=== PATIENT | female | born 1945 | race Caucasian/White ===

== ENCOUNTER → 2017-10-27 09:08 | Outpatient (CLI) | payer MEDICARE, OTHER, SELFPAY ==
[2017-10-27 11:27] LABS: Hemoglobin A1C 6.2 % (4.5-6.2)
== END ==
PROVIDERS: PCP Emergency Medicine; Visit Provider Emergency Medicine
DX: E11.9 Type 2 diabetes mellitus without complications (principal)
CPT/HCPCS: 36415; 83036

== ENCOUNTER 2018-04-11 10:06 | Outpatient (CLI) | payer MEDICARE, OTHER, SELFPAY ==
[2018-04-11 11:45] LABS: Hemoglobin A1C 6.4 % (4.5-6.2)
[2018-04-11 11:50] LABS: BUN 18 mg/dL (7-18); CREATININE 1.02 mg/dL (0.55-1.02); Calcium 9.8 mg/dL (8.5-10.1); Chloride 100 mmol/L (98-107); Cholesterol 171 mg/dL (50-200); Estimated GFR 53.27 (mL/min/1.73m2); Glucose 124 mg/dL (70-100); HDL Cholesterol 59 mg/dL (40-60); LDL CHOLESTEROL 84 mg/dL (<100); Sodium 139 mmol/L (136-145); Triglyceride 136 mg/dL (30-150)
[2018-04-11 13:49] LABS: COMMENT (LAB VIEW ONLY) 90.29 mg/dL; Microalb ug/mg Crea 5.9 ug/mg Cr
== END 2018-04-11 10:26 ==
PROVIDERS: PCP Emergency Medicine; Visit Provider Emergency Medicine
DX: I10 Essential (primary) hypertension (principal); E11.9 Type 2 diabetes mellitus without complications
CPT/HCPCS: 36415; 80048; 80061; 83721; 82043; 82570; 83036

== ENCOUNTER 2018-04-24 00:03 | Outpatient (CLI) | payer MEDICARE, OTHER, SELFPAY ==
--- NOTE | 2018-04-24 11:40 | DI.MAMMO_ITS ---
SYMPTOM/DIAGNOSIS: SCREENING, Z12.31 MAMMOGRAMS: Mammograms were interpreted according to the usual protocol including computer analysis with CAD system, tomosynthesis and C view imaging. Comparison is made with prior examinations. Breast density, Category C. No suspicious masses or microcalcifications are seen. There are scattered calcifications in both breasts which appear stable. Skin and axilla are unremarkable,. IMPRESSION: No evidence for malignancy. Yearly mammography is recommended. Category 1. MQSA ASSESSMENT OF FINDINGS: Negative. Category 1. Patient will receive a letter notifying them of these results. Bi-RADS category C. The breasts are heterogeneously dense, which may obscure small masses.
== END 2018-04-24 00:23 ==
PROVIDERS: PCP Emergency Medicine; Visit Provider Emergency Medicine
DX: Z12.31 Encounter for screening mammogram for malignant neoplasm of breast (principal)
CPT/HCPCS: 77063; 77067

== ENCOUNTER 2018-12-12 01:32 | Outpatient (CLI) | payer MEDICARE, OTHER, SELFPAY ==
--- NOTE | 2018-12-12 07:54 | DI.RAD_ITS ---
EXAM: XR CHEST 2V PA LATERAL INDICATION: dyspnea on exertion, R06.09. COMPARISON: No exams were available for comparison TECHNIQUE: 2D digital imaging was performed. FINDINGS: The lungs are well expanded and free of infiltrate. There is no pleural effusion. The heart is not en larged. The hilar structures, mediastinum and tracheal air column are intact. IMPRESSION: No evidence of acute cardiopulmonary disease.
== END 2018-12-12 01:52 ==
PROVIDERS: PCP Emergency Medicine; Visit Provider Emergency Medicine
DX: R06.09 Other forms of dyspnea (principal)
CPT/HCPCS: 71046

== ENCOUNTER 2018-12-24 00:17 | Outpatient (CLI) | payer MEDICARE, OTHER, SELFPAY ==
--- NOTE | 2018-12-24 06:50 | DI.NM_ITS ---
APPROVED REPORT Exam: Exercise Treadmill Patient Location: Out-Patient Stress Nurse: Nuria Woods RN Baseline Rhythm: Sinus rhythm BMI: 36.75 Indications: Six months of without any other associated symptoms. Medical History Medical History: HTN, Obesity , Diabetes Cardiac Medications: Aspirin, Atenolol, Hydrochlorothiazide, Losartan, Amlodipine, Allergies: Lisinopril, codeine, metformin Cardiac Risk Factors: HTN, DM, FHX of CAD Pretest Chest Pain Characteristics: No chest pain Exercise History: Physically active Lung Sounds: Clear to auscultation Heart Sounds: Regular Stress Test Details Test: Exercise stress testing was performed using a Theo protocol. Nuclear Acquisition: Rest Tc-99m/Stress Tc-99m 1 day Rest Isotope: Tc-99m Sestamibi. Dose: 11 Date: 12/24/2018 Injection Time: 0825 Stress Isotope: Tc-99m Sestamibi. Dose: 33.3 Date: 12/24/2018 Injection Time: 0950 HR Max Heart Rate (APMHR): 148 bpm Target HR (85% APMHR): 125 bpm Max HR Achieved: 145 bpm % of APMHR: 97 HR response to stress: Normal HR response to stress BP BP response to stress: Normal blood pressure response to stress. ECG Resting ECG: Sinus Rhythm ST Change: Normal Ectopy: PVCs Stress ECG: Sinus Tachycardia ST Change: none Arrhythmia: VPC's Recovery ECG: Sinus Rhythm Clinical Reason for Termination: Fatigue Exercise duration: 5 min13 sec Highest Stage Achieved: Stage 2: 2.5 mph at 12% grade. Exercise capacity: 7.05 METs Functional Capacity: Above average capacity Stress ECG Conclusion 1. Patient demonstrated good exercise capacity. 2. This represents a maximal stress test. 3. There is no evidence of ischemia on EKG portion of exam. Test Summary Standing 0 0 93 150/80 97 1 03:00 10 1.7 122 4.64 168/82 2 02:12 12 2.5 143 7.05 180/94 Immediate Recovery 120 198/102 1 Minute Recovery 86 178/86 3 Minutes of Recovery 85 164/86 6 Minutes of Recovery 90 140/78 9 Minutes of Recovery MPI Conclusion There is no evidence of ischemia on myocardial perfusion. ???Ejection fraction 36% without 3 TID ???This represents a normal perfusion study ???The Pickard Score ( 5) estimates an annual cardiovascular mortality of 1% and a five year survival of 94% Using the Pickard Score there is a low probability of any angiographic coronary disease.
== END 2018-12-24 00:37 ==
PROVIDERS: PCP Emergency Medicine; Visit Provider Emergency Medicine
DX: R06.09 Other forms of dyspnea (principal); I10 Essential (primary) hypertension; E66.9 Obesity, unspecified; Z82.49 Family history of ischemic heart disease and other diseases of the circulatory system
CPT/HCPCS: 78452; 93016; 93018; 93017

== ENCOUNTER 2019-01-24 02:18 | Outpatient (CLI) | payer MEDICARE, OTHER, SELFPAY ==
--- NOTE | 2019-01-24 14:12 | DI.CT_ITS ---
EXAM: CT LUMBAR SPINE WO CLINICAL HISTORY: SPINAL STENOSIS M48.00 TECHNIQUE: WO CONTRAST COMPARISON: No exams were available for comparison FINDINGS: At L5-S1, there is a vacuum disc, degenerative change of the facet joints, and endplate osteophytes. The findings result in moderate bilateral neural foraminal stenosis. There is mild narrowing of the central spinal canal. At L4-L5, there is a vacuum disc, degenerative facet arthropathy and endplate osteophytes. There is moderately severe narrowing of the central spinal canal. There is moderately severe bilateral neural foraminal stenosis. At L3-L4, there is a vacuum disc, degenerative facet arthropathy, and endplate osteophytes. There is a diffuse disc bulge. These findings all contribute to cause severe central spinal canal stenosis. There is severe bilateral neural foraminal stenosis. At L2-L3, there is a vacuum disc, facet arthropathy and endplate osteophytes. There is a mild diffus e disc bulge. There is mild central spinal canal stenosis. There is mild bilateral neural foraminal stenosis. At L1-L2, there is a vacuum disc, endplate osteophytes and facet arthropathy. No significant central spinal canal stenosis or neural foraminal stenosis is present. Degenerative changes are seen at the sacroiliac joints bilaterally. No ankylosis or erosive changes are seen. There is no spondylolysis or spondylolisthesis. Note is made of colonic diverticulosis. There is atherosclerosis of the abdominal aorta. IMPRESSION: Multilevel degenerative changes in the lumbar spine. The findings result in multilevel central spina l canal and neural foraminal stenosis as described above.
== END 2019-01-24 02:38 ==
PROVIDERS: PCP Emergency Medicine; Visit Provider Emergency Medicine
DX: M48.061 Spinal stenosis, lumbar region without neurogenic claudication (principal); M51.36 Other intervertebral disc degeneration, lumbar region; M47.816 Spondylosis without myelopathy or radiculopathy, lumbar region
CPT/HCPCS: 72131

== ENCOUNTER 2019-02-15 00:40 | Outpatient (CLI) | payer MEDICARE, SELFPAY ==
--- NOTE | 2019-02-15 14:32 | DI.MRI_ITS ---
EXAM: MR LUMBAR SPINE WO CLINICAL HISTORY: bilateral leg weakness. Severe spinal stenosis, R29.898. TECHNIQUE: Multiplanar multisequence MRI was performed. COMPARISON: CT LUMBAR SPINE WO from 01/24/2019 FINDINGS: The conus medullaris has a normal appearance and location. At L5-S1 there are degenerative endplate signal changes. There is disc desiccation. There is a smal l diffuse disc bulge. Degenerative changes of the facet. There is mild narrowing of the central spi nal canal. Marked bilateral neural foraminal stenosis is present. At L4-L5 there is disc desiccation. There is diffuse disc bulge. There are hypertrophic changes of the facets and ligamentum flavum. There is moderate central spinal canal stenosis. There is moderat e bilateral neural foraminal stenosis. At L3-L4 there is disc desiccation. Endplate degenerative signal changes are present. There is a di ffuse disc bulge. There are hypertrophic changes of the facet and ligamentum flavum. These all cont ribute to cause marked central spinal canal stenosis. Moderately severe bilateral neural foraminal s tenosis is present. At L2-L3 there is degenerative disc disease. There are endplate degenerative signal changes present. There are degenerative changes of the facets and ligamentum flavum. There is moderately severe reba tral spinal canal stenosis. Moderate bilateral neural foraminal stenosis is present. At L1-L2 there is disc desiccation. There are degenerative endplate signal changes. There is a diff use disc bulge. There is mild narrowing of the central spinal canal. Degenerative changes of the fa cets are present. Mild narrowing of the left neural foramen is present. IMPRESSION: Multilevel severe degenerative changes in the lumbar spine resulting in central spinal canal and neur al foraminal stenosis as described above.
== END 2019-02-15 01:00 ==
PROVIDERS: PCP Emergency Medicine; Visit Provider Emergency Medicine
DX: R29.898 Other symptoms and signs involving the musculoskeletal system (principal); M48.07 Spinal stenosis, lumbosacral region; M51.37 Other intervertebral disc degeneration, lumbosacral region
CPT/HCPCS: 72148

== ENCOUNTER 2019-03-18 11:25 | Outpatient (CLI) | payer MEDICARE, SELFPAY ==
[2019-03-18 12:40] LABS: Abs Immature Grans 0.01 k/cumm (0.0-0.09); Absolute Basophil Count 0.06 k/cumm (0.0-0.2); Absolute Eosinophil Count 0.23 k/cumm (0.0-0.7); Absolute Lymphocyte Count 1.98 k/cumm (1.2-3.4); Absolute Monocyte Count 0.46 k/cumm (0.11-0.7); Absolute Neutrophil Count 4.99 k/cumm (1.2-6.7); Basophils % 0.8; HCT 41.9 % (36.0-46.0); HGB 14.4 g/dL (12.0-15.5); Immature Grans % 0.1 %; Lymphocytes % 25.6; Mean Corp. HGB Concentration 34.4 g/dL (32.0-36.0); Mean Corpuscular Hemoglobin 30.3 pg (27.0-33.0); Mean Platelet Volume 11.4 fL (8.0-11.0); Neutrophils % 64.5; Platelet Count 204 x1000/uL (130-400); RBC 4.76 m/cumm (4.00-5.20); RBC Distribution Width 13.8 % (11.7-14.6); White Blood Cell Count 7.73 k/cumm (4.4-10.8)
[2019-03-18 13:00] LABS: ALT 34 U/L (14-59); AST 15 U/L (15-37); Albumin 3.8 g/dL (3.4-5.0); Alkaline Phosphatase 64 U/L (46-116); Anion Gap 10.4 mmol/L (3-11); BUN 24 mg/dL (7-18); Bilirubin, Total 0.7 mg/dL (0.2-1.0); CO2 28.6 mmol/L (21.0-32.0); CREATININE 1.06 mg/dL (0.55-1.02); Calcium 9.8 mg/dL (8.5-10.1); Chloride 102 mmol/L (98-107); Estimated GFR 50.81 (mL/min/1.73m2); Glucose 123 mg/dL (74-106); Potassium 3.7 mmol/L (3.5-5.1); Sodium 141 mmol/L (136-145); Total Protein 7.3 g/dL (6.4-8.2)
[2019-03-18 13:03] LABS: Hemoglobin A1C 6.6 % (3.8-5.6)
== END 2019-03-18 11:45 ==
PROVIDERS: PCP Emergency Medicine; Visit Provider Internal Medicine
DX: I10 Essential (primary) hypertension (principal); E11.9 Type 2 diabetes mellitus without complications; R50.9 Fever, unspecified; Z01.818 Encounter for other preprocedural examination
CPT/HCPCS: 36415; 80053; 83036; 85025

== ENCOUNTER 2019-03-19 03:37 | Outpatient (CLI) | payer MEDICARE, SELFPAY | END 2019-03-19 03:57 | PROVIDERS: PCP Emergency Medicine; Visit Provider Internal Medicine | DX: I48.91 Unspecified atrial fibrillation (principal) | CPT/HCPCS: 93225 ==

== ENCOUNTER 2019-03-22 08:22 | Outpatient (CLI) | payer MEDICARE, SELFPAY ==
--- NOTE | 2019-03-22 10:46 | DI.US_ITS ---
APPROVED REPORT EXAM: Comprehensive 2D, Doppler, and color-flow Echocardiogram Patient Location: Out-Patient Property Worker: Dominique Rice RDCS (AE) Indications: Atrial Fibrillation, SOB Conclusion Left Ventricle : The left ventricle is normal size. The left ventricular systolic function is normal . The left ventricular ejection fraction is within the normal range. Left ventricular systolic functi on is mildly decreased. Borderline concentric left ventricular hypertrophy. There is normal LV segme ntal wall motion. Cannot fully quantify diastolic function given the atrial fibrillation. LVEF is 40- 44%. Right Ventricle : The right ventricle is normal size. The right ventricular systolic function is norm al. Atria : Left atrium is dilated. The right atrium size is normal. Aortic Valve : Aortic valve is trileaflet. Mild aortic regurgitation. There is no aortic valvular wisam nosis. Mitral Valve : The mitral valve is normal in structure. Moderate mitral regurgitation. No evidence of mitral valve stenosis. Tricuspid Valve : The tricuspid valve is normal in structure. Mild to moderate tricuspid regurgitatio n. There is no tricuspid valve stenosis. Great Vessels : The aortic root is mildly dilated (3.4cm) The ascending aorta size is dilated (3.4cm ). The IVC was not visualized. There is no prior echocardiogram available for comparison. Wall motion Left Ventricle The left ventricle is normal size. The left ventricular systolic function is normal. The left ventric ular ejection fraction is within the normal range. Left ventricular systolic function is mildly decre ased. Borderline concentric left ventricular hypertrophy. There is normal LV segmental wall motion. C annot fully quantify diastolic function given the atrial fibrillation. LVEF is 40-44%. Right Ventricle The right ventricle is normal size. The right ventricular systolic function is normal. Atria Left atrium is dilated. The right atrium size is normal. Aortic Valve Aortic valve is trileaflet. There is no aortic valvular stenosis. Mild aortic regurgitation. Mitral Valve The mitral valve is normal in structure. No evidence of mitral valve stenosis. Moderate mitral regurg itation. Tricuspid Valve The tricuspid valve is normal in structure. There is no tricuspid valve stenosis. Mild to moderate tr icuspid regurgitation. Pulmonic Valve Pulmonic valve is not well visualized. There is no pulmonic valvular stenosis. Trace pulmonic regurgi tation. Great Vessels The aortic root is mildly dilated (3.4cm) The ascending aorta size is dilated (3.4cm). The IVC was no t visualized. Pericardium There is no pericardial effusion. 2D Dimensions IVSd 1.05 cm F: 0.6-1.0 LV EDV A2C 88.5 mL PWd 1.05 cm F: 0.6 - 1.0 LV EDV A4C 93.2 mL LVDd 4.85 cm F: 3.8 - 5.2 LA Volume Index Biplane 45.0 mL/m2 LVDs 3.40 cm F: 2.2 - 3.5 LA Area A4C 25.51 cm2 Aortic Root 3.40 cm F: 2.7 - 3.3 LA Area A2C 25.32 cm2 Left Atrium 4.87 cm F: 2.7 - 3.8 EF AP4 45.9 % RA Area A4C 19.52 cm2 EF AP2 44.4 % LVOT 2.00 cm (M/F) 1.5-2.5 EF BP 44.8 % Ascending Aorta 3.38 cm F: 2.3 - 3.1 LVEF (Teich) 56.3 % LVEF (Cordova's) 44.77 % F: 54 - 74 LV Volume 69.15 mL F: 46 - 106 LV Volume Index 36.20 mL/m2 F: 29 - 61 FS 29.50 % LV Diastology MV E' medial 0.049 (>0.07 m/s) LV E/e MED 16.60 (<14) Aortic Valve LVOT Area 3.25 cm2 LVOT Vmax 0.87 m/s LVOT Mean Ronak. 0.49 m/s LVOT Peak Gr. 3.0 mmHg AoV Area Vmax 2.18 cm2 LVOT Mean Gr. 1.2 mmHg AoV Area/ BSA (Vmax) 1.14 cm2/m2 LVOT VTI 0.124 m MIRANDA Mean Ronak. 0.00 m/s AoV Vmax 1.29 (0.5-1.3 m/s) MIRANDA Mean Ronak. Index 0.90 cm2/m2 AoV Mean Ronak. 0.93 m/s AoV Peak Grad 6.7 mmHg LVOT SV 40.34 mL AoV Mean Grad 3.8 (<5 mmHg) AoV VTI 0.208 (0.18-0.25 m) AV Regurg Decel. 2968 msec AoV Area VTI 1.93 (2.5-4.5 cm2) AoV Area/ BSA (VTI) 1.01 cm/m2 Mitral Valve MV E Max Ronak. 0.81 (0.4-1.3 m/s) MV Decel. Time 165 (160-240 msec) MV PHT 48 msec MVA PHT 4.55 cm2 Tricuspid Valve TV Regurg Vmax 2.07 m/s RAP Estimate 3.00 mmHg TR P. Gradient 17.1 mmHg RVSP 20.2 mmHg
== END 2019-03-22 08:42 ==
PROVIDERS: PCP Emergency Medicine; Visit Provider Internal Medicine
DX: I48.91 Unspecified atrial fibrillation (principal); R06.02 Shortness of breath; R06.09 Other forms of dyspnea; I10 Essential (primary) hypertension
CPT/HCPCS: 93306

== ENCOUNTER 2019-03-22 09:29 | Outpatient (CLI) | payer MEDICARE, SELFPAY ==
--- NOTE | 2019-03-22 11:32 | W.HOLTRPT ---
Date of service: 03/22/19 Time of Service: 11:32 Holter Monitor Report Holter Monitor Note: There is a 48-hour Holter monitor ordered for the indication of atrial fibrillation. ?Patient was in atrial fibrillation for the entirety of the recording. ?Her maximal heart rate was 205bpm and mean heart rate was 95. ?There were no episodes of ventricular tachycardia. ?There were occasional (3.4%) single ventricular ectopic beats. ?There is no evidence of high degree heart block or pauses greater than 3 seconds. ?There were no patient triggered events.
== END 2019-03-22 09:49 ==
PROVIDERS: PCP Emergency Medicine; Visit Provider Internal Medicine
DX: I48.91 Unspecified atrial fibrillation (principal); R06.02 Shortness of breath; R06.09 Other forms of dyspnea; I10 Essential (primary) hypertension
CPT/HCPCS: 93227; 93306; 93226

== ENCOUNTER → 2019-04-01 08:29 | Outpatient (BNVA) | payer MEDICARE, SELFPAY | PROVIDERS: PCP Emergency Medicine; Referring Provider Emergency Medicine; Visit Provider Internal Medicine Cardiovascular Disease | DX: R69 Illness, unspecified (principal) ==

== ENCOUNTER 2019-04-01 08:34 | Outpatient (CLI) | payer MEDICARE, SELFPAY | END 2019-04-01 08:54 | PROVIDERS: PCP Emergency Medicine; Visit Provider Internal Medicine Cardiovascular Disease | DX: I48.91 Unspecified atrial fibrillation (principal); I42.9 Cardiomyopathy, unspecified; E11.9 Type 2 diabetes mellitus without complications; Z79.84 Long term (current) use of oral hypoglycemic drugs; I10 Essential (primary) hypertension; Z01.810 Encounter for preprocedural cardiovascular examination | CPT/HCPCS: 99204; 99215; 93005; 93010 ==

== ENCOUNTER 2019-08-19 15:16 | Inpatient (IN) | payer MEDICARE, SELFPAY ==
[2019-08-19] VITALS (74 sets, daily range): BP systolic 139–159; BP diastolic 80–110; PULSE 68–119; RESP 16–37; TEMP 37–37.4; O2SAT 92–97
--- NOTE | 2019-08-19 15:45 | DI.RAD_ITS ---
EXAM: XR CHEST 2V PA LATERAL CLINICAL HISTORY: SOB TECHNIQUE: 2D digital imaging was performed. COMPARISON: CR XR CHEST 2V PA LATERAL from 12/12/2018 FINDINGS: The heart is enlarged, unchanged. The aorta is mildly ectatic. The lungs appear clear. No infiltra te, effusion or pulmonary edema is seen. Degenerative changes are noted in the spine. IMPRESSION: Cardiomegaly. No acute pulmonary findings. DATA REPOSITORY: RADIATION DOSE DELIVERED:
--- NOTE | 2019-08-19 15:56 | ED.GENADUL_ITS ---
Discharge Plan Disposition Condition: Good Discharge Details Chief Complaint: SOB Admit Date/Time: 08/20/19 22:26 Admit Provider: Tyrone Aquino Attending Provider: Tyrone Aquino Primary Care Provider: Sukhdeep Fisher ED Provider: Jodie Long Discharge Instructions Activity:: Activity as Tolerated Equipment/Supplies:: No Equipment Needed Diet:: Low Sodium Discharge Orders Discharge Orders: Discharge Order (Routine); Ordered 08/22/19 Ordered By: Kostas Mtz Discharge Data Discharge Date/Time-TO BE ENTERED AT DEPARTURE: 08/19/19 18:40 Medical Decision Making Kaleigh Fox is a 74 y/o woman who presented to the emergency department with SOB worsening in the past few days. On exam Pt with mild tachycardia 90-110, clear lungs, trace b/l CHASE. Concern for ACS, CHF, PNA, other. Doubt PE. Exam/hx not /c/w acute aortic process, sepsis. Plan for EKG, CXR, screening labs, telemetry. Labs reviewed, BNP elevated, trop neg. CXR neg. Suspect CHF at this time. Plan for admission for improved rate control of afib, CHF management. Clinical Impression: CHF, afib with RVR Disposition: [facility] inpt Medical Records Medical records reviewed: Yes I reviewed the patient's medical records. Imaging Data Radiologic Study: Attestation: I personally reviewed and interpreted this imaging study as follows: Radiologist's impression: EXAM: XR CHEST 2V PA LATERAL CLINICAL HISTORY: SOB TECHNIQUE: 2D digital imaging was performed. COMPARISON: CR XR CHEST 2V PA LATERAL from 12/12/2018 FINDINGS: The heart is enlarged, unchanged. The aorta is mildly ectatic. The lungs appear clear. No infiltrate, effusion or pulmonary edema is seen. Degenerative changes are noted in the spine. IMPRESSION: Cardiomegaly. No acute pulmonary findings. Lab Data Lab results reviewed: Yes I reviewed the patient's lab results. ECG Data Attestation: I personally reviewed and interpreted this ECG (s) as follows: Interpretation: EKG shows atrial fibrillation at 118 with frequent PVCs, normal axis, no STEMI, nondiagnostic EKG HPI General Mode of arrival: ambulatory . Date/Time Provider Initiated Documentation: 08/19/19 15:33 . Limitations to Documentation: no limitations . Information obtained by: patient, RN notes reviewed and old records reviewed . HPI Narrative: Kaleigh lagunas a is a 74-year-old woman with a history of A. fib, cardiomyopathy, hypertension on Eliquis presenting to the emergency department shortness of breath. Patient reports that she has been short of breath for the past few months, but this seems worse in the past few days. Patient reports that her metoprolol dose was increased approximately 1 week ago. She was diagnosed with atrial fibrillation within the last few months. Patient relates that the last few nights sleeping in her bed is been difficult due to shortness of breath, and last night she got up and walked around her house for few hours before being able to go to sleep. She also reports some shortness of breath with exertion. She reports mild intermittent cough over the past few months unchanged, and mild swelling of her legs that seems new in the past week or 2. Patient denies any new pain, fever, vomiting, diarrhea, numbness, weakness. Patient reports that she feels otherwise well in her usual state of health. Eating and drinking as usual. Related Data Home Medications Medication Instructions Recorded Confirmed Calcium 600 + D(3) 1 tab PO DAILY 02/18/14 08/19/19 Ocuvite with Lutein 1 tab PO DAILY 02/18/14 08/19/19 blood-glucose meter #100 each 06/12/18 08/07/19 lancets 28 gauge #100 ea 06/12/18 08/07/19 blood sugar diagnostic #100 each 03/18/19 08/07/19 magnesium oxide 400 mg PO DAILY 03/18/19 08/19/19 apixaban 5 mg tablet 5 mg PO BID #180 tab 03/20/19 08/19/19 glipizide 5 mg tablet, extended 5 mg PO DAILY #90 tab-cap 03/20/19 08/19/19 release 24 hr diltiazem HCl 120 mg PO HS #30 cap 08/22/19 furosemide 40 mg PO QAM #30 tab 08/22/19 losartan 100 mg PO DAILY #30 tab 08/22/19 metoprolol succinate [Toprol XL] 200 mg PO DAILY #30 tab 08/22/19 potassium chloride [Klor-Con M20] 20 meq PO BID #60 tab 08/22/19 Previous Rx's Medication Instructions Recorded blood-glucose meter #100 each 06/12/18 lancets 28 gauge #100 ea 06/12/18 blood sugar diagnostic #100 each 03/18/19 apixaban 5 mg tablet 5 mg PO BID #180 tab 03/20/19 glipizide 5 mg tablet, extended 5 mg PO DAILY #90 tab-cap 03/20/19 release 24 hr diltiazem HCl 120 mg PO HS #30 cap 08/22/19 furosemide 40 mg PO QAM #30 tab 08/22/19 losartan 100 mg PO DAILY #30 tab 08/22/19 metoprolol succinate [Toprol XL] 200 mg PO DAILY #30 tab 08/22/19 potassium chloride [Klor-Con M20] 20 meq PO BID #60 tab 08/22/19 Allergies Allergy/AdvReac Type Severity Reaction Status Date / Time lisinopril AdvReac Severe COUGH Verified 08/19/19 15:27 codeine AdvReac Intermediate Nausea Verified 08/19/19 15:27 metformin AdvReac Intermediate diarrhea Verified 08/19/19 15:27 General Stated Complaint: SOB KAILYN: 2 Review of Systems Narrative: Constitutional: denies fevers Eyes: denies eye pain ENT: denies ear pain, dental pain, sore throat Cardiovascular: denies chest pain, reports lower leg edema Respiratory: reports SOB, cough GI: denies abdominal pain, vomiting, diarrhea : denies flank pain MSK: denies back pain, neck pain, arthralgias, myalgias Skin: denies rash Neuro: denies headaches, numbness, weakness PFSH Medical History Cystocele (Acute 06/24/14) Diabetes mellitus (Acute) Hypertension (Chronic) Infection resistant to penicillin (Acute) MRSA abscess x 2 Kidney stone (Acute) Obesity (Chronic) Paroxysmal SVT (supraventricular tachycardia) (Acute 02/15/17) zio patch Polyp of colon (Acute 02/03/04) Spinal stenosis (Acute) 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 Surgery 02/16. Vaginal Hyst. Surgical History H/O surgical procedure (Acute) a. MINDA/BSO with colporrhaphy and cystocele repair 02/20/2014 b. colonoscopy Oophrectomy, Both (02/20/14) TVH, BSO with R sided uterosacral ligament suspension with Anterior Coloporrhapy. EP/aoc Vaginal hysterectomy Family History Mother Diabetes Father Heart disease Diabetes Sister , AGE 85 Cancer Diabetes Heart disease Sister , AGE 51 Heart disease Sister , AGE 84 Diabetes Heart disease Brother , AGE 34 No problems noted. Brother , AGE 82 Diabetes Heart disease Social History Smoking/Tobacco Use Status: Former Tobacco Use Quit Date: 03/06/81 Alcohol Intake: never Drug use: Never Substance use type: does not use Household members: spouse Housing: house Pets and animals: Yes Pets and animals: dog(s) Sexually active: No Do you think of yourself as: straight/heterosexual Current gender identity: female What type of physical activity do you participate in: none Frequency: does not exercise Radha/Mosque: Alevism Special radha needs: No Do you feel safe at home: Yes Do you feel safe in your relationship?: Yes Exam Narrative Exam Narrative: Constitutional: well and [id number], pleasant, conversing normally HENT: head atraumatic/normocephalic/normal inspection, mucous membranes moist Eyes: conjunctiva normal, sclera normal, pupils 3mm b/l Neck: no stridor, normal ROM, trachea midline Chest: normal inspection Resp: normal work of breathing, LCTAB Cardio: rate 90-110, irregularly irregular rhythm, no murmur appreciated GI: abdomen soft, non-tender, non-distended Back: normal inspection, no rash Skin: warm, dry, normal color, no rash Neuro: alert, not altered, grossly non-focal, normal tone Ext: trace LE edema b/l, no calf TTP b/l Psych: normal mood, normal affect, normal behavior Course Vital Signs Vital signs: Vital Signs Temperature 37.0 C 08/19/19 15:22 Pulse 119 H 08/19/19 15:22 Respiratory Rate 20 08/19/19 15:22 Pulse Oximetry 97 08/19/19 15:22 Temperature 37.0 C 08/19/19 15:22 Temperature Source Temporal Artery Scan 08/19/19 15:22 Pulse 119 H 08/19/19 15:22 Respiratory Rate 20 08/19/19 15:29 Respiratory Effort 08/19/19 15:29 Blood Pressure Position Supine 08/19/19 15:22 Pulse Oximetry 97 08/19/19 15:22 Oxygen Delivery Method Room Air 08/19/19 15:22 Oxygen Flow Rate 0 08/19/19 15:22 Pain Level 0 08/19/19 15:22
[2019-08-19 16:13] LABS: Abs Immature Grans 0.01 k/cumm (0.0-0.09); Absolute Basophil Count 0.03 k/cumm (0.0-0.2); Absolute Eosinophil Count 0.15 k/cumm (0.0-0.7); Absolute Lymphocyte Count 1.57 k/cumm (1.2-3.4); Absolute Neutrophil Count 5.05 k/cumm (1.2-6.7); Basophils % 0.4; Eosinophils % 2.1; HCT 38.9 % (36.0-46.0); HGB 13.2 g/dL (12.0-15.5); Immature Grans % 0.1 %; Lymphocytes % 21.5; Mean Corp. HGB Concentration 33.9 g/dL (32.0-36.0); Mean Corpuscular Hemoglobin 30.2 pg (27.0-33.0); Mean Platelet Volume 11.8 fL (8.0-11.0); Monocytes % 6.8; Neutrophils % 69.1; Platelet Count 159 x1000/uL (130-400); RBC 4.37 m/cumm (4.00-5.20); RBC Distribution Width 13.6 % (11.7-14.6); White Blood Cell Count 7.31 k/cumm (4.4-10.8)
[2019-08-19 16:32] LABS: ALT 115 U/L (14-59); AST 42 U/L (15-37); Albumin 3.8 g/dL (3.4-5.0); Alkaline Phosphatase 62 U/L (46-116); Anion Gap 7.9 mmol/L (3-11); BUN 13 mg/dL (7-18); Bilirubin, Total 0.7 mg/dL (0.2-1.0); CO2 28.1 mmol/L (21.0-32.0); CREATININE 0.83 mg/dL (0.55-1.02); Calcium 9.4 mg/dL (8.5-10.1); Chloride 103 mmol/L (98-107); Glucose 112 mg/dL (74-106); NT-proBNP 2464 pg/mL (<300); Potassium 3.7 mmol/L (3.5-5.1); Sodium 139 mmol/L (136-145); Total Protein 7.3 g/dL (6.4-8.2)
--- NOTE | 2019-08-19 16:33 | DI.VRAD_ITS ---
PROCEDURE INFORMATION: Exam: XR Chest, 2 Views Exam date and time: 08/19/2019 4:13 PM Age: 74 years old Clinical indication: Shortness of breath; Patient HX: SOB TECHNIQUE: Imaging protocol: XR of the chest Views: 2 views. COMPARISON: CR XR CHEST 2V PA LATERAL 12/12/2018 8:01 AM FINDINGS: Lungs: Unremarkable. No consolidation. Pleural space: Unremarkable. No pleural effusion. No pneumothorax. Heart/Mediastinum: Unremarkable. No cardiomegaly. Bones/joints: Degenerative changes in the spine. IMPRESSION: No acute finding. Dictated and Authenticated by: Celestina Macedo MD. Ordering:GURVINDER Feliciano MD
[2019-08-19 16:38] LABS: Troponin I < 0.05 ng/mL (<0.06)
[2019-08-19 16:45] LABS: D-Dimer 887 ng/mlFEU (<500)
[2019-08-19] MEDS: Furosemide 40 MG/4 ML VIAL IVP (17:16)
[2019-08-19 17:28] LABS: Bilirubin Negative (Negative); Blood Negative (Negative); Clarity Clear (Clear); Glucose Negative (Negative); Ketones Negative (Negative); Leukocyte Esterase Negative (Negative); Nitrite Negative (Negative); Urobilinogen 0.2 EU/dL (Up TO 0.2); pH 6.5 (5-8)
--- NOTE | 2019-08-19 18:15 | HPE_ITS ---
Date of service: 08/19/19 Time of Service: 18:15 Assessment and Plan Assessment and plan (1) SOB (shortness of breath): Status: Acute Assessment and plan: SOB. Not entirely clear, but I think the most c oherent diagnosis is exacerbation of CHF, unclear precipitant, but possibly relating to RVR (I definitely do not think recent increase Lopressor responsible as patient has certainly not had florid pulmonary edema, but will keep this consideration in mind as we titrate for better rate control). The minimal d- Dimer, corrected for age, is of doubtful significance and at this point I do not see clinical need to pursue dx of PE. CHF: trial Lasix, trend troponins, repeat ECHO, titrate Lopressor for target HR approximately 80 ADs: Reviewed, requests DNR. History of Present Illness History of Present Illness Chief Complaint: SOB Narrative: 74 female with h/o AF, dx'ed 04/25, and CHF (EF 40-44%, and unquantifiable diastolic dysfunction). Since has had a degree of baseline SOB. One week [employer] Lopressor increased due to RVR. Comes in now with 1-2 days increasing SOB, along with one day orthopnea. No CP, denies ankle swelling. In ER findings of note for neg troponin, no acute change EKG, CXR read as normal (to my read perhaps slight cephalization), and BNP >2400. d-Dimer 887. Patient given 40 Lasix IV. Review of Systems All systems reviewed & are unremarkable except as noted in HPI and below PFSH Medical History Cystocele (Acute 06/24/14) Diabetes mellitus (Acute) Hypertension (Chronic) Infection resistant to penicillin (Acute) MRSA abscess x 2 Kidney stone (Acute) Obesity (Chronic) Paroxysmal SVT (supraventricular tachycardia) (Acute 02/15/17) zio patch Polyp of colon (Acute 02/03/04) Spinal stenosis (Acute) 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 Surgery 02/16. Vaginal Hyst. Surgical History H/O surgical procedure (Acute) a. MINDA/BSO with colporrhaphy and cystocele repair 02/20/2014 b. colonoscopy Oophrectomy, Both (02/20/14) TVH, BSO with R sided uterosacral ligament suspension with Anterior Coloporrhapy. EP/aoc Vaginal hysterectomy Family History Mother Diabetes Father Heart disease Diabetes Sister , AGE 85 Cancer Diabetes Heart disease Sister , AGE 51 Heart disease Sister , AGE 84 Diabetes Heart disease Brother , AGE 34 No problems noted. Brother , AGE 82 Diabetes Heart disease Social History Smoking/Tobacco Use Status: Former Tobacco Use Quit Date: 03/06/81 Alcohol Intake: never Drug use: Never Substance use type: does not use Household members: spouse Housing: house Pets and animals: Yes Pets and animals: dog(s) Sexually active: No Do you think of yourself as: straight/heterosexual Current gender identity: female What type of physical activity do you participate in: none Frequency: does not exercise Radha/Latter-Day: Cheondoism Special radha needs: No Do you feel safe at home: Yes Do you feel safe in your relationship?: Yes Meds Home Medications and Allergies Home Medications Medication Instructions Recorded Confirmed Type calcium carbonate-vitamin D3 1 tab PO DAILY 02/18/14 08/19/19 History [Calcium 600 + Vit D Tablet] vit A,C and X-pbsbqs-bqvmhiyx 1 tab PO DAILY 02/18/14 08/19/19 History [Ocuvite Tablet] blood-glucose meter #100 each 06/12/18 08/07/19 Rx lancets 28 gauge #100 ea 06/12/18 08/07/19 Rx blood sugar diagnostic #100 each 03/18/19 08/07/19 Rx magnesium oxide 400 mg PO DAILY 03/18/19 08/19/19 History amlodipine 5 mg tablet 5 mg PO HS #90 tab 03/20/19 08/19/19 Rx apixaban 5 mg tablet 5 mg PO BID #180 tab 03/20/19 08/19/19 Rx glipizide 5 mg tablet, extended 5 mg PO DAILY #90 tab-cap 03/20/19 08/19/19 Rx release 24 hr losartan 50 mg tablet 50 mg PO DAILY #90 tab-cap 03/20/19 08/19/19 Rx metoprolol succinate 50 mg 50 mg PO DAILY #90 tab 03/22/19 08/19/19 Rx tablet,extended release 24 hr hydrochlorothiazide 25 mg tablet 25 mg PO DAILY #90 tab 05/20/19 08/19/19 Rx Allergies Allergy/AdvReac Type Severity Reaction Status Date / Time lisinopril AdvReac Severe COUGH Verified 08/19/19 15:27 codeine AdvReac Intermediate Nausea Verified 08/19/19 15:27 metformin AdvReac Intermediate diarrhea Verified 08/19/19 15:27 Exam Narrative Exam Narrative: 159/99, 100-118 during my visit, 37.0, 23, 93% RA. HEENT unremarkable; neck supple, unable to read JVP; lungs clear; heart irr/irr w/o MRG; abdomen soft and NT; extremities trace pedal edema, calves NT, pulse 2+/=; neuro Ox3, non-focal Results Labs Result diagrams: 08/19/19 15:45 08/19/19 15:45 Labs: Laboratory Results - last 24 hr 08/19/19 08/19/19 08/19/19 15:45 15:45 15:45 WBC 7.31 RBC 4.37 Hgb 13.2 Hct 38.9 MCV 89.0 MCH 30.2 MCHC 33.9 RDW 13.6 Plt Count 159 MPV 11.8 H Immature Gran % 0.1 Neutrophils % 69.1 Lymphocytes % 21.5 Monocytes % 6.8 Eosinophils % 2.1 Basophils % 0.4 Absolute Neutrophils 5.05 Absolute Lymphocytes 1.57 Absolute Monocytes 0.50 Absolute Eosinophils 0.15 Absolute Basophils 0.03 D-Dimer 887 H Sodium 139 Potassium 3.7 Chloride 103 Carbon Dioxide 28.1 Anion Gap 7.9 BUN 13 Creatinine 0.83 Estimated GFR/1.73 m2 >= 60.00 Glucose 112 H Calcium 9.4 Total Bilirubin 0.7 AST 42 H ALT 115 H Alkaline Phosphatase 62 Troponin I < 0.05 NT-Pro-B Natriuret Pep 2464 H Total Protein 7.3 Albumin 3.8 Urine Color Urine Clarity Urine pH Ur Specific [place] Urine Protein Urine Ketones Urine Blood Urine Nitrite Urine Bilirubin Urine Urobilinogen Ur Leukocyte Esterase Urine Glucose 08/19/19 17:15 WBC RBC Hgb Hct MCV MCH MCHC RDW Plt Count MPV Immature Gran % Neutrophils % Lymphocytes % Monocytes % Eosinophils % Basophils % Absolute Neutrophils Absolute Lymphocytes Absolute Monocytes Absolute Eosinophils Absolute Basophils D-Dimer Sodium Potassium Chloride Carbon Dioxide Anion Gap BUN Creatinine Estimated GFR/1.73 m2 Glucose Calcium Total Bilirubin AST ALT Alkaline Phosphatase Troponin I NT-Pro-B Natriuret Pep Total Protein Albumin Urine Color Yellow Urine Clarity Clear Urine pH 6.5 Ur Specific [place] 1.020 Urine Protein Negative Urine Ketones Negative Urine Blood Negative Urine Nitrite Negative Urine Bilirubin Negative Urine Urobilinogen 0.2 Ur Leukocyte Esterase Negative Urine Glucose Negative Last Vital Signs Temp 37.0 C 08/19/19 15:22 Pulse 93 H 08/19/19 16:21 Resp 23 08/19/19 16:30 BP 159/99 H 08/19/19 16:21 Pulse Ox 93 L 08/19/19 16:30 COVID-19 Screening In the past 14 days, have you traveled outside of [place] or [place]?: NO Had IN PERSON contact w/suspected or confirmed C-19 person: No
[2019-08-19 20:12] LABS: Troponin I < 0.05 ng/mL (<0.06)
[2019-08-19] MEDS: Metoprolol 12.5 MG TAB PO ×2 (20:24→22:27)
[2019-08-19] MEDS: amLODIPine 5 MG TAB PO (21:45)
[2019-08-20] VITALS (9 sets, daily range): BP systolic 112–156; BP diastolic 65–92; PULSE 62–99; RESP 17–20; TEMP 35.2–37.6; O2SAT 93–97
[2019-08-20 07:52] LABS: Troponin I < 0.05 ng/mL (<0.06)
--- NOTE | 2019-08-20 07:53 | PDOC.CMIN ---
- If Service Date Differs Date of service: 08/20/19 Time of Service: 07:54 Care Management Initial Assess REASON FOR HOSPITALIZATION:: CHF PAST MEDICAL HISTORY/PAST SURGICAL HISTORY:: DM, HTN, MRSA, obestiy, SVT, polyp of colon, spinal stenosis, uterine procidentia. Surgical hx: MINDA, oophrectomy bilat PREVIOUS FUNCTIONAL STATUS/SOCIAL/FAMILY SUPPORTS:: Kaleigh lives with her spouse Cam in [place], [place]. She is indepedent with all ADL's, transportation and care. She has two children that live local and has a good support system. 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 CURRENT FUNCTIONAL STATUS:: Kaleigh is alert and engaged she ask questions about CHF and what that means. CM provided education related to disease process and offered teaching guide CHF book to reinforce teaching. CM reviewed importance of daily weights, signs and symptoms of CHF and when to contact her provider. She states that she has a good relationship with primary care provider. Kaleigh is hopeful to be discharged tommorow. She will receive additional diuretic today, and then anticipate a daily dose. She does obtain her medications through a mail order pharmacy however reports she also uses [facility] in [place] in addition. ADVANCE DIRECTIVES:: Kaleigh has an advance directive Zulay Tracy is her agent and daughter Has patient been provided with info about the portal/API?: Yes Did the patient sign up for the portal?: No (refused ) CODE STATUS:: DNR/DNI INSURANCE COVERAGE / FINANCIAL ISSUES:: [employer], Medicare, [employer] CURRENT HOME/COMMUNITY SERVICES/EQUIPMENT:: No current services PRIMARY CARE PHYSICIAN:: POTENTIAL DISCHARGE NEEDS:: Follow up with primary care provider and cardiology which she has scheduled. PATIENT/FAMILY EDUCATION NEEDS:: Discharge education, limitations and follow up plan of care including ask me three and self management. CHF education including teaching tool. Patient states she has a scale at home. ANTICIPATED BARRIERS TO DISCHARGE:: No anticipated barriers TRANSPORTATION:: Via private car with family at time of discharge. PLAN:: Kaleigh is receiving IV diuretics, and medication adjustment. She will be discharged home with no additional services at time of discharge. CM provided educational resources and will continue to assess for ongoing discharge needs.
[2019-08-20] MEDS: glipiZIDE C.R. 5 MG TABCR PO (08:17)
[2019-08-20] MEDS: Normal Saline Flush 10 ML SYR IVP ×2 (08:17→14:54)
[2019-08-20] MEDS: Losartan 50 MG TAB PO (08:18)
[2019-08-20] MEDS: Metoprolol CR 50 MG TABCR PO (08:18)
[2019-08-20] MEDS: Calcium 600mg/Vit D 200U TAB 1 TAB PO (08:18)
[2019-08-20] MEDS: Beta-Carotene(A) w/C,E, & Minerals TAB 1 TAB PO (08:18)
[2019-08-20 08:32] LABS: COVID-19 RT-PCR UVMMC Result Negative (Negative)
--- NOTE | 2019-08-20 08:40 | DI.US_ITS ---
APPROVED REPORT EXAM: Comprehensive 2D, Doppler, and color-flow Echocardiogram Patient Location: In-Patient Room/Bed: 212 Program Evaluation Consultant: Dominique Rice RDCS (AE) Indications: CHF Other Information Study Quality: Good Conclusion Left Ventricle : The left ventricle is normal size. The left ventricular systolic function is normal. The left ventricular ejection fraction is within the normal range. There is normal left ventricular wall thickness. There is normal LV segmental wall motion. Transmitral Doppler flow pattern suggests i mpaired LV relaxation. LVEF is 42%. Right Ventricle : The right ventricle is normal size. The right ventricular systolic function is norm al. The RVSP is 22.8 mmHg. Atria : Left atrium is moderately dilated. Right atrium is moderately dilated. Aortic Valve : The Aortic valve is sclerotic. Aortic valve is trileaflet. There is no aortic valvular stenosis. Mild aortic regurgitation. Mitral Valve : There is mitral annular calcification. No evidence of mitral valve stenosis. Moderate mitral regurgitation. Tricuspid Valve : The tricuspid valve is normal in structure. There is no tricuspid valve stenosis. M ild to moderate tricuspid regurgitation. Great Vessels : IVC is normal in size and collapses >50% with inspiration. The ascending aorta is mil dly dilated. Compared to echocardiogram dated 03/22/2019: There is no significant change. Wall motion Left Ventricle The left ventricle is normal size. The left ventricular systolic function is normal. The left ventric ular ejection fraction is within the normal range. There is normal left ventricular wall thickness. T here is normal LV segmental wall motion. Transmitral Doppler flow pattern suggests impaired LV relaxa tion. There is no ventricular septal defect visualized. LVEF is 42%. Right Ventricle The right ventricle is normal size. The right ventricular systolic function is normal. The RVSP is 22 .8 mmHg. Atria Left atrium is moderately dilated. Right atrium is moderately dilated. The interatrial septum is inta ct with no evidence for an atrial septal defect. Aortic Valve The Aortic valve is sclerotic. Aortic valve is trileaflet. There is no aortic valvular stenosis. Mild aortic regurgitation. Mitral Valve There is mitral annular calcification. No evidence of mitral valve stenosis. Moderate mitral regurgit ation. Tricuspid Valve The tricuspid valve is normal in structure. There is no tricuspid valve stenosis. Mild to moderate tr icuspid regurgitation. Pulmonic Valve The pulmonary valve is normal in structure. There is no pulmonic valvular stenosis. Trace pulmonic re gurgitation. Great Vessels The aortic root is normal in size. The ascending aorta is mildly dilated. IVC is normal in size and c ollapses >50% with inspiration. Pericardium There is no pericardial effusion. 2D Dimensions IVSD d PLAX 1.01 cm F: 0.6-1.0 LV Vol A2C d MOD 79.6 mL LVPW d PLAX 1.03 cm F: 0.6 - 1.0 LV Vol A4C d MOD 98.2 mL LVID d PLAX 4.86 cm F: 3.8 - 5.2 LA vol/ BSA A2C s A-L 47.0 mL/m2 LVDs 3.70 cm F: 2.2 - 3.5 LA vol/ BSA A4C s A-L 48.6 mL/m2 Ao Root d 3.15 cm F: 2.7 - 3.3 LA Vol/ BSA Biplane s A-L 47.9 mL/m2 RA Area A4C 21.28 cm2 LA Area A4C s MOD 26.55 cm2 RA Vol/ BSA A4C s A-L 34.2 mL/m2 LA Area A2C s MOD 26.09 cm2 Ao Asc Diam d 3.43 cm F: 2.3 - 3.1 LV EF A4C MOD 41.0 % LV EF Teichholz 47.4 % LV EF A2C MOD 42.0 % LVEF ([place]'s) 40.99 % F: 54 - 74 LV EF Biplane MOD 41.0 % LV Volume 69.23 mL F: 46 - 106 SV 37.31 mL LV Volume Index 36.24 mL/m2 F: 29 - 61 SV Index 19.46 mL/m2 LV Vol Biplane MOD 91.0 mL FS 23.80 % M-Mode TAPSE 2.46 cm (M/F) >1.7 LV Diastology MV E' medial 0.060 (>0.07 m/s) MV E Vmax 1.05 (0.4-1.3 m/s) LV E/e MED 17.60 (<14) MV E' lateral 0.056 (>0.1 m/s) LV E/e LAT 18.75 (<14) MV E/E' medial 17.61 MV E/E' lateral 18.76 Aortic Valve LVOT Area 3.25 cm2 AoV Area Vmax 2.47 cm2 LVOT Vmax 0.90 m/s AoV Area/ BSA (Vmax) 1.29 cm2/m2 LVOT Mean Ronak. 0.56 m/s MIRANDA Mean Ronak. 2.03 cm2 LVOT Peak Grad 3.3 mmHg MIRANDA Mean Ronak. Index 1.06 cm2/m2 LVOT Mean Grad 1.5 mmHg AR DT 1384 msec LVOT VTI 0.160 m AR PHT 401 msec LVOT Diam s 2.00 cm AoV Vmax 1.19 m/s Velocity Ratio 0.75 AoV Mean Ronak. 0.89 m/s AoV Peak Grad 5.7 mmHg LVOT SV 51.94 mL AoV Mean Grad 3.4 mmHg AoV VTI 0.221 m AoV Area VTI 2.35 cm2 AoV Area/ BSA (VTI) 1.22 cm/m2 Mitral Valve MV DT 170 (160-240 msec) MR Vmax 5.31 m/s MV PHT 49 msec MR VTI 1.692 m MV Area PHT 4.45 cm2 MR Peak Grad 112.9 mmHg MR Mean Grad 84.0 mmHg MR PISA Radius 0.59 cm MR EROA 0.15 cm2 MR Aliasing Velocity 0.35 m/s MR PISA 2.22 cm2 Pulmonary Valve PV Vmax 0.89 (0.5-1.5 m/s) RVOT Peak Gr. 2.03 mmHg PV Peak Grad 3.2 mmHg RVOT Mean Gr. 1.05 mmHg PV Mean Grad 1.8 mmHg RVOT VTI 0.109 m PV VTI 0.135 m RVOT Vmax 0.71 m/s Tricuspid Valve TR Peak Grad 19.7 mmHg TR Vmax 2.22 m/s RA Pressure 3.00 mmHg RVSP (TR) 22.8 mmHg
--- NOTE | 2019-08-20 11:35 | CHAPLAIN ---
Kaleigh was sitting up in her chair when I visited this morning. She had an echo is waiting to hear the results of that, which is makes her a little anxious, she said. 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 She loves where she lives, she said. Kaleigh's been in touch with family and friends by phone calls and texts.
--- NOTE | 2019-08-20 13:25 | W.NUTRFU ---
Date of service: 08/20/19 Time of Service: 13:25 Nutritional Follow up NOTE: 74 year old female admitted with SOB, CHF with BMI of 41 indicating morbid obesity. Following Low Sodium diet with adequate intake. Not at risk for nutritional decline at this time. will follow prn. Time Spent in Nutritional Counseling and Treatment: 0
--- NOTE | 2019-08-20 14:21 | W.PM.PROGNOT ---
Date of Service Date of service: 08/20/19 Time of Service: 14:22 Assessment and Plan Assessment and plan (1) Acute on chronic heart failure with reduced ejection fraction and diastolic dysfunction: Status: Acute Assessment and plan: Continue IV diuretics this afternoon along with adjustment of her losartan and her metoprolol. Continue Eliquis which she has been on chronically. We will repeat her labs in the morning and switch over to oral Lasix tomorrow. will change to inpatient status as the patient will need another ovenright stay and possibly two in order to titrate up her CHF and AF medications (2) Cardiomyopathy: Status: Acute Assessment and plan: As above Qualifiers: Cardiomyopathy type: other Qualified Code(s): I42.8 - Other cardiomyopathies (3) Atrial fibrillation: Status: Chronic Assessment and plan: Control atrial fibrillation rate with adjustment of her Toprol-XL. Will use PRN IV Lopressor as needed.Continue home dose of Eliquis Qualifiers: Atrial fibrillation type: longstanding persistent Qualified Code(s): I48.11 - Longstanding persistent atrial fibrillation (4) Hypertension: Status: Chronic Assessment and plan: Adjust metoprolol and losartan along with addition of diuretics as listed above. Qualifiers: Hypertension type: essential hypertension Qualified Code(s): I10 - Essential (primary) hypertension (5) Mitral regurgitation: Status: Chronic Qualifiers: Cardiac valve disease etiology: nonrheumatic Qualified Code(s): I34.0 - Nonrheumatic mitral (valve) insufficiency Subjective Subjective Interval history since last seen: 74-year-old female with a history of essential hypertension, chronic atrial fibrillation, diastolic heart failure who recently had an adjustment of her Toprol-XL due to poorly controlled atrial fibrillation rate. She now presented to the emergency department last night with increasing dyspnea and orthopnea of a few days duration not associated with any chest pain or pressure. She was noted to be in acute congestive heart failure as noted by an elevated proBNP of 2400 with normal troponin levels and no acute ischemic ST or T wave changes. She was treated last night with 40 [address] of Lasix and Dr. Aquino gave her an additional Lopressor 25 mg last night to help with her atrial fibrillation rate. Patient states she is feeling better today but still gets dyspneic with any kind of effort. Patient's echocardiogram from this morning demonstrates normal left ventricular wall thickness and no wall motion abnormalities although there is some mild systolic impairment with a left ventricular ejection fraction 42% as well as transmitral Doppler flow pattern suggestive of impaired LV relaxation. RV size and function was normal and RVSP was normal at 22.8. Patient has moderate biatrial enlargement as well as mild MAC and moderate MR as well as mild to moderate TR. Her atrial fibrillation rate is less than optimally controlled with heart rates running in the 110s. We will give the patient more IV Lasix this afternoon and put her on scheduled doses of Lasix as well as increase of her losartan and her metoprolol. Exam Narrative Exam Narrative: Morbidly obese female in no acute distress but with some audible wheezing. She is alert and oriented person place time circumstance. Lungs reveal bibasilar rales no rhonchi there is some end expiratory wheezes. Heart is irregularly irregular and slightly tachycardic with a loud grade 4/6 systolic murmur over the apex. Abdomen is obese soft nontender no bruits. Lower extremities are without peripheral cyanosis or edema. Objective Objective Clinical Data: Abnormal lab results 08/19/19 08/19/19 08/19/19 Range/Units 15:45 15:45 15:45 MPV 11.8 H (8.0-11.0) fL D-Dimer 887 H (<500) ng/mlFEU Glucose 112 H (74-106) mg/dL AST 42 H (15-37) U/L ALT 115 H (14-59) U/L NT-Pro-B Natriuret Pep 2464 H (<300) pg/mL Vital Signs Temperature 36.2 C L 08/20/19 12:55 Temperature Source Tympanic 08/20/19 12:55 Pulse 62 08/20/19 12:55 Pulse Rhythm Regular 08/20/19 07:59 Pulse 103 H 08/19/19 19:01 Respiratory Rate 18 08/20/19 12:55 Respiratory Effort 08/20/19 07:59 Respiratory Depth Normal 08/20/19 07:59 Respiratory Pattern Normal 08/20/19 07:59 Blood Pressure 128/85 08/20/19 12:55 Blood Pressure Mean 109 08/19/19 19:01 Blood Pressure Position Supine 08/19/19 15:22 Pulse Oximetry 97 08/20/19 12:55 Oxygen Delivery Method Room Air 08/20/19 12:55 Oxygen Flow Rate 0 08/20/19 12:55 Pain Level 0 08/20/19 12:55 Intake & Output 08/19/19 08/20/19 08/20/19 23:59 11:59 23:59 Intake Total 460 / 460 450 / 1040 590 / 1040 Output Total 2500 / 2500 1700 / 2200 500 / 2200 Balance -2040 / -2040 -1250 / -1160 90 / -1160 Weight 96.7 kg Intake: IV Oral 450 / 450 440 / 1030 590 / 1030 Output: Urine 2500 / 2500 1700 / 2200 500 / 2200 Other: Urine Color Pale Yellow Straw Yellow Urine Appearance Clear Clear Clear Urine Odor Normal None None Voiding Methods Toilet Toilet Toilet Laboratory Results WBC 7.31 k/cumm (4.4-10.8) 08/19/19 15:45 RBC 4.37 m/cumm (4.00-5.20) 08/19/19 15:45 Hgb 13.2 g/dL (12.0-15.5) 08/19/19 15:45 Hct 38.9 % (36.0-46.0) 08/19/19 15:45 MCV 89.0 fL (80-95) 08/19/19 15:45 MCH 30.2 pg (27.0-33.0) 08/19/19 15:45 MCHC 33.9 g/dL (32.0-36.0) 08/19/19 15:45 RDW 13.6 % (11.7-14.6) 08/19/19 15:45 Plt Count 159 x1000/uL (130-400) 08/19/19 15:45 MPV 11.8 fL (8.0-11.0) H 08/19/19 15:45 Immature Gran % 0.1 % 08/19/19 15:45 Neutrophils % 69.1 08/19/19 15:45 Lymphocytes % 21.5 08/19/19 15:45 Monocytes % 6.8 08/19/19 15:45 Eosinophils % 2.1 08/19/19 15:45 Basophils % 0.4 08/19/19 15:45 Absolute Neutrophils 5.05 k/cumm (1.2-6.7) 08/19/19 15:45 Absolute Lymphocytes 1.57 k/cumm (1.2-3.4) 08/19/19 15:45 Absolute Monocytes 0.50 k/cumm (0.11-0.7) 08/19/19 15:45 Absolute Eosinophils 0.15 k/cumm (0.0-0.7) 08/19/19 15:45 Absolute Basophils 0.03 k/cumm (0.0-0.2) 08/19/19 15:45 D-Dimer 887 ng/mlFEU (<500) H 08/19/19 15:45 Sodium 139 mmol/L (136-145) 08/19/19 15:45 Potassium 3.7 mmol/L (3.5-5.1) 08/19/19 15:45 Chloride 103 mmol/L (98-107) 08/19/19 15:45 Carbon Dioxide 28.1 mmol/L (21.0-32.0) 08/19/19 15:45 Anion Gap 7.9 mmol/L (3-11) 08/19/19 15:45 BUN 13 mg/dL (7-18) 08/19/19 15:45 Creatinine 0.83 mg/dL (0.55-1.02) 08/19/19 15:45 Estimated GFR/1.73 m2 >= 60.00 (mL/min/1.73m2) 08/19/19 15:45 Glucose 112 mg/dL (74-106) H 08/19/19 15:45 Calcium 9.4 mg/dL (8.5-10.1) 08/19/19 15:45 Total Bilirubin 0.7 mg/dL (0.2-1.0) 08/19/19 15:45 AST 42 U/L (15-37) H 08/19/19 15:45 ALT 115 U/L (14-59) H 08/19/19 15:45 Alkaline Phosphatase 62 U/L (46-116) 08/19/19 15:45 Troponin I < 0.05 ng/mL (<0.06) 08/20/19 06:45 NT-Pro-B Natriuret Pep 2464 pg/mL (<300) H 08/19/19 15:45 Total Protein 7.3 g/dL (6.4-8.2) 08/19/19 15:45 Albumin 3.8 g/dL (3.4-5.0) 08/19/19 15:45 Urine Color Yellow (Yellow) 08/19/19 17:15 Urine Clarity Clear (Clear) 08/19/19 17:15 Urine pH 6.5 (5-8) 08/19/19 17:15 Ur Specific [place] 1.020 (1.005-1.025) 08/19/19 17:15 Urine Protein Negative mg/dL (Negative) 08/19/19 17:15 Urine Ketones Negative mg/dL (Negative) 08/19/19 17:15 Urine Blood Negative (Negative) 08/19/19 17:15 Urine Nitrite Negative (Negative) 08/19/19 17:15 Urine Bilirubin Negative (Negative) 08/19/19 17:15 Urine Urobilinogen 0.2 EU/dL (Up TO 0.2) 08/19/19 17:15 Ur Leukocyte Esterase Negative (Negative) 08/19/19 17:15 Urine Glucose Negative mg/dL (Negative) 08/19/19 17:15 COVID-19 PCR Negative (Negative) 08/19/19 18:24 Nasopharyn COVID-19 PCR Not Applicable 08/19/19 18:24 Ref Test Perform Site [facility] 08/19/19 18:24
[2019-08-20] MEDS: Potassium Chloride 20 MEQ TABCR PO ×2 (14:53→20:59)
[2019-08-20] MEDS: Metoprolol 50 MG TAB PO (14:53)
[2019-08-20] MEDS: Furosemide 40 MG/4 ML VIAL IVP (14:54)
[2019-08-20] MEDS: amLODIPine 5 MG TAB PO (20:59)
[2019-08-21] VITALS (7 sets, daily range): BP systolic 104–141; BP diastolic 70–89; PULSE 75–112; RESP 18–20; TEMP 35.4–36.8; O2SAT 91–96
[2019-08-21 07:56] LABS: Anion Gap 7.7 mmol/L (3-11); BUN 23 mg/dL (7-18); CO2 30.3 mmol/L (21.0-32.0); CREATININE 1.04 mg/dL (0.55-1.02); Calcium 9.6 mg/dL (8.5-10.1); Chloride 101 mmol/L (98-107); Estimated GFR 51.94 (mL/min/1.73m2); Glucose 144 mg/dL (74-106); NT-proBNP 1231 pg/mL (<300); Potassium 3.9 mmol/L (3.5-5.1); Sodium 139 mmol/L (136-145)
[2019-08-21] MEDS: glipiZIDE C.R. 5 MG TABCR PO (08:33)
[2019-08-21] MEDS: Calcium 600mg/Vit D 200U TAB 1 TAB PO (08:33)
[2019-08-21] MEDS: Beta-Carotene(A) w/C,E, & Minerals TAB 1 TAB PO (08:33)
[2019-08-21] MEDS: Potassium Chloride 20 MEQ TABCR PO ×2 (08:34→19:32)
[2019-08-21] MEDS: Losartan 50 MG TAB 100 MG PO (08:34)
[2019-08-21] MEDS: Metoprolol CR 100 MG TABCR PO ×2 (08:34→12:30)
[2019-08-21] MEDS: Furosemide 40 MG TAB PO (08:34)
[2019-08-21] MEDS: Normal Saline Flush 10 ML SYR IVP (08:35)
[2019-08-21] MEDS: Apixaban 5 MG TAB PO ×2 (11:33→19:32)
[2019-08-21] MEDS: Magnesium Oxide 400 MG TAB PO (11:33)
--- NOTE | 2019-08-21 13:45 | W.NUTCONSULT ---
Date of service: 08/21/19 Time of Service: 13:00 Nutritional Consult ASSESSMENT: 74 y/o female w CHF, DM, and obesity. Currently 89.1 kg, 196% IBW w/ BMI 38.4 indicating obesity. Intake is 100% at meals. Labs on 08/20 reveal BG 144 and Na WNL. At risk for fluid imbalance . On Diuretic. She would benefit from ~ 2000k/jane, 107g pro, 4419-0041 ml fluid /day. She stated that she just eats regular foods to manage her DM and has a glucometer and takes her Blood sugar regularly. Reports BG levels of 140 are normal for her. NUTRITIONAL DIAGNOSIS: Obesity AEB: BMI 38.4 INTERVENTION: Recommend CHO controlled diet, CHO counting, apppropriate portion control to help with DM and elevated BMI. Reviewed CHO counting with patient and CDM for supper order and calculated g/CHO per meal with review of desired goals for BG control. Provided literature on s/s hypo and hyper glycemia with action steps for self management. Enc adequate fluids r/t lasix use and CHF. Reviewed menu choices for CHO control. Suggested small portion of healthy snack before bed at night to mitigate elevated FBG upon awakening. MONITORING AND EVALUATION: Monitor weight, labs and PO intake. Check BG levels regularly. Time Spent in Nutritional Counseling and Treatment: 20
--- NOTE | 2019-08-21 16:20 | W.PM.PROGNOT ---
Date of Service Date of service: 08/21/19 Time of Service: 16:20 Assessment and Plan Assessment and plan (1) Acute on chronic heart failure with reduced ejection fraction and diastolic dysfunction: Status: Acute Assessment and plan: Acute on chronic heart failure she has both mild reduced ejection fraction 42% on her echocardiogram but also has evidence of impaired left ventricular relaxation as demonstrated by transmitral Doppler flow pattern. RV size and function is normal and her RVSP is normal. At this point I think the primary issue is controlling her atrial fibrillation rate to prevent her from going into congestive heart failure. We will keep her on a daily dose of furosemide and the increased dose of losartan but uptitrate her Toprol-XL and add a small dose of diltiazem CD at bedtime. We will continue to monitor her rate and rhythm. I am to put on a pulse oximetry overnight to monitor for nocturnal desaturation which might be suggestive of sleep apnea. I have ordered thyroid function test along with follow-up BMP and proBNP in the morning. In the morning we will get an ambulatory pulse oximetry to see if she desaturates. If subjectively she feels dyspneic with ambulation but her heart rate is controlled and her O2 saturation is okay then I think she should be safe to be discharged and considered for an outpatient PSG. (2) Atrial fibrillation: Status: Chronic Assessment and plan: Continue home dose of Eliquis. Continue titration of rate controlling medications. Will get outpatient Holter monitor to assess stability of her rate control once she is discharged Qualifiers: Atrial fibrillation type: longstanding persistent Qualified Code(s): I48.11 - Longstanding persistent atrial fibrillation (3) Cardiomyopathy: Status: Acute Assessment and plan: As above Qualifiers: Cardiomyopathy type: other Qualified Code(s): I42.8 - Other cardiomyopathies (4) Hypertension: Status: Chronic Assessment and plan: Adjust metoprolol and losartan along with addition of diuretics as listed above. Qualifiers: Hypertension type: essential hypertension Qualified Code(s): I10 - Essential (primary) hypertension (5) Mitral regurgitation: Status: Chronic Qualifiers: Cardiac valve disease etiology: nonrheumatic Qualified Code(s): I34.0 - Nonrheumatic mitral (valve) insufficiency Subjective Subjective Interval history since last seen: Patient denies any chest pain or pressure or palpitations although with activity her heart rate will go up as high as 146 atrial fibrillation. At resting her heart rates in the low 100s. She does get dyspneic with activity. I increased her Toprol-XL to 200 mg today and will add diltiazem CD 120 mg tonight. We will continue to treat her with diuretics at 40 mg daily. Yesterday with IV Lasix she diuresed 4800 mL with a net negative intake output of -3500. Today she has had a net -1100 mL. This morning her blood pressure was a little on the low side but in spite of that I had them go ahead and give her her Toprol XL dose. Exam Narrative Exam Narrative: Elderly female sitting up in her chair. She is now wearing street clothes. Her weight is now down to 89.1 kg from her admission weight of 96.7 kg. Lungs are clear to auscultation anteriorly but she has some posterior bibasilar rales. Heart is irregularly irregular but the rate is slightly fast. Abdomen is obese soft and nontender. Feet and ankles are without edema. Objective Objective Clinical Data: Abnormal lab results 08/21/19 Range/Units 06:12 BUN 23 H D (7-18) mg/dL Creatinine 1.04 H (0.55-1.02) mg/dL Glucose 144 H (74-106) mg/dL NT-Pro-B Natriuret Pep 1231 H (<300) pg/mL Vital Signs Temperature 36.1 C L 08/21/19 15:30 Temperature Source Tympanic 08/21/19 15:30 Pulse 88 08/21/19 15:30 Pulse Rhythm Irregular 08/21/19 15:41 Pulse 103 H 08/19/19 19:01 Respiratory Rate 19 08/21/19 15:30 Respiratory Effort Non-Labored 08/21/19 15:41 Respiratory Depth Normal 08/21/19 15:41 Respiratory Pattern Normal 08/21/19 15:41 Blood Pressure 122/74 08/21/19 15:30 Blood Pressure Mean 109 08/19/19 19:01 Blood Pressure Position Supine 08/19/19 15:22 Pulse Oximetry 91 L 08/21/19 15:30 Oxygen Delivery Method Room Air 08/21/19 15:30 Oxygen Flow Rate 0 08/21/19 15:30 Pain Level 0 08/21/19 15:30 Comment 08/21/19 11:45 Intake & Output 08/20/19 08/21/19 08/21/19 23:59 11:59 23:59 Intake Total 830 / 1280 210 / 690 480 / 690 Output Total 3150 / 4850 550 / 1800 1250 / 1800 Balance -2320 / -3570 -340 / -1110 -770 / -1110 Weight 89.1 kg Intake: IV Oral 830 / 1270 200 / 680 480 / 680 Output: Urine 3150 / 4850 550 / 1800 1250 / 1800 Other: Urine Color Yellow Yellow Pale Yellow Urine Appearance Clear Clear Clear Urine Odor Normal Normal None Stool Size Moderate Stool Characteristics Soft Formed Voiding Methods Toilet Toilet Toilet Laboratory Results WBC 7.31 k/cumm (4.4-10.8) 08/19/19 15:45 RBC 4.37 m/cumm (4.00-5.20) 08/19/19 15:45 Hgb 13.2 g/dL (12.0-15.5) 08/19/19 15:45 Hct 38.9 % (36.0-46.0) 08/19/19 15:45 MCV 89.0 fL (80-95) 08/19/19 15:45 MCH 30.2 pg (27.0-33.0) 08/19/19 15:45 MCHC 33.9 g/dL (32.0-36.0) 08/19/19 15:45 RDW 13.6 % (11.7-14.6) 08/19/19 15:45 Plt Count 159 x1000/uL (130-400) 08/19/19 15:45 MPV 11.8 fL (8.0-11.0) H 08/19/19 15:45 Immature Gran % 0.1 % 08/19/19 15:45 Neutrophils % 69.1 08/19/19 15:45 Lymphocytes % 21.5 08/19/19 15:45 Monocytes % 6.8 08/19/19 15:45 Eosinophils % 2.1 08/19/19 15:45 Basophils % 0.4 08/19/19 15:45 Absolute Neutrophils 5.05 k/cumm (1.2-6.7) 08/19/19 15:45 Absolute Lymphocytes 1.57 k/cumm (1.2-3.4) 08/19/19 15:45 Absolute Monocytes 0.50 k/cumm (0.11-0.7) 08/19/19 15:45 Absolute Eosinophils 0.15 k/cumm (0.0-0.7) 08/19/19 15:45 Absolute Basophils 0.03 k/cumm (0.0-0.2) 08/19/19 15:45 D-Dimer 887 ng/mlFEU (<500) H 08/19/19 15:45 Sodium 139 mmol/L (136-145) 08/21/19 06:12 Potassium 3.9 mmol/L (3.5-5.1) 08/21/19 06:12 Chloride 101 mmol/L (98-107) 08/21/19 06:12 Carbon Dioxide 30.3 mmol/L (21.0-32.0) 08/21/19 06:12 Anion Gap 7.7 mmol/L (3-11) 08/21/19 06:12 BUN 23 mg/dL (7-18) H D 08/21/19 06:12 Creatinine 1.04 mg/dL (0.55-1.02) H 08/21/19 06:12 Estimated GFR/1.73 m2 51.94 (mL/min/1.73m2) 08/21/19 06:12 Glucose 144 mg/dL (74-106) H 08/21/19 06:12 Calcium 9.6 mg/dL (8.5-10.1) 08/21/19 06:12 Total Bilirubin 0.7 mg/dL (0.2-1.0) 08/19/19 15:45 AST 42 U/L (15-37) H 08/19/19 15:45 ALT 115 U/L (14-59) H 08/19/19 15:45 Alkaline Phosphatase 62 U/L (46-116) 08/19/19 15:45 Troponin I < 0.05 ng/mL (<0.06) 08/20/19 06:45 NT-Pro-B Natriuret Pep 1231 pg/mL (<300) H 08/21/19 06:12 Total Protein 7.3 g/dL (6.4-8.2) 08/19/19 15:45 Albumin 3.8 g/dL (3.4-5.0) 08/19/19 15:45 Urine Color Yellow (Yellow) 08/19/19 17:15 Urine Clarity Clear (Clear) 08/19/19 17:15 Urine pH 6.5 (5-8) 08/19/19 17:15 Ur Specific [place] 1.020 (1.005-1.025) 08/19/19 17:15 Urine Protein Negative mg/dL (Negative) 08/19/19 17:15 Urine Ketones Negative mg/dL (Negative) 08/19/19 17:15 Urine Blood Negative (Negative) 08/19/19 17:15 Urine Nitrite Negative (Negative) 08/19/19 17:15 Urine Bilirubin Negative (Negative) 08/19/19 17:15 Urine Urobilinogen 0.2 EU/dL (Up TO 0.2) 08/19/19 17:15 Ur Leukocyte Esterase Negative (Negative) 08/19/19 17:15 Urine Glucose Negative mg/dL (Negative) 08/19/19 17:15 COVID-19 PCR Negative (Negative) 08/19/19 18:24 Nasopharyn COVID-19 PCR Not Applicable 08/19/19 18:24 Ref Test Perform Site [place] [facility] 08/19/19 18:24
[2019-08-21] MEDS: dilTIAZem CD 120 MG CAPCR PO (21:32)
[2019-08-21] MEDS: amLODIPine 5 MG TAB PO (21:32)
[2019-08-22 03:23] VITALS: BP 122/77; PULSE 82; RESP 19; TEMP 36.6; O2SAT 95
[2019-08-22 07:12] LABS: Hemoglobin A1C 6.8 % (3.8-5.6)
[2019-08-22 07:23] VITALS: BP 119/79; PULSE 95; RESP 18; TEMP 35.8; O2SAT 93
[2019-08-22 07:29] LABS: Anion Gap 7.3 mmol/L (3-11); BUN 26 mg/dL (7-18); CO2 28.7 mmol/L (21.0-32.0); CREATININE 1.15 mg/dL (0.55-1.02); Calcium 9.4 mg/dL (8.5-10.1); Chloride 99 mmol/L (98-107); Estimated GFR 46.25 (mL/min/1.73m2); Glucose 154 mg/dL (74-106); NT-proBNP 706 pg/mL (<300); Sodium 135 mmol/L (136-145); TSH (W/Ref FT4) 2.04 uIU/mL (0.36-3.74)
[2019-08-22 07:41] LABS: Calculated LDL 81 mg/dL (<100); Cholesterol 156 mg/dL (<200); HDL Cholesterol 48 mg/dL (40-60); Triglyceride 136 mg/dL (<150)
[2019-08-22] MEDS: glipiZIDE C.R. 5 MG TABCR PO (07:53)
[2019-08-22] MEDS: Beta-Carotene(A) w/C,E, & Minerals TAB 1 TAB PO (07:54)
[2019-08-22] MEDS: Calcium 600mg/Vit D 200U TAB 1 TAB PO (07:54)
[2019-08-22] MEDS: Losartan 50 MG TAB 100 MG PO (07:54)
[2019-08-22] MEDS: Magnesium Oxide 400 MG TAB PO (07:54)
[2019-08-22] MEDS: Metoprolol CR 100 MG TABCR 200 MG PO (07:55)
[2019-08-22] MEDS: Furosemide 40 MG TAB PO (07:56)
[2019-08-22] MEDS: Potassium Chloride 20 MEQ TABCR PO (07:58)
[2019-08-22] MEDS: Apixaban 5 MG TAB PO (07:58)
[2019-08-22] MEDS: Normal Saline Flush 10 ML SYR IVP (07:59)
[2019-08-22 09:24] VITALS: PULSE 63; PULSE 72; PULSE 88; RESP 20; RESP 24; O2SAT 92; O2SAT 96; O2SAT 98
[2019-08-22 10:55] VITALS: BP 98/68; PULSE 92; RESP 18; TEMP 36.4; O2SAT 95
[2019-08-22 11:15] VITALS: BP 98/70
--- NOTE | 2019-08-22 12:54 | PDOC.CMPRO ---
- If Service Date Differs Date of service: 08/21/19 Time of Service: 13:00 Care Management Progress Note S/O: CM met with Kaleigh at length we reviewed CHF, DM supports and any concerns related to returning home. She was able to meet with DM educator and would benefit from ongoing consult with DM educator. Kaleigh states she feels better today she has been able to ambulate she is dressed in her own clothing. She remains on telemetry and her beta hetal is being adjusted. She will be discharged home when medically ready. Kaleigh feels confident in her primary care relationship. She feels confident in her follow up with PCP and understands that she will need a discharge follow up with provider. A: Kaleigh is a 74 year old female admitted with CHF, and history of afib. P: Kaleigh will be discharged home, close follow up with primary care. She will have new medications, CM provided CHF teaching tool and she will benefit from ongoing supports for DM and CHF. Patient will transport home via private car with family.
--- NOTE | 2019-08-22 15:11 | PDOC.CMDIS ---
- If Service Date Differs Date of service: 08/22/19 Time of Service: 15:11 LACE Index Scoring Tool - Questions: Length of Stay (in days): 3 Acuity (Admit via E.D.?): Yes Comorbidities: Diabetes w/o Complication, Congestive Heart Failure Care Management Discharge Reason for Hospitalization: CHF Discharge Plan: Kaleigh is being discharged home today, she will have new oxygen at home for night. CM has reviewed education with Kaleigh including daily weights, when to take her medications and signs and symptoms to watch for in r/t fluid overload, and hypotensition. Kaleigh understands that she will have medication adjustments and need to fill new prescriptions at a local pharmacy. Kaleigh will need a follow up sleep study. Patient/Family Education Needs: Discharge education, limitations and follow up plan of care including ask me three and self management. Reviewed CHF education and how to manage signs and symptoms, including diet, daily weights and patient is willing to attend to cardiac Rehab. CM will contact [facility] and request she follow up with patient. Services Needed at Discharge: Oxygen Therapy
--- NOTE | 2019-08-22 15:37 | DSE_ITS ---
Date of service: 08/22/19 Time of Service: 15:37 DS: Diagnosis Discharge Diagnosis (1) Acute on chronic heart failure with reduced ejection fraction and diastolic dysfunction: Status: Acute (2) Atrial fibrillation: Status: Chronic (3) Cardiomyopathy: Status: Acute (4) Hypertension: Status: Chronic (5) Mitral regurgitation: Status: Chronic Discharge Plan Disposition Patient Disposition: HOME Condition: Good Discharge Details Chief Complaint: SOB Reason For Visit: CHF Admit Date/Time: 08/20/19 22:26 Admit Provider: Tyrone Aquino Attending Provider: Tyrone Aquino Primary Care Provider: Sukhdeep Fisher [facility] Hospital Course: 74-year-old female with a history of atrial fibrillation, cardiomyopathy, central hypertension who presented emergency department with shortness of breath. Patient states his been getting short of breath for few months now but it seems of gotten worse over the last several days. She had seen her PCP recently and had her metoprolol dose increased about a week ago. Symptoms of included exertional dyspnea as well as orthopnea but no chest pain. Comorbidities include diabetes mellitus spinal stenosis and polyposis coli. She is chronically anticoagulated with apixaban. She was found on admission to beat not only in rapid atrial fibrillation but also to have acute congestive heart failure. Chest x-ray demonstrated cardiomegaly but reportedly the lungs were clear with no infiltrate or effusion or pulmonary edema nevertheless her proBNP was elevated at 2464 and her EKG demonstrated atrial fibrillation at a rate of 118 bpm with PVCs but no acute ischemic changes. She was admitted to the medical/surgical floor on telemetry where she received IV Lasix and her metoprolol dose was adjusted up to a dose of Toprol-XL 200 mg daily. Diltiazem CD was added at 120 mg nightly. Her hydrochlorothiazide was discontinued in the IV Lasix was switched to p.o. Lasix 40 mg daily. She was placed on potassium supplementation and once her heart rate was well controlled it was felt that she was diuresed adequately she was deemed ready for discharge. During hospitalization was noted that she was having nocturnal hypoxemia and therefore the night prior to discharge she had an overnight pulse oximetry checked which demonstrated significant desaturation at night. On the day of her discharge from the hospital she underwent an ambulatory pulse oximetry study and she maintained her oxygen saturation at 92% or higher. She was set up with home oxygen at 2 L/min per nasal cannula to be worn at night. It is recommended to the patient that she have an polysomnogram to evaluate for obstructive sleep apnea. It is recommended that she have an outpatient 48-hour Holter monitor to assess stability of her atrial fibrillation rate and to get follow-up labs in 1 week to monitor her electrolytes and renal function. Home Meds and New Rx's Prescriptions: New potassium chloride [Klor-Con M20] 20 mEq Tablet,Er Particles/Crystals 20 meq PO BID Qty: 60 RF: 1 metoprolol succinate [Toprol XL] 200 mg tablet extended release 24 hr 200 mg PO DAILY Qty: 30 RF: 1 diltiazem HCl 120 mg capsule,extended release 24hr 120 mg PO HS Qty: 30 RF: 1 losartan 100 mg tablet 100 mg PO DAILY Qty: 30 RF: 1 furosemide 40 mg tablet 40 mg PO QAM Qty: 30 RF: 1 Continued magnesium oxide 400 mg magnesium tablet 400 mg PO DAILY RF: 0 Eliquis 5 mg tablet 5 mg PO BID Qty: 180 RF: 6 glipizide [Glucotrol XL] 5 mg tablet extended release 24hr 5 mg PO DAILY Qty: 90 RF: 3 Calcium 600 + D(3) 1 EACH tablet 1 tab PO DAILY RF: 0 Ocuvite with Lutein 1 TAB tablet 1 tab PO DAILY RF: 0 Discontinued amlodipine 5 mg tablet 5 mg PO HS Qty: 90 RF: 4 losartan 50 mg tablet 50 mg PO DAILY Qty: 90 RF: 4 hydrochlorothiazide 25 mg tablet 25 mg PO DAILY Qty: 90 RF: 4 metoprolol succinate [Toprol XL] 50 mg tablet extended release 24 hr 50 mg PO DAILY Qty: 90 RF: 3 No Action (DME) blood sugar diagnostic [Blood Glucose Test] Strip See Dose Instructions .ROUTE .MEDSUPPLY Qty: 100 RF: 5 (DME) lancets 28 gauge misc 1 ea Miscellaneous DAILY Qty: 100 RF: 4 (DME) blood-glucose meter misc 1 ea Miscellaneous twice weekly Qty: 100 RF: 4 Discharge Instructions Instructions: Heart Failure (DC), A-fib (Atrial Fibrillation) (DC), Sleep Apnea (DC) Additional Instructions: Get follow-up lab work including BMP in 1 week. Call respiratory therapy to set up obtaining a cardiac Holter monitor in 1 week. Your primary care provider should set you up with a consultation with a sleep medicine specialist to evalu ate you for obstructive sleep apnea. Weight yourself daily and report any weight gain more than 2 pounds. Reduce the salt in your diet and be sure to get adequate sleep. Wear oxygen at night or whenever you are napping. Monitor your blood pressure and pulse daily. Stand Alone Forms: Nursing Discharge Form Referrals: Sukhdeep Fisher DO [Primary Care Provider] - 08/30/19 9:00 am Activity:: Activity as Tolerated Equipment/Supplies:: No Equipment Needed Diet:: Low Sodium Discharge Orders Discharge Orders: Discharge Order (Routine); Ordered 08/22/19 Ordered By: Kostas Mtz Other Ambulatory Orders: Basic Metabolic Panel (Routine) Timeframe: 1 Week Facility: [facility] - Location: Laboratory Outpatient Ordered By: Kostas Mtz Holter Monitor (Outpt) (ONCE) Timeframe: [id number] Facility: [facility] - Location: Respiratory Therapy Ordered By: Kostas Mtz Discharge Data Discharge Date/Time-TO BE ENTERED AT DEPARTURE: 08/22/19 17:01 DS: Summary Status at Discharge Functional status at discharge: independent ambulation Overall status at discharge: patient is back to baseline Mental Status: mental status grossly normal Speech and Movement: speech and movement normal Mood: congruent mood Affect: normal affect Time Spent with Patient providing and/or coordinating discharge services: Greater than 30 minutes Exam Narrative Exam Narrative: Elderly female sitting up in her chair. She is now wearing street clothes. Her weight is now down to 89.9 kg from her admission weight of 96.7 kg. Lungs are clear to auscultation anteriorly but she has some posterior bibasilar rales. Heart is irregularly irregular but the rate is well controlled. Abdomen is obese soft and nontender. Feet and ankles are without edema. Psych Mental Status: mental status grossly normal Speech and Movement: speech and movement normal Mood: congruent mood Affect: normal affect DS: Data Vitals/I&O Vitals and I&O: Vital Signs Temperature 36.4 C L 08/22/19 10:55 Temperature Source Tympanic 08/22/19 10:55 Pulse 92 H 08/22/19 10:55 Pulse Rhythm Irregular 08/22/19 08:16 Pulse 103 H 08/19/19 19:01 Respiratory Rate 18 08/22/19 10:55 Respiratory Effort Short of Breath 08/22/19 08:16 Respiratory Depth Normal 08/22/19 08:16 Respiratory Pattern Normal 08/22/19 08:16 Blood Pressure 98/70 L 08/22/19 11:15 Blood Pressure Mean 109 08/19/19 19:01 Blood Pressure Position Supine 08/19/19 15:22 Pulse Oximetry 95 08/22/19 10:55 Oxygen Delivery Method Room Air 08/22/19 10:55 Oxygen Flow Rate 0 08/22/19 10:55 Pain Level 0 08/22/19 03:23 Comment 08/22/19 10:55 Intake & Output 08/21/19 08/22/19 08/22/19 23:59 11:59 23:59 Intake Total 730 / 940 1020 / 1260 240 / 1260 Output Total 1600 / 2150 1550 / 2450 900 / 2450 Balance -870 / -1210 -530 / -1190 -660 / -1190 Weight 89.9 kg Intake: IV Oral 720 / 920 1020 / 1260 240 / 1260 Output: Urine 1600 / 2150 1550 / 2450 900 / 2450 Other: Urine Color Yellow Yellow Yellow Urine Appearance Clear Clear Clear Urine Odor None None Voiding Methods Toilet Toilet Data Completed and Pending Labs on day of discharge: Labs from last 24 hours 08/22/19 08/22/19 06:45 06:45 Sodium 135 L Potassium 4.0 Chloride 99 Carbon Dioxide 28.7 Anion Gap 7.3 BUN 26 H Creatinine 1.15 H Estimated GFR/1.73 m2 46.25 Glucose 154 H Hemoglobin A1c 6.8 H Calcium 9.4 NT-Pro-B Natriuret Pep 706 H Triglycerides 136 Total Cholesterol 156 LDL Cholesterol, Calc 81 HDL Cholesterol 48 TSH 2.04 PFSH Medical History Cystocele (Acute 06/24/14) Diabetes mellitus (Acute) Hypertension (Chronic) Infection resistant to penicillin (Acute) MRSA abscess x 2 Kidney stone (Acute) Obesity (Chronic) Paroxysmal SVT (supraventricular tachycardia) (Acute 02/15/17) zio patch Polyp of colon (Acute 02/03/04) Spinal stenosis (Acute) 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 Surgery 02/16. Vaginal Hyst. Surgical History H/O surgical procedure (Acute) a. MINDA/BSO with colporrhaphy and cystocele repair 02/20/2014 b. colonoscopy Oophrectomy, Both (02/20/14) TVH, BSO with R sided uterosacral ligament suspension with Anterior Coloporrhapy. EP/aoc Vaginal hysterectomy Family History Mother Diabetes Father Heart disease Diabetes Sister , AGE 85 Cancer Diabetes Heart disease Sister , AGE 51 Heart disease Sister , AGE 84 Diabetes Heart disease Brother , AGE 34 No problems noted. Brother , AGE 82 Diabetes Heart disease Social History Smoking/Tobacco Use Status: Former Tobacco Use Quit Date: 03/06/81 Alcohol Intake: never Drug use: Never Substance use type: does not use Household members: spouse Housing: house Pets and animals: Yes Pets and animals: dog(s) Sexually active: No Do you think of yourself as: straight/heterosexual Current gender identity: female What type of physical activity do you participate in: none Frequency: does not exercise Radha/Protestant: Catholic Special radha needs: No Do you feel safe at home: Yes Do you feel safe in your relationship?: Yes
== END 2019-08-22 17:01 | disposition home or self-care (01) | DRG 292 ==
LOC: ER 18:27 → MS 19:23
PROVIDERS: Internal Medicine; Admitting Provider General Practice; Emergency Provider Student in an Organized Health Care Education/Training Program; PCP Emergency Medicine; Visit Provider General Practice
DX: I11.0 Hypertensive heart disease with heart failure (principal); Z68.41 Body mass index [BMI] 40.0-44.9, adult; I48.20 Chronic atrial fibrillation, unspecified; I50.43 Acute on chronic combined systolic (congestive) and diastolic (congestive) heart failure; I42.9 Cardiomyopathy, unspecified; Z79.84 Long term (current) use of oral hypoglycemic drugs; Z79.01 Long term (current) use of anticoagulants; R05 Cough; E11.9 Type 2 diabetes mellitus without complications; E66.9 Obesity, unspecified; Z87.891 Personal history of nicotine dependence; Z66 Do not resuscitate; I34.0 Nonrheumatic mitral (valve) insufficiency
CPT/HCPCS: 36415; 36416; 80048; 80053; 80061; 82962; 93005; 93306; 94618; 96374; 99222; 99226; 99233; 99239; 99285; U0003; 71046; 81003; 83036; 83880; 84443; 84484; 85025; 85379; 93010; 93225; 94762; 99218; 99284; G0378; J1940; J3490

== ENCOUNTER 2019-08-27 15:23 | Outpatient (CLI) | payer MEDICARE, SELFPAY ==
--- NOTE | 2019-08-29 08:34 | W.HOLTRPT ---
Date of service: 08/29/19 Time of Service: 08:34 Holter Monitor Report Holter Monitor Note: This is a 48-hour Holter monitor ordered for the indication of atrial fibrillation. ?This patient was in atrial fibrillation for the entirety of the recording. Maximal heart rate was 83 bpm. ?There were no episodes of ventricular tachycardia. ?There were frequent (9.8%) premature ventricular contractions. ?There were no episodes of high degree heart block and no pauses greater than 3 seconds.
== END 2019-08-27 15:43 ==
PROVIDERS: PCP Emergency Medicine; Visit Provider General Practice
DX: I48.91 Unspecified atrial fibrillation (principal); I49.3 Ventricular premature depolarization
CPT/HCPCS: 93226

== ENCOUNTER 2019-09-02 07:10 | Outpatient (CLI) | payer MEDICARE, SELFPAY ==
[2019-09-02 13:42] LABS: Anion Gap 9.4 mmol/L (3-11); BUN 39 mg/dL (7-18); CO2 25.6 mmol/L (21.0-32.0); CREATININE 1.21 mg/dL (0.55-1.02); Calcium 9.7 mg/dL (8.5-10.1); Chloride 101 mmol/L (98-107); Estimated GFR 43.62 (mL/min/1.73m2); Glucose 130 mg/dL (74-106); NT-proBNP 1466 pg/mL (<300); Potassium 4.4 mmol/L (3.5-5.1); Sodium 136 mmol/L (136-145); TSH 2.04 uIU/mL (0.36-3.74)
== END 2019-09-02 07:30 ==
PROVIDERS: PCP Emergency Medicine; Visit Provider Emergency Medicine
DX: E03.9 Hypothyroidism, unspecified (principal); I10 Essential (primary) hypertension; I50.9 Heart failure, unspecified
CPT/HCPCS: 36415; 80048; 83880; 84443

== ENCOUNTER → 2019-09-03 13:33 | Outpatient (BNVA) | payer MEDICARE, SELFPAY | PROVIDERS: PCP Emergency Medicine; Referring Provider Emergency Medicine; Visit Provider Internal Medicine Cardiovascular Disease | DX: I34.0 Nonrheumatic mitral (valve) insufficiency (principal); I50.43 Acute on chronic combined systolic (congestive) and diastolic (congestive) heart failure; R06.02 Shortness of breath; I48.19 Other persistent atrial fibrillation; I11.0 Hypertensive heart disease with heart failure; E11.9 Type 2 diabetes mellitus without complications | CPT/HCPCS: 99214 ==

== ENCOUNTER → 2019-10-31 09:22 | Outpatient (BNVA) | payer MEDICARE, SELFPAY | PROVIDERS: PCP Emergency Medicine; Referring Provider Emergency Medicine; Visit Provider Internal Medicine Cardiovascular Disease | DX: I48.11 Longstanding persistent atrial fibrillation (principal); I34.0 Nonrheumatic mitral (valve) insufficiency; I50.43 Acute on chronic combined systolic (congestive) and diastolic (congestive) heart failure; I42.8 Other cardiomyopathies; I11.0 Hypertensive heart disease with heart failure; E11.9 Type 2 diabetes mellitus without complications | CPT/HCPCS: 99214 ==

== ENCOUNTER 2020-02-11 11:27 | Outpatient (REF) | payer MEDICARE, SELFPAY ==
[2020-02-11 13:14] LABS: Anion Gap 8.1 mmol/L (3-11); BUN 22 mg/dL (7-18); CO2 27.9 mmol/L (21.0-32.0); CREATININE 1.15 mg/dL (0.55-1.02); Calcium 9.8 mg/dL (8.5-10.1); Chloride 104 mmol/L (98-107); Estimated GFR 46.13 (mL/min/1.73m2); Glucose 133 mg/dL (74-106); Potassium 4.3 mmol/L (3.5-5.1); Sodium 140 mmol/L (136-145)
[2020-02-11 13:23] LABS: Hemoglobin A1C 6.5 % (<5.7)
== END 2020-02-11 11:47 ==
LOC: LBN 11:27
PROVIDERS: PCP Emergency Medicine; Visit Provider Emergency Medicine
DX: E11.9 Type 2 diabetes mellitus without complications (principal); I10 Essential (primary) hypertension
CPT/HCPCS: 80048; 83036

== ENCOUNTER 2020-02-18 01:41 | Outpatient (CLI) | payer MEDICARE, SELFPAY ==
[2020-02-20 21:29] LABS: COVID-19 RT-PCR Result NEGATIVE (Negative)
== END 2020-02-18 02:01 ==
PROVIDERS: PCP Emergency Medicine; Visit Provider Nurse Practitioner
DX: Z11.59 Encounter for screening for other viral diseases (principal); Z01.818 Encounter for other preprocedural examination
CPT/HCPCS: U0003

== ENCOUNTER 2020-05-12 01:37 | Outpatient (CLI) | payer MEDICARE, SELFPAY ==
--- NOTE | 2020-05-12 07:00 | DI.US_ITS ---
APPROVED REPORT EXAM: Comprehensive 2D, Doppler, and color-flow Echocardiogram Patient Location: Out-Patient Nurse Practitioner Physician Assistant: Dominique Rice RDCS (AE) Other Information Study Quality: Good Conclusion Left Ventricle : The left ventricle is normal size. Left ventricular systolic function is borderline. There is normal left ventricular wall thickness. There is global mild hypokinesis of the left ventri gita. The diastolic function is abnormal. LVEF is 50%. Right Ventricle : The right ventricle is normal size. The right ventricular systolic function is norm al. The RVSP is 27.6mmHg. Atria : Left atrium is moderately dilated. Right atrium is moderately dilated. Aortic Valve : The Aortic valve is sclerotic. Aortic valve is trileaflet. Mild aortic regurgitation. There is no aortic valvular stenosis. Mitral Valve : Mild mitral annular calcification. Moderate mitral regurgitation. No evidence of ji l valve stenosis. Great Vessels : The aortic root is normal in size. The ascending aorta is mildly dilated. Aortic arch is normal in caliber. IVC is normal in size and collapses >50% with inspiration. See remainder of study for further details. Wall motion Left Ventricle The left ventricle is normal size. Left ventricular systolic function is borderline. There is normal left ventricular wall thickness. There is global mild hypokinesis of the left ventricle. The diastoli c function is abnormal. There is no ventricular septal defect visualized. LVEF is 50%. Right Ventricle The right ventricle is normal size. The right ventricular systolic function is normal. The RVSP is 27 .6mmHg. Atria Left atrium is moderately dilated. Right atrium is moderately dilated. The interatrial septum is inta ct with no evidence for an atrial septal defect. Aortic Valve The Aortic valve is sclerotic. Aortic valve is trileaflet. There is no aortic valvular stenosis. Mild aortic regurgitation. Mitral Valve Mild mitral annular calcification. No evidence of mitral valve stenosis. Moderate mitral regurgitatio n. Tricuspid Valve The tricuspid valve is normal in structure. There is no tricuspid valve stenosis. Mild to moderate tr icuspid regurgitation. Pulmonic Valve The pulmonary valve is normal in structure. There is no pulmonic valvular stenosis. Trace to mild pul mariangel regurgitation. Great Vessels The aortic root is normal in size. The ascending aorta is mildly dilated. Aortic arch is normal in ca liber. IVC is normal in size and collapses >50% with inspiration. Pericardium There is no pericardial effusion. 2D Dimensions IVSD d PLAX 1.00 cm F: 0.6-1.0 LV Vol A2C d MOD 92.1 mL LVPW d PLAX 1.01 cm F: 0.6 - 1.0 LV Vol A4C d MOD 106.0 mL LVID d PLAX 4.92 cm F: 3.8 - 5.2 LA vol/ BSA A2C s A-L 41.1 mL/m2 LVDs 3.60 cm F: 2.2 - 3.5 LA vol/ BSA A4C s A-L 53.0 mL/m2 Ao Root d 3.17 cm F: 2.7 - 3.3 LA Vol/ BSA Biplane s A-L 50.0 mL/m2 RA Area A4C 20.96 cm2 LA Area A4C s MOD 28.84 cm2 RA Vol/ BSA A4C s A-L 35.9 mL/m2 LA Area A2C s MOD 23.72 cm2 Ao Asc Diam d 3.40 cm F: 2.3 - 3.1 LV EF A4C MOD 50.8 % LV EF Teichholz 51.2 % LV EF A2C MOD 50.1 % LVEF ([place]'s) 50.77 % F: 54 - 74 LV EF Biplane MOD 50.8 % LV Volume 76.84 mL F: 46 - 106 SV 50.62 mL LV Volume Index 41.76 mL/m2 F: 29 - 61 SV Index 27.41 mL/m2 LV Vol Biplane MOD 99.7 mL FS 26.15 % M-Mode TAPSE 2.14 cm (M/F) >1.7 LV Diastology MV E' medial 0.046 (>0.07 m/s) MV E Vmax 1.09 (0.4-1.3 m/s) LV E/e MED 23.45 (<14) MV E' lateral 0.158 (>0.1 m/s) LV E/e LAT 6.90 (<14) MV E/E' medial 23.46 MV E/E' lateral 6.91 Aortic Valve LVOT Area 3.83 cm2 AoV Area Vmax 2.37 cm2 LVOT Vmax 0.94 m/s AoV Area/ BSA (Vmax) 1.28 cm2/m2 LVOT Mean Ronak. 0.60 m/s MIRANDA Mean Ronak. 2.35 cm2 LVOT Peak Grad 3.5 mmHg MIRANDA Mean Ronak. Index 1.27 cm2/m2 LVOT Mean Grad 1.7 mmHg AR DT 2697 msec LVOT VTI 0.174 m AR PHT 782 msec LVOT Diam s 2.20 cm AoV Vmax 1.52 m/s Velocity Ratio 0.61 AoV Mean Ronak. 0.97 m/s AoV Peak Grad 9.2 mmHg LVOT SV 66.52 mL AoV Mean Grad 4.3 mmHg AoV VTI 0.250 m AoV Area VTI 2.66 cm2 AoV Area/ BSA (VTI) 1.44 cm/m2 Mitral Valve MV DT 202 (160-240 msec) MR Vmax 4.77 m/s MV PHT 59 msec MR VTI 1.365 m MV Area PHT 3.75 cm2 MR Peak Grad 90.9 mmHg MV VTI 0.207 m MR Mean Grad 62.9 mmHg MV Area VTI 3.22 (4.0-6.0 cm2) MR PISA Radius 0.47 cm MR EROA 0.10 cm2 MR Aliasing Velocity 0.35 m/s MR PISA 1.41 cm2 Pulmonary Valve PV Vmax 0.91 (0.5-1.5 m/s) RVOT Peak Gr. 2.51 mmHg PV Peak Grad 3.3 mmHg RVOT Mean Gr. 1.20 mmHg PV Mean Grad 1.7 mmHg RVOT VTI 0.148 m PV VTI 0.171 m RVOT Vmax 0.79 m/s Tricuspid Valve TR Peak Grad 24.6 mmHg TR Vmax 2.48 m/s RA Pressure 3.00 mmHg RVSP (TR) 27.6 mmHg
== END 2020-05-12 01:57 ==
PROVIDERS: PCP Emergency Medicine; Visit Provider Internal Medicine Cardiovascular Disease
DX: I48.11 Longstanding persistent atrial fibrillation (principal); I08.0 Rheumatic disorders of both mitral and aortic valves
CPT/HCPCS: 93306

== ENCOUNTER → 2020-05-28 11:13 | Outpatient (BNVA) | payer MEDICARE, SELFPAY | PROVIDERS: PCP Emergency Medicine; Referring Provider Emergency Medicine; Visit Provider Internal Medicine Cardiovascular Disease | DX: I34.0 Nonrheumatic mitral (valve) insufficiency (principal); I42.8 Other cardiomyopathies; I48.11 Longstanding persistent atrial fibrillation; Z79.01 Long term (current) use of anticoagulants | CPT/HCPCS: 99214 ==

== ENCOUNTER 2020-08-11 14:39 | Outpatient (REF) | payer MEDICARE, SELFPAY ==
[2020-08-11 14:57] LABS: Hemoglobin A1C 6.7 % (<5.7)
[2020-08-11 15:22] LABS: Anion Gap 11.2 mmol/L (3-11); BUN 29 mg/dL (7-18); CO2 26.8 mmol/L (21.0-32.0); CREATININE 1.2 mg/dL (0.55-1.02); Calcium 9.4 mg/dL (8.5-10.1); Chloride 104 mmol/L (98-107); Estimated GFR 43.91 (mL/min/1.73m2); Glucose 152 mg/dL (74-106); Potassium 4.2 mmol/L (3.5-5.1); Sodium 142 mmol/L (136-145)
== END 2020-08-11 14:40 | disposition home or self-care (01) ==
LOC: LBN 14:39
PROVIDERS: PCP Emergency Medicine; Visit Provider Emergency Medicine
DX: E11.9 Type 2 diabetes mellitus without complications (principal); I10 Essential (primary) hypertension
CPT/HCPCS: 80048; 83036

== ENCOUNTER 2020-08-12 01:18 | Outpatient (CLI) | payer MEDICARE, SELFPAY ==
--- NOTE | 2020-08-12 07:51 | DI.RAD_ITS ---
Exam(s) XR HIP PELVIS ADULT BL EXAM: XR HIP PELVIS ADULT BL CLINICAL HISTORY: michelle hip pain, M25.552, M25.551, arthralgia of hip. TECHNIQUE: 2D digital imaging was performed. COMPARISON: No exams were available for comparison FINDINGS: There is mild narrowing of the hip joints bilaterally. The joints are otherwise well maintained. Th e bones are intact and normally mineralized. There are mild degenerative changes seen in the visuali zed lumbosacral spine. No suspicious lytic or sclerotic lesions are seen. The sacroiliac joints and symphysis pubis are intact. The soft tissues are unremarkable. IMPRESSION: Mild narrowing of the hips bilaterally. DATA REPOSITORY: RADIATION DOSE DELIVERED:
== END 2020-08-12 01:38 ==
PROVIDERS: PCP Emergency Medicine; Visit Provider Emergency Medicine
DX: M25.551 Pain in right hip (principal); M25.552 Pain in left hip; M25.852 Other specified joint disorders, left hip; M25.851 Other specified joint disorders, right hip
CPT/HCPCS: 73521

== ENCOUNTER 2020-10-01 11:22 | Outpatient (CLI) | payer MEDICARE, SELFPAY ==
--- NOTE | 2020-10-01 11:00 | DI.RAD_ITS ---
Exam(s) XR KNEE RT 4V AP,LAT,TOYA,PAT EXAM: XR KNEE RT 4V AP,LAT,TOYA,PAT CLINICAL HISTORY: pain. TECHNIQUE: 2D digital imaging was performed. COMPARISON: No exams were available for comparison FINDINGS: There is no evidence of acute fracture although there is a joint effusion noted. There are advanced degenerative changes with multilevel osteophytes in all 3 compartments. Also moderate narrowing of t he medial compartment. No osseous lesions. Bone density is normal. IMPRESSION: Tricompartmental osteoarthritic degenerative changes. Joint effusion. DATA REPOSITORY: RADIATION DOSE DELIVERED:
== END 2020-10-01 11:23 | disposition home or self-care (01) ==
LOC: DIORS 11:22
PROVIDERS: PCP Emergency Medicine; Referring Provider Emergency Medicine; Visit Provider Student in an Organized Health Care Education/Training Program
DX: R25.2 Cramp and spasm; M25.561 Pain in right knee; M70.61 Trochanteric bursitis, right hip; M70.62 Trochanteric bursitis, left hip; M17.11 Unilateral primary osteoarthritis, right knee
CPT/HCPCS: 20610; 99215; 73564; J1040

== ENCOUNTER 2020-10-08 03:35 | Outpatient (CLI) | payer MEDICARE, SELFPAY ==
[2020-10-08 11:57] LABS: Anion Gap 9.1 mmol/L (3-11); BUN 33 mg/dL (7-18); CO2 25.9 mmol/L (21.0-32.0); CREATININE 1.1 mg/dL (0.55-1.02); Calcium 9.3 mg/dL (8.5-10.1); Chloride 104 mmol/L (98-107); Estimated GFR 48.55 (mL/min/1.73m2); Glucose 159 mg/dL (74-106); Magnesium 2.2 mg/dL (1.8-2.4); Potassium 4.4 mmol/L (3.5-5.1); Sodium 139 mmol/L (136-145)
== END 2020-10-08 03:36 | disposition home or self-care (01) ==
LOC: LOS 03:36
PROVIDERS: PCP Emergency Medicine; Visit Provider Physician Assistant Surgical
DX: R25.2 Cramp and spasm (principal)
CPT/HCPCS: 36415; 80048; 83735; 84100

== ENCOUNTER 2020-10-23 12:59 | Outpatient (CLI) | payer MEDICARE, SELFPAY ==
--- OUTSIDE RECORDS SUMMARY | 2020-10-23 13:02 | XMS_ITS ---
:1945 Author Care Team Providers Name Role Phone NOLAN GRANGERDERICK Primary Care Provider [phone] [facility] MEDICAL RECORDS Primary Care Provider [phone] Allergies Code Code System Name Reaction Severity Status Onset 2670 RxNorm Codeine ? ? Active ? 14502 RxNorm Lisinopril ? ? Active ? 0664 RxNorm Metformin ? ? Active ? Medications Name Status Start Date Stop Date ? ? amlodipine 5 mg tablet Completed ? 0 atenolol 25 mg tablet Completed ? 11/19/2019 Cartia XT 120 mg capsule,extended Active ? Not available release diazepam 5 mg tablet Completed ? 11/19/2019 Eliquis 5 mg tablet Active ? Not availabl e furosemide 40 mg tablet Active ? Not avai lable glipizide ER 5 mg tablet, extended Active ? Not available release 24 hr hydrochlorothiazide 25 mg tablet Completed ? 11/19/2019 losartan 100 mg tablet Active ? Not avail able losartan 50 mg tablet Completed ? 11/19/2019 metoprolol succinate ER 200 mg Active ? N ot available tablet,extended release 24 hr metoprolol succinate ER 50 mg Completed ? tablet,extended release 24 hr potassium chloride ER 20 mEq Active ? Not available tablet,extended release potassium chloride ER 20 mEq Completed ? tablet,extended release(part/cryst) prednisone 20 mg tablet Completed ? 11/19/19 20 tramadol 50 mg tablet Completed ? 11/19/2019 Problems Name Status Onset Date Source ? Cardiomyopathy Active 11/15/2019 ? Atrial Fibrillation Active 11/15/2019 ? Congestive Heart Failure Active 11/15/2019 ? Sleep Disorder Active 11/15/2019 ? Polyp of Colon Active 11/19/2019 ? Diabetes Mellitus Active 11/19/2019 ? Obesity Active 11/19/2019 ? Mitral Valve Regurgitation Active 11/19/2019 ? Supraventricular Tachycardia Active 11/19/2019 ? Acute Diastolic Heart Failure Active 11/19/2019 ? Kidney Stone Active 11/19/2019 ? Cystocele Active 11/19/2019 ? Dyspnea Active 11/19/2019 ? Snoring Active 11/19/2019 ? Obstructive Sleep Apnea Syndrome Active ? ? Hypertensive Disorder Active ? ? Spinal Stenosis Active ? ? Procedures None recorded. Results Lab Results None recorded. Past Encounters 09/01/2020 Obstructive Sleep Apnea Syndrome Sunitha Moss, CUSTOMER SUPPORT REPRESENTATIVE: [address] [phone], Ph. 03/04/2020 Obstructive Sleep Apnea Syndrome Sunitha Moss CUSTOMER SUPPORT REPRESENTATIVE: [address] [place] [phone], Ph. 01/02/2020 Obstructive Sleep Apnea Syndrome Sunitha Moss CUSTOMER SUPPORT REPRESENTATIVE: [address] [place] [phone], Ph. 11/19/2019 Snoring Sunitha Moss CUSTOMER SUPPORT REPRESENTATIVE: [address] [place] [phone], Ph. Social History Tobacco Smoking Status Former Smoker (1/2 pack per a Notes : quite in 82 day) Vaccine List None recorded. Plan of Care Reminders Provider Appointments None ? ? recorded. Lab None ? ? recorded. Referral None ? ? recorded. Procedures None ? ? recorded. Surgeries None ? ? recorded. Imaging None ? ? recorded. Vitals 09/01/2020 12:00PM Office 30 Height Weight BMI Blood Pressure 152.4 cm 89.36 kg 38.5 kg/m2 137/86 mm[Hg] 03/04/2020 01:00PM Office 30 Height Weight BMI Blood Pressure 152.4 cm 88.45 kg 38.1 kg/m2 120/80 mm[Hg] 01/02/2020 04:00PM Office 30 Height Weight BMI Blood Pressure 152.4 cm 88.59 kg 38.1 kg/m2 128/81 mm[Hg] 11/19/2019 09:30AM New Patient 45 Height Weight BMI Blood Pressure 152.4 cm 86.91 kg 37.4 kg/m2 118/68 mm[Hg]
--- OUTSIDE RECORDS SUMMARY | 2020-10-23 13:03 | XMS_ITS | Encounter Summary ---
:1945 Author Care Team Providers Name Role Phone Sukhdeep Paredesick Primary Care Provider [phone] [facility] Medical Records Primary Care Provider [phone] Reason for Visit None recorded. Assessment and Plan 1. Obstructive sleep apnea syndr ome Severe MICHELLE with an AHI of 45.3 /hr and sp02 lana of 69%. She is using CPAP 8-16 cm, she has excellent compliance and reduction in AHI. She continues to sleep much better and feel better rested and continued use of CPAP is recommende d. She wants to try nasal pillows because she gets an itchy nose that wakes her up at night. I put in an order for this. She is encouraged to keep up with the rou damian maintenance of the machine and to c lean and replace parts as indicated. I will see hr back in one year. She is asked to call the clinic for any sleep related questions or concerns. She was made aaron re of the recall and advised to register her CPAP with [employer] I provided greater than 30 minutes in e care of this patient, more than half the time was spent in [id number] counseling. ? CPAP supplies Discussion Note: None recorded.Patient educational handouts: No information available. Plan of Care Reminders Provider Appointments Return to on or around Woodrow Moss, Office 09/01/2021 RN PSYCHIATRIC Lab None ? ? recorded. Referral None ? ? recorded. Procedures None ? ? recorded. Surgeries None ? ? recorded. Imaging None ? ? recorded. Medications Name Start Date ? ? Cartia XT 120 mg capsule,extended release ? Eliquis 5 mg tablet ? furosemide 40 mg tablet ? glipizide ER 5 mg tablet, extended release 24 hr ? losartan 100 mg tablet ? metoprolol succinate ER 200 mg tablet,extended release 24 hr ? potassium chloride ER 20 mEq tablet,extended release ? Medications Administered None recorded. Vitals Height Weight BMI Blood Pressure 5 ft 197 lbs 38.5 kg/m2 137/86 mm[Hg] Results Lab Results None recorded. Allergies Code Code System Name Reaction Severity Onset 2670 RxNorm Codeine ? ? ? 08241 RxNorm Lisinopril ? ? ? 6809 RxNorm Metformin ? ? ? Problems Name Status Onset Date Source ? [...] Stenosis Active ? ? Procedures None recorded. Vaccine List None recorded. Social History Tobacco Smoking Status Former Smoker (1/2 pack per a Notes : quite in day) Are you currently employed? Y Are you blind or do you have Y Notes: g sangeetas difficulty seeing? What is your code status? 0 Animal exposure? Y Notes: 1 dog What is your level of alcohol None consumption? Live alone or with others? with others Hard of hearing or deaf in one N or both ears? What is your level of caffeine Occasional Notes: a cup in the consumption? morning 2 is the mos t all day fizz from arbo nne Functional Status Are you blind or do you Yes have difficulty seeing?? Past Encounters 09/01/2020 Obstructive Sleep Apnea Syndrome Sunitha Moss RN PSYCHIATRIC: [address] [place] [phone], Ph. History of Present Illness Note: <p>Kaleigh Fox has a visit for MICHELLE follow-up.</p><p>
</p><p>Kaleigh was seen by me on 02/23/20. She has a medical history to include CHF, chronic a-fib, and card iomyopathy. Chronic a-fib managed with Eliquis and metoprolol. ECHO 08/19/19 LV nml size, EF 42%, RV nml size and function, LA is moderately dilated, aortic valve is sclerotic, mild AR, moderate MR. Shefelt she slept fine but had symptoms of loud snoring, fatigue, and nocturia 1/night.</p><p&g t;Polysomnogram was completed on {{DATE 11/23/2019}} (BMI 37.42) . Sleep efficiency was {{84# 80}}%,AHI {{45.3# NUMBER}}/hr, RDI {{60.2# NUMBER}}/hr, REM AHI {{52.5# NUMBER}}/hr, REM RDI {{54.1# NUMBER}}/hr, supine AHI {{46# NUMBER}}/hr, right lateral AHI {{0# NUMBER}}/hr, left lateral AHI N/A, sp02 lana {{69# NUMBER}}%, {{34# NUMBER}} minutes were spent at a saturation <88%, arousal index {{40# NUMBER}}/hr, PLMi {{10.3# NUMBER}}/hr, PLM arousal index {{1.2# NUMBER}}/hr. EKG showed {{a-fib# NSR}}. Intermittent snoring.</p><p>Titration 02/12/20 (BMI 38.08) sleep efficiency 73%, CPAP titrated to 12 cm. No optimal setting found as she continued to have hypopneas and hypoxemia. This was felt to be due to her using nasal pillows and having mouth wide open. She refused to try any other mask or chin strap. Arousal index 34/hr, PLMi 2.6/hr, PLMai 0.2/hr, EKG a-fib. Supplemental 02 was not used, CPAP 10-16 cm recommended.</p><p>Last she was using CPAP 8-16 cm and feeling much better. AHI was at goal.</p><p>
</p><p>Kaleigh says things are going well except she uses a nasal mask and she wakes every night with her nose itching so she really wants to try nasal pillows. She has called [facility] and requested this but has not yet received a new maskyet. She is sleeping from about 10 pm until 6 am but with baseball on she has been stying up a little later. She wears CPAP for her total sleep time. Overall she feels she continues to sleep much more soundly with CPAP. </p><p>
</p><p>
</p><p>ESS today 05/27</p><p>
</p><p>COMPLIANCE DATA REVIEWED WITH PATIENT: {{08/02/20-08/31/20# DATES}}, Used {{30# 25 30}}/30 days, average use {{6# 5 6}} hours {{38# number}} minutes a night, mean pressure {{8.5# 8 9}}cm, 90 th percentile pressure {{9.4# 9 10}}cm, time in large air leak {{0# 5 10}} minutes, AHI {{3.9# 1 2}}/hour.</p>Review of Systems: ROS as noted in the HPI Review of Systems None recorded. Physical Exam ? Notes: <p>General: A&O, well groome d {{over weight obese * morbidly obese normal weight thin}}.
HEAD: no rmocephalic & atraumatic.
EYES: non icteric.
LUNGS: CTA all f ields. Good air movement.
CARDIO: irregular without murmur, gallop or th rill.
NEURO: A&O. Normal gait.
PSYCH: Normal mood and affect.
C UTANEOUS: no overt lesions or rashes</p>
[2020-10-23 13:34] VITALS: BP 111/68; PULSE 89; RESP 20; TEMP 36.3; O2SAT 93
[2020-10-23] MEDS: Normal Saline 500 ML 30 ML IV (14:18)
[2020-10-23 14:22] VITALS: BP 111/70; PULSE 55; RESP 20; TEMP 36.1; O2SAT 94
[2020-10-23 14:44] VITALS: BP 111/68; PULSE 89; RESP 20; TEMP 36.1; O2SAT 95
[2020-10-23 15:16] VITALS: BP 117/76; PULSE 90; RESP 20; TEMP 36.2; O2SAT 96
[2020-10-23 15:43] VITALS: BP 115/75; PULSE 93; RESP 20; TEMP 36.2; O2SAT 95
== END 2020-10-23 13:00 | disposition home or self-care (01) ==
LOC: INF 13:01
PROVIDERS: PCP Emergency Medicine; Visit Provider Family Medicine
DX: R06.09 Other forms of dyspnea (principal); U07.1 COVID-19
CPT/HCPCS: 96365

== ENCOUNTER → 2020-11-19 10:16 | Outpatient (BNVA) | payer MEDICARE, SELFPAY | PROVIDERS: PCP Emergency Medicine; Referring Provider Emergency Medicine; Visit Provider Student in an Organized Health Care Education/Training Program | DX: M17.11 Unilateral primary osteoarthritis, right knee (principal); E11.9 Type 2 diabetes mellitus without complications | CPT/HCPCS: 99214 ==

== ENCOUNTER 2020-12-01 14:12 | Outpatient (CLI) | payer MEDICARE, SELFPAY ==
--- NOTE | 2020-12-01 14:15 | RT.EKG_ITS ---
APPROVED REPORT Exam: Resting ECG Reason for Exam: afib Patient Location: O HR:84 bpm ECG Measurements Heart Rate 84 AXIS NV [id number] P [id number] QRSd 98 QRS -11 QT 352 T 55 QTc 417 Conclusion Atrial fibrillation...V-rate 78- 97, irreg A-activity Multiple ventricular premature complexes...V complexes w/ short R-R intervls
== END 2020-12-01 14:13 | disposition home or self-care (01) ==
LOC: DI.CARD 14:25
PROVIDERS: PCP Emergency Medicine; Referring Provider Emergency Medicine; Visit Provider Internal Medicine Cardiovascular Disease
DX: I42.8 Other cardiomyopathies (principal); I48.11 Longstanding persistent atrial fibrillation
CPT/HCPCS: 93010

== ENCOUNTER → 2020-12-01 14:12 | Outpatient (BNVA) | payer MEDICARE, SELFPAY | PROVIDERS: PCP Emergency Medicine; Referring Provider Emergency Medicine; Visit Provider Internal Medicine Cardiovascular Disease | DX: I48.11 Longstanding persistent atrial fibrillation (principal); I42.8 Other cardiomyopathies; Z01.810 Encounter for preprocedural cardiovascular examination | CPT/HCPCS: 93005; 99214; 99213 ==

== ENCOUNTER 2020-12-29 09:11 | Outpatient (CLI) | payer MEDICARE, SELFPAY ==
--- NOTE | 2020-12-29 08:45 | DI.RAD_ITS ---
Exam(s) XR STANDING ALIGNMENT XR KNEE RT 1V EXAM: XR STANDING ALIGNMENT CLINICAL HISTORY: OA RIGHT KNEE. TECHNIQUE: 2D digital imaging was performed. Standing AP views were performed from the pelvis throu gh the ankles. COMPARISON: CR XR KNEE RT 4V AP,LAT,TOYA,PAT from 10/01/2020 CR XR KNEE RT 4V AP,LAT,TOYA,PAT from 10/01/2020 FINDINGS: BONES: No acute fracture is present. No bony destructive lesion is seen. The left femoral head projec ts superior to the right by 13 millimeters. JOINTS: Knees: Moderate to severe joint space narrowing and periarticular spurring of the medial femo ral tibial joint spaces of both knees. The ankle and hip joints are unremarkable. SOFT TISSUE: Normal. IMPRESSION: Advanced degenerative changes of the medial femoral tibial joint spaces of both knees. 13 millimeter leg length discrepancy. DATA REPOSITORY: RADIATION DOSE DELIVERED:
== END 2020-12-29 09:12 | disposition home or self-care (01) ==
LOC: DIORS 09:11
PROVIDERS: PCP Emergency Medicine; Referring Provider Emergency Medicine; Visit Provider Physician Assistant
DX: M17.11 Unilateral primary osteoarthritis, right knee (principal); Z01.818 Encounter for other preprocedural examination
CPT/HCPCS: 73560; 77073

== ENCOUNTER 2021-01-04 02:27 | Outpatient (CLI) | payer MEDICARE, SELFPAY ==
[2021-01-04 11:23] LABS: Source Nasal/Nares
[2021-01-04 14:12] LABS: COVID-19 PCR Negative (Negative)
== END 2021-01-04 02:28 | disposition home or self-care (01) ==
LOC: LBO 02:27
PROVIDERS: PCP Emergency Medicine; Visit Provider Student in an Organized Health Care Education/Training Program
DX: Z20.822 Contact with and (suspected) exposure to COVID-19 (principal)
CPT/HCPCS: 36415; 80048; 85027; 87635

== ENCOUNTER 2021-01-04 02:50 | Outpatient (CLI) | payer MEDICARE, SELFPAY ==
[2021-01-04 08:49] LABS: HCT 40.6 % (36.0-46.0); HGB 13.5 g/dL (11.2-15.7); MCH 30.6 pg (27.0-33.0); MCHC 33.3 % (32.0-36.0); MCV 92.1 fL (80-95); Platelet Count 162 10^3/uL (130-400); RBC 4.41 10^6/uL (3.93-5.22); RDW-SD 44.2 fL; WBC 7.29 10^3/uL (4.4-10.8)
[2021-01-04 09:55] LABS: BUN 25 mg/dL (7-18); CREATININE 1.1 mg/dL (0.55-1.02); Calcium 9.6 mg/dL (8.5-10.1); Chloride 105 mmol/L (98-107); Estimated GFR 48.55 (mL/min/1.73m2); Glucose 171 mg/dL (74-106); Potassium 4.2 mmol/L (3.5-5.1); Sodium 143 mmol/L (136-145)
== END 2021-01-04 02:51 | disposition home or self-care (01) ==
LOC: LBO 02:50
PROVIDERS: PCP Emergency Medicine; Visit Provider Student in an Organized Health Care Education/Training Program
DX: Z01.818 Encounter for other preprocedural examination (principal); M17.11 Unilateral primary osteoarthritis, right knee
CPT/HCPCS: 36415; 80048; 85027

== ENCOUNTER 2021-01-06 06:03 | Day surgery (SDC) | payer MEDICARE, SELFPAY ==
[2021-01-06] VITALS (7 sets, daily range): BP systolic 104–132; BP diastolic 54–103; PULSE 68–78; RESP 16–20; TEMP 36.3–36.6; O2SAT 95–98; BMI 37.9
[2021-01-06] MEDS: Acetaminophen 500 MG TAB 1000 MG PO ×2 (06:50→14:22)
[2021-01-06] MEDS: Lactated Ringers 1,000 ML 80 ML IV (06:50)
[2021-01-06] MEDS: Celecoxib 200 MG CAP 400 MG PO (06:51)
[2021-01-06] MEDS: Gabapentin 300 MG CAP PO (06:51)
--- NOTE | 2021-01-06 07:29 | W.PM.DS.N ---
Documented by User: Shereen Quarles 01/06/21 14:36 DS: Diagnosis Discharge Diagnosis (1) Osteoarthritis of right knee: Status: Chronic Discharge Plan Disposition Patient Disposition: HOME Condition: Good Discharge Details Reason For Visit: Right knee DJD Attending Provider: Margarito Melgoza Primary Care Provider: Sukhdeep Fisher Home Meds and New Rx's Prescriptions: New acetaminophen 500 mg tablet 500 mg PO Q6H PRN (Reason: pain) Qty: 60 RF: 2 celecoxib [Celebrex] 200 mg capsule 200 mg PO BID Qty: 30 RF: 0 docusate sodium [Colace] 100 mg capsule 100 mg PO BID Qty: 30 RF: 0 pantoprazole 40 mg tablet,delayed release (DR/EC) 40 mg PO DAILY 30 Days Qty: 30 RF: 0 gabapentin 300 mg capsule 300 mg PO QHS Qty: 14 RF: 0 oxycodone 5 mg tablet 5 mg PO Q4H PRN (Reason: severe post-operative pain) Qty: 12 RF: 0 Continued omega-3 fatty acids [Fish Oil Concentrate] 1,000 mg capsule 1,000 mg PO DAILY RF: 0 magnesium oxide 400 mg magnesium tablet 400 mg PO DAILY RF: 0 (DME) blood-glucose meter misc 1 ea Miscellaneous twice weekly Qty: 100 RF: 4 diltiazem HCl 120 mg capsule,extended release 24hr 120 mg PO HS Qty: 90 RF: 3 furosemide 40 mg tablet 40 mg PO QAM Qty: 90 RF: 3 glipizide [Glucotrol XL] 5 mg tablet extended release 24hr 5 mg PO DAILY Qty: 90 RF: 3 (DME) lancets 28 gauge misc 1 ea Miscellaneous DAILY Qty: 100 RF: 4 losartan 100 mg tablet 100 mg PO DAILY Qty: 90 RF: 3 metoprolol succinate [Toprol XL] 200 mg tablet extended release 24 hr 200 mg PO DAILY Qty: 90 RF: 3 Eliquis 5 mg tablet 5 mg PO BID Qty: 180 RF: 6 (DME) Blood Glucose Test Strip See Dose Instructions .ROUTE .MEDSUPPLY Qty: 100 RF: 5 potassium chloride [Klor-Con M20] 20 mEq tablet,ER particles/crystals 20 meq PO DAILY Qty: 90 RF: 1 Calcium 600 + D(3) 1 EACH tablet 1 tab PO DAILY RF: 0 Ocuvite with Lutein 1 TAB tablet 1 tab PO DAILY RF: 0 Discharge Instructions Additional Instructions: Total Knee Discharge Instructions Activity: The most important activity is to walk. You should try to take short walks a few times a day. It is important that when resting you work on keeping the knee straight. Avoid putting a pillow behind the knee as this will encourage flexion. Work on range of motion exercises as provided by Physical Therapy. If you have the [employer] bike coming, this will be your primary tool for exercise after the knee replacement. You should use it and follow the directions for the knee. Utilize the other exercises sparingly based on your symptoms. - Start outpatient physical therapy within 2 weeks. - You should wear the CONSTANTIN hose on both legs for 2 weeks. You may remove these at night. You may also use any compression sock in place of the CONSTANTIN hose. - Utilize [employer] to review exercises, see videos on exercises and obtain basic information pertaining to your surgery and your recovery. Dressing: Remove the Roman wrap by 2 days after your surgery and put on the CONSTANTIN stocking given to you from the hospital. Keep the surgical dressing (underneath the ROMAN wrap) in place for at least one week. After the first week it may be removed and replaced with light gauze and tape or nothing. The wound and dressing may get wet after 3 days but avoid soaking the dressing or otherwise it will need to be changed. Many people prefer covering the dressing with cling wrap (saran wrap) to minimize it from getting soaked. If it gets wet, just pat dry. If it starts to peel off then it will need to be changed. Medications: - You should take Tylenol and anti-inflammatory Celebrex as your primary pain control medications. If the Celebrex is too expensive or not covered, please call the office for another alternative (Advil/Ibuprofen or Naproxen/Aleve) - You have been prescribed a stronger pain medication Oxycodone for breakthrough pain, take as needed as prescribed. - If this starts to cause nausea or vomiting please contact office. - You have also been prescribed a stomach acid reduction agent Pantoprozole to help reduce stomach acid and reflux. - You have been prescribed Gabapentin to take at night for restlessness and nerve pain. - You take apixaban for anticoagulation - will resume this tomorrow. - If you have constipation you should take Colace (which has been prescribed) or Miralax (which you may purchase [id number]). It takes most people 3-4 days to have a bowel movement. Follow-up: 2 weeks If you have any acute concerns or questions, please do not hesitate to contact the office at [phone]. You may contact Dr. Melgoza with any questions after hours through the hospital at [phone] or on his cell phone at [phone]. Referrals: Margarito Melgoza MD [ [facility] STAFF PHYSICIAN] - Equipment/Supplies: Walker Activity:: Elevate Remove Dressings/Wound Care:: Do Not Remove Shower/Bathe:: Cover Diet:: As Tolerated Discharge Orders Discharge Orders: Discharge Order (Routine); Ordered 01/06/21 Ordered By: Margarito Melgoza DS: Data Vitals/I&O Vitals and I&O: Vital Signs Temperature 36.6 C 01/06/21 06:32 Pulse 72 01/06/21 06:32 Pulse Rhythm Irregular 01/06/21 06:32 Respiratory Rate 20 01/06/21 06:32 Respiratory Depth Normal 01/06/21 06:32 Blood Pressure 132/86 01/06/21 06:32 Pulse Oximetry 98 01/06/21 06:32 Oxygen Delivery Method Room Air 01/06/21 06:32 Oxygen Flow Rate 0 01/06/21 06:32 Pain Level 0 01/06/21 06:32 Comment 01/06/21 06:32 Intake & Output 01/05/21 01/05/21 01/06/21 11:59 23:59 11:59 Weight 91 kg [facility] Medical History Bilateral hip pain Cystocele (06/24/14) Diabetes mellitus Hypertension 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 Surgery 02/16. Vaginal Hyst. Surgical History (Updated 01/06/21 @ 06:23 by Irlanda Olguin) H/O surgical procedure a. MINDA/BSO with colporrhaphy and cystocele repair 02/20/2014 b. colonoscopy Hx of colonoscopy Oophrectomy, Both (02/20/14) TVH, BSO with R sided uterosacral ligament suspension with Anterior Coloporrhapy. EP/aoc Status post arthroscopy of left knee Status post lumbar surgery L3-L5 Vaginal hysterectomy Family History Mother Diabetes Father Heart disease Diabetes Sister , AGE 85 Cancer Diabetes Heart disease Sister , AGE 51 Heart disease Sister , AGE 84 Diabetes Heart disease Brother , AGE 34 No problems noted. Brother , AGE 82 Diabetes Heart disease Social History (Updated 08/12/20 @ 14:56 by Jewell Baxter) Smoking/Tobacco Use Status: Former Tobacco Use Quit Date: 03/06/81 Second Hand Exposure: Yes Smoking risk assessment performed?: Yes Alcohol Intake: never Drug use: Never Substance use type: does not use Household members: spouse Housing: house Communication Needs: None Do you need help understanding health information?: Often Pets and animals: Yes Pets and animals: dog(s) Sexually active: No Do you think of yourself as: straight/heterosexual Current gender identity: female How often do you talk on the phone with friends or family?: three or more times per week How often do you get together with friends or relatives?: decline to answer How often do you attend evangelical or restoration services?: decline to answer Do you belong to any clubs or organized social groups?: decline to answer Panel score (0-1 are the most socially isolated patients): 1 Radha/Mosque: [employer] Special radha needs: No Seatbelt use: always Drive intox or ride w/intox uke driver: No Do you feel safe at home: Yes Do you feel safe in your relationship?: Yes Documented by User: Margarito Melgoza MD 01/06/21 14:47 Date of service: 01/06/21 Time of Service: 14:46 Discharge Plan Disposition Patient Disposition: HOME Condition: Good Discharge Details Reason For Visit: Right knee DJD Attending Provider: Margarito Melgoza Primary Care Provider: Sukhdeep Fisher Home Meds and New Rx's Prescriptions: New acetaminophen 500 mg tablet 500 mg PO Q6H PRN (Reason: pain) Qty: 60 RF: 2 celecoxib [Celebrex] 200 mg capsule 200 mg PO BID Qty: 30 RF: 0 docusate sodium [Colace] 100 mg capsule 100 mg PO BID Qty: 30 RF: 0 pantoprazole 40 mg tablet,delayed release (DR/EC) 40 mg PO DAILY 30 Days Qty: 30 RF: 0 gabapentin 300 mg capsule 300 mg PO QHS Qty: 14 RF: 0 oxycodone 5 mg tablet 5 mg PO Q4H PRN (Reason: severe post-operative pain) Qty: 12 RF: 0 Continued omega-3 fatty acids [Fish Oil Concentrate] 1,000 mg capsule 1,000 mg PO DAILY RF: 0 magnesium oxide 400 mg magnesium tablet 400 mg PO DAILY RF: 0 (DME) blood-glucose meter misc 1 ea Miscellaneous twice weekly Qty: 100 RF: 4 diltiazem HCl 120 mg capsule,extended release 24hr 120 mg PO HS Qty: 90 RF: 3 furosemide 40 mg tablet 40 mg PO QAM Qty: 90 RF: 3 glipizide [Glucotrol XL] 5 mg tablet extended release 24hr 5 mg PO DAILY Qty: 90 RF: 3 (DME) lancets 28 gauge misc 1 ea Miscellaneous DAILY Qty: 100 RF: 4 losartan 100 mg tablet 100 mg PO DAILY Qty: 90 RF: 3 metoprolol succinate [Toprol XL] 200 mg tablet extended release 24 hr 200 mg PO DAILY Qty: 90 RF: 3 Eliquis 5 mg tablet 5 mg PO BID Qty: 180 RF: 6 (DME) Blood Glucose Test Strip See Dose Instructions .ROUTE .MEDSUPPLY Qty: 100 RF: 5 potassium chloride [Klor-Con M20] 20 mEq tablet,ER particles/crystals 20 meq PO DAILY Qty: 90 RF: 1 Calcium 600 + D(3) 1 EACH tablet 1 tab PO DAILY RF: 0 Ocuvite with Lutein 1 TAB tablet 1 tab PO DAILY RF: 0 Discharge Instructions Additional Instructions: Total Knee Discharge Instructions Activity: The most important activity is to walk. You should try to take short walks a few times a day. It is important that when resting you work on keeping the knee straight. Avoid putting a pillow behind the knee as this will encourage flexion. Work on range of motion exercises as provided by Physical Therapy. If you have the [employer] bike coming, this will be your primary tool for exercise after the knee replacement. You should use it and follow the directions for the knee. Utilize the other exercises sparingly based on your symptoms. - Start outpatient physical therapy within 2 weeks. - You should wear the CONSTANTIN hose on both legs for 2 weeks. You may remove these at night. You may also use any compression sock in place of the CONSTANTIN hose. - Utilize [employer] to review exercises, see videos on exercises and obtain basic information pertaining to your surgery and your recovery. Dressing: Remove the Roman wrap by 2 days after your surgery and put on the CONSTANTIN stocking given to you from the hospital. Keep the surgical dressing (underneath the ROMAN wrap) in place for at least one week. After the first week it may be removed and replaced with light gauze and tape or nothing. The wound and dressing may get wet after 3 days but avoid soaking the dressing or otherwise it will need to be changed. Many people prefer covering the dressing with cling wrap (saran wrap) to minimize it from getting soaked. If it gets wet, just pat dry. If it starts to peel off then it will need to be changed. Medications: - You should take Tylenol and anti-inflammatory Celebrex as your primary pain control medications. If the Celebrex is too expensive or not covered, please call the office for another alternative (Advil/Ibuprofen or Naproxen/Aleve) - You have been prescribed a stronger pain medication Oxycodone for breakthrough pain, take as needed as prescribed. - If this starts to cause nausea or vomiting please contact office. - You have also been prescribed a stomach acid reduction agent Pantoprozole to help reduce stomach acid and reflux. - You have been prescribed Gabapentin to take at night for restlessness and nerve pain. - You take apixaban for anticoagulation - will resume this tomorrow. - If you have constipation you should take Colace (which has been prescribed) or Miralax (which you may purchase [id number]). It takes most people 3-4 days to have a bowel movement. Follow-up: 2 weeks If you have any acute concerns or questions, please do not hesitate to contact the office at [phone]. You may contact Dr. Melgoza with any questions after hours through the hospital at [phone] or on his cell phone at [phone]. Referrals: Margarito Melgoza MD [ [facility] STAFF PHYSICIAN] - Equipment/Supplies: Walker Activity:: Elevate Remove Dressings/Wound Care:: Do Not Remove Shower/Bathe:: Cover Diet:: As Tolerated Discharge Orders Discharge Orders: Discharge Order (Routine); Ordered 01/06/21 Ordered By: Margarito Melgoza DS: Summary Time Spent with Patient providing and/or coordinating discharge services: Less than 30 minutes Status at Discharge Functional status at discharge: uses cane/walker Overall status at discharge: patient is progressing back to baseline Mental Status: mental status grossly normal Speech and Movement: speech and movement normal Mood: congruent mood Affect: normal affect Exam Psych Mental Status: mental status grossly normal Speech and Movement: speech and movement normal Mood: congruent mood Affect: normal affect [facility] Medical History Bilateral hip pain Cystocele (06/24/14) Diabetes mellitus Hypertension 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 Surgery 02/16. Vaginal Hyst. Surgical History (Updated 01/06/21 @ 06:23 by Irlanda Olguin) H/O surgical procedure a. MINDA/BSO with colporrhaphy and cystocele repair 02/20/2014 b. colonoscopy Hx of colonoscopy Oophrectomy, Both (02/20/14) TVH, BSO with R sided uterosacral ligament suspension with Anterior Coloporrhapy. EP/aoc Status post arthroscopy of left knee Status post lumbar surgery L3-L5 Vaginal hysterectomy Family History Mother Diabetes Father Heart disease Diabetes Sister , AGE 85 Cancer Diabetes Heart disease Sister , AGE 51 Heart disease Sister , AGE 84 Diabetes Heart disease Brother , AGE 34 No problems noted. Brother , AGE 82 Diabetes Heart disease Social History (Updated 08/12/20 @ 14:56 by Jewell Baxter) Smoking/Tobacco Use Status: Former Tobacco Use Quit Date: 03/06/81 Second Hand Exposure: Yes Smoking risk assessment performed?: Yes Alcohol Intake: never Drug use: Never Substance use type: does not use Household members: spouse Housing: house Communication Needs: None Do you need help understanding health information?: Often Pets and animals: Yes Pets and animals: dog(s) Sexually active: No Do you think of yourself as: straight/heterosexual Current gender identity: female How often do you talk on the phone with friends or family?: three or more times per week How often do you get together with friends or relatives?: decline to answer How often do you attend evangelical or restoration services?: decline to answer Do you belong to any clubs or organized social groups?: decline to answer Panel score (0-1 are the most socially isolated patients): 1 Radha/Mosque: [employer] Special radha needs: No Seatbelt use: always Drive intox or ride w/intox uke driver: No Do you feel safe at home: Yes Do you feel safe in your relationship?: Yes
--- NOTE | 2021-01-06 07:55 | ANES.PREOP_ITS ---
General Info Date of Service Date Performed: 01/06/21 Height: 5 ft 1 in Weight: 91 kg Body Mass Index (BMI): 37.9 Surgical Procedure: Operation Date: 01/06/21 08:25 Proposed Procedures Side Surgeon p Knee Total Arthroplasty Right Margarito Melgoza MD Meds Allergies and Home Medications Allergies Allergy/AdvReac Type Severity Reaction Status Date / Time lisinopril AdvReac Severe COUGH Verified 01/06/21 06:17 codeine AdvReac Intermediate Nausea Verified 01/06/21 06:17 metformin AdvReac Intermediate diarrhea Verified 01/06/21 06:17 Home Medication Medication Instructions Recorded Calcium 600 + D(3) 1 tab PO DAILY 02/18/14 Ocuvite with Lutein 1 tab PO DAILY 02/18/14 blood-glucose meter #100 each 06/12/18 magnesium oxide 400 mg PO DAILY 03/18/19 diltiazem HCl 120 mg 120 mg PO HS #90 cap 03/31/20 capsule,extended release 24 hr furosemide 40 mg tablet 40 mg PO QAM #90 tab 03/31/20 glipizide 5 mg tablet, extended 5 mg PO DAILY #90 tab-cap 03/31/20 release 24 hr lancets 28 gauge #100 ea 03/31/20 losartan 100 mg tablet 100 mg PO DAILY #90 tab 03/31/20 metoprolol succinate 200 mg 200 mg PO DAILY #90 tab 03/31/20 tablet,extended release 24 hr apixaban 5 mg tablet 5 mg PO BID #180 tab 04/15/20 omega-3 fatty acids 1,000 mg 1,000 mg PO DAILY 08/11/20 capsule blood sugar diagnostic #100 each 09/16/20 potassium chloride 20 mEq 20 meq PO DAILY #90 tab 09/24/20 tablet,extended release(part/cryst) acetaminophen 500 mg PO Q6H PRN #60 tab 01/06/21 celecoxib [Celebrex] 200 mg PO BID #30 cap 01/06/21 docusate sodium [Colace] 100 mg PO BID #30 cap 01/06/21 gabapentin 300 mg PO QHS #14 cap 01/06/21 oxycodone 5 mg PO Q4H PRN #12 tab 01/06/21 pantoprazole 40 mg PO DAILY 30 Days #30 tab 01/06/21 Current Visit Medications: Current Medications Generic Name Dose Route Start Last Admin Trade Name Freq PRN Reason Stop Dose Admin Acetaminophen 1,000 mg 01/06/21 06:00 01/06/21 06:50 Acetaminophen 500 Mg Tab PO 01/06/21 16:00 1,000 mg PREOP PENNY Administration Acetaminophen 1,000 mg 01/06/21 09:00 Acetaminophen 500 Mg Tab PO TID PENNY Celecoxib 400 mg 01/06/21 06:00 01/06/21 06:51 Celecoxib 200 Mg Cap PO 01/06/21 16:00 400 mg PREOP PENNY Administration Celecoxib 200 mg 01/06/21 09:00 Celecoxib 200 Mg Cap PO BID PENNY Docusate Sodium 100 mg 01/06/21 07:26 Docusate Sodium 100 Mg Cap PO BID PRN PRN Constipation Gabapentin 300 mg 01/06/21 06:00 01/06/21 06:51 Gabapentin 300 Mg Cap PO 01/06/21 16:00 300 mg PREOP PENNY Administration Gabapentin 300 mg 01/06/21 22:00 Gabapentin 300 Mg Cap PO HS PENNY Hydromorphone HCl 0.5 mg 01/06/21 07:26 Hydromorphone 2 Mg/Ml Vial IVP Q2H PRN PRN Tranexamic Acid 1,000 mg/ 60 mls @ 360 mls/hr 01/06/21 06:00 Sodium Chloride IVPB 01/06/21 16:00 PREOP PENNY Tranexamic Acid 1,000 mg/ 60 mls @ 360 mls/hr 01/06/21 06:00 Sodium Chloride IVPB 01/06/21 16:00 DIRECTED PENNY Ringer's Solution 1,000 mls @ 80 mls/hr 01/06/21 06:00 01/06/21 06:50 IV 02/04/21 23:59 80 mls/hr INFUSION PENNY Administration Cefazolin Sodium/Dextrose 2 gm in 50 mls @ 100 mls/hr 01/06/21 06:00 Ancef Duplex IVPB 01/06/21 16:00 PREOP PENNY Cefazolin Sodium/Dextrose 1 gm in 50 mls @ 100 mls/hr 01/06/21 10:00 Ancef Duplex IVPB 01/07/21 02:29 Q8H PENNY IV Miscellaneous Supplies 1 each 01/06/21 06:00 Iv Access IV 02/04/21 23:59 DIRECTED PENNY Oxycodone HCl 0 mg 01/06/21 07:26 Oxycodone 5 Mg Tab PO Q3H PRN PRN Pain Pantoprazole Sodium 40 mg 01/06/21 08:00 Pantoprazole 40 Mg Tabcr PO DAILY@0730 [facility] Polyethylene Glycol 17 gm 01/06/21 07:26 Polyethylene Glycol 3350 17 Gm Packet PO BID PRN PRN Constipation Sodium Chloride 0 ml 01/06/21 06:00 Normal Saline Flush 10 Ml Syr IV 02/04/21 23:59 PRN PRN Sodium Chloride 0 ml 01/06/21 06:00 Normal Saline 10 Ml Vial IJ 02/04/21 23:59 DIRECTED PRN Sterile Water 0 ml 01/06/21 06:00 Water,Injection,Sterile 10 Ml Vial IJ 02/04/21 23:59 DIRECTED PRN PFSH Active Problems Active Problems: Problem Status Onset Code Mucous polyp of cervix N84.1 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 Atrial fibrillation I48.91 Cardiomyopathy I42.9 SOB (shortness of breath) R06.02 Mitral regurgitation I34.0 Acute on chronic heart failure with reduced ejection fraction and diastolic dysfunction I50.43 Greater trochanteric bursitis of both hips M70.61, M70.62 Osteoarthritis of right knee M17.11 Status post arthroscopy of left knee Z98.890 Status post lumbar surgery Z98.890 Preoperative cardiovascular examination Z01.810 Bilateral hip pain M25.551, M25.552 Spinal stenosis M48.00 Cystocele 06/24/14 Diabetes mellitus E11.9 Infection resistant to penicillin Z16.11 Kidney stone N20.0 Paroxysmal SVT (supraventricular tachycardia) 02/15/17 I47.1 Polyp of colon 02/03/04 K63.5 Uterine procidentia 01/20/14 N81.3 Hypertension I10 Obesity E66.9 H/O surgical procedure Z98.89 Medical History Medical History Bilateral hip pain Cystocele (06/24/14) Diabetes mellitus Hypertension Infection resistant to penicillin MRSA abscess x 2 Kidney stone Obesity Paroxysmal SVT (supraventricular tachycardia) (02/15/17) zio patch Polyp of colon (02/03/04) Preoperative cardiovascular examination Spinal stenosis Uterine procidentia (11/17/14) with rectocoele. Surgery 02/16. Vaginal Hyst. Surgical History Surgical History (Updated 01/06/21 @ 06:23 by Irlanda Olguin) H/O surgical procedure a. MINDA/BSO with colporrhaphy and cystocele repair 02/20/2014 b. colonoscopy Hx of colonoscopy Oophrectomy, Both (02/20/14) TVH, BSO with R sided uterosacral ligament suspension with Anterior Coloporrhapy. EP/aoc Status post arthroscopy of left knee Status post lumbar surgery L3-L5 Vaginal hysterectomy Tobacco Smoking/Tobacco Use Status: Former Tobacco Use Passive smoking exposure: Yes Second hand exposure: Yes Alcohol Alcohol Intake: never Substance Use Substance use: Never Substance use type: does not use Vital Signs and Lab Results Vital Signs Most Recent Vital Signs in EMR: Most Recent Vital Signs Temp Pulse Resp BP Pulse Ox 36.6 C 72 20 132/86 98 01/06/21 06:32 01/06/21 06:32 01/06/21 06:32 01/06/21 06:32 01/06/21 06:32 Point of Care Results Point of Care Results: Finger Stick Blood Glucose 153 01/06/21 07:10 Lab Results Blood Type / Crossmatch: No Data to Display Complete Blood Count: White Blood Count 7.29 10^3/uL (4.4-10.8) 01/04/21 08:20 01/04/21 Red Blood Count 4.41 10^6/uL (3.93-5.22) 01/04/21 08:20 01/04/21 Hemoglobin 13.5 g/dL (11.2-15.7) 01/04/21 08:20 01/04/21 Hematocrit 40.6 % (36.0-46.0) 01/04/21 08:20 01/04/21 Platelet Count 162 10^3/uL (130-400) 01/04/21 08:20 01/04/21 Complete Metabolic Panel: Sodium Level 143 mmol/L (136-145) 01/04/21 08:20 01/04/21 Potassium Level 4.2 mmol/L (3.5-5.1) 01/04/21 08:20 01/04/21 Chloride Level 105 mmol/L (98-107) 01/04/21 08:20 01/04/21 Carbon Dioxide Level 27.0 mmol/L (21.0-32.0) 01/04/21 08:20 01/04/21 Blood Urea Nitrogen 25 mg/dL (7-18) H 01/04/21 08:20 01/04/21 Creatinine 1.1 mg/dL (0.55-1.02) H 01/04/21 08:20 01/04/21 Estimated GFR/1.73 m2 48.55 (mL/min/1.73m2) 01/04/21 08:20 01/04/21 Calcium Level 9.6 mg/dL (8.5-10.1) 01/04/21 08:20 01/04/21 Glucose Level 171 mg/dL (74-106) H 01/04/21 08:20 01/04/21 Liver Function Panel: 2 No Data to Display Coagulation Panel: No Data to Display Cardiac Panel: No Data to Display Arterial Blood Gas: No Data to Display Venous Blood Gas: No Data to Display Pancreas Panel: No Data to Display Thyroid Panel: No Data to Display Infectious Disease: Coronavirus (COVID-19)(PCR) Negative (Negative) 01/04/21 09:05 01/04/21 Coronavirus 2019 Source Nasal/Nares 01/04/21 09:05 01/04/21 Blood Cultures: No Data to Display Toxicology Panel: No Data to Display Imaging and Studies Imaging and Studies EKG Summary: 12/01/2020: Exam: Resting ECG Reason for Exam: afib Patient Location: O HR:84 bpm ECG Measurements Heart Rate 84 AXIS OK [id number] P [id number] QRSd 98 QRS -11 QT 352 T55 QTc 417 Conclusion Atrial fibrillation...V-rate 78- 97, irreg A-activity Multiple ventricular premature complexes...V complexes w/ short R-R intervls Stress Test Summary: 06/2015: (Stress Echocardiogram) *STUDY CONCLUSIONS* Summary: 1. Procedure narrative: Treadmill exercise testing was performed using the Theo protocol. The patient exercised for 6 min 53 sec. 2. Staged echo: Normal echo stress 3. Stress ECG conclusions: TEST ENDED AT 6 MINUTES, 53 SECONDS DUE TO PT REQUEST BECAUSE FATIGUE. ABOVE AVERAGE EXERCISE CAPACITY, APPROXIMATELY 10.2 METS. APROPRIATE BP RESPOSE. SINGLE PVC'S, OCCASIONAL COUPLETS. NO ANGINA. [employer] SIGNIFICANT ST CHANGES. 12/2018: (Stress MPI): Stress ECG Conclusion 1. Patient demonstrated good exercise capacity. 2. This represents a maximal stress test. 3. There is no evidence of ischemia on EKG portion of exam. Echocardiogram Summary: 05/2020: Conclusion Left Ventricle : The left ventricle is normal size. Left ventricular systolic function is borderline. There is normal left ventricular wall thickness. There is global mild hypokinesis of the left ventricle. The diastolic function is abnormal. LVEF is 50%. Right Ventricle : The right ventricle is normal size. The right ventricular systolic function is normal. The RVSP is 27.6mmHg. Atria : Left atrium is moderately dilated. Right atrium is moderately dilated. Aortic Valve : The Aortic valve is sclerotic. Aortic valve is trileaflet. Mild aortic regurgitation. There is no aortic valvular stenosis. Mitral Valve : Mild mitral annular calcification. Moderate mitral regurgitation. No evidence of mitral valve stenosis. Great Vessels : The aortic root is normal in size. The ascending aorta is mildly dilated. Aortic arch is normal in caliber. IVC is normal in size and collapses >50% with inspiration. See remainder of study for further details. Anesthesia Assessment and Plan Anesthesia History Personal History: No History of Anesthesia Complications Family History: No Family History of Anesthesia Complications Exercise Tolerance Exercise Tolerance: Metabolic Equivalents>4 Pertinent Negatives Pertinent Negatives: No Symptoms of GERD and No Major Pulmonary Symptoms or Complaints Cardiac & Pulmonary Exam Cardiac Exam: Normal S1/S2 Heart Sounds (Irregular) Pulmonary Exam: Clear Bilateral Breath Sounds Airway Exam Known Difficult Airway: No Mallampati Class: 2 Mouth Opening: Normal (> 3cm) Thyromental Distance: Greater than 3 cm Neck Range of Motion: Full ROM Neck Circumference: Normal Teeth Condition: Normal Dentition ASA Classification ASA Score: ASA 3 Emergency Case?: No NPO Status NPO Status: NPO Clears >2 hours, Solids >8 hours Anesthesia Plan Resuscitation Status: Full Code Anesthesia Technique: Spinal Anesthesia Airway Planned: Natural Airway Pain Management: Surgeon and patient request nerve block Monitors Used: Standard Monitors
[2021-01-06] MEDS: ceFAZolin 2 GM/50 ML BAG IVPB (10:16)
--- NOTE | 2021-01-06 11:05 | W.ANESNERVE ---
Nerve Block Single Injection Procedure Date and Time Date Performed: 01/06/21 Procedure Start: 08:33 Location Where Procedure Performed Procedure Location: Day Surgery Unit Reason Performed: Postoperative Analgesia Requesting Provider: Margarito Melgoza Timeout Performed Timeout Performed: Yes Monitoring Used ECG, Blood Pressure and SpO2 Sterility Sterility: Hand Hygiene, Surgical Cap, Surgical Mask, Sterile Gloves, Eye Protection and Chlorhexidine Sedation Given During Procedure Sedation Given (Indicate Dose Given): No Sedation given Patient Mental Status Patient Mental Status: Awake Nerve Block 1st Nerve Block: Laterality: Right Block Type: Adductor Canal Needle / Catheter Used: 120mm SonoPlex II Local Anesthetic Bolus (Indicate Dose Given): Lidocaine used for local infiltration of skin, Injected in 3-5ml increments after negative blood aspiration and Bupivacaine 0.25% Dose:: 15 mL Additives (Indicate Dose Given): None Ultrasound: Sterile probe cover and gel used Ultrasound Image Saved?: Yes Nerve Stimulator: Not Used Paresthesia: None Procedure Tolerated: No Complications and Patient tolerated well Procedure Outcome: Successful Performed By: Enriqueta Fontana
[2021-01-06] MEDS: Bupivacaine 0.25% Pres-Free 30 ML VIAL (11:47)
[2021-01-06] MEDS: Normal Saline 20 ML VIAL (11:47)
[2021-01-06] MEDS: Ketorolac 30 MG/ML VIAL (11:47)
--- NOTE | 2021-01-06 14:34 | W.ANESPOSTOP ---
Postoperative Evaluation Date, Time and Location Date Performed: 01/06/21 Time Performed: 14:35 Patient Location: Day Surgery Unit Vital Signs Most Recent Imported Vital Signs: Most Recent Vital Signs Temp Pulse Resp BP Pulse Ox 36.4 C L 68 17 130/103 H 98 01/06/21 14:02 01/06/21 14:02 01/06/21 14:02 01/06/21 14:02 01/06/21 14:02 Pain Score Most Recent Pain Score: Most Recent Pain Score Pain Level [Right Knee] 0 01/06/21 06:25 Pain Level 4 01/06/21 14:02 Assessment Mental Status: Awake (Alert & Oriented to Patient Baseline) Airway and Respiratory Function: Patent airway with normal (patient baseline) respiratory exam Cardiovascular Function: Hemodynamically Stable Hydration Status: Adequately Hydrated Nausea & Vomiting: No Nausea or Vomiting Pain: Pain is tolerable per patient Peripheral Nerve Block: Patient did not receive a nerve block
--- NOTE | 2021-01-06 15:39 | IN_ITS ---
PT Notes Visit Reasons: Right knee DJD Physical Therapy Inpatient Initial Evaluation Date: 01/06/21 Referring Doctor: Margarito Mlegoza MD PT Orders: PT CONSULT Precautions: Fall. Standard. Patient Profile/Admitting Diagnosis: R TKA PMHX: PFSH Medical History Bilateral hip pain Cystocele (06/24/14) Diabetes mellitus Hypertension 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 Surgery 02/16. Vaginal Hyst. Surgical History (Updated 01/06/21 @ 06:23 by Irlanda Olguin) H/O surgical procedure a. MINDA/BSO with colporrhaphy and cystocele repair 02/20/2014 b. colonoscopy Hx of colonoscopy Oophrectomy, Both (02/20/14) TVH, BSO with R sided uterosacral ligament suspension with Anterior Coloporrhapy. EP/aoc Status post arthroscopy of left knee Status post lumbar surgery L3-L5 Vaginal hysterectomy Social History/Home Situation: Pt lives in a single story home with her spouse, 1 step entry without rail Equipment Owned/DME: [employer] Subjective: Cleared by nursing to see patient and patient is agreeable to PT. Patient received semi-fowlers at time of consult. Objective: General Observation: Pt appears in no acute distress. Mental Status: A&O x3 Pain: 2-3/10 with ambulation. Pt reports it feels good to move. Vitals: BP: 137/84 at rest semi-fowlers BP standing 1min: 116/76 - pt asymptomatic throughout today's session HR: 56 at rest SpO2: 95% on RA at rest ROM: Right Upper Extremity: Shoulder Flexion WFL. Shoulder abduction WFL. Elbow flexion WFL. Wrist flexion WFL. Opening and closing of hand WFL. Left Upper Extremity: Shoulder Flexion WFL. Shoulder abduction WFL. Elbow flexion WFL. Wrist flexion WFL. Opening and closing of hand WFL. Right Lower Extremity: Hip flexion WFL. Hip abduction WFL. Knee flexion WFL. Ankle dorsiflexion WFL. Ankle plantarflexion WFL. Left Lower Extremity: Hip flexion WFL. Hip abduction WFL. Knee flexion WFL. Ankle dorsiflexion WFL. Ankle plantarflexion WFL. Strength: Right Upper Extremity: Shoulder flexors WFL. Shoulder abductors WFL. Elbow flexors WFL. Elbow extensors WFL. Hand Button Splitter strong. Left Upper Extremity: Shoulder flexors WFL. Shoulder abductors WFL. Elbow flexors WFL. Elbow extensors WFL. Hand Button Splitter strong. Right Lower Extremity: Hip flexors 5/5. Hip abductors WFL. Knee flexors 5/5. Knee extensors 5/5. Ankle dorsiflexors 5/5. Ankle plantarflexors 5/5. Left Lower Extremity: Hip flexors 5/5. Hip abductors WFL. Knee flexors 5/5. Knee extensors 5/5. Ankle dorsiflexors 5/5. Ankle plantarflexors 5/5. Sensation: Intact as to pain and pressure on bilateral lower extremities. Bed Mobility/Transfers: Rolling: I Supine to sit: I Sit to supine: I Sit to stand: ID with use of UE support Stand to sit: ID with use of UE support Bed to chair: Supervision utilizing [employer] Chair to bed: Supervision utilizing [employer] Gait: Ambulated 50ft with FWW and min contact assist x1 throughout. Pt demonstrates step-to gait pattern with reduced stance time on RLE. Balance: Static Sitting: WNL Dynamic Sitting: WNL Static Standing: WFL utilizing [employer] Dynamic Standing: WFL - pt demonstrated hand washing at sink standing without error, min contact assist x1 throughout Special Tests: Mobility Limitations Standardized Measure [facility] AM-PAC 6 clicks Basic Mobility Inpatient Short Form: Raw Score: 22 CMS Score: 21% Informed Consent/Education: Patient instructed in purpose of PT consult and plan of care. Assessment: Patient presents with clinical signs and symptoms consistent with current/admitting diagnoses that have resulted to mobility limitations, gait instability, generalized weakness, and impairment of motor control as demonstrated by the following impairment level findings: 1. Decreased strength to RLE major muscle groups 2. Impaired activity tolerance 3. Limitation of joint range of motion in RLE Impairments are contributing to the following functional limitations: 1. Inability to safely ambulate without assistive device and physical assistance 2. Increase completion time for mobility ADL performance 3. Increased fall risk 4. Inability to negotiate steps alone safely Patient is assessed as a moderate complexity based on the following: History: 75 year old female identifying person with impairment level findings, functional limitations, and past medical history as indicated above Examination: Demonstrable impairment in strength and mobility level with underlying impairments and functional limitations as documented above Presentation: Pt presents with functional mobility deficits consistent with post surgical status following L TKA. Decision Making: low complexity DISCHARGE RECOMMENDATIONS: Based on pt's completion of functional mobility consistent with her home environment and available support, pt is appropriate for DC to home with OP PT follow-up. TREATMENT CODE/TIME: (30 minutes), [id number] Thank you for the opportunity to participate in the care of this patient.
--- NOTE | 2021-01-06 21:18 | ROE_ITS ---
Date of service: 01/06/21 Time of Service: 11:45 Operative Note Operative Note DATE OF PROCEDURE: 01/06/21 PRE-OP DIAGNOSIS: Right Knee Osteoarthritis POST-OP DIAGNOSIS: same PROCEDURE: Right Total Knee Replacement SURGEON: Margarito Melgoza CUTTING MACHINE TENDER: Shereen Quarles ANESTHESIA TYPE: Spinal Refer to Anesthesia Record ESTIMATED BLOOD LOSS: 150 PATHOLOGY: none sent TOURNIQUET TIME: 32 COMPLICATIONS: None Patient was transported to: PACU Patient's condition: stable Implants: 1. Depuy Attune Cruciate Retaining Femoral Component, Size 5 2. Depuy Attune Rotating Platform Tibial Component, Size 5 3. Depuy Attune 5x6mm CR,RP Poly 4. Depuy Attune Patellar Component, Size 38 Indications: I have seen Kaleigh in clinic for symptoms of knee arthritis, confirmed with radiographic findings. She has exhausted nonoperative methods and was having significant limitations in daily function and desired better function and less pain. I discussed the technical details of a knee replacement. I explained the risks of the procedure to include, but not limited to, bleeding, infection, pain, stiffness, fracture, damage to nerves and vessels, damage to muscles and tendons, loosening, need for repeat procedure, blood clot and cardiopulmonary demise. Despite these risks, Kaleigh elected to proceed. Findings: There was significant signs of arthritis throughout the knee. Procedure Description: Kaleigh was greeted in the preoperative holding area where the correct side was identified and marked. The consent was reviewed with the patient and signed. The history and physical was updated. All questions were answered. Preoperative mediacations were administered: Acetaminophen 1000mg, Celebrex 400mg, and Gabapentin 300mg. An adductor canal block was then administered by the anesthesia team in the PACU. Kaleigh was taken back to the operating room. A spinal anesthestic was then administered. The patient was placed into the supine position on the operating room table. A nonsterile tourniquet was placed high onto the leg but only used for cementing. Posts were placed for positioning during the procedure. All bony prominences were well padded. Prophylactic antibiotics in the form of Cefazolin were administered. 1g of Tranxemic Acid was given intravenously within 30 minutes of incision. The right leg was then prepped with Chloraprep and draped in a standard fashion with impervious stockinette and extremity drape. A second prep with Chloraprep was performed prior to placing Ioband. A timeout to confirm correct identity, side and site, procedure, allergies, anesthesia, and medical concerns was performed. With the knee in some flexion, a midline incision was made overlying the knee. Full thickness skin flaps were raised once the extensor mechanism was encountered. These were raised medially and laterally. Any bleeding was controlled with electrocautery. Once the extensor mechanism was fully exposed, a medial parapatellar arthrotomy was performed in a flexed position. All bleeding from the arthrotomy and the geniculate arteries was coagulated. A medial subperiosteal peel was performed with electrocautery to the midcoronal plane. The fat pad was removed while keeping the patellar tendon protected. The anterior distal femur synovium was removed for later visualization. The ACL and PCL were resected and the anterior horn of the lateral meniscus was transected. The knee was then flexed with the patella everted. Large osteophytes from the tibia were removed. Large osteophytes from the femur were removed. Using a step drill, and based on preoperative templating, the femoral canal was entered. This was done with a step drill without any difficulty. The intramedullary distal femoral cut guide was inserted, set to a 6 degree valgus cut and 9mm cut thickness. The distal femoral cut guide was then held in position and pinned. With the soft tissues protected, the distal cut was performed. This was passed over a few times to ensure a planar cut. I then turned attention to the tibia. The extramedullary guide was placed onto the leg. The distal aspect was slid medial to adjust for position of center of ankle and stay in line with shaft of the tibia. Approximately 3-5 degrees of posterior slope was kept in the proximal cutting guide. The center of the guide was aligned with the PCL. The stylus was used to assess cut thickness. The medial side, most involved side, was set for a 4mm cut. This was then held in position and pinned into place with 2 additional pins and a cross pin for stability. The medial and lateral collateral ligaments were protected and the cut was performed. With this completed, it was assessed and noted to be of appropriate dimensions. The guide was removed. A spacer block was inserted and the knee was brought into extension. The 6mm spacer block provided full extension, without hyperextension and with stability of both the medial and lateral collateral ligaments was assessed. The pins from the femur and the tibia were then removed. The distal femur was then sized. The anterior stylus was placed onto the lateral ridge of the anterior femur. This indicated a size 5 femur. The external rotation of the guide was adjusted to 3 degrees to match the epicondylar axis, perpendicular to [place]?s line. The 4-in-1 cutting guide was the placed. The posterior medial femur cut was evaluated and appeared of good thickness. The spacer block was inserted underneath the cutting guide and stability was confirmed in 90 degrees of flexion. An eber wing was used to confirm appropriate position of the anterior cut to avoid notching. This cutting guide was ensured to be flush on the cut surface and then pinned into place with headed pins. While protecting the soft tissues, quad tendon, and collateral ligaments, the anterior and posterior cuts were performed with a saw. The central two pins were removed and the posterior and anterior chamfers were cut next. The notch-cutting guide was placed. This was pinned to lateralize the femoral component as much as possible while keeping it flush on the cut surface. This was then pinned into position. A reciprocating saw was used to make the small notch cut. A trial CR femoral component was then inserted, impacted down to the cut surfaces, and the lug holes were drilled. A provisional trial tibial co mponent was placed and the knee was brought through range of motion. There was noted to be excellent extension and flexion. There was no significant instability. The patella was tracking without thumbs. The tibial cut surface was fully exposed. The medial and lateral menisci were removed. The tibia was then sized as a 5. The tibia had been previously marked during trialing to correspond to the center of the tibial component to help with rotation. The trial was aligned to this yoselin, approximately rotated to the medial 1/3rd of the tibial tubercle. The trial was pinned into place. The tibia was prepared with a reamer and a keel punch. The knee was then brought into extension and the patella was measured as 24mm. Using the patellar clamp and cut guide, this was resected to a flat surface with at least 13mm of thickness remaining. The size 38 patella fit the best. This was oriented and then clamped into position. The lugs were drilled. The trial components were removed. The final components, except for the polyethylene were opened on the back table. The periosteal and capsular tissues, especially posteriorly, around the knee were then systematically injected with a periarticular cocktail consisting of 50cc 0.25% Marcaine, 30mg Ketorolac, 20cc of Exparal and 50cc of injectable saline. The tourniquet was then inflated to 275mmHg. The knee was thoroughly irrigated with a pulse lavage and dried. On the back table, with the implants opened, the cement was mixed. 2 batches of medium viscosity cement were prepared with vacuum assistance. After the cement was ready it was placed on to the back side of the tibial component. A small amount was placed onto the posterior flange of the femur. Cement was manual pressurized and impregnated into the cut surface of the tibia. The tibial component was then inserted into the cut surface and impacted into position. Excess cement was removed and the component was reimpacted. Again, excess cement was removed and our attention was then turned to the femur. The femoral cut surface was once again dried and cement was manually impacted into the cut surface. The femoral component was lined with the lug holes and impacted. Excess cement was removed. It was ensured to be down against the cut surface. The trial polyethylene was then inserted and the leg was brought out into full extension for the duration of the cement curing process, approximately 18min. Cement was lastly manually impacted into the cut surface of the patella and the patellar button was clamped into position and held. During this process attention was turned to the gutters of the knee and for all interfaces for any excess cement. While the cement was hardening, the knee was irrigated with Irrisept chlorhexadine solution. It was allowed to sit in the knee for 3 minutes. After the cement had finally cured, approximately 18min, the clamp was removed from the patella and the knee was taken through range of motion. A size 6mm polyethylene component provided the best range of motion and stability with less than 2mm gapping with medial and lateral stress and full extension without significant hyperextension. The patella was tracking with a no-thumbs technique. The trial poly was removed and once again the knee was checked for any loose, excess, or errant cement. The poly component was then inserted into position after cleaning and drying the tibial tray. The capsule was then reapproximated with a No. 1 Vicryl at multiple locations. The capsule was finally closed with a No. 2 Stratafix, barbed suture. The t ourniquet was then released and the arthrotomy appeared watertight without significant bleeding. The second dosing of 1g TXA was started. Deep tissues were then reapproximated with 0 Vicryl and 2-0 Monocryl. The skin was closed with a running 3-0 Monocryl in a subcuticular fashion. This was reinforced with skin glue. A Mepilex silver dressing was applied along with a [id number]-[id number] LISA wrap. A CryoCuff was applied. Kaleigh was transferred to the hospital bed without difficulty an suffering no apparent complication. Kaleigh has a good prognosis. Physical therapy will start today and without r estrictions, weight-bearing as tolerated. She will [facility] for DVT prophylaxis.
== END 2021-01-06 16:08 | disposition home or self-care (01) ==
PROVIDERS: PCP Emergency Medicine; Visit Provider Student in an Organized Health Care Education/Training Program
PROC: (CPT 27447; principal; 2021-01-06 08:15)
DX: M17.11 Unilateral primary osteoarthritis, right knee (principal); I48.21 Permanent atrial fibrillation; I42.8 Other cardiomyopathies; Z79.01 Long term (current) use of anticoagulants
CPT/HCPCS: 27447; C1776; 76942; 97162; J0690; J1885; J2001; J2370; J2405

== ENCOUNTER 2021-01-18 10:39 | Outpatient (CLI) | payer MEDICARE, SELFPAY ==
--- NOTE | 2021-01-18 07:45 | DI.RAD_ITS ---
Exam(s) XR KNEE RT 1V EXAM: XR KNEE RT 1V CLINICAL HISTORY: 1ST POST OP R TKA. TECHNIQUE: 2D digital imaging was performed. COMPARISON: CR XR KNEE RT 1V from 12/29/2020 FINDINGS: There has been interval placement of a prosthesis. Components appear to be in satisfactory position. There has been patellar resurfacing IMPRESSION: DATA REPOSITORY: RADIATION DOSE DELIVERED:
--- NOTE | 2021-01-18 08:05 | DI.RAD_ITS ---
Exam(s) XR STANDING ALIGNMENT EXAM: XR STANDING ALIGNMENT CLINICAL HISTORY: 1ST POST OP R TKA. TECHNIQUE: 2D digital imaging was performed. COMPARISON: CR XR STANDING ALIGNMENT from 12/29/2020 FINDINGS: Been interval placement of a right knee prosthesis which appears to be in satisfactory position. The re is advanced narrowing of the medial compartment of the opposite-left knee. Hips appear unremarkab le. Ankles unremarkable. No osseous lesions. IMPRESSION: DATA REPOSITORY: RADIATION DOSE DELIVERED:
== END 2021-01-18 10:40 | disposition home or self-care (01) ==
LOC: DIORS 10:40
PROVIDERS: PCP Emergency Medicine; Referring Provider Emergency Medicine; Visit Provider Physician Assistant
DX: Z96.651 Presence of right artificial knee joint (principal); Z47.1 Aftercare following joint replacement surgery
CPT/HCPCS: 73560; 77073

== ENCOUNTER 2021-02-11 02:36 | Outpatient (CLI) | payer MEDICARE, SELFPAY ==
[2021-02-11 11:53] LABS: Hemoglobin A1C 6.3 % (<5.7)
[2021-02-11 12:10] LABS: ALT 16 U/L (14-59); AST 12 U/L (15-37); Alkaline Phosphatase 81 U/L (46-116); Anion Gap 10.2 mmol/L (3-11); BUN 29 mg/dL (7-18); Bilirubin, Direct 0.2 mg/dL (0.0-0.2); Bilirubin, Total 0.6 mg/dL (0.2-1.0); CO2 26.8 mmol/L (21.0-32.0); CREATININE 1.1 mg/dL (0.55-1.02); Calcium 9.8 mg/dL (8.5-10.1); Chloride 104 mmol/L (98-107); Estimated GFR 48.42 (mL/min/1.73m2); Glucose 138 mg/dL (74-106); Potassium 4.1 mmol/L (3.5-5.1); Sodium 141 mmol/L (136-145); Total Protein 7.3 g/dL (6.4-8.2)
[2021-02-12 09:48] LABS: Hepatitis C Ab w Rflx HCV PCR Negative (Negative)
== END 2021-02-11 02:37 | disposition home or self-care (01) ==
LOC: LBO 02:36
PROVIDERS: PCP Emergency Medicine; Visit Provider Emergency Medicine
DX: E11.9 Type 2 diabetes mellitus without complications (principal); R79.89 Other specified abnormal findings of blood chemistry; I10 Essential (primary) hypertension
CPT/HCPCS: 36415; 80048; 80076; 86803; 83036

== ENCOUNTER → 2021-02-15 08:08 | Outpatient (BNVA) | payer MEDICARE, SELFPAY | PROVIDERS: PCP Emergency Medicine; Referring Provider Emergency Medicine; Visit Provider Student in an Organized Health Care Education/Training Program | DX: Z47.1 Aftercare following joint replacement surgery (principal); Z96.651 Presence of right artificial knee joint ==

== ENCOUNTER → 2021-03-29 09:03 | Outpatient (BNVA) | payer MEDICARE, SELFPAY | PROVIDERS: PCP Family Medicine; Visit Provider Student in an Organized Health Care Education/Training Program | DX: Z47.1 Aftercare following joint replacement surgery (principal); Z96.651 Presence of right artificial knee joint ==

== ENCOUNTER → 2021-04-15 09:54 | Outpatient (BNVA) | payer MEDICARE, SELFPAY | PROVIDERS: PCP Family Medicine; Referring Provider Family Medicine | DX: Z47.89 Encounter for other orthopedic aftercare (principal); M70.61 Trochanteric bursitis, right hip | CPT/HCPCS: 20610; J1040 ==

== ENCOUNTER 2021-04-26 15:25 | Outpatient (CLI) | payer MEDICARE, SELFPAY ==
--- NOTE | 2021-04-26 14:30 | DI.RAD_ITS ---
Exam(s) XR HIP LT AP LAT ONLY EXAM: XR HIP LT AP LAT ONLY CLINICAL HISTORY: eval progressive left hip pain. TECHNIQUE: 2D digital imaging was performed. COMPARISON: CR XR HIP PELVIS ADULT BL from 08/12/2020 FINDINGS: No evidence of pelvic nor hip fracture. Mild degenerative changes. No osseous lesions. No significant radiographic change compared to 08/12/2020 IMPRESSION: DATA REPOSITORY: RADIATION DOSE DELIVERED:
== END 2021-04-26 15:26 | disposition home or self-care (01) ==
LOC: DIORS 15:25
PROVIDERS: PCP Family Medicine; Referring Provider Family Medicine; Visit Provider Student in an Organized Health Care Education/Training Program
DX: M25.552 Pain in left hip (principal); M70.62 Trochanteric bursitis, left hip; M76.892 Other specified enthesopathies of left lower limb, excluding foot
CPT/HCPCS: 99213; 73502

== ENCOUNTER 2021-04-27 07:59 | Outpatient (CLI) | payer MEDICARE, SELFPAY ==
--- NOTE | 2021-04-27 07:00 | DI.MRI_ITS ---
Exam(s) MR LOWER JOINT LT WO EXAM: MR LOWER JOINT LT WO CLINICAL HISTORY: progressive left hip pain,rupture of tendon lt hip,m25.552,s76.012a. TECHNIQUE: Multiplanar multisequence MRI was performed. COMPARISON: No exams were available for comparison FINDINGS: MR examination of the hip was performed according to the usual protocol. No bony signal abnormality identified on scanning of the hips and pelvis. The right and left hip lab rums appear unremarkable as visualized. Urinary bladder is unremarkable. No pelvic mass or adenopathy seen. There is small quantity of fluid signal associated with the trochanteric bursa on the left consistent with a trochanteric bursitis. No tendon tear identified. The gluteus minimus and gluteus medius bu rsae are unremarkable. No additional muscular or tendinous signal abnormality seen. IMPRESSION: The findings as described are consistent with a left trochanteric bursitis, mild. No tendon tear or significant muscular tear identified. DATA REPOSITORY:
== END 2021-04-27 08:19 ==
PROVIDERS: PCP Family Medicine; Visit Provider Student in an Organized Health Care Education/Training Program
DX: M25.552 Pain in left hip (principal); S76.012A Strain of muscle, fascia and tendon of left hip, initial encounter; M70.62 Trochanteric bursitis, left hip; X58.XXXA Exposure to other specified factors, initial encounter
CPT/HCPCS: 73721

== ENCOUNTER → 2021-05-12 07:49 | Outpatient (BNVA) | payer MEDICARE, SELFPAY | PROVIDERS: PCP Family Medicine; Referring Provider Family Medicine; Visit Provider Student in an Organized Health Care Education/Training Program | DX: M70.62 Trochanteric bursitis, left hip (principal); M76.892 Other specified enthesopathies of left lower limb, excluding foot; W00.9XXA Unspecified fall due to ice and snow, initial encounter; Z20.822 Contact with and (suspected) exposure to COVID-19 | CPT/HCPCS: 99214 ==

== ENCOUNTER 2021-05-26 01:37 | Outpatient (CLI) | payer MEDICARE, SELFPAY ==
[2021-05-26 11:44] LABS: Source Nasal/Nares
[2021-05-26 14:23] LABS: COVID-19 PCR Negative (Negative)
== END 2021-05-26 01:38 | disposition home or self-care (01) ==
LOC: LBO 01:37
PROVIDERS: Student in an Organized Health Care Education/Training Program; PCP Family Medicine; Visit Provider Student in an Organized Health Care Education/Training Program
DX: Z20.822 Contact with and (suspected) exposure to COVID-19 (principal)
CPT/HCPCS: 87635; U0005

== ENCOUNTER 2021-05-28 08:48 | Day surgery (SDC) | payer MEDICARE, SELFPAY ==
[2021-05-28] VITALS (9 sets, daily range): BP systolic 132–171; BP diastolic 77–114; PULSE 61–82; RESP 12–22; TEMP 36.3–37.1; O2SAT 97–100; BMI 36.6
[2021-05-28] MEDS: Lactated Ringers 1,000 ML 100 ML IV (09:40)
[2021-05-28] MEDS: VANCOMYCIN/WATER (PEG) 1 GM/200 ML BAG IVPB (09:41)
--- NOTE | 2021-05-28 10:12 | ANES.PREOP_ITS ---
General Info Date of Service Date Performed: 05/28/21 Height: 5 ft 2 in Weight: 91 kg Body Mass Index (BMI): 36.6 Surgical Procedure: Operation Date: 05/28/21 11:35 Proposed Procedure Side Surgeon p Hip Endoscopy Iliotibial Band Release w/ Trochanteric Buresectomy and Gluteal Tendon Repair Left Adrian De La Fuente MD Meds Allergies and Home Medications Allergies Allergy/AdvReac Type Severity Reaction Status Date / Time lisinopril AdvReac Severe COUGH Verified 05/28/21 09:11 codeine AdvReac Intermediate Nausea Verified 05/28/21 09:11 metformin AdvReac Intermediate diarrhea Verified 05/28/21 09:11 Home Medication Medication Instructions Recorded calcium carbonate-vitamin D3 600 1 tab PO DAILY 02/18/14 mg-125 unit tablet (Calcium) blood-glucose meter #100 each 06/12/18 magnesium oxide 400 mg PO DAILY 03/18/19 lancets 28 gauge #100 ea 03/31/20 omega-3 fatty acids 1,000 mg 1,000 mg PO DAILY 08/11/20 capsule (Fish Oil Concentrate) blood sugar diagnostic (Blood #100 each 09/16/20 Glucose Test) acetaminophen 500 mg tablet 1,000 mg PO Q8H PRN #90 tab 01/06/21 diltiazem HCl 120 mg 120 mg PO HS #90 cap 02/09/21 capsule,extended release 24 hr furosemide 40 mg tablet 40 mg PO QAM #90 tab 02/09/21 glipizide 5 mg tablet, extended 5 mg PO DAILY #90 tab-cap 02/09/21 release 24 hr (Glucotrol XL) losartan 100 mg tablet 100 mg PO DAILY #90 tab 02/09/21 metoprolol succinate 200 mg 200 mg PO DAILY #90 tab 02/09/21 tablet,extended release 24 hr (Toprol XL) potassium chloride 20 mEq 20 meq PO DAILY #90 tab 02/09/21 tablet,extended release(part/cryst) (Klor-Con M) apixaban 5 mg tablet (Eliquis) 5 mg PO BID #180 tab 05/07/21 naproxen 250 mg tablet 250 mg PO BID PRN #40 tab 05/28/21 oxycodone 5 mg tablet 5 mg PO Q4H PRN #18 tab MDD 30 mg 05/28/21 Current Visit Medications: Current Medications Generic Name Dose Route Start Last Admin Trade Name Freq PRN Reason Stop Dose Admin Ringer's Solution 1,000 mls @ 100 mls/hr 05/28/21 06:00 05/28/21 09:40 IV 06/26/21 23:59 100 mls/hr INFUSION PENNY Administration Cefazolin Sodium/Dextrose 2 gm in 50 mls @ 100 mls/hr 05/28/21 06:00 Ancef Duplex IVPB 05/28/21 16:00 PREOP PENNY Vancomycin/PEG/NADA/Lysine/Water 1 gm in 200 mls @ 133.333 mls/hr 05/28/21 06:00 05/28/21 09:41 Vancocin Injection IVPB 05/28/21 16:00 133.333 mls/hr PREOP PENNY Administration IV Miscellaneous Supplies 1 each 05/28/21 06:00 Iv Access IV 06/26/21 23:59 DIRECTED PENNY Naproxen 250 - 500 mg 05/28/21 07:12 Naproxen 500 Mg Tab PO BID PRN PRN Oxycodone HCl 5 - 10 mg 05/28/21 07:12 Oxycodone 5 Mg Tab PO Q4H PRN PRN Sodium Chloride 0 ml 05/28/21 06:00 Normal Saline Flush 10 Ml Syr IV 06/26/21 23:59 PRN PRN Sodium Chloride 0 ml 05/28/21 06:00 Normal Saline 10 Ml Vial IJ 06/26/21 23:59 DIRECTED PRN Sterile Water 0 ml 05/28/21 06:00 Water,Injection,Sterile 10 Ml Vial IJ 06/26/21 23:59 DIRECTED PRN PFSH Active Problems Active Problems: Problem Status Onset Code Hypertension I10 Obesity E66.9 H/O surgical procedure Z98.89 Uterine procidentia 01/20/14 N81.3 Polyp of colon 02/03/04 K63.5 Paroxysmal SVT (supraventricular tachycardia) 02/15/17 I47.1 Kidney stone N20.0 Infection resistant to penicillin Z16.11 Diabetes mellitus E11.9 Cystocele 06/24/14 Mucous polyp of cervix N84.1 Spinal stenosis M48.00 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 Atrial fibrillation I48.91 Cardiomyopathy I42.9 SOB (shortness of breath) R06.02 Mitral regurgitation I34.0 Acute on chronic heart failure with reduced ejection fraction and diastolic dysfunction I50.43 Bilateral hip pain M25.551, M25.552 Greater trochanteric bursitis of both hips M70.61, M70.62 Osteoarthritis of right knee M17.11 Preoperative cardiovascular examination Z01.810 Status post lumbar surgery Z98.890 Status post arthroscopy of left knee Z98.890 History of total right knee replacement 01/06/21 Z96.651 Elevated LFTs R79.89 COVID-19 U07.1 Trochanteric bursitis, right hip M70.61 Tendinitis involving left hip abductors M76.892 Trochanteric bursitis of left hip M70.62 Surgical History Surgical History (Updated 05/28/21 @ 09:11 by Danna Petersen RN) Hx of colonoscopy Oophrectomy, Both (02/20/14) TVH, BSO with R sided uterosacral ligament suspension with Anterior Coloporrhapy. EP/aoc S/P total knee arthroplasty Right Vaginal hysterectomy Tobacco Smoking/Tobacco Use Status: Former Tobacco Use Passive smoking exposure: Yes Second hand exposure: Yes Alcohol Alcohol Intake: never Substance Use Substance use: Never Substance use type: does not use Details: alcohol: t-1, couple drinks Vital Signs and Lab Results Vital Signs Most Recent Vital Signs in EMR: Most Recent Vital Signs Temp Pulse Resp BP Pulse Ox 36.6 C 82 22 148/83 H 97 05/28/21 09:00 05/28/21 09:00 05/28/21 09:00 05/28/21 09:00 05/28/21 09:00 Point of Care Results Point of Care Results: Finger Stick Blood Glucose 136 05/28/21 09:46 Lab Results Blood Type / Crossmatch: No Data to Display Complete Blood Count: No Data to Display Complete Metabolic Panel: No Data to Display Liver Function Panel: No Data to Display Coagulation Panel: No Data to Display Cardiac Panel: No Data to Display Arterial Blood Gas: No Data to Display Venous Blood Gas: No Data to Display Pancreas Panel: No Data to Display Thyroid Panel: No Data to Display Infectious Disease: Coronavirus (COVID-19)(PCR) Negative (Negative) 05/26/21 08:39 05/26/21 Coronavirus 2019 Source Nasal/Nares 05/26/21 08:39 05/26/21 Blood Cultures: No Data to Display Toxicology Panel: No Data to Display Imaging and Studies Imaging and Studies Study information below may be from another EMR and interpreted by another provider. Please see original notes in EMR for more complete details. EKG Summary: 12/01/2020: Exam: Resting ECG Reason for Exam: afib Patient Location: O HR:84 bpm ECG Measurements Heart Rate 84 AXIS VT [id number] P [id number] QRSd 98 QRS -11 QT 352 T55 QTc 417 Conclusion Atrial fibrillation...V-rate 78- 97, irreg A-activity Multiple ventricular premature complexes...V complexes w/ short R-R intervls Stress Test Summary: 06/2015: (Stress Echocardiogram) *STUDY CONCLUSIONS* Summary: 1. Procedure narrative: Treadmill exercise testing was performed using the Theo protocol. The patient exercised for 6 min 53 sec. 2. Staged echo: Normal echo stress 3. Stress ECG conclusions: TEST ENDED AT 6 MINUTES, 53 SECONDS DUE TO PT REQUEST BECAUSE FATIGUE. ABOVE AVERAGE EXERCISE CAPACITY, APPROXIMATELY 10.2 METS. APROPRIATE BP RESPOSE. SINGLE PVC'S, OCCASIONAL COUPLETS. NO ANGINA. SECTION LEADER SCREEN PRINTING SIGNIFICANT ST CHANGES. 12/2018: (Stress MPI): Stress ECG Conclusion 1. Patient demonstrated good exercise capacity. 2. This represents a maximal stress test. 3. There is no evidence of ischemia on EKG portion of exam. Echocardiogram Summary: 05/2020: Conclusion Left Ventricle : The left ventricle is normal size. Left ventricular systolic function is borderline. There is normal left ventricular wall thickness. There is global mild hypokinesis of the left ventricle. The diastolic function is abnormal. LVEF is 50%. Right Ventricle : The right ventricle is normal size. The right ventricular systolic function is normal. The RVSP is 27.6mmHg. Atria : Left atrium is moderately dilated. Right atrium is moderately dilated. Aortic Valve : The Aortic valve is sclerotic. Aortic valve is trileaflet. Mild aortic regurgitation. There is no aortic valvular stenosis. Mitral Valve : Mild mitral annular calcification. Moderate mitral regurgitation. No evidence of mitral valve stenosis. Great Vessels : The aortic root is normal in size. The ascending aorta is mildly dilated. Aortic arch is normal in caliber. IVC is normal in size and collapses >50% with inspiration. See remainder of study for further details. Anesthesia Assessment and Plan Anesthesia History Personal History: PONV Family History: No Family History of Anesthesia Complications Exercise Tolerance Exercise Tolerance: Metabolic Equivalents>4 Pertinent Negatives Pertinent Negatives: No Symptoms of GERD, No Major Cardiovascular Symptoms or Complaints, No Major Pulmonary Symptoms or Complaints and No History of CVA/TIA Cardiac & Pulmonary Exam Cardiac Exam: Normal S1/S2 Heart Sounds Pulmonary Exam: Clear Bilateral Breath Sounds Implantable Cardiac Device Does patient have a Pacemaker or an ICD?: No Airway Exam Known Difficult Airway: No Mallampati Class: 2 Mouth Opening: Normal (> 3cm) Thyromental Distance: Greater than 3 cm Neck Range of Motion: Full ROM Neck Circumference: Normal Teeth Condition: Normal Dentition ASA Classification ASA Score: ASA 2 Emergency Case?: No NPO Status NPO Status: NPO Clears >2 hours, Solids >8 hours Anesthesia Plan Resuscitation Status: Full Code Anesthesia Technique: Spinal Anesthesia Airway Planned: Natural Airway Monitors Used: Standard Monitors
[2021-05-28] MEDS: ceFAZolin 2 GM/50 ML BAG IVPB (11:01)
[2021-05-28] MEDS: Bupivacaine 0.25% Pres-Free 30 ML VIAL (11:45)
--- NOTE | 2021-05-28 12:00 | W.PM.OP ---
Date of service: 05/28/21 Time of Service: 11:30 Operative Note Operative Note DATE OF PROCEDURE: 05/28/21 PRE-OP DIAGNOSIS: Left 1. Iliotibial band syndrome 2. Trochanteric bursitis 3. Gluteal tendon rupture POST-OP DIAGNOSIS: same PROCEDURE: Left hip endoscopic iliotibial band release (CPT# 62672), trochanteric bursectomy (CPT# 40352), and gluteal tendon repair (CPT# 08735) SURGEON: Adrian De La Fuente ASSET PROTECTION DETECTIVE: Enriqueta Degroot ANESTHESIA TYPE: Local By Surgeon and Spinal Refer to Anesthesia Record ESTIMATED BLOOD LOSS: 10 COMPLICATIONS: None Patient was transported to: PACU Patient's condition: stable Implants: Arthrex 5.5mm SwiveLock and 4.75mm SwiveLock Indications: Please see complete medical record for details. Findings: Thickened iliotibial band. Inflamed trochanteric bursitis. 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 Procedure Description: In the operating room, general anesthesia was induced. The patient was positioned supine on the [place] operating room table. All bony prominences were well-padded. Preoperative antibiotics were administered. The hip was prepped and draped in the usual sterile fashion. The correct patient, procedure, and side of the procedure were all verified prior to incision. 30 cc of 50: 50 mixture bupivacaine and lidocaine containing epinephrine was infiltrated about the subcutaneous tissues for the planned anterior lateral and distal anterolateral portals as well as deeply over the greater trochanter. Fluoroscopy was used to ensure the portals would be appropriate for working along the greater trochanter as well as suture anchor placement centrally. A knife was used to incise the skin for the anterior lateral and distal anterolateral portals followed by blunt dissection subcutaneously. Under fluoroscopic guidance, a switching stick and arthroscope were inserted localizing the iliotibial band over the greater trochanter. Blunt dissection and the mechanical shaver were used to resect fat and overlying tissue about the center of the iliotibial band and carefully expose the anterior and posterior margins. Once there was adequate exposure of the IT band, the greater trochanter was again localized under fluoroscopic guidance with a spinal needle inserted through the skin down to bone. This central area was marked. A [place] blade was brought in and used to create a 2 cm longitudinal incision in line with the IT band fibers as well as extending it in a cruciate fashion with 2 cm incisions anteriorly and posteriorly. The radiofrequency ablator was used to achieve hemostasis. The mechanical shaver was then used to debride the IT band released edges exposing the trochanteric bursa. The mechanical shaver was then used to excise the trochanteric bursa taking care to protect musculature about the margins of the greater trochanter as well as neurovascular structures especially posteriorly. There was excellent visualization of the vastus lateralis as well as gluteus medius and minimus confirming appropriate bursa excision. The hip was brought through range of motion including internal and external rotation and there was no impinging iliotibial band tissue or remaining pathologic bursa. The viewing and working portals were switched and appropriate IT band release, trochanteric bursa excision, and hemostasis confirmed. There was a somewhat chronic appearing gluteal tendon rupture involving the medius centrally and posteriorly with some intact deep fibers and disrupted more superficial fibers somewhat delaminated and retracted in a large U pattern involving the minimus from anteriorly. The greater trochanter bone had obvious chronic bony changes about the gluteal tendon footprint with fibrous material and osteophyte-like formations. The mechanical shaver and hand rasp instruments were used to debride the bone to healthy margin and optimize the footprint for bone tendon healing. A passport cannula was inserted in each portal. The cuff grasper was used as well as slight internal rotation of the extremity was used to best align tissue for repair. The self retrieving suture passer was then used to pass a FiberTape in an inverted horizontal mattress fashion centrally and anteriorly and the gluteus medius. Retraction on this tissue allowed for placement of a suture tape FiberLink in cinch mode more distally along minimus and more centrally and posteriorly in the medius. The punch was then used and appropriate placement confirmed with fluoroscopy. These repair sutures were individually tensioned and 5.5 mm SwiveLock anchor deployed with excellent fixation strength. There is now good reduction of tendon anteriorly. The central and posterior tissue was now mobilized more easily over the central and posterior greater trochanter prepared bony footprint. Self-improvement suture passer was used to pass a FiberTape inverted horizontal mattress centrally in this medius tissue with an additional suture tape FiberLink cinched at the posterior margin. The punch was used for a second suture anchor more proximally and posteriorly. These repair sutures were individually tightened and securely fixated with a 4.75 mm SwiveLock anchor that also demonstrated excellent fixation strength. The repair was inspected and probed through range of motion with excellent tissue reduction, coverage of the greater trochanter, and stability. Suction was used to remove fluid from the endoscopic space. The portals were closed using 3-0 Monocryl in a buried fashion. Steri-Strips were applied over the incisions followed by Xeroform, 4 x 4 gauze, an ABD pad, and secured with tape. The patient awoke from anesthesia without complication and was transferred to the recovery room in a stable condition.
[2021-05-28] MEDS: EPINEPHrine 30 MG/30 ML VIAL (12:29)
--- NOTE | 2021-05-28 12:54 | DI.RAD_ITS ---
Exam(s) XR HIP LT IN OR EXAM: XR HIP LT IN OR CLINICAL HISTORY: 1. Iliotibial band syndrome TECHNIQUE: 2D and realtime digital imaging was performed. CONTRAST MATERIAL: Refer to procedure report. COMPARISON: No exams were available for comparison FINDINGS: Fluoroscopy was provided for Dr. Sanchez in the OR. Please refer to the procedure report for complet e details. Stefanir=4.76 mGy IMPRESSION: RADIATION DOSE DELIVERED:
--- NOTE | 2021-05-28 13:40 | W.ANESPOSTOP ---
Postoperative Evaluation Date, Time and Location Date Performed: 05/28/21 Time Performed: 13:41 Patient Location: PACU Vital Signs Most Recent Imported Vital Signs: Most Recent Vital Signs Temp Pulse Resp BP Pulse Ox 36.3 C L 67 15 133/81 100 05/28/21 13:29 05/28/21 13:29 05/28/21 13:29 05/28/21 13:29 05/28/21 13:29 Pain Score Most Recent Pain Score: Most Recent Pain Score Pain Level 4 05/28/21 09:00 Assessment Mental Status: Awake (Alert & Oriented to Patient Baseline) Airway and Respiratory Function: Patent airway with normal (patient baseline) respiratory exam Cardiovascular Function: Hemodynamically Stable Hydration Status: Adequately Hydrated Nausea & Vomiting: No Nausea or Vomiting Pain: Pain is tolerable per patient (Low back pain) Peripheral Nerve Block: Patient did not receive a nerve block
[2021-05-28] MEDS: fentaNYL 100 MCG/2 ML VIAL IVP ×2 (13:45→13:53)
--- NOTE | 2021-05-28 14:06 | PDOC.DSDIS_ITS ---
Discharge Plan Disposition Patient Disposition: HOME Condition: Stable Discharge Details Reason For Visit: Left hip surgery Attending Provider: Adrian De La Fuente Primary Care Provider: Audrey Arora Home Meds and New Rx's Prescriptions: New naproxen 250 mg tablet 250 mg PO BID PRNQty: 40 0RF Rx Instructions: take with a meal oxycodone 5 mg tablet 5 mg PO Q4H MDD 30 mg PRN (Reason: moderate to severe pain) Qty: 18 0RF Continued omega-3 fatty acids [Fish Oil Concentrate] 1,000 mg capsule 1,000 mg PO DAILY 0RF magnesium oxide 400 mg magnesium tablet 400 mg PO DAILY 0RF diltiazem HCl 120 mg capsule,extended release 24hr 120 mg PO HS Qty: 90 3RF furosemide 40 mg tablet 40 mg PO QAM Qty: 90 3RF glipizide [Glucotrol XL] 5 mg tablet extended release 24hr 5 mg PO DAILY Qty: 90 3RF losartan 100 mg tablet 100 mg PO DAILY Qty: 90 3RF metoprolol succinate [Toprol XL] 200 mg tablet extended release 24 hr 200 mg PO DAILY Qty: 90 3RF potassium chloride [Klor-Con M20] 20 mEq tablet,ER particles/crystals 20 meq PO DAILY Qty: 90 1RF (DME) blood-glucose meter misc 1 ea Miscellaneous twice weekly Qty: 100 4RF Rx Instructions: METER TYPE ONE TOUCH ULTRA MINI E11.9 daily testing (DME) lancets 28 gauge misc 1 ea Miscellaneous DAILY Qty: 100 4RF Label Comments: pt. reports taking BS two days, 137 Rx Instructions: ONE TOUCH ULTRA MINI METER. NO INSULIN. DIAGNOSIS CODE E11.9 (DME) Blood Glucose Test Strip See Dose Instructions .ROUTE .MEDSUPPLY Qty: 100 5RF Dose Instruction: As directed Rx Instructions: daily E11.9 One touch Eliquis 5 mg tablet 5 mg PO BID Qty: 180 6RF Label Comments: pt took AM dose Calcium 600 + D(3) 1 EACH tablet 1 tab PO DAILY 0RF acetaminophen 500 mg tablet 1,000 mg PO Q8H PRN (Reason: pain) Qty: 90 3RF Discharge Instructions Additional Instructions: Surgery: Left hip endoscopy with gluteal tendon repair, iliotibial band release, and trochanteric bursectomy Activity: Gentle weightbearing with a walker at all times for 8 weeks. Gentle hip range of motion. No strengthening for 3 months. A physical therapy prescription will be provided separately in the office at follow up when needed. Prescriptions: Resume Eliquis tomorrow morning Naproxen 250 mg take 1 every 12 hours with a meal as needed for moderate pain Oxycodone 5 mg take 1 every 4-6 hours as needed for severe pain You may use [id number] Tylenol (acetaminophen) as needed for mild pain. These pain medications may be taken all at once or in different combinations as needed. Also, recommend Colace (docusate) as a stool softener as surgery and pain medicine cause constipation. Dressings: Leave dressing in place for 3 days. May then remove and leave open to air or cover incisions with Band-Aids. May shower after 5 days. Follow-up: 10-[address] De La Fuente Let us know right away if you develop any redness, drainage, fevers, chest pain, or trouble breathing. Do not drink alcohol or drive for at least 24 hours after anesthesia. Please call the office during business hours with any questions or concerns. Referrals: Adrian De La Fuente MD [ [facility] STAFF PHYSICIAN] - Discharge Orders Discharge Orders: Discharge Order (Routine); Ordered 05/28/21 Ordered By: Adrian De La Fuente DS: Diagnosis Discharge Diagnosis (1) Tendinitis involving left hip abductors: Status: Acute (2) Trochanteric bursitis of left hip: Status: Acute
[2021-05-28] MEDS: oxyCODONE 5 MG TAB PO (14:26)
== END 2021-05-28 16:20 | disposition home or self-care (01) ==
LOC: SUR 08:48
PROVIDERS: PCP Family Medicine; Visit Provider Student in an Organized Health Care Education/Training Program
PROC: (CPT 29863; principal; 2021-05-28 11:15)
DX: M76.32 Iliotibial band syndrome, left leg (principal); M70.62 Trochanteric bursitis, left hip; S76.312A Strain of muscle, fascia and tendon of the posterior muscle group at thigh level, left thigh, initial encounter; E11.49 Type 2 diabetes mellitus with other diabetic neurological complication; I47.1 Supraventricular tachycardia; Z79.84 Long term (current) use of oral hypoglycemic drugs; Z79.01 Long term (current) use of anticoagulants; X58.XXXA Exposure to other specified factors, initial encounter
CPT/HCPCS: 27006; 27062; 27305; 73501; J0690; J1885; J2001; J2405; J3010

== ENCOUNTER 2021-06-04 21:47 | Emergency (ER) | payer MEDICARE, SELFPAY ==
[2021-06-04] VITALS (14 sets, daily range): BP systolic 137–160; BP diastolic 75–97; PULSE 67–97; RESP 14–23; TEMP 36.4–36.7; O2SAT 93–97
--- NOTE | 2021-06-04 22:16 | W.ED.GENAD ---
Discharge Plan Disposition Patient Disposition: HOME Condition: Improving Discharge Details Clinical Impression: Hip pain Primary Care Provider: Audrey Arora ED Provider: Kostas Garnica Home Meds and New Rx's Prescriptions: Continued omega-3 fatty acids [Fish Oil Concentrate] 1,000 mg capsule 1,000 mg PO DAILY 0RF magnesium oxide 400 mg magnesium tablet 400 mg PO DAILY 0RF diltiazem HCl 120 mg capsule,extended release 24hr 120 mg PO HS Qty: 90 3RF furosemide 40 mg tablet 40 mg PO QAM Qty: 90 3RF glipizide [Glucotrol XL] 5 mg tablet extended release 24hr 5 mg PO DAILY Qty: 90 3RF losartan 100 mg tablet 100 mg PO DAILY Qty: 90 3RF metoprolol succinate [Toprol XL] 200 mg tablet extended release 24 hr 200 mg PO DAILY Qty: 90 3RF potassium chloride [Klor-Con M20] 20 mEq tablet,ER particles/crystals 20 meq PO DAILY Qty: 90 1RF (DME) blood-glucose meter misc 1 ea Miscellaneous twice weekly Qty: 100 4RF Rx Instructions: METER TYPE ONE TOUCH ULTRA MINI E11.9 daily testing (DME) lancets 28 gauge misc 1 ea Miscellaneous DAILY Qty: 100 4RF Label Comments: pt. reports taking BS two days, 137 Rx Instructions: ONE TOUCH ULTRA MINI METER. NO INSULIN. DIAGNOSIS CODE E11.9 (DME) Blood Glucose Test Strip See Dose Instructions .ROUTE .MEDSUPPLY Qty: 100 5RF Dose Instruction: As directed Rx Instructions: daily E11.9 One touch Eliquis 5 mg tablet 5 mg PO BID Qty: 180 6RF Label Comments: pt took AM dose Calcium 600 + D(3) 1 EACH tablet 1 tab PO DAILY 0RF acetaminophen 650 mg Tablet Extended Release 1,300 mg PO TID 0RF acetaminophen 500 mg tablet 1,000 mg PO Q8H PRN (Reason: pain) Qty: 90 3RF naproxen 250 mg tablet 250 mg PO BID PRNQty: 40 0RF Rx Instructions: take with a meal oxycodone 5 mg tablet 5 mg PO Q4H MDD 30 mg PRN (Reason: moderate to severe pain) Qty: 18 0RF Discharge Instructions Instructions: Hip Pain (ED) Additional Instructions: You responded very well to the IV morphine. Gentle stretching as tolerated. Cool and/or warm compresses every 2 hours for 20 minutes. I am giving you a take-home pack of hydrocodone and Zofran. Please take these medications as directed. Remember that the hydrocodone may cause drowsiness and/or constipation, you may want to take an [id number] stool softener while taking this medication. Please watch for new or worsening symptoms and return to the ER for any concerns. Lastly, please contact your orthopedic team on Monday to discuss your ER visit, ongoing symptoms, need for outpatient reevaluation Discharge Data Discharge Date/Time-TO BE ENTERED AT DEPARTURE: 06/04/21 23:58 Medical Decision Making 76-year-old female presents for right hip pain that began earlier today, tried taking her oxycodone but it caused nausea and vomiting so her pain is uncontrolled. She had a left hip surgery 1 week ago which went well. A family member mentioned a potential blood clot so she came to the ER for concern of this as well. She tells me her primary concern is that of pain control. She reports that she takes Eliquis and she only stopped 2 doses because of the surgery. She denies history of DVT, PE, chest pain or shortness of breath. She denies recent trauma. Clinically I have extremely low suspicion for DVT. This appears musculoskeletal in nature. Patient has been using a walker secondary to her recent surgery and she is likely overcompensating with her right hip. Given there has been no recent trauma, I do not believe that any emergent x-rays indicated. Patient is primarily concerned of pain. Will provide 4 mg IV morphine and Zofran as she does have nausea related to narcotic use. Upon reevaluation patient reports that she is now pain-free and requesting discharge. I will provide her with a take-home pack of Zofran and hydrocodone. Strict discharge and return precautions were provided. Lastly we discussed contacting her orthopedic team on Monday to discuss her ongoing symptoms and need for outpatient reevaluation. This documentation was generated using [employer] ([employer])ation system, please disregard any oddities of phrase or misspellings. Medical Records Medical records reviewed: Yes I reviewed the patient's medical records. HPI General Mode of arrival: ambulatory. Date/Time Provider Initiated Documentation: 06/04/21 22:00. Limitations to Documentation: no limitations. Information obtained by: patient. HPI Narrative: This is a 76-year-old female, past medical history that includes A. fib, chronic anticoagulation, cardiomyopathy, spinal stenosis, diabetes, hypertension, left hip surgery 1 week ago, presenting today for right hip pain that she developed today. Patient denies recent illness or trauma, fever, chest pain, short of breath, abdominal pain, dysuria, hematuria, numbness, tingling, weakness, pain or swelling in her calf. She has no complaints of her left hip whatsoever. She has been ambulating minimally using a walker but is concerned to overuse her leg as she does not want to injure the recent surgery. A family member did mention they were concerned about blood clots in her right leg. Patient has been taking her Eliquis as directed and again denies any chest pain or shortness of breath. Denies history of DVT or PE. She attempted to take a oxycodone that she is prescribed but this caused her to have nausea and vomit x1. She has had similar reactions to codeine. Patient states the pain is moderate at rest but worse with any movement or bearing of weight. She is able to bear weight. Related Data Home Medications Medication Instructions Recorded Confirmed calcium carbonate-vitamin D3 600 1 tab PO DAILY 02/18/14 06/04/21 mg-125 unit tablet (Calcium) blood-glucose meter #100 each 06/12/18 05/12/21 magnesium oxide 400 mg PO DAILY 03/18/19 06/04/21 lancets 28 gauge #100 ea 03/31/20 05/12/21 omega-3 fatty acids 1,000 mg 1,000 mg PO DAILY 08/11/20 06/04/21 capsule (Fish Oil Concentrate) blood sugar diagnostic (Blood #100 each 09/16/20 05/27/21 Glucose Test) acetaminophen 500 mg tablet 1,000 mg PO Q8H PRN #90 tab 01/06/21 05/28/21 diltiazem HCl 120 mg 120 mg PO HS #90 cap 02/09/21 06/04/21 capsule,extended release 24 hr furosemide 40 mg tablet 40 mg PO QAM #90 tab 02/09/21 06/04/21 glipizide 5 mg tablet, extended 5 mg PO DAILY #90 tab-cap 02/09/21 06/04/21 release 24 hr (Glucotrol XL) losartan 100 mg tablet 100 mg PO DAILY #90 tab 02/09/21 06/04/21 metoprolol succinate 200 mg 200 mg PO DAILY #90 tab 02/09/21 06/04/21 tablet,extended release 24 hr (Toprol XL) potassium chloride 20 mEq 20 meq PO DAILY #90 tab 02/09/21 06/04/21 tablet,extended release(part/cryst) (Klor-Con M) apixaban 5 mg tablet (Eliquis) 5 mg PO BID #180 tab 05/07/21 06/04/21 naproxen 250 mg tablet 250 mg PO BID PRN #40 tab 05/28/21 oxycodone 5 mg tablet 5 mg PO Q4H PRN #18 tab MDD 30 mg 05/28/21 06/04/21 acetaminophen 650 mg 1,300 mg PO TID 06/04/21 06/04/21 tablet,extended release Previous Rx's Medication Instructions Recorded blood-glucose meter #100 each 06/12/18 lancets 28 gauge #100 ea 03/31/20 blood sugar diagnostic (Blood #100 each 09/16/20 Glucose Test) acetaminophen 500 mg tablet 1,000 mg PO Q8H PRN #90 tab 01/06/21 diltiazem HCl 120 mg 120 mg PO HS #90 cap 02/09/21 capsule,extended release 24 hr furosemide 40 mg tablet 40 mg PO QAM #90 tab 02/09/21 glipizide 5 mg tablet, extended 5 mg PO DAILY #90 tab-cap 02/09/21 release 24 hr (Glucotrol XL) losartan 100 mg tablet 100 mg PO DAILY #90 tab 02/09/21 metoprolol succinate 200 mg 200 mg PO DAILY #90 tab 02/09/21 tablet,extended release 24 hr (Toprol XL) potassium chloride 20 mEq 20 meq PO DAILY #90 tab 02/09/21 tablet,extended release(part/cryst) (Klor-Con M) apixaban 5 mg tablet (Eliquis) 5 mg PO BID #180 tab 05/07/21 naproxen 250 mg tablet 250 mg PO BID PRN #40 tab 05/28/21 oxycodone 5 mg tablet 5 mg PO Q4H PRN #18 tab MDD 30 mg 05/28/21 Allergies Allergy/AdvReac Type Severity Reaction Status Date / Time lisinopril AdvReac Severe COUGH Verified 06/04/21 22:06 codeine AdvReac Intermediate Nausea Verified 06/04/21 22:06 metformin AdvReac Intermediate diarrhea Verified 06/04/21 22:06 General Stated Complaint: Orthopedic KAILYN: 3 Review of Systems Constitutional Constitutional: Denies fever(s) and Denies weakness Cardiovascular Cardiovascular: Denies chest pain and Denies dyspnea Respiratory Respiratory: Denies dyspnea Gastrointestinal Gastrointestinal: Denies abdominal pain, Reports nausea and Reports vomiting Genitourinary Genitourinary: Denies hematuria and Denies dysuria Musculoskeletal Musculoskeletal: Denies back pain, Denies numbness and Denies tingling Integumentary/Breasts Skin/Breast: Denies rash Neurologic Neurologic: Denies numbness, Denies tingling and Denies weakness Hematologic/Lymphatic Hematologic/Lymphatic: Reports easy bleeding and Reports easy bruising PFSH All Active Problems Hypertension (Chronic) Obesity (Chronic) H/O surgical procedure (Acute) a. MINDA/BSO with colporrhaphy and cystocele repair 02/20/2014 b. colonoscopy 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 Surgery 02/16. Vaginal Hyst. Polyp of colon (Acute 02/03/04) Paroxysmal SVT (supraventricular tachycardia) (Acute 02/15/17) zio patch Kidney stone (Acute) Infection resistant to penicillin (Acute) MRSA abscess x 2 Diabetes mellitus (Acute) Cystocele (Acute 06/24/14) Mucous polyp of cervix (Acute) Spinal stenosis (Acute) Neural foraminal stenosis of lumbar spine (Acute) Atrial fibrillation (Chronic) Cardiomyopathy (Acute) SOB (shortness of breath) (Acute) Mitral regurgitation (Chronic) Acute on chronic heart failure with reduced ejection fraction and diastolic dysfunction (Acute) Bilateral hip pain (Acute) Greater trochanteric bursitis of both hips (Acute) Osteoarthritis of right knee (Chronic) Preoperative cardiovascular examination (Acute) Status post lumbar surgery (Acute) L3-L5 Status post arthroscopy of left knee (Acute) History of total right knee replacement (Acute 01/06/21) Elevated LFTs (Acute) COVID-19 (Acute) Tendinitis involving left hip abductors (Acute) Trochanteric bursitis of left hip (Acute) Hip pain (Acute) Surgical History Hx of colonoscopy Oophrectomy, Both (02/20/14) TVH, BSO with R sided uterosacral ligament suspension with Anterior Coloporrhapy. EP/aoc S/P total knee arthroplasty Right Vaginal hysterectomy Family History Mother Diabetes Father Heart disease Diabetes Sister , AGE 85 Cancer Diabetes Heart disease Sister , AGE 51 Heart disease Sister , AGE 84 Diabetes Heart disease Brother , AGE 34 No problems noted. Brother , AGE 82 Diabetes Heart disease Social History Smoking/Tobacco Use Status: Former Tobacco Use Quit Date: 03/06/81 Second Hand Exposure: Yes Smoking risk assessment performed?: Yes Alcohol Intake: never Drug use: Never Substance use type: does not use Household members: spouse Housing: house Communication Needs: None Do you need help understanding health information?: Often Pets and animals: Yes Pets and animals: dog(s) Sexually active: No Do you think of yourself as: straight/heterosexual Current gender identity: female How often do you talk on the phone with friends or family?: three or more times per week How often do you get together with friends or relatives?: decline to answer How often do you attend confucianism or sabianist services?: decline to answer Do you belong to any clubs or organized social groups?: decline to answer Panel score (0-1 are the most socially isolated patients): 1 Radha/Yazidism: Gnosticism Special radha needs: No Seatbelt use: always Drive intox or ride w/intox fuel truck driver: No Do you feel safe at home: Yes Do you feel safe in your relationship?: Yes Exam Const General: cooperative, healthy appearing, comfortable and no acute distress Orientation: alert and awake HENMT Head: normal to inspection, normocephalic and atraumatic Eyes Conjunctivae: conjunctivae normal Neck Neck: normal visual inspection, trachea midline and supple Resp Effort & Inspection: normal respiratory effort and able to speak in complete sentences Auscultation: clear to auscultation bilaterally Cardio Rate: regular rate Rhythm: abnormal rhythm irregularly irregular GI Inspection: normal to inspection Palpation: soft, not firm, no guarding, no pulsatile masses and nontender Back/Spine/Pelvis Back: No back tenderness Skin General skin exam: no rashes or lesions noted Neuro General: patient alert, patient awake, patient oriented x3, moves all extremities and no focal motor deficits Cognition: normal cognition Speech: speech normal Gait: antalgic Sensory Exam: no sensory deficits noted Extrem General: capillary refill normal, no pedal edema and no calf tenderness Other: Limited range of motion of both hips, left hip limited secondary to concern for reinjury status post surgery. Right hip limited secondary to discomfort. The left hip surgical incisions appear well, noninfected. Right hip has diffuse mild lateral and anterior discomfort but no bony point tenderness or deformity. There is no shortening or rotation of the leg. Patient has increased discomfort with both palpation, internal and/or external rotation. Normal pedal pulses. No palpable cord. Negative Homans' sign. Psych Appearance: grossly normal Mental Status: mental status grossly normal Course Vital Signs Vital signs: Vital Signs Temperature 36.4 C L 06/04/21 21:59 Pulse 96 H 06/04/21 21:59 Respiratory Rate 18 06/04/21 21:59 Blood Pressure 154/75 H 06/04/21 21:59 Pulse Oximetry 96 06/04/21 21:59 Temperature 36.4 C L 06/04/21 21:59 Temperature Source Skin 06/04/21 21:59 Pulse 96 H 06/04/21 21:59 Respiratory Rate 18 06/04/21 21:59 Respiratory Effort 06/04/21 22:12 Blood Pressure 154/75 H 06/04/21 21:59 Pulse Oximetry 96 06/04/21 21:59 Oxygen Delivery Method Room Air 06/04/21 21:59 Oxygen Flow Rate 0 06/04/21 21:59 Pain Level 10 06/04/21 21:59 Comment hx chronic a-fib 06/04/21 21:59
[2021-06-04] MEDS: Ondansetron 4 MG/2 ML VIAL IVP (22:48)
[2021-06-04] MEDS: MORPHine 4 MG/ML SYR IVP (22:49)
[2021-06-04] MEDS: Ondansetron O.D.T. 4 MG TABEF, 3 TABS/BTL PO (23:46)
== END 2021-06-04 23:58 | disposition home or self-care (01) ==
PROVIDERS: Emergency Provider Physician Assistant; PCP Family Medicine
DX: M25.551 Pain in right hip (principal); Z98.890 Other specified postprocedural states; Z79.01 Long term (current) use of anticoagulants
CPT/HCPCS: 96374; 96375; 99284; 99283; J2270; J2405

== ENCOUNTER → 2021-06-09 09:07 | Outpatient (BNVA) | payer MEDICARE, SELFPAY | PROVIDERS: PCP Family Medicine; Referring Provider Family Medicine; Visit Provider Student in an Organized Health Care Education/Training Program | DX: S76.012D Strain of muscle, fascia and tendon of left hip, subsequent encounter (principal); X58.XXXD Exposure to other specified factors, subsequent encounter; M79.651 Pain in right thigh ==

== ENCOUNTER 2021-06-15 19:04 | Outpatient (REF) | payer MEDICARE, SELFPAY ==
[2021-06-15 20:29] LABS: Abs Immature Grans 0.04 10^3/uL (0.0-0.06); Absolute Basophil Count 0.05 10^3/uL (0.0-0.2); Absolute Monocyte Count 0.78 10^3/uL (0.1-0.8); Absolute Neutrophil Count 10.09 10^3/uL (1.2-6.7); Basophils % 0.4; Eosinophils % 1.4; HCT 39.2 % (36.0-46.0); Immature Grans % 0.3; MCH 31.4 pg (27.0-33.0); MCHC 33.2 % (32.0-36.0); MCV 94.7 fL (80-95); MPV 11.2 fL (8.0-11.0); Monocytes % 6.2; Neutrophils % 80.7; Nucleated RBC 0 %; Platelet Count 179 10^3/uL (130-400); RBC 4.14 10^6/uL (3.93-5.22); RDW-SD 45.4 fL
[2021-06-15 20:30] LABS: Absolute Eosinophil Count 0.18 10^3/uL (0.0-0.7); Absolute Lymphocyte Count 1.38 10^3/uL (1.2-3.4)
[2021-06-15 20:37] LABS: Bilirubin Negative (Negative); Blood Trace-intact (Negative); Clarity Clear (Clear); Glucose Negative (Negative); Ketones Negative (Negative); Leukocyte Esterase Small (Negative); Nitrite Positive (Negative); Urobilinogen 0.2 EU/dL (Up TO 0.2); pH 6.5 (5-8)
[2021-06-15 20:43] LABS: Bacteria Many HPF (Negative); C & S Indicated? Yes; Casts Negative LPF (Negative); Crystals Negative HPF (Negative); Epithelial Cells Few HPF (Negative); Mucus Trace (Negative); RBC 0-2 HPF (0-2)
[2021-06-15 20:49] LABS: ALT 25 U/L (14-59); AST 16 U/L (15-37); Albumin 3.9 g/dL (3.4-5.0); Alkaline Phosphatase 77 U/L (46-116); Anion Gap 10.2 mmol/L (3-11); BUN 23 mg/dL (7-18); Bilirubin, Total 0.7 mg/dL (0.2-1.0); CO2 29.8 mmol/L (21.0-32.0); CREATININE 0.9 mg/dL (0.55-1.02); Calcium 9.7 mg/dL (8.5-10.1); Chloride 102 mmol/L (98-107); Glucose 116 mg/dL (74-106); Potassium 4.2 mmol/L (3.5-5.1); Sodium 142 mmol/L (136-145); Total Protein 7.2 g/dL (6.4-8.2)
== END 2021-06-15 19:05 | disposition home or self-care (01) ==
LOC: LBN 19:04
PROVIDERS: PCP Family Medicine; Visit Provider Nurse Practitioner Family
DX: R10.9 Unspecified abdominal pain (principal); N39.0 Urinary tract infection, site not specified; R39.89 Other symptoms and signs involving the genitourinary system
CPT/HCPCS: 80053; 87077; 81003; 81015; 85025; 87086; 87186

== ENCOUNTER 2021-06-17 08:36 | Inpatient (IN) | payer MEDICARE, SELFPAY ==
[2021-06-17] VITALS (132 sets, daily range): BP systolic 55–142; BP diastolic 29–109; PULSE 75–132; RESP 14–30; TEMP 36.3–37.8; O2SAT 72–99
--- NOTE | 2021-06-17 08:46 | RT.EKG_ITS ---
APPROVED REPORT Exam: Resting ECG Reason for Exam: abdominal pain Patient Location: E HR:122 bpm ECG Measurements Heart Rate 122 AXIS VT [id number] P [id number] QRSd 93 QRS -10 QT 309 T 77 QTc 441 Conclusion Atrial fibrillation...V-rate 93-161, irreg A-activity Inferior infarct, old...Q >35mS, II III aVF Nonspecific T abnormalities, lateral leads...T <-0.10mV, I aVL V5 V6. Afib. No STEMI. No significant change from previous.
--- NOTE | 2021-06-17 08:47 | W.ED.GENAD ---
Discharge Plan Disposition Patient Disposition: [facility] INPATIENT Condition: Stable Discharge Details Clinical Impression: Acute diverticulitis, Bowel perforation, UTI (urinary tract infection), Atrial fibrillation with rapid ventricular response Admit Date/Time: 06/17/21 12:04 Admit Provider: David العراقي Attending Provider: David العراقي Primary Care Provider: Audrey Arora ED Provider: Ramona Acevedo Medical Decision Making 76-year-old female who is almost 3 weeks status post Left hip endoscopy with gluteal tendon repair, iliotibial band release, and trochanteric bursectomy presents with lower abdominal pain and nausea for the past 3 days. She was seen in [facility] and had lab work done 2 days ago which noted a white blood cell count of 12.5 with a left shift of 10, normal CMP with a UA that was positive for nitrites, 10-20 WBCs and a urine culture which noted greater than 100,000 colonies of E. coli and pansensitive. She was seen at the PCP office yesterday and presumed to have UTI prior to the urine culture results and started on Cipro of which she has taken 3 doses. Patient appears uncomfortable but nontoxic. She has diffuse abdominal tenderness but worse in the pubic region. Her heart rate is 130s in A. fib. She states she did take 200 mg of her metoprolol this morning. She is afebrile. Will obtain an oral temp and give a dose of pain medication as her tachycardia may be exacerbated by pain or fever. Would suspect her location of pain and lab results be indicative of a UTI, but considering her nausea, consider pyelonephritis, kidney stone or another abdominal cause such as diverticulitis, etc. We will place an IV, bolus IV fluids, screening labs, repeat urinalysis and obtain CT abdomen and pelvis. We will give a dose of morphine, Zofran and reassess. Labs and imaging reviewed. White blood cell count 11.66. Normal electrolytes. Normal lipase. Urinalysis notes positive nitrites, small leukocyte esterase and greater than 50 WBCs but does appear contaminated. CT notes acute sigmoid diverticulitis with small foci of gas and mesenteric fat and peritoneal cavity indicating perforation. No obvious abscess noted. Case discussed with Dr. Mercer and she agrees with plan for admission. As she is A. fib with RVR, would recommend admission to medicine. As patient took her Cipro this morning, only recommend Flagyl IV at this time. Case discussed with hospitalist who accepts patient for admission. We will plan for admission to the ICU as she may need diltiazem infusion for her rapid Afib. Heart rate remains 110s to 120s. We will give a dose of 5 mg Lopressor IV. Medical Records Medical records reviewed: Yes I reviewed the patient's medical records. Imaging Data Radiologic Study: Radiologist's impression: CT ABDOMEN ? PELVIS W INDICATION:? has uti/diffuse abd pain, worse suprapubic. COMPARISON:? No exams were available for comparison TECHNIQUE:? FINDINGS: CT examination of the abdomen and pelvis was performed with a bolus infusion of 100 cc of Omnipaque 350.? Images obtained through the lung bases are unremarkable. Coronary artery calcification noted. There is hepatic steatosis with no focal hepatic lesion identified.. Gallbladder and bile ducts are CT normal. Pancreas appears normal. Spleen is unremarkable in appearance. Adrenals appear normal.? The kidneys are unremarkable except for an apparent left lower pole renal cyst which measures about 4 cm in greatest diameter. ? no evidence of hydronephrosis, nephrolithiasis, or solid renal mass..? Urinary bladder unremarkable. Abdominal aorta is of normal diameter and no major vascular abnormality is seen. No abdominal wall hernia. No abdominal or pelvic adenopathy. [employer] structures appear intact. Appendix is normal. There is wall thickening and marked pericolonic fat edema of the proximal sigmoid colon highly suggestive of acute diverticulitis. Surrounding structures including small bowel and urinary bladder show thickened wall is consistent with adjacent inflammation. No abscess formation at this time. However there are multiple small foci of gas in mesenteric fat and peritoneal cavity indicating perforation. IMPRESSION: The appearance is consistent with perforated sigmoid diverticulitis as described above. No abscess identified at this time. No evidence of bowel obstruction. Lab Data Lab results reviewed: Yes I reviewed the patient's lab results. Labs: Laboratory Tests Range/Units 06/17/21 06/17/21 06/17/21 10:06 10:06 10:19 WBC (4.4-10.8) 10^3/uL 11.66 H RBC (3.93-5.22) 10^6/uL 3.70 L Hgb (11.2-15.7) g/dL 11.7 Hct (36.0-46.0) % 35.2 L MCV (80-95) fL 95.1 H MCH (27.0-33.0) pg 31.6 MCHC (32.0-36.0) % 33.2 RDW (11.7-14.6) % 13.0 Plt Count (130-400) 10^3/uL 141 MPV (8.0-11.0) fL 11.0 Immature Gran % 0.4 Neutrophils % 90.6 Lymphocytes % 5.8 Monocytes % 2.8 Eosinophils % 0.1 Basophils % 0.3 Nucleated RBC % % 0 Absolute Neutrophils (1.2-6.7) 10^3/uL 10.56 H Absolute Lymphocytes (1.2-3.4) 10^3/uL 0.68 L Absolute Monocytes (0.1-0.8) 10^3/uL 0.33 Absolute Eosinophils (0.0-0.7) 10^3/uL 0.01 Absolute Basophils (0.0-0.2) 10^3/uL 0.03 Sodium (136-145) mmol/L 137 Potassium (3.5-5.1) mmol/L 3.6 Chloride (98-107) mmol/L 99 Carbon Dioxide (21.0-32.0) mmol/L 27.6 Anion Gap (3-11) mmol/L 10.4 BUN (7-18) mg/dL 20 H Creatinine (0.55-1.02) mg/dL 1.1 H Estimated GFR/1.73 m2 (mL/min/1.73m2) 48.42 Glucose (74-106) mg/dL 204 H D Calcium (8.5-10.1) mg/dL 9.3 Total Bilirubin (0.2-1.0) mg/dL 1.6 H AST (15-37) U/L 16 ALT (14-59) U/L 17 Alkaline Phosphatase (46-116) U/L 53 Total Protein (6.4-8.2) g/dL 7.0 Albumin (3.4-5.0) g/dL 3.0 L Lipase (73-393) U/L 50 Urine Color (Yellow) Yellow Urine Clarity (Clear) Sl Cloudy Urine pH (5-8) 6.0 Ur Specific [place] (1.005-1.025) >= 1.030 H Urine Protein (Negative) mg/dL Negative Urine Ketones (Negative) mg/dL Negative Urine Blood (Negative) Trace-intact H Urine Nitrite (Negative) Positive H Urine Bilirubin (Negative) Negative Urine Urobilinogen (Up TO 0.2) EU/dL 0.2 Ur Leukocyte Esterase (Negative) Small H Urine RBC (0-2) HPF 0-2 Urine WBC (0-5) HPF >50 H Ur Epithelial Cells (Negative) HPF Moderate Urine Crystals (Negative) HPF Negative Urine Bacteria (Negative) HPF Moderate Urine Casts (Negative) LPF Negative Urine Mucus (Negative) Negative Ur Culture Indicated? No/Sq. Contamination Urine Glucose (Negative) mg/dL Negative COVID-19 Source Range/Units 06/17/21 12:08 WBC (4.4-10.8) 10^3/uL RBC (3.93-5.22) 10^6/uL Hgb (11.2-15.7) g/dL Hct (36.0-46.0) % MCV (80-95) fL MCH (27.0-33.0) pg MCHC (32.0-36.0) % RDW (11.7-14.6) % Plt Count (130-400) 10^3/uL MPV (8.0-11.0) fL Immature Gran % Neutrophils % Lymphocytes % Monocytes % Eosinophils % Basophils % Nucleated RBC % % Absolute Neutrophils (1.2-6.7) 10^3/uL Absolute Lymphocytes (1.2-3.4) 10^3/uL Absolute Monocytes (0.1-0.8) 10^3/uL Absolute Eosinophils (0.0-0.7) 10^3/uL Absolute Basophils (0.0-0.2) 10^3/uL Sodium (136-145) mmol/L Potassium (3.5-5.1) mmol/L Chloride (98-107) mmol/L Carbon Dioxide (21.0-32.0) mmol/L Anion Gap (3-11) mmol/L BUN (7-18) mg/dL Creatinine (0.55-1.02) mg/dL Estimated GFR/1.73 m2 (mL/min/1.73m2) Glucose (74-106) mg/dL Calcium (8.5-10.1) mg/dL Total Bilirubin (0.2-1.0) mg/dL AST (15-37) U/L ALT (14-59) U/L Alkaline Phosphatase (46-116) U/L Total Protein (6.4-8.2) g/dL Albumin (3.4-5.0) g/dL Lipase (73-393) U/L Urine Color (Yellow) Urine Clarity (Clear) Urine pH (5-8) Ur Specific [place] (1.005-1.025) Urine Protein (Negative) mg/dL Urine Ketones (Negative) mg/dL Urine Blood (Negative) Urine Nitrite (Negative) Urine Bilirubin (Negative) Urine Urobilinogen (Up TO 0.2) EU/dL Ur Leukocyte Esterase (Negative) Urine RBC (0-2) HPF Urine WBC (0-5) HPF Ur Epithelial Cells (Negative) HPF Urine Crystals (Negative) HPF Urine Bacteria (Negative) HPF Urine Casts (Negative) LPF Urine Mucus (Negative) Ur Culture Indicated? Urine Glucose (Negative) mg/dL COVID-19 Source Nasal/Nares ECG Data Attestation: I personally reviewed and interpreted this ECG (s) as follows: Interpretation: rate of 122, afib, no stemi. HPI General Mode of arrival: ambulatory. Date/Time Provider Initiated Documentation: 06/17/21 08:41. Limitations to Documentation: no limitations. Information obtained by: patient. HPI Narrative: Patient is a 76-year-old female who is almost 3 weeks status post Left hip endoscopy with gluteal tendon repair, iliotibial band release, and trochanteric bursectomy who presents with lower abdominal pain and nausea for the past few days. Records note that she was seen in [facility] 2 days ago for the same complaint and had CBC, CMP and urinalysis was advised to go to the emergency department or obtain a CT abdomen and pelvis but she declined. She was seen at the PCP office yesterday for her complaint and started on Cipro. Patient describes the pain as constant crampy and occasionally sharp. She states the pain is worse with movement. She states the pain is currently 10/10. She states today the pain is now within her entire abdomen. She has taken a total of 3 doses of Cipro. She has been taking 1300 mg of Tylenol twice daily status post her hip surgery. She last took 1300 mg of Tylenol at 645 this morning. She states she had a temp of 101 seen at [facility] 2 days ago but had a normal temperature yesterday. She denies any vomiting, diarrhea, urinary symptoms or back pain. Related Data Home Medications Medication Instructions Recorded Confirmed calcium carbonate-vitamin D3 600 1 tab PO DAILY 02/18/14 06/17/21 mg-125 unit tablet (Calcium) blood-glucose meter #100 each 06/12/18 06/17/21 magnesium oxide 400 mg PO DAILY 03/18/19 06/17/21 lancets 28 gauge #100 ea 03/31/20 06/17/21 omega-3 fatty acids 1,000 mg 1,000 mg PO DAILY 08/11/20 06/17/21 capsule (Fish Oil Concentrate) blood sugar diagnostic (Blood #100 each 09/16/20 06/17/21 Glucose Test) acetaminophen 500 mg tablet 1,000 mg PO Q8H PRN #90 tab 01/06/21 06/17/21 diltiazem HCl 120 mg 120 mg PO HS #90 cap 02/09/21 06/17/21 capsule,extended release 24 hr furosemide 40 mg tablet 40 mg PO QAM #90 tab 02/09/21 06/17/21 glipizide 5 mg tablet, extended 5 mg PO DAILY #90 tab-cap 02/09/21 06/17/21 release 24 hr (Glucotrol XL) losartan 100 mg tablet 100 mg PO DAILY #90 tab 02/09/21 06/17/21 metoprolol succinate 200 mg 200 mg PO DAILY #90 tab 02/09/21 06/17/21 tablet,extended release 24 hr (Toprol XL) potassium chloride 20 mEq 20 meq PO DAILY #90 tab 02/09/21 06/17/21 tablet,extended release(part/cryst) (Klor-Con M) apixaban 5 mg tablet (Eliquis) 5 mg PO BID #180 tab 05/07/21 06/17/21 acetaminophen 650 mg 1,300 mg PO TID 06/04/21 06/17/21 tablet,extended release ciprofloxacin HCl 500 mg tablet 500 mg PO BID #14 tab 06/16/21 06/17/21 (Cipro) Previous Rx's Medication Instructions Recorded blood-glucose meter #100 each 06/12/18 lancets 28 gauge #100 ea 03/31/20 blood sugar diagnostic (Blood #100 each 09/16/20 Glucose Test) acetaminophen 500 mg tablet 1,000 mg PO Q8H PRN #90 tab 01/06/21 diltiazem HCl 120 mg 120 mg PO HS #90 cap 02/09/21 capsule,extended release 24 hr furosemide 40 mg tablet 40 mg PO QAM #90 tab 02/09/21 glipizide 5 mg tablet, extended 5 mg PO DAILY #90 tab-cap 02/09/21 release 24 hr (Glucotrol XL) losartan 100 mg tablet 100 mg PO DAILY #90 tab 02/09/21 metoprolol succinate 200 mg 200 mg PO DAILY #90 tab 02/09/21 tablet,extended release 24 hr (Toprol XL) potassium chloride 20 mEq 20 meq PO DAILY #90 tab 02/09/21 tablet,extended release(part/cryst) (Klor-Con M) apixaban 5 mg tablet (Eliquis) 5 mg PO BID #180 tab 05/07/21 ciprofloxacin HCl 500 mg tablet 500 mg PO BID #14 tab 06/16/21 (Cipro) Allergies Allergy/AdvReac Type Severity Reaction Status Date / Time lisinopril AdvReac Severe COUGH Verified 06/17/21 08:52 codeine AdvReac Intermediate Nausea Verified 06/17/21 08:52 metformin AdvReac Intermediate diarrhea Verified 06/17/21 08:52 oxycodone AdvReac Intermediate Nausea Verified 06/17/21 08:52 General KAILYN: 3 Review of Systems All systems reviewed & are unremarkable except as noted in HPI and below Constitutional Constitutional: Denies chills, Denies excessive sweating, Denies fatigue, Denies fever(s), Denies weakness and Denies weight loss Eyes Eyes: Reports system reviewed and no additional complaints, except as documented and Denies blurry vision ENT Ears, Nose, Mouth, and Throat: Denies vertigo, Denies dizziness, Denies otalgia, Denies nasal congestion, Denies sore throat and Denies throat swelling Cardiovascular Cardiovascular: Denies chest pain, Denies syncope, Denies rapid heart rate and Denies dyspnea Respiratory Respiratory: Denies chest congestion, Denies cough, Denies pain on inspiration and Denies dyspnea Gastrointestinal Gastrointestinal: Reports abdominal pain, Denies diarrhea, Reports nausea and Denies vomiting Genitourinary Genitourinary: Denies hematuria, Denies dysuria and Denies flank pain Musculoskeletal Musculoskeletal: Denies back pain and Denies joint swelling Integumentary/Breasts Skin/Breast: Denies lesions and Denies rash Neurologic Neurologic: Denies behavioral changes, Denies confusion, Denies vertigo, Denies dizziness, Denies syncope, Denies localized weakness and Denies weakness Psychiatric Psychiatric: Denies behavioral changes, Denies confusion and Denies depression Endocrine Endocrine: Denies excessive sweating and Denies fatigue Hematologic/Lymphatic Hematologic/Lymphatic: Denies easy bruising and Denies lymphadenopathy Allergic/Immunologic Allergic/Immunologic: Denies throat swelling PFSH All Active Problems (Updated 06/17/21 @ 12:27 by Ramona Acevedo DO) Acute diverticulitis (Acute) Bowel perforation (Acute) UTI (urinary tract infection) (Acute) Atrial fibrillation with rapid ventricular response (Acute) Right thigh pain (Acute) Tear of left gluteus medius tendon (Acute) Hypertension (Chronic) Obesity (Chronic) H/O surgical procedure (Acute) a. MINDA/BSO with colporrhaphy and cystocele repair 02/20/2014 b. colonoscopy 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 Surgery 02/16. Vaginal Hyst. Polyp of colon (Acute 02/03/04) Paroxysmal SVT (supraventricular tachycardia) (Acute 02/15/17) zio patch Kidney stone (Acute) Infection resistant to penicillin (Acute) MRSA abscess x 2 Diabetes mellitus (Acute) Cystocele (Acute 06/24/14) Mucous polyp of cervix (Acute) Spinal stenosis (Acute) Neural foraminal stenosis of lumbar spine (Acute) Atrial fibrillation (Chronic) Cardiomyopathy (Acute) SOB (shortness of breath) (Acute) Mitral regurgitation (Chronic) Acute on chronic heart failure with reduced ejection fraction and diastolic dysfunction (Acute) Bilateral hip pain (Acute) Osteoarthritis of right knee (Chronic) Preoperative cardiovascular examination (Acute) Status post lumbar surgery (Acute) L3-L5 Status post arthroscopy of left knee (Acute) History of total right knee replacement (Acute 01/06/21) Elevated LFTs (Acute) COVID-19 (Acute) Trochanteric bursitis of left hip (Acute) Surgical History Hx of colonoscopy Oophrectomy, Both (02/20/14) TVH, BSO with R sided uterosacral ligament suspension with Anterior Coloporrhapy. EP/aoc S/P total knee arthroplasty Right Vaginal hysterectomy Family History Mother Diabetes Father Heart disease Diabetes Sister , AGE 85 Cancer Diabetes Heart disease Sister , AGE 51 Heart disease Sister , AGE 84 Diabetes Heart disease Brother , AGE 34 No problems noted. Brother , AGE 82 Diabetes Heart disease Social History Smoking/Tobacco Use Status: Former Tobacco Use Quit Date: 03/06/81 Second Hand Exposure: Yes Smoking risk assessment performed?: Yes Alcohol Intake: never Drug use: Never Substance use type: does not use Household members: spouse Housing: house Communication Needs: None Do you need help understanding health information?: Often Pets and animals: Yes Pets and animals: dog(s) Sexually active: No Do you think of yourself as: straight/heterosexual Current gender identity: female How often do you talk on the phone with friends or family?: three or more times per week How often do you get together with friends or relatives?: decline to answer How often do you attend tenriism or mosque services?: decline to answer Do you belong to any clubs or organized social groups?: decline to answer Panel score (0-1 are the most socially isolated patients): 1 Radha/Spiritism: Evangelical Special radha needs: No Seatbelt use: always Drive intox or ride w/intox driver examiner: No Do you feel safe at home: Yes Do you feel safe in your relationship?: Yes Exam Const General: cooperative and uncomfortable Orientation: alert, awake and oriented x3 HENMT Head: normal to inspection Ears: hearing grossly normal bilaterally, external ears normal and TM's normal bilaterally General nose exam: external nose normal Face and sinus: normal facial exam Mouth: oral mucosae normal Teeth and gingiva: dentition normal Throat: posterior oropharynx normal Eyes General: appearance normal, both eyes and all related structures Eyelids: eyelids normal Pupils: PERRL EOM: EOM intact bilaterally Neck Neck: normal visual inspection Lymphatic: no lymphadenopathy noted Chest Chest: normal inspection of the chest Resp Effort & Inspection: normal respiratory effort and able to speak in complete sentences Auscultation: clear to auscultation bilaterally Cardio Rate: regular rate Rhythm: regular rhythm GI Inspection: normal to inspection Palpation: soft, not firm, no guarding, no hepatosplenomegaly, no masses and tender (diffuse, worse in suprapubic region) Auscultation: hypoactive bowel sounds Back/Spine/Pelvis Back: no CVA tenderness Skin General skin exam: no rashes or lesions noted Neuro General: patient alert and patient awake Cognition: normal cognition Speech: speech normal Gait: normal gait Motor: muscle tone normal throughout Sensory Exam: no sensory deficits noted Extrem General: normal to inspection, full ROM and capillary refill normal Psych Appearance: grossly normal Mental Status: mental status grossly normal Speech and Movement: speech and movement normal Affect: normal affect Thought Process: normal
--- NOTE | 2021-06-17 09:22 | DI.CT_ITS ---
Exam(s) CT ABDOMEN PELVIS W EXAM: CT ABDOMEN PELVIS W INDICATION: has uti/diffuse abd pain, worse suprapubic. COMPARISON: No exams were available for comparison TECHNIQUE: FINDINGS: CT examination of the abdomen and pelvis was performed with a bolus infusion of 100 cc of Omnipaque 3 50. Images obtained through the lung bases are unremarkable. Coronary artery calcification noted. There is hepatic steatosis with no focal hepatic lesion identified.. Gallbladder and bile ducts are CT normal. Pancreas appears normal. Spleen is unremarkable in appearance. Adrenals appear normal. The kidneys are unremarkable except for an apparent left lower pole renal cyst which measures about 4 cm in greatest diameter. no evidence of hydronephrosis, nephrolithiasis, or solid renal mass.. Ur inary bladder unremarkable. Abdominal aorta is of normal diameter and no major vascular abnormality is seen. No abdominal wall hernia. No abdominal or pelvic adenopathy. [employer] structures appear intact. Appendix is normal. There is wall thickening and marked pericolonic fat edema of the proximal sigmoid colon highly sugges tive of acute diverticulitis. Surrounding structures including small bowel and urinary bladder show t hickened wall is consistent with adjacent inflammation. No abscess formation at this time. However th ere are multiple small foci of gas in mesenteric fat and peritoneal cavity indicating perforation. IMPRESSION: The appearance is consistent with perforated sigmoid diverticulitis as described above. No abscess id entified at this time. No evidence of bowel obstruction. RADIATION DOSE DELIVERED: 1,102.27mGy.cm Total DLP 1,102.27mGy.cm Total DLP !Error CTDIvol RADIATION OPTIMIZATION: All CT scans at this facility use at least one of these dose optimization te chniques: automated exposure control; mA and/or kV adjustment per patient size (includes targeted exa ms where dose is matched to clinical indication); or iterative reconstruction.
--- NOTE | 2021-06-17 10:08 | W.ED.PROC ---
Date of service: 06/17/21 Time of Service: 10:08 Procedures EJ/Peripheral Line Arm R: Time Out Performed: No Skin Cleansed in Sterile Fashion: Yes Size (gauge): 20 (Diffusix) IV Secured and Dressing Applied: Yes Patient Tolerated Procedure: well and no complications Additional Comments: Blood Drawn and sent to lab
[2021-06-17 10:12] LABS: Abs Immature Grans 0.05 10^3/uL (0.0-0.06); Absolute Eosinophil Count 0.01 10^3/uL (0.0-0.7); Absolute Lymphocyte Count 0.68 10^3/uL (1.2-3.4); Absolute Monocyte Count 0.33 10^3/uL (0.1-0.8); Basophils % 0.3; Eosinophils % 0.1; HCT 35.2 % (36.0-46.0); HGB 11.7 g/dL (11.2-15.7); Immature Grans % 0.4; Lymphocytes % 5.8; MCH 31.6 pg (27.0-33.0); MCHC 33.2 % (32.0-36.0); MCV 95.1 fL (80-95); Monocytes % 2.8; Neutrophils % 90.6; Nucleated RBC 0 %; Platelet Count 141 10^3/uL (130-400); RDW-SD 45.4 fL; WBC 11.66 10^3/uL (4.4-10.8)
[2021-06-17 10:26] LABS: Absolute Basophil Count 0.03 10^3/uL (0.0-0.2); Absolute Neutrophil Count 10.56 10^3/uL (1.2-6.7)
[2021-06-17 10:26] LABS: Bilirubin Negative (Negative); Blood Trace-intact (Negative); Clarity Sl Cloudy (Clear); Glucose Negative (Negative); Ketones Negative (Negative); Leukocyte Esterase Small (Negative); Nitrite Positive (Negative); Specific Gravity >= 1.030 (1.005-1.025); Urobilinogen 0.2 EU/dL (Up TO 0.2)
[2021-06-17] MEDS: Normal Saline Flush 10 ML SYR IVP ×4 (10:33→22:06)
[2021-06-17] MEDS: Normal Saline 500 ML IV (10:33)
[2021-06-17] MEDS: MORPHine 10 MG/ML VIAL 2 MG IVP (10:33)
[2021-06-17] MEDS: Ondansetron 4 MG/2 ML VIAL IVP (10:34)
[2021-06-17 10:35] LABS: Bacteria Moderate HPF (Negative); C & S Indicated? No/Sq. Contamination; Casts Negative LPF (Negative); Crystals Negative HPF (Negative); Epithelial Cells Moderate HPF (Negative); Mucus Negative (Negative); RBC 0-2 HPF (0-2); WBC >50 HPF (0-5)
[2021-06-17 10:38] LABS: ALT 17 U/L (14-59); AST 16 U/L (15-37); Alkaline Phosphatase 53 U/L (46-116); Anion Gap 10.4 mmol/L (3-11); BUN 20 mg/dL (7-18); Bilirubin, Total 1.6 mg/dL (0.2-1.0); CO2 27.6 mmol/L (21.0-32.0); CREATININE 1.1 mg/dL (0.55-1.02); Calcium 9.3 mg/dL (8.5-10.1); Chloride 99 mmol/L (98-107); Estimated GFR 48.42 (mL/min/1.73m2); Glucose 204 mg/dL (74-106); Lipase 50 U/L (73-393); Potassium 3.6 mmol/L (3.5-5.1); Sodium 137 mmol/L (136-145)
[2021-06-17] MEDS: Omnipaque 350 MG/ML 100 ML BTL IJ (10:51)
--- NOTE | 2021-06-17 11:40 | W.SURGCON ---
Date of service: 06/17/21 Time of Service: 11:40 Assessment and Plan Assessment and plan (1) Acute diverticulitis: Status: Acute Assessment and plan: - Continue with conservative medical management at this time. Antibiotics were using her Cipro and Flagyl. -Probiotic -Bowel rest. Water and ice chips are okay at this time DVT and GI prophylaxis and encourage pulmonary toilet and Walking I am attempting to find her old colonoscopy report. The last one I see was from 2005 although she just had to orthopedic surgery that had hardware placed within the last 6 months. No indication that patient needs emergent hospitalization and will continue with medical manage. Will follow. Possible colonoscopy in a few weeks if she has not had one recently 1 hour was spent in consultation with this patient today (2) Bowel perforation: Status: Acute (3) UTI (urinary tract infection): Status: Acute (4) Atrial fibrillation with rapid ventricular response: Status: Acute (5) Tear of left gluteus medius tendon: Status: Acute (6) Hypertension: Status: Chronic Qualifiers: Hypertension type: essential hypertension Qualified Code(s): I10 - Essential (primary) hypertension (7) Obesity: Status: Chronic (8) Paroxysmal SVT (supraventricular tachycardia): Status: Acute (9) Infection resistant to penicillin: Status: Acute (10) Diabetes mellitus: Status: Acute (11) Atrial fibrillation: Status: Chronic Qualifiers: Atrial fibrillation type: longstanding persistent Qualified Code(s): I48.11 - Longstanding persistent atrial fibrillation (12) Cardiomyopathy: Status: Acute Qualifiers: Cardiomyopathy type: other Qualified Code(s): I42.8 - Other cardiomyopathies (13) Status post arthroscopy of left knee: Status: Acute (14) History of total right knee replacement: Status: Acute (15) COVID-19: Status: Acute History of Present Illness Narrative: Pt started abdominal pain since Monday. She denies trauma. She denies travel or unusal foods. She denies constipation or straining. She dud have constiation after her left hip surgery. But not as a general rule. At this point, her pain is better as long as she doesn't move. She had n[place] and pain in the lower portion of abdomen. She has been tolerating water. She has no appetite no fever/chills. She has a hx of e fib- when she came into the hospital her rate wasin the 130's. rate now is in 110's. Probably a combo of factors including dehydration/pain/infection. It appears o tbe better this evening. But she is admitted to hospitalists and ICU to monitor her heart. She say her PCP for this pain and started her on cipro/flagyl. she was not feeling better today and came to the ER. Took am dose of Cipro this am She had a hip procedure done with Dr. De La Fuente in May 2021 and has fresh screws and anchors in her hip. She had her right knee replaced in February 23. We will check blood cultures. CT: There is wall thickening and marked pericolonic fat edema of the proximal sigmoid colon highly suggestive of acute diverticulitis. Surrounding structures including small bowel and urinary bladder show thickened wall is consistent with adjacent inflammation. No abscess formation at this time. However there are multiple small foci of gas in mesenteric fat and peritoneal cavity indicating perforation. see labs. no peritonitis. hx of A fib- HR is 130's currently Review of Systems Narrative: She does not currently have any chest pain or shortness of breath. She does not have a productive cough. She has no pain or swelling in her legs. Her incisions are clean dry and intact. She has been doing physical therapy and tolerating it well she does not have much of an appetite she is been moving her bowels with and with no blood she has a lower abdominal pain in both quadrants All systems reviewed & are unremarkable except as noted in HPI and below PFSH All Active Problems (Updated 06/17/21 @ 22:19 by Shereen Mercer DO) DVT prophylaxis (Acute) Acute diverticulitis (Acute ~03/2021) Bowel perforation (Acute) UTI (urinary tract infection) (Acute) Atrial fibrillation with rapid ventricular response (Acute) Right thigh pain (Acute) Tear of left gluteus medius tendon (Acute) Hypertension (Chronic) Obesity (Chronic) H/O surgical procedure (Acute) a. MINDA/BSO with colporrhaphy and cystocele repair 02/20/2014 b. colonoscopy 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 Surgery 02/16. Vaginal Hyst. Polyp of colon (Acute 02/03/04) Paroxysmal SVT (supraventricular tachycardia) (Acute 02/15/17) zio patch Kidney stone (Acute) Infection resistant to penicillin (Acute) MRSA abscess x 2 Diabetes mellitus (Acute) Cystocele (Acute 06/24/14) Mucous polyp of cervix (Acute) Spinal stenosis (Acute) Neural foraminal stenosis of lumbar spine (Acute) Atrial fibrillation (Chronic) Cardiomyopathy (Acute) SOB (shortness of breath) (Acute) Mitral regurgitation (Chronic) Acute on chronic heart failure with reduced ejection fraction and diastolic dysfunction (Acute) Bilateral hip pain (Acute) Osteoarthritis of right knee (Chronic) Preoperative cardiovascular examination (Acute) Status post lumbar surgery (Acute) L3-L5 Status post arthroscopy of left knee (Acute) History of total right knee replacement (Acute 01/06/21) Elevated LFTs (Acute) COVID-19 (Acute) Trochanteric bursitis of left hip (Acute) Surgical History Hx of colonoscopy Oophrectomy, Both (02/20/14) TVH, BSO with R sided uterosacral ligament suspension with Anterior Coloporrhapy. EP/aoc S/P total knee arthroplasty Right Vaginal hysterectomy Family History Mother Diabetes Father Heart disease Diabetes Sister , AGE 85 Cancer Diabetes Heart disease Sister , AGE 51 Heart disease Sister , AGE 84 Diabetes Heart disease Brother , AGE 34 No problems noted. Brother , AGE 82 Diabetes Heart disease Social History Smoking/Tobacco Use Status: Former Tobacco Use Quit Date: 03/06/81 Second Hand Exposure: Yes Smoking risk assessment performed?: Yes Alcohol Intake: never Drug use: Never Substance use type: does not use Household members: spouse Housing: house Communication Needs: None Do you need help understanding health information?: Often Pets and animals: Yes Pets and animals: dog(s) Sexually active: No Do you think of yourself as: straight/heterosexual Current gender identity: female How often do you talk on the phone with friends or family?: three or more times per week How often do you get together with friends or relatives?: decline to answer How often do you attend zoroastrian or yarsanism services?: decline to answer Do you belong to any clubs or organized social groups?: decline to answer Panel score (0-1 are the most socially isolated patients): 1 Radha/Zoroastrianism: Hindu Special radha needs: No Seatbelt use: always Drive intox or ride w/intox route cdl driver: No Do you feel safe at home: Yes Do you feel safe in your relationship?: Yes Exam Narrative Exam Narrative: 2 4 Surgical Consult Preview Review?and?Refine ? ? Recall ? Save Sign Author: Shereen Mercer, DO Last Saved at 06/17/21 22:13 Date of Service HPI ROS PFSH Exam Results Proc A/P Coding PFSH ? Date of Service ? History of Present Illness ? Review of Systems ? Exam Add?Content ? View?Previous ? Narrative ? Const ? HENMT ? Eyes ? Neck ? Chest ? Resp ? Cardio ? GI ? ? Back/Spine/Pelvis ? Skin ? Neuro ? Extrem ? Psych ? Results ? Procedures ? Assessment and Plan ? Coding ? ? Kaleigh Fox Acute 76, F?1945 MRN#? [id number] ADM [place],?[facility]??? 1.57m 93.1kg BSA: 1.93m? BMI: 37.5kg/m? Acc#? [id number] Full Code Allergies lisinopril COUGH codeine Nausea metformin diarrhea oxycodone Nausea Problems ? ONSET DVT prophylaxis Acute diverticulitis Bowel perforation UTI (urinary tract infection) Atrial fibrillation with rapid ventricular response Right thigh pain Tear of left gluteus medius tendon Hypertension Obesity H/O surgical procedure Uterine procidentia 01/20/14 Polyp of colon 02/03/04 Paroxysmal SVT (supraventricular tachycardia) 02/15/17 Kidney stone Infection resistant to penicillin Diabetes mellitus Cystocele 06/24/14 Mucous polyp of cervix Spinal stenosis Neural foraminal stenosis of lumbar spine Atrial fibrillation Cardiomyopathy SOB (shortness of breath) Mitral regurgitation Acute on chronic heart failure with reduced ejection fraction and diastolic dysfunction Bilateral hip pain Osteoarthritis of right knee Preoperative cardiovascular examination Status post lumbar surgery Status post arthroscopy of left knee History of total right knee replacement 01/06/21 Elevated LFTs COVID-19 Trochanteric bursitis, right hip Trochanteric bursitis of left hip Vital Signs Today 21:20 Resp 18? O2 Sat 95? Home Meds Confirmed MEDICATIONS (INSTRUCTIONS) LAST TAKEN Active acetaminophen 1,300 mgPOTID acetaminophen 1,000 [id number] tab apixaban 5 mg tablet 5 mgPOBID#180 tab Calcium 600 + D(3) 1 tabPODAILY *Product no longer available ciprofloxacin HCl 500 mg tablet 500 mgPOBID#14 tab diltiazem HCl 120 mg capsule,extended release 24 hr 120 mgPOHS#90 cap furosemide 40 mg tablet 40 mgPOQAM#90 tab glipizide 5 mg tablet, extended release 24 hr 5 mgPODAILY#90 tab-cap losartan 100 mg tablet 100 mgPODAILY#90 tab magnesium oxide 400 mgPODAILY metoprolol succinate 200 mg tablet,extended release 24 hr 200 mgPODAILY#90 tab omega-3 fatty acids 1,000 mg capsule 1,000 mgPODAILY *Product no longer available potassium chloride 20 mEq tablet,extended release(part/cryst) 20 meqPODAILY#90 tab DME/Medical Supplies blood sugar diagnostic blood-glucose meter lancets 28 gauge Lab Results Last Value Most Recent Hematology WBC (4.4-10.8) 11.66 10^3/uL H Today RBC (3.93-5.22) 3.70 10^6/uL L Today Hgb (11.2-15.7) 11.7 g/dL Today Hct (36.0-46.0) 35.2 % L Today MCV (80-95) 95.1 fL H Today MCH (27.0-33.0) 31.6 pg Today MCHC (32.0-36.0) 33.2 % Today RDW (11.7-14.6) 13.0 % Today Plt Count (130-400) 141 10^3/uL Today MPV (8.0-11.0) 11.0 fL Today Immature Gran % 0.4 Today Neutrophils % 90.6 Today Lymphocytes % 5.8 Today Monocytes % 2.8 Today Eosinophils % 0.1 Today Basophils % 0.3 Today Nucleated RBC % 0 % Today Absolute Neutrophils (1.2-6.7) 10.56 10^3/uL H Today Absolute Lymphocytes (1.2-3.4) 0.68 10^3/uL L Today Absolute Monocytes (0.1-0.8) 0.33 10^3/uL Today Absolute Eosinophils (0.0-0.7) 0.01 10^3/uL Today Absolute Basophils (0.0-0.2) 0.03 10^3/uL Today Coagulation D-Dimer (<500) 887 ng/mlFEU H 08/19/19 Blood Gas VBG Lactate (0.6-1.4) 1.6 mmol/L H Today Chemistry Sodium (136-145) 137 mmol/L Today Potassium (3.5-5.1) 3.6 mmol/L Today Chloride (98-107) 99 mmol/L Today Carbon Dioxide (21.0-32.0) 27.6 mmol/L Today Anion Gap (3-11) 10.4 mmol/L Today BUN (7-18) 20 mg/dL H Today Estimated GFR (mL/min/1.73m2) >= 60.00? 10/01/12 Creatinine (0.55-1.02) 1.1 mg/dL H Today Estimated GFR/1.73 m2 (mL/min/1.73m2) 48.42? Today Glucose (74-106) 204 mg/dL H??? Today Hemoglobin A1c (<5.7) 6.3 % H 02/11/21 Calcium (8.5-10.1) 9.3 mg/dL Today Phosphorus (2.6-4.7) 4.0 mg/dL 10/08/20 Magnesium (1.8-2.4) 1.8 mg/dL Today Total Bilirubin (0.2-1.0) 1.6 mg/dL H Today Conjugated Bilirubin (0.0-0.2) 0.2 mg/dL 02/11/21 AST (15-37) 16 U/L Today ALT (14-59) 17 U/L Today Alkaline Phosphatase (46-116) 53 U/L Today Troponin I (<0.06) < 0.05 ng/mL 08/20/19 Cholesterol (50-200) 164 mg/dL 10/31/14 NT-Pro-B Natriuret Pep (<300) 3493 pg/mL H Today Total Protein (6.4-8.2) 7.0 g/dL Today Albumin (3.4-5.0) 3.0 g/dL L Today LDL Cholesterol Direct (<100) 84 mg/dL 04/11/18 Triglycerides (<150) 136 mg/dL 08/22/19 Total Cholesterol (<200) 156 mg/dL 08/22/19 LDL Cholesterol, Calc (<100) 81 mg/dL 08/22/19 HDL Cholesterol (40-60) 48 mg/dL 08/22/19 Lipase (73-393) 50 U/L Today TSH (0.36-3.74) 2.04 uIU/mL 09/02/19 Urines POC Urine Clarity Clear 09/28/12 POC Urine pH 5.5 09/28/12 POC Urine Protein Negative 09/28/12 Urine Color (Yellow) Yellow Today POC Ur Glucose (UA) Negative 09/28/12 POC Urine Ketones Negative 09/28/12 Urine Clarity (Clear) Sl Cloudy Today Urine pH (5-8) 6.0 Today Ur Hemolyzed Blood Negative 09/28/12 Ur Non-Hemolyzed Blood 09/28/12 Urine Nitrate Negative 09/28/12 Ur Specific [place] (1.005-1.025) >= 1.030 H Today POC Urine Bilirubin 09/28/12 Urine Protein (Negative) Negative mg/dL Today POC Urine Urobilinogen 09/28/12 POC U Leukocyte Esteras Negative 09/28/12 Urine Ketones (Negative) Negative mg/dL Today Urine Blood (Negative) Trace-intact H Today Urine Nitrite (Negative) Positive H Today Urine Bilirubin (Negative) Negative Today Urine Urobilinogen (Up TO 0.2) 0.2 EU/dL Today Ur Leukocyte Esterase (Negative) Small H Today Urine RBC (0-2) 0-2 HPF Today Urine WBC (0-5) >50 HPF H Today Ur Epithelial Cells (Negative) Moderate HPF Today Urine Crystals (Negative) Negative HPF Today Urine Bacteria (Negative) Moderate HPF Today Urine Casts (Negative) Negative LPF Today Ur Microalbumin mg/dl (1.30-20.0) 4.4 mg/L 04/20/11 Urine Mucus (Negative) Negative Today Ur Culture Indicated? No/Sq. Contamination Today Ur Creatinine mg/dL 90.29 mg/dL 04/11/18 Ur Microalbumin mg/L (1.30-20.0) 5.3 mg/L 04/11/18 Microalb/Creat Ratio 5.9 ug/mg Cr 04/11/18 Urine Glucose (Negative) Negative mg/dL Today Serology Nasopharyn COVID-19 PCR (Negative) Negative? 02/18/20 COVID-19 Source Nasal/Nares Today SARS-CoV-2 (PCR) (Negative) Negative? Today Hepatitis C Antibody (Negative) Negative? 02/11/21 Miscellaneous Ref Test Perform Site [facility]? 02/18/20 Add-On Test Request DONE Today Laboratory Reports Laboratory Spec Inquiry Report 10/01/12 Laboratory Summaries 04/20/11 Microbiology Reports Micro Blood Specimen Today Micro Urine Specimen 06/15/21 Pathology Reports PTH Surgical Specimen 02/20/14 Pathology Report 02/20/14 Blood Bank Tests Patient ABO/Rh O Positive 02/18/14 Antibody Screen Negative 02/18/14 [facility] Radiology Report 08/19/19 Hgb (11.2-15.7) 11.7 g/dL Today Pathology Report 02/20/14 06/17/2021 ELDER ALVARADO,KARON Recall Document: History & Physical Exam Const General:?cooperative and uncomfortable Orientation:?alert, awake and oriented x3 HENMT Head:?normal to inspection Ears:?hearing grossly normal bilaterally, external ears normal General nose exam:?external nose normal Face and sinus:?normal facipearance normal, both eyes and all related structures Eyelids:?eyelids normal Pupils:?PERRL EOM:?EOM intact bilaterally Neck Neck:?normal visual inspection Chest Chest:?normal inspection of the chest Resp Effort & Inspection:?normal respiratory effort and able to speak in complete sentences Auscultation:?clear to auscultation bilaterally Cardio Rate:?regular rate A fib rate currently 110's. GI Inspection:?normal to inspection Palpation:?soft, not firm, guarding and tenderness in the left lower quadrant that does continue all the way over to the bladder area. No hepatosplenomegaly, no masses and tender (diffuse, worse in suprapubic region) Auscultation:?hyperactive bowel sounds Back/Spine/Pelvis Back:?no CVA tenderness Skin General skin exam:?no rashes or lesions noted Neuro General:?patient alert and patient awake Cognition:?normal cognition Speech:?speech normal Gait:?normal gait Motor:?muscle tone normal throughout Sensory Exam:?no sensory deficits noted Extrem General:?normal to inspection, full ROM and capillary refill normal Psych Appearance:?grossly normal Mental Status:?mental status grossly normal Speech and Movement:?speech and movement normal Affect:?normal affect Thought Process:?normal -Her incision sites from her knee and her hip are clean dry and intact and well-healed Const General: cooperative and uncomfortable Orientation: alert, awake and oriented x3 HENMT Head: normal to inspection Ears: hearing grossly normal bilaterally, external ears normal and TM's normal bilaterally General nose exam: external nose normal Face and sinus: normal facial exam Mouth: oral mucosae normal Teeth and gingiva: dentition normal Throat: posterior oropharynx normal Eyes General: appearance normal, both eyes and all related structures Eyelids: eyelids normal Pupils: PERRL EOM: EOM intact bilaterally Neck Neck: normal visual inspection Lymphatic: no lymphadenopathy noted Chest Chest: normal inspection of the chest Resp Effort & Inspection: normal respiratory effort and able to speak in complete sentences Auscultation: clear to auscultation bilaterally Cardio Rate: regular rate Rhythm: regular rhythm GI Inspection: normal to inspection Palpation: soft, not firm, no guarding, no hepatosplenomegaly, no masses and tender (diffuse, worse in suprapubic region) Auscultation: hypoactive bowel sounds Back/Spine/Pelvis Back: no CVA tenderness Skin General skin exam: no rashes or lesions noted Neuro General: patient alert and patient awake Cognition: normal cognition Speech: speech normal Gait: normal gait Motor: muscle tone normal throughout Sensory Exam: no sensory deficits noted Extrem General: normal to inspection, full ROM and capillary refill normal Psych Appearance: grossly normal Mental Status: mental status grossly normal Speech and Movement: speech and movement normal Affect: normal affect Thought Process: normal Results Last Vital Signs Temp 37.0 C 06/17/21 08:43 Pulse 132 H 06/17/21 08:43 Resp 29 H 06/17/21 08:43 BP 123/93 H 06/17/21 08:43 Pulse Ox 99 06/17/21 08:43 Labs Result diagrams: 06/17/21 10:06 06/17/21 10:06 Labs: Laboratory Results - last 24 hr 06/17/21 06/17/21 06/17/21 10:06 10:06 10:19 WBC 11.66 H RBC 3.70 L Hgb 11.7 Hct 35.2 L MCV 95.1 H MCH 31.6 MCHC 33.2 RDW 13.0 Plt Count 141 MPV 11.0 Immature Gran % 0.4 Neutrophils % 90.6 Lymphocytes % 5.8 Monocytes % 2.8 Eosinophils % 0.1 Basophils % 0.3 Nucleated RBC % 0 Absolute Neutrophils 10.56 H Absolute Lymphocytes 0.68 L Absolute Monocytes 0.33 Absolute Eosinophils 0.01 Absolute Basophils 0.03 Sodium 137 Potassium 3.6 Chloride 99 Carbon Dioxide 27.6 Anion Gap 10.4 BUN 20 H Creatinine 1.1 H Estimated GFR/1.73 m2 48.42 Glucose 204 H D Calcium 9.3 Total Bilirubin 1.6 H AST 16 ALT 17 Alkaline Phosphatase 53 Total Protein 7.0 Albumin 3.0 L Lipase 50 Urine Color Yellow Urine Clarity Sl Cloudy Urine pH 6.0 Ur Specific [place] >= 1.030 H Urine Protein Negative Urine Ketones Negative Urine Blood Trace-intact H Urine Nitrite Positive H Urine Bilirubin Negative Urine Urobilinogen 0.2 Ur Leukocyte Esterase Small H Urine RBC 0-2 Urine WBC >50 H Ur Epithelial Cells Moderate Urine Crystals Negative Urine Bacteria Moderate Urine Casts Negative Urine Mucus Negative Ur Culture Indicated? No/Sq. Contamination Urine Glucose Negative
[2021-06-17] MEDS: HYDROmorphone 2 MG/ML VIAL 0.5 MG IVP (11:57)
[2021-06-17 12:11] LABS: Source Nasal/Nares
[2021-06-17] MEDS: metroNIDAZOLE 500 MG/100 ML BAG 100 MG IVPB (12:16)
[2021-06-17] MEDS: Metoprolol 5 MG/5 ML VIAL IVP (12:31)
[2021-06-17 12:35] LABS: Lab Add On Test DONE
[2021-06-17 12:52] LABS: COVID-19 PCR Negative (Negative)
[2021-06-17 12:55] LABS: NT-proBNP 3493 pg/mL (<300)
[2021-06-17 13:24] LABS: Lactate 1.6 mmol/L (0.6-1.4)
--- NOTE | 2021-06-17 16:49 | W.PM.HP.N ---
Date of service: 06/17/21 Time of Service: 16:51 Assessment and Plan Assessment and plan (1) Acute diverticulitis: Status: Acute Assessment and plan: First episode of diverticulitis. + microperforations. Zosyn with plan to change to Augmentin when improved. IV dilaudid prn for pain. PO dilaudid prn for pain. (2) Bowel perforation: Status: Acute Assessment and plan: See above. (3) UTI (urinary tract infection): Status: Acute Assessment and plan: Dx on 06/15/21 and has taken 3 doses of cipro as outpt. Cx positive for E.Coli. Sensitive to amp/sulb. (4) Diabetes mellitus: Status: Acute Assessment and plan: Cont glipizide. Monitor fingerstick with SS insulin correction dose. (5) Acute on chronic heart failure with reduced ejection fraction and diastolic dysfunction: Status: Acute Assessment and plan: Cont lasix 40mg po QD. (6) Atrial fibrillation with rapid ventricular response: Status: Acute Assessment and plan: Rapid vent rate. Cont Apixaban. Cont scheduled oral metoprolol Cr 200mg daily and Diltiazem CD 120mg po QHS PRN IV metoprolol for ventricular rate > 120. Supplement K to keep above 4.0. (7) Hypertension: Status: Chronic Assessment and plan: On metoprolol and diltiazem. Monitor. Qualifiers: Hypertension type: essential hypertension Qualified Code(s): I10 - Essential (primary) hypertension (8) DVT prophylaxis: Status: Acute Assessment and plan: On Apixaban History of Present Illness History of Present Illness Chief Complaint: Lower abdominal pain Narrative: This is a 76 yo female with a PMH of afib, cardiomyopathy, HFrEF, DM, spinal stenosis, COVID-19, s/p gluteal tendon repair and trochanteric bursectomy appx 3 weeks ago. She presented with lower abd pain and nausea for several days. She was seen at [facility] 2 days prior to to presentation; lab and UA obtained. + UA and 3 day course of Cipro prescribed. Pain is crampy, constant with a sharp component. Pain worse with movement. She has been using 1300mg acetaminophen BID since her recent surgery. + loose stool the night before presentation. She took immodium and today had a BM that was semi-formed. No emesis. Temp of 101 and [facility], none noted since. In the ED her HR was in the 110's to 130. BP 108/28, RA sat of 93%. Lab: WBC count 11.66. Hgb 11.7. Na 137. K 3.6. BUN 20. Cr 1.1. Glucose 204. TBili 1.6. LFT's normal. NTProBNP 3493. CT abd/pelvis: The appearance is consistent with perforated sigmoid diverticulitis as described above. No abscess identified at this time. No evidence of bowel obstruction. Initially metronidazole initiated with plan to add Cipro. However, given recent tendon rupture / repair, antibiotic coverage changed to Zosyn. EKG showed Afib with ventricular rate of 93-161. Old inferior infarct II, III, aVF. She was given her usual dose of metoprolol Cr 200mg, then a dose of IV metoprolol 5mg. Her HR improved into the 110's, but with movement, it increases. No CP. Review of Systems All systems reviewed & are unremarkable except as noted in HPI and below PFSH All Active Problems (Updated 06/17/21 @ 17:19 by David العراقي MD) DVT prophylaxis (Acute) Acute diverticulitis (Acute) Bowel perforation (Acute) UTI (urinary tract infection) (Acute) Atrial fibrillation with rapid ventricular response (Acute) Right thigh pain (Acute) Tear of left gluteus medius tendon (Acute) Hypertension (Chronic) Obesity (Chronic) H/O surgical procedure (Acute) a. MINDA/BSO with colporrhaphy and cystocele repair 02/20/2014 b. colonoscopy 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 Surgery 02/16. Vaginal Hyst. Polyp of colon (Acute 02/03/04) Paroxysmal SVT (supraventricular tachycardia) (Acute 02/15/17) zio patch Kidney stone (Acute) Infection resistant to penicillin (Acute) MRSA abscess x 2 Diabetes mellitus (Acute) Cystocele (Acute 06/24/14) Mucous polyp of cervix (Acute) Spinal stenosis (Acute) Neural foraminal stenosis of lumbar spine (Acute) Atrial fibrillation (Chronic) Cardiomyopathy (Acute) SOB (shortness of breath) (Acute) Mitral regurgitation (Chronic) Acute on chronic heart failure with reduced ejection fraction and diastolic dysfunction (Acute) Bilateral hip pain (Acute) Osteoarthritis of right knee (Chronic) Preoperative cardiovascular examination (Acute) Status post lumbar surgery (Acute) L3-L5 Status post arthroscopy of left knee (Acute) History of total right knee replacement (Acute 01/06/21) Elevated LFTs (Acute) COVID-19 (Acute) Trochanteric bursitis of left hip (Acute) Surgical History Hx of colonoscopy Oophrectomy, Both (02/20/14) TVH, BSO with R sided uterosacral ligament suspension with Anterior Coloporrhapy. EP/aoc S/P total knee arthroplasty Right Vaginal hysterectomy Family History Mother Diabetes Father Heart disease Diabetes Sister , AGE 85 Cancer Diabetes Heart disease Sister , AGE 51 Heart disease Sister , AGE 84 Diabetes Heart disease Brother , AGE 34 No problems noted. Brother , AGE 82 Diabetes Heart disease Social History Smoking/Tobacco Use Status: Former Tobacco Use Quit Date: 03/06/81 Second Hand Exposure: Yes Smoking risk assessment performed?: Yes Alcohol Intake: never Drug use: Never Substance use type: does not use Household members: spouse Housing: house Communication Needs: None Do you need help understanding health information?: Often Pets and animals: Yes Pets and animals: dog(s) Sexually active: No Do you think of yourself as: straight/heterosexual Current gender identity: female How often do you talk on the phone with friends or family?: three or more times per week How often do you get together with friends or relatives?: decline to answer How often do you attend sikhism or faith services?: decline to answer Do you belong to any clubs or organized social groups?: decline to answer Panel score (0-1 are the most socially isolated patients): 1 Radha/Latter-Day: Quaker Special radha needs: No Seatbelt use: always 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 Do you feel safe at home: Yes Do you feel safe in your relationship?: Yes Meds Allergies and Home Medications Allergies Allergy/AdvReac Type Severity Reaction Status Date / Time lisinopril AdvReac Severe COUGH Verified 06/17/21 08:52 codeine AdvReac Intermediate Nausea Verified 06/17/21 08:52 metformin AdvReac Intermediate diarrhea Verified 06/17/21 08:52 oxycodone AdvReac Intermediate Nausea Verified 06/17/21 08:52 Home Medications Medication Instructions Recorded Confirmed Type calcium carbonate-vitamin D3 600 1 tab PO DAILY 02/18/14 06/17/21 History mg-125 unit tablet (Calcium) blood-glucose meter #100 each 06/12/18 06/17/21 Rx magnesium oxide 400 mg PO DAILY 03/18/19 06/17/21 History lancets 28 gauge #100 ea 03/31/20 06/17/21 Rx omega-3 fatty acids 1,000 mg 1,000 mg PO DAILY 08/11/20 06/17/21 History capsule (Fish Oil Concentrate) blood sugar diagnostic (Blood #100 each 09/16/20 06/17/21 Rx Glucose Test) acetaminophen 500 mg tablet 1,000 mg PO Q8H PRN #90 tab 01/06/21 06/17/21 Rx diltiazem HCl 120 mg 120 mg PO HS #90 cap 02/09/21 06/17/21 Rx capsule,extended release 24 hr furosemide 40 mg tablet 40 mg PO QAM #90 tab 02/09/21 06/17/21 Rx glipizide 5 mg tablet, extended 5 mg PO DAILY #90 tab-cap 02/09/21 06/17/21 Rx release 24 hr (Glucotrol XL) losartan 100 mg tablet 100 mg PO DAILY #90 tab 02/09/21 06/17/21 Rx metoprolol succinate 200 mg 200 mg PO DAILY #90 tab 02/09/21 06/17/21 Rx tablet,extended release 24 hr (Toprol XL) potassium chloride 20 mEq 20 meq PO DAILY #90 tab 02/09/21 06/17/21 Rx tablet,extended release(part/cryst) (Klor-Con M) apixaban 5 mg tablet (Eliquis) 5 mg PO BID #180 tab 05/07/21 06/17/21 Rx acetaminophen 650 mg 1,300 mg PO TID 06/04/21 06/17/21 History tablet,extended release ciprofloxacin HCl 500 mg tablet 500 mg PO BID #14 tab 06/16/21 06/17/21 Rx (Cipro) Exam Const General: cooperative and uncomfortable Orientation: alert, awake and oriented x3 [facility] Head: normal to inspection Ears: hearing grossly normal bilaterally, external ears normal and TM's normal bilaterally General nose exam: external nose normal Face and sinus: normal facial exam Mouth: oral mucosae normal Teeth and gingiva: dentition normal Throat: posterior oropharynx normal Eyes General: appearance normal, both eyes and all related structures Eyelids: eyelids normal Pupils: PERRL EOM: EOM intact bilaterally Neck Neck: normal visual inspection Lymphatic: no lymphadenopathy noted Chest Chest: normal inspection of the chest Resp Effort & Inspection: normal respiratory effort and able to speak in complete sentences Auscultation: clear to auscultation bilaterally Cardio Rate: regular rate Rhythm: regular rhythm GI Inspection: normal to inspection Palpation: soft, not firm, no guarding, no hepatosplenomegaly, no masses and tender (diffuse, worse in suprapubic region) Auscultation: hypoactive bowel sounds Back/Spine/Pelvis Back: no CVA tenderness Skin General skin exam: no rashes or lesions noted Neuro General: patient alert and patient awake Cognition: normal cognition Speech: speech normal Gait: normal gait Motor: muscle tone normal throughout Sensory Exam: no sensory deficits noted Extrem General: normal to inspection, full ROM and capillary refill normal Psych Appearance: grossly normal Mental Status: mental status grossly normal Speech and Movement: speech and movement normal Affect: normal affect Thought Process: normal Results Labs Result diagrams: 06/17/21 10:06 06/17/21 10:06 Labs: Laboratory Results - last 24 hr 06/17/21 06/17/21 06/17/21 10:06 10:06 10:06 WBC 11.66 H RBC 3.70 L Hgb 11.7 Hct 35.2 L MCV 95.1 H MCH 31.6 MCHC 33.2 RDW 13.0 Plt Count 141 MPV 11.0 Immature Gran % 0.4 Neutrophils % 90.6 Lymphocytes % 5.8 Monocytes % 2.8 Eosinophils % 0.1 Basophils % 0.3 Nucleated RBC % 0 Absolute Neutrophils 10.56 H Absolute Lymphocytes 0.68 L Absolute Monocytes 0.33 Absolute Eosinophils 0.01 Absolute Basophils 0.03 VBG Lactate Sodium 137 Potassium 3.6 Chloride 99 Carbon Dioxide 27.6 Anion Gap 10.4 BUN 20 H Creatinine 1.1 H Estimated GFR/1.73 m2 48.42 Glucose 204 H D Calcium 9.3 Total Bilirubin 1.6 H AST 16 ALT 17 Alkaline Phosphatase 53 NT-Pro-B Natriuret Pep Total Protein 7.0 Albumin 3.0 L Lipase 50 Urine Color Urine Clarity Urine pH Ur Specific [place] Urine Protein Urine Ketones Urine Blood Urine Nitrite Urine Bilirubin Urine Urobilinogen Ur Leukocyte Esterase Urine RBC Urine WBC Ur Epithelial Cells Urine Crystals Urine Bacteria Urine Casts Urine Mucus Ur Culture Indicated? Urine Glucose COVID-19 Source SARS-CoV-2 (PCR) Add-On Test Request DONE 06/17/21 06/17/21 06/17/21 10:06 10:19 12:08 WBC RBC Hgb Hct MCV MCH MCHC RDW Plt Count MPV Immature Gran % Neutrophils % Lymphocytes % Monocytes % Eosinophils % Basophils % Nucleated RBC % Absolute Neutrophils Absolute Lymphocytes Absolute Monocytes Absolute Eosinophils Absolute Basophils VBG Lactate Sodium Potassium Chloride Carbon Dioxide Anion Gap BUN Creatinine Estimated GFR/1.73 m2 Glucose Calcium Total Bilirubin AST ALT Alkaline Phosphatase NT-Pro-B Natriuret Pep 3493 H Total Protein Albumin Lipase Urine Color Yellow Urine Clarity Sl Cloudy Urine pH 6.0 Ur Specific [place] >= 1.030 H Urine Protein Negative Urine Ketones Negative Urine Blood Trace-intact H Urine Nitrite Positive H Urine Bilirubin Negative Urine Urobilinogen 0.2 Ur Leukocyte Esterase Small H Urine RBC 0-2 Urine WBC >50 H Ur Epithelial Cells Moderate Urine Crystals Negative Urine Bacteria Moderate Urine Casts Negative Urine Mucus Negative Ur Culture Indicated? No/Sq. Contamination Urine Glucose Negative COVID-19 Source Nasal/Nares SARS-CoV-2 (PCR) Negative Add-On Test Request 06/17/21 13:18 WBC RBC Hgb Hct MCV MCH MCHC RDW Plt Count MPV Immature Gran % Neutrophils % Lymphocytes % Monocytes % Eosinophils % Basophils % Nucleated RBC % Absolute Neutrophils Absolute Lymphocytes Absolute Monocytes Absolute Eosinophils Absolute Basophils VBG Lactate 1.6 H Sodium Potassium Chloride Carbon Dioxide Anion Gap BUN Creatinine Estimated GFR/1.73 m2 Glucose Calcium Total Bilirubin AST ALT Alkaline Phosphatase NT-Pro-B Natriuret Pep Total Protein Albumin Lipase Urine Color Urine Clarity Urine pH Ur Specific [place] Urine Protein Urine Ketones Urine Blood Urine Nitrite Urine Bilirubin Urine Urobilinogen Ur Leukocyte Esterase Urine RBC Urine WBC Ur Epithelial Cells Urine Crystals Urine Bacteria Urine Casts Urine Mucus Ur Culture Indicated? Urine Glucose COVID-19 Source SARS-CoV-2 (PCR) Add-On Test Request Last Vital Signs Temp 37.7 C H 06/17/21 12:11 Pulse 99 H 06/17/21 14:21 Resp 19 06/17/21 14:21 BP 107/59 L 06/17/21 14:21 Pulse Ox 91 L 06/17/21 14:21
[2021-06-17] MEDS: Ketorolac 15 MG/ML VIAL IVP (17:39)
[2021-06-17] MEDS: Potassium Chloride 20 MEQ TABCR 40 MEQ PO (17:40)
[2021-06-17] MEDS: Normal Saline 500 ML 30 ML IV (17:57)
[2021-06-17] MEDS: PIPERACILLIN/TAZO 3.375 GM in Normal Saline 50 ML IVPB (17:57)
[2021-06-17] MEDS: Apixaban 5 MG TAB PO (19:49)
[2021-06-17] MEDS: Acetaminophen 325 MG TAB PO (19:49)
[2021-06-17 20:16] LABS: Lab Add On Test DONE
[2021-06-17 20:17] LABS: Magnesium 1.8 mg/dL (1.8-2.4)
[2021-06-17] MEDS: dilTIAZem CD 120 MG CAPCR PO (20:47)
[2021-06-17] MEDS: HYDROmorphone 2 MG TAB PO (20:57)
[2021-06-17] MEDS: HYDROmorphone 2 MG/ML SYR 0.5 MG IVP (22:06)
[2021-06-18] VITALS (88 sets, daily range): BP systolic 78–129; BP diastolic 30–100; PULSE 75–125; RESP 16–26; TEMP 36.7–37.3; O2SAT 87–100
--- NOTE | 2021-06-18 | DI.RAD_ITS ---
Exam(s) XR PORTABLE CHEST AP EXAM: XR PORTABLE CHEST AP CLINICAL HISTORY: adventitious breath sounds, CHF. TECHNIQUE: 2D digital imaging was performed. COMPARISON: CR,XR XR CHEST 2V PA LATERAL from 08/19/2019 FINDINGS: Single AP portable view. Heart size is upper normal. The mediastinum is not widened. Right lung is clear. Subtle infiltrate seen behind the medial left side of the heart. No obvious pleural effusions. IMPRESSION: As above. Recommend nonportable PA and lateral views when clinically possible. DATA REPOSITORY: RADIATION DOSE DELIVERED: All CT scans at this facility use at least one of these dose optimization techniques: automated exposure control; mA and/or kV adjustment per patient size (includes targeted e xams where dose is matched to clinical indication); or iterative reconstruction.
[2021-06-18] MEDS: PIPERACILLIN/TAZO 3.375 GM in Normal Saline 50 ML IVPB ×4 (01:10→18:16)
[2021-06-18] MEDS: Famotidine 20 MG/2 ML VIAL IVP ×2 (01:12→21:02)
[2021-06-18] MEDS: HYDROmorphone 2 MG TAB PO ×2 (06:16→20:57)
[2021-06-18 06:45] LABS: Abs Immature Grans 0.04 10^3/uL (0.0-0.06); Absolute Basophil Count 0.03 10^3/uL (0.0-0.2); Absolute Eosinophil Count 0.06 10^3/uL (0.0-0.7); Absolute Lymphocyte Count 1.08 10^3/uL (1.2-3.4); Absolute Monocyte Count 0.57 10^3/uL (0.1-0.8); Basophils % 0.3; Eosinophils % 0.6; HCT 35.1 % (36.0-46.0); HGB 11.2 g/dL (11.2-15.7); Immature Grans % 0.4; Lymphocytes % 10.6; MCHC 31.9 % (32.0-36.0); MCV 97.2 fL (80-95); MPV 11.4 fL (8.0-11.0); Monocytes % 5.6; Neutrophils % 82.5; Platelet Count 138 10^3/uL (130-400); RBC 3.61 10^6/uL (3.93-5.22); RDW 12.8 % (11.7-14.6); RDW-SD 45.9 fL; WBC 10.18 10^3/uL (4.4-10.8)
[2021-06-18 06:49] LABS: BUN 25 mg/dL (7-18); CREATININE 1.5 mg/dL (0.55-1.02); Calcium 9.2 mg/dL (8.5-10.1); Chloride 101 mmol/L (98-107); Estimated GFR 33.85 (mL/min/1.73m2); Glucose 140 mg/dL (74-106); Magnesium 2.1 mg/dL (1.8-2.4); Potassium 4.4 mmol/L (3.5-5.1); Sodium 137 mmol/L (136-145)
[2021-06-18 07:18] LABS: C-Reactive Protein > 25.00 mg/dL (0.0-0.3)
[2021-06-18] MEDS: Magnesium Oxide 400 MG TAB PO (08:29)
[2021-06-18] MEDS: Metoprolol CR 100 MG TABCR 200 MG PO (08:29)
[2021-06-18] MEDS: Potassium Chloride 20 MEQ TABCR PO (08:30)
[2021-06-18] MEDS: Apixaban 5 MG TAB PO ×2 (08:30→20:58)
[2021-06-18] MEDS: Insulin Aspart 300 UNITS/3 ML PEN SC ×3 (08:43→18:15)
--- NOTE | 2021-06-18 08:55 | PDOC.CMIN ---
- If Service Date Differs Date of service: 06/18/21 Time of Service: 08:55 Care Management Initial Assess REASON FOR HOSPITALIZATION:: Diverticulitis, A-Fib with Rapid Ventricular PAST MEDICAL HISTORY/PAST SURGICAL HISTORY:: DVT prophylaxis (Acute). Acute diverticulitis (Acute). Bowel perforation (Acute). UTI (urinary tract infection) (Acute). Atrial fibrillation with rapid ventricular response (Acute). Right thigh pain (Acute). Tear of left gluteus medius tendon (Acute). Hypertension (Chronic). Obesity (Chronic). H/O surgical procedure (Acute). a. MINDA/BSO with colporrhaphy and cystocele repair 02/20/2014. b. colonoscopy. Uterine procidentia (Acute 01/20/14). with rectocoele. Surgery 02/16. Vaginal Hyst. Polyp of colon (Acute 02/03/04). Paroxysmal SVT (supraventricular tachycardia) (Acute 02/15/17). zio patch. Kidney stone (Acute). Infection resistant to penicillin (Acute). MRSA abscess x 2. Diabetes mellitus (Acute). Cystocele (Acute 06/24/14). Mucous polyp of cervix (Acute). Spinal stenosis (Acute). Neural foraminal stenosis of lumbar spine (Acute). Atrial fibrillation (Chronic). Cardiomyopathy (Acute). SOB (shortness of breath) (Acute). Mitral regurgitation (Chronic). Acute on chronic heart failure with reduced ejection fraction and diastolic dysfunction (Acute). Bilateral hip pain (Acute). Osteoarthritis of right knee (Chronic). Preoperative cardiovascular examination (Acute). Status post lumbar surgery (Acute). L3-L5. Status post arthroscopy of left knee (Acute). History of total right knee replacement (Acute 01/06/21). Elevated LFTs (Acute). COVID-19 (Acute). Trochanteric bursitis of left hip (Acute). Surgical History . Hx of colonoscopy. Oophrectomy, Both (02/20/14). TVH, BSO with R sided uterosacral ligament suspension with Anterior Coloporrhapy. EP/aoc. S/P total knee arthroplasty. Right. Vaginal hysterectomy PREVIOUS FUNCTIONAL STATUS/SOCIAL/FAMILY SUPPORTS:: Kaleigh resides with her spouse Cam in [place], [place]. She is indepedent with all ADL's, transportation and care. She has two children that live local and has a good support system. 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 CURRENT FUNCTIONAL STATUS:: Kaleigh is being closely monitored and treated in the ICU-she is requiring pain management. ADVANCE DIRECTIVES:: Kaleigh has an advance directive Zulay Tracy is her agent and daughter Has patient been provided with info about the portal/API?: Yes Did the patient sign up for the portal?: No CODE STATUS:: Full Code INSURANCE COVERAGE / FINANCIAL ISSUES:: [employer], Medicare, [employer] CURRENT HOME/COMMUNITY SERVICES/EQUIPMENT:: No current services PRIMARY CARE PHYSICIAN:: Audrey Arora POTENTIAL DISCHARGE NEEDS:: Follow up with primary care provider. PATIENT/FAMILY EDUCATION NEEDS:: Discharge education, limitations and follow up plan of care including ask me three and self management. ANTICIPATED BARRIERS TO DISCHARGE:: No anticipated barriers. TRANSPORTATION:: Via private car with family at time of discharge. PLAN:: Kaleigh is being closely monitored and treated in the ICU for acute diverticulitis with bowel perforation. CM continues to follow.
--- NOTE | 2021-06-18 09:15 | W.INDIABCONS ---
Date of service: 06/18/21 Time of Service: 09:16 Diabetes Inpatient Consult Reason for Visit: dm DESCRIPTION/ASSESSMENT: 76 year old female admitted with perforation wtih acute diveritculum. Currently on bowel rest. PMH: DM2, HTN, Obesity, HTN. Home DM meds: 5 mcg glipizide qd. Most recent A1C: (02/11/21) 6.3% indicates excellent glycemic control. Recommend TPN if unable to advance diet in 5 days. Continue with IVF and insulin as ordered. INTERVENTION: none at this time PLAN: will follow and support. Time Spent in Nutritional Counseling and Treatment: 0
[2021-06-18] MEDS: Lactated Ringers 500 ML 80 ML IV (09:49)
[2021-06-18] MEDS: HYDROmorphone 2 MG/ML SYR 1 MG IVP ×2 (09:57→14:19)
--- NOTE | 2021-06-18 13:19 | W.PM.PROGNOT ---
Date of Service Date of service: 06/18/21 Time of Service: 13:20 Assessment and Plan Assessment and plan (1) Acute diverticulitis: Status: Acute Assessment and plan: First episode of diverticulitis. + microperforations. Zosyn with plan to change to Augmentin when improved. Flagyl and cipro originally planned but d/t recent gluteal tendon rupture will avoid quinolones. IV dilaudid prn for pain. PO dilaudid prn for pain. (2) Bowel perforation: Status: Acute Assessment and plan: See above. General surgery following. (3) UTI (urinary tract infection): Status: Acute Assessment and plan: Dx on 06/15/21 and has taken 3 doses of cipro as outpt. Cx positive for E.Coli. Sensitive to amp/sulb. (4) Diabetes mellitus: Status: Acute Assessment and plan: Hold glipizide. Monitor fingerstick with SS insulin correction dose. (5) Acute on chronic heart failure with reduced ejection fraction and diastolic dysfunction: Status: Acute Assessment and plan: Cont lasix 40mg po QD. (6) Atrial fibrillation with rapid ventricular response: Status: Acute Assessment and plan: Rapid vent rate. Cont Apixaban. Cont scheduled oral metoprolol Cr 200mg daily and Diltiazem CD 120mg po QHS PRN IV metoprolol for ventricular rate > 120. Supplement K to keep above 4.0. (7) Hypertension: Status: Chronic Assessment and plan: On metoprolol and diltiazem. Monitor. Qualifiers: Hypertension type: essential hypertension Qualified Code(s): I10 - Essential (primary) hypertension (8) DVT prophylaxis: Status: Acute Assessment and plan: On Apixaban Subjective Subjective Patient reports: no new complaints, still having pain and afebrile; denies diarrhea, nausea, vomiting or shortness of breath Exam Const General: cooperative and uncomfortable Orientation: alert, awake and oriented x3 [facility] Head: normal to inspection Ears: hearing grossly normal bilaterally, external ears normal and TM's normal bilaterally General nose exam: external nose normal Face and sinus: normal facial exam Mouth: oral mucosae normal Teeth and gingiva: dentition normal Throat: posterior oropharynx normal Eyes General: appearance normal, both eyes and all related structures Eyelids: eyelids normal Pupils: PERRL EOM: EOM intact bilaterally Neck Neck: normal visual inspection Lymphatic: no lymphadenopathy noted Chest Chest: normal inspection of the chest Resp Effort & Inspection: normal respiratory effort and able to speak in complete sentences Auscultation: clear to auscultation bilaterally Cardio Rate: regular rate Rhythm: regular rhythm GI Inspection: normal to inspection Palpation: soft, not firm, no guarding, no hepatosplenomegaly, no masses and tender (mild) Auscultation: hypoactive bowel sounds Back/Spine/Pelvis Back: no CVA tenderness Skin General skin exam: no rashes or lesions noted Neuro General: patient alert and patient awake Cognition: normal cognition Speech: speech normal Gait: normal gait Motor: muscle tone normal throughout Sensory Exam: no sensory deficits noted Extrem General: normal to inspection, full ROM and capillary refill normal Psych Appearance: grossly normal Mental Status: mental status grossly normal Speech and Movement: speech and movement normal Affect: normal affect Thought Process: normal Objective Last Vital Signs Temp 37.1 C 06/18/21 08:00 Pulse 93 H 06/18/21 10:00 Resp 21 06/18/21 11:00 BP 107/49 L 06/18/21 10:00 Pulse Ox 97 06/18/21 11:00 Laboratory Results - last 24 hr 06/17/21 06/17/21 06/17/21 10:06 13:18 16:24 WBC RBC Hgb Hct MCV MCH MCHC RDW Plt Count MPV Immature Gran % Neutrophils % Lymphocytes % Monocytes % Eosinophils % Basophils % Nucleated RBC % Absolute Neutrophils Absolute Lymphocytes Absolute Monocytes Absolute Eosinophils Absolute Basophils VBG Lactate 1.6 H Sodium Potassium Chloride Carbon Dioxide Anion Gap BUN Creatinine Estimated GFR/1.73 m2 Glucose Calcium Magnesium 1.8 C-Reactive Protein Add-On Test Request DONE 06/18/21 06/18/21 06:29 06:29 WBC 10.18 RBC 3.61 L Hgb 11.2 Hct 35.1 L MCV 97.2 H MCH 31.0 MCHC 31.9 L RDW 12.8 Plt Count 138 MPV 11.4 H Immature Gran % 0.4 Neutrophils % 82.5 Lymphocytes % 10.6 Monocytes % 5.6 Eosinophils % 0.6 Basophils % 0.3 Nucleated RBC % 0.0 Absolute Neutrophils 8.40 H Absolute Lymphocytes 1.08 L Absolute Monocytes 0.57 Absolute Eosinophils 0.06 Absolute Basophils 0.03 VBG Lactate Sodium 137 Potassium 4.4 D Chloride 101 Carbon Dioxide 27.0 Anion Gap 9.0 BUN 25 H Creatinine 1.5 H Estimated GFR/1.73 m2 33.85 Glucose 140 H Calcium 9.2 Magnesium 2.1 C-Reactive Protein > 25.00 H Add-On Test Request
[2021-06-18] MEDS: ACETAMINOPHEN 1,000 MG/100 ML BTL 400 MG IVPB ×2 (15:01→21:05)
--- NOTE | 2021-06-18 15:09 | W.PM.PROGNOT ---
Date of Service Date of service: 06/18/21 Time of Service: 15:00 Assessment and Plan Assessment and plan (1) Acute diverticulitis: Status: Acute Assessment and plan: -Continue IV antibiotics, IVF and bowel rest, clinically improving -No current plans for surgical intervention -If WBC normal tomorrow and pain improved OK to start clear liquid diet with ensure clear in AM -Recommend high protein supplements to encourage healing -Low fiber diet counseling -Colonoscopy in 6-8 weeks (2) UTI (urinary tract infection): Status: Acute Assessment and plan: -At risk for colovesical fistula, continue to treat/monitor, cultures pending (3) Atrial fibrillation with rapid ventricular response: Status: Acute Subjective Subjective Patient reports: no new complaints, feels better, still having pain and diarrhea; denies nausea or vomiting Exam Const General: cooperative, comfortable and no acute distress Nutritional Appearance: average body habitus HENMT Head: normal to inspection, normocephalic and atraumatic Resp Effort & Inspection: normal respiratory effort, able to speak in complete sentences, no audible wheezes and no respiratory distress Cardio Rate: tachycardic Rhythm: abnormal rhythm GI Inspection: normal to inspection and non-distended Palpation: soft, no guarding, not rigid and tender in the LLQ Percussion: normal to percussion General: other (nevarez catheter placed) Skin General skin exam: no rashes or lesions noted Objective Last Vital Signs Temp 98.8 F 06/18/21 08:00 Pulse 93 H 06/18/21 10:00 Resp 21 06/18/21 11:00 BP 107/49 L 06/18/21 10:00 Pulse Ox 97 06/18/21 11:00 Laboratory Results - last 24 hr 06/17/21 06/17/21 06/18/21 10:06 16:24 06:29 WBC RBC Hgb Hct MCV MCH MCHC RDW Plt Count MPV Immature Gran % Neutrophils % Lymphocytes % Monocytes % Eosinophils % Basophils % Nucleated RBC % Absolute Neutrophils Absolute Lymphocytes Absolute Monocytes Absolute Eosinophils Absolute Basophils Sodium 137 Potassium 4.4 D Chloride 101 Carbon Dioxide 27.0 Anion Gap 9.0 BUN 25 H Creatinine 1.5 H Estimated GFR/1.73 m2 33.85 Glucose 140 H Calcium 9.2 Magnesium 1.8 2.1 C-Reactive Protein > 25.00 H Add-On Test Request DONE 06/18/21 06:29 WBC 10.18 RBC 3.61 L Hgb 11.2 Hct 35.1 L MCV 97.2 H MCH 31.0 MCHC 31.9 L RDW 12.8 Plt Count 138 MPV 11.4 H Immature Gran % 0.4 Neutrophils % 82.5 Lymphocytes % 10.6 Monocytes % 5.6 Eosinophils % 0.6 Basophils % 0.3 Nucleated RBC % 0.0 Absolute Neutrophils 8.40 H Absolute Lymphocytes 1.08 L Absolute Monocytes 0.57 Absolute Eosinophils 0.06 Absolute Basophils 0.03 Sodium Potassium Chloride Carbon Dioxide Anion Gap BUN Creatinine Estimated GFR/1.73 m2 Glucose Calcium Magnesium C-Reactive Protein Add-On Test Request
--- NOTE | 2021-06-18 15:44 | W.PM.PROGNOT ---
Date of Service Date of service: 06/18/21 Time of Service: 15:45 Assessment and Plan Assessment and plan (1) Osteoarthritis of right knee: Status: Chronic (2) Tear of left gluteus medius tendon: Status: Acute Assessment and plan: 76 year old female 3 weeks status post Left hip endoscopy with gluteal tendon repair, iliotibial band release, and trochanteric bursectomy; 5 months s/p Right knee replacement Patient feeling well with regards to left hip and right knee. Incisions intact. Neither demonstrate any edema, erythema, or tenderness. Passive range of motion does not elicit any discomfort. Right hip and left knee appear benign. No signs or symptoms of orthopedic infection. Continue to monitor for any changes. May resume physical therapy when medically appropriate. Discussed with patient's daughter, surgical, and medical teams (3) Trochanteric bursitis, right hip: Status: Resolved (4) Trochanteric bursitis of left hip: Status: Acute Objective Last Vital Signs Temp 98.8 F 06/18/21 08:00 Pulse 93 H 06/18/21 10:00 Resp 21 06/18/21 11:00 BP 107/49 L 06/18/21 10:00 Pulse Ox 97 06/18/21 11:00 Laboratory Results - last 24 hr 06/17/21 06/17/21 06/18/21 10:06 16:24 06:29 WBC RBC Hgb Hct MCV MCH MCHC RDW Plt Count MPV Immature Gran % Neutrophils % Lymphocytes % Monocytes % Eosinophils % Basophils % Nucleated RBC % Absolute Neutrophils Absolute Lymphocytes Absolute Monocytes Absolute Eosinophils Absolute Basophils Sodium 137 Potassium 4.4 D Chloride 101 Carbon Dioxide 27.0 Anion Gap 9.0 BUN 25 H Creatinine 1.5 H Estimated GFR/1.73 m2 33.85 Glucose 140 H Calcium 9.2 Magnesium 1.8 2.1 C-Reactive Protein > 25.00 H Add-On Test Request DONE 06/18/21 06:29 WBC 10.18 RBC 3.61 L Hgb 11.2 Hct 35.1 L MCV 97.2 H MCH 31.0 MCHC 31.9 L RDW 12.8 Plt Count 138 MPV 11.4 H Immature Gran % 0.4 Neutrophils % 82.5 Lymphocytes % 10.6 Monocytes % 5.6 Eosinophils % 0.6 Basophils % 0.3 Nucleated RBC % 0.0 Absolute Neutrophils 8.40 H Absolute Lymphocytes 1.08 L Absolute Monocytes 0.57 Absolute Eosinophils 0.06 Absolute Basophils 0.03 Sodium Potassium Chloride Carbon Dioxide Anion Gap BUN Creatinine Estimated GFR/1.73 m2 Glucose Calcium Magnesium C-Reactive Protein Add-On Test Request
[2021-06-18] MEDS: Normal Saline 1,000 ML 80 ML IV (16:58)
--- NOTE | 2021-06-18 17:47 | DI.VRAD_ITS ---
PROCEDURE INFORMATION: Exam: XR Chest Exam date and time: 06/18/2021 5:14 PM Age: 76 years old Clinical indication: Other: Breath sounds TECHNIQUE: Imaging protocol: XR of the chest. Views: 1 view. COMPARISON: CR XR CHEST 2V PA LATERAL 08/19/2019 4:13 PM FINDINGS: Lungs: No acute lung infiltrates or consolidation. No edema. Pleural spaces: No pleural effusion. Heart/Mediastinum: Mild cardiac enlargement. Bones/joints: Degenerative thoracic spine disease. Degenerative shoulder joint features. IMPRESSION: 1. No infiltrates or edema. 2. No pleural effusion. 3. Mild cardiomegaly. 4. Degenerative skeletal changes. 5. Stable exam since 08/19/2019. Dictated and Authenticated by: Richar Omer MD. Ordering:STEVEN Hernandez MD
[2021-06-19] VITALS (30 sets, daily range): BP systolic 78–126; BP diastolic 35–95; PULSE 72–117; RESP 14–28; TEMP 36.7–36.9; O2SAT 91–99
[2021-06-19] MEDS: PIPERACILLIN/TAZO 3.375 GM in Normal Saline 50 ML IVPB ×4 (00:09→17:20)
[2021-06-19] MEDS: ACETAMINOPHEN 1,000 MG/100 ML BTL 400 MG IVPB ×3 (05:16→20:57)
[2021-06-19] MEDS: HYDROmorphone 2 MG TAB PO ×3 (05:17→20:57)
[2021-06-19 07:14] LABS: Abs Immature Grans 0.06 10^3/uL (0.0-0.06); Absolute Basophil Count 0.03 10^3/uL (0.0-0.2); Absolute Eosinophil Count 0.22 10^3/uL (0.0-0.7); Absolute Monocyte Count 0.75 10^3/uL (0.1-0.8); Basophils % 0.3; Eosinophils % 2.1; HGB 10.1 g/dL (11.2-15.7); Immature Grans % 0.6; Lymphocytes % 7.6; MCH 31.9 pg (27.0-33.0); MCHC 32.6 % (32.0-36.0); MCV 97.8 fL (80-95); MPV 11.3 fL (8.0-11.0); Monocytes % 7.1; Neutrophils % 82.3; Platelet Count 159 10^3/uL (130-400); RBC 3.17 10^6/uL (3.93-5.22); RDW 12.8 % (11.7-14.6); RDW-SD 45.9 fL; WBC 10.56 10^3/uL (4.4-10.8)
[2021-06-19 07:20] LABS: Magnesium 2.2 mg/dL (1.8-2.4)
[2021-06-19 07:28] LABS: BUN 25 mg/dL (7-18); C-Reactive Protein > 25.00 mg/dL (0.0-0.3); CREATININE 1.2 mg/dL (0.55-1.02); Calcium 8.6 mg/dL (8.5-10.1); Chloride 102 mmol/L (98-107); Glucose 120 mg/dL (74-106); NT-proBNP 4647 pg/mL (<300); Sodium 136 mmol/L (136-145)
[2021-06-19] MEDS: Magnesium Oxide 400 MG TAB PO (08:47)
[2021-06-19] MEDS: Metoprolol CR 100 MG TABCR 200 MG PO (08:47)
[2021-06-19] MEDS: Potassium Chloride 20 MEQ TABCR PO (08:48)
[2021-06-19] MEDS: Apixaban 5 MG TAB PO ×2 (08:54→20:56)
[2021-06-19] MEDS: Furosemide 40 MG TAB PO (08:56)
[2021-06-19] MEDS: Normal Saline 1,000 ML 80 ML IV (10:06)
--- NOTE | 2021-06-19 10:13 | W.PM.PROGNOT ---
Date of Service Date of service: 06/19/21 Time of Service: 10:13 Assessment and Plan Assessment and plan (1) Acute diverticulitis: Status: Acute Assessment and plan: First episode of diverticulitis. + microperforations. Zosyn with plan to change to Augmentin when improved. I will continue the Zosyn until she is tolerating a diet and then switch to Augmentin. Flagyl and cipro originally planned but d/t recent gluteal tendon rupture will avoid quinolones. IV dilaudid prn for pain. PO dilaudid prn for pain. Patient is medically stable and can be transfer to med/surg from ICU care (2) Bowel perforation: Status: Acute Assessment and plan: See above. General surgery following. (3) UTI (urinary tract infection): Status: Acute Assessment and plan: Dx on 06/15/21 and has taken 3 doses of cipro as outpt. Cx positive for E.Coli. Sensitive to amp/sulb. (4) Diabetes mellitus: Status: Acute Assessment and plan: Hold glipizide. Monitor fingerstick with SS insulin correction dose. (5) Acute on chronic heart failure with reduced ejection fraction and diastolic dysfunction: Status: Acute Assessment and plan: Cont lasix 40mg po QD. discontinue IV fluids (6) Atrial fibrillation with rapid ventricular response: Status: Acute Assessment and plan: Rapid vent rate. Cont Apixaban. Cont scheduled oral metoprolol Cr 200mg daily and Diltiazem CD 120mg po QHS PRN IV metoprolol for ventricular rate > 120. Supplement K to keep above 4.0. (7) Hypertension: Status: Chronic Assessment and plan: On metoprolol and diltiazem. Monitor. Qualifiers: Hypertension type: essential hypertension Qualified Code(s): I10 - Essential (primary) hypertension (8) DVT prophylaxis: Status: Acute Assessment and plan: On Apixaban (9) Discharge planning issues: Status: Acute Assessment and plan: Plan for discharge home when tolerating a diet and able to take oral antibiotics. Per orthopedics recommendation she can resume physical therapy for rehabilitation of her recent gluteal tendon rupture repair. Dr. العراقي did put in P.T. consult yesterday. Subjective Subjective Interval history since last seen: Patient states she still has some crampy abdominal discomfort but no nausea or vomiting. She is not having the sharp pains that she had been having but still has some localized pain in the left lower quadrant. She is now passing small bowel movements and passing flatus. She would like to try diet. I will start her on some clear liquids and see how she tolerates this. She remains on Zosyn for diverticulitis with CT evidence of some microperforation. No abscess. Patient remains afebrile. Rhythm remains atrial fibrillation with variable rate control with heart rates at rest generally in the low 100s. Patient's oxygen saturation is in the 90s on room air while awake but she does require supplemental oxygen at night for her sleep apnea. Her supposed to bring in her CPAP machine. Exam Narrative Exam Narrative: Elderly white female sitting up in bed in no acute distress she is alert and oriented person place time circumstance. Lungs are clear to auscultation Heart is irregular regular but controlled rate Abdomen soft with active bowel sounds with focalized tenderness in left lower quadrant to palpation. Extremities no peripheral edema Objective Last Vital Signs Temp 36.7 C 06/19/21 09:51 Pulse 103 H 06/19/21 09:51 Resp 19 06/19/21 09:32 BP 126/95 H 06/19/21 09:32 Pulse Ox 91 L 06/19/21 08:00 Laboratory Results - last 24 hr 06/19/21 06/19/21 06/19/21 06:50 06:50 06:50 WBC 10.56 RBC 3.17 L Hgb 10.1 L Hct 31.0 L MCV 97.8 H MCH 31.9 MCHC 32.6 RDW 12.8 Plt Count 159 MPV 11.3 H Immature Gran % 0.6 Neutrophils % 82.3 Lymphocytes % 7.6 Monocytes % 7.1 Eosinophils % 2.1 Basophils % 0.3 Nucleated RBC % 0.0 Absolute Neutrophils 8.70 H Absolute Lymphocytes 0.80 L Absolute Monocytes 0.75 Absolute Eosinophils 0.22 Absolute Basophils 0.03 Sodium 136 Potassium 4.0 Chloride 102 Carbon Dioxide 24.0 Anion Gap 10.0 BUN 25 H Creatinine 1.2 H Estimated GFR/1.73 m2 43.80 Glucose 120 H Calcium 8.6 Magnesium 2.2 C-Reactive Protein > 25.00 H NT-Pro-B Natriuret Pep 4647 H
--- NOTE | 2021-06-19 11:20 | IN_ITS ---
Date of service: 06/19/21 Time of Service: 11:20 PT Notes Visit Reasons: Diverticulitis,Atrial Fibrillation with Rapid [facility] Inpatient Initial Evaluation Date: 06/19/2021 Referring Doctor: Shereen Mercer MD PT Orders: PT CONSULT: patient had recent left hip surgery. In hosp with diverticulitis Precautions: 1. Per orthopedic orders from Dr. De La Fuente on 06/09/2021 for the L hip: Protected weight bearing with FWW for 6 weeks. Encourage hip, knee, ankle ROM. No strengthening for 3 months 2. Per orthopedic orders from Dr. De La Fuente on 06/09/2021 for the R hip/thigh: Quadriceps stretching, soft tissue modalities, and strengthening Patient Profile/Admitting Diagnosis: Kaleigh is a 76-year-old female who presented to the ED on 06/17/2021 due to lower abdominal pain and nausea. Patient is diagnosed with acute diverticulitis, bowel perforation, urinary tract infection, type is, acute on chronic congestive heart failure with reduced ejection fraction, atrial fibrillation, and hypertension. Patient is status post right TKA 5 months ago. She is also status post endoscopic left hip iliotibial band release, left greater trochanteric bursectomy, and left gluteal tendon repair on 05/28/2021. Dr. De La Fuente diagnosed patient with a possible right thigh overuse for quadricep strain and recommended continued physical for rehabilitation. Patient received OP PT services at [facility] for an evaluation and 1 session with good response prior to this hospitalization. PMHX: All Active Problems?(Updated 06/17/21 @ 17:19 by David العراقي MD) DVT prophylaxis (Acute) Acute diverticulitis (Acute) Bowel perforation (Acute) UTI (urinary tract infection) (Acute) Atrial fibrillation with rapid ventricular response (Acute) Right thigh pain (Acute) Tear of left gluteus medius tendon (Acute) Hypertension (Chronic) Obesity (Chronic) H/O surgical procedure (Acute) a.? MINDA/BSO with colporrhaphy and cystocele repair 02/20/2014 b.? colonoscopy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? Surgery 02/16. ? Vaginal Hyst. Polyp of colon (Acute 02/03/04) Paroxysmal SVT (supraventricular tachycardia) (Acute 02/15/17) zio patch Kidney stone (Acute) Infection resistant to penicillin (Acute) MRSA abscess x 2 Diabetes mellitus (Acute) Cystocele (Acute 06/24/14) Mucous polyp of cervix (Acute) Spinal stenosis (Acute) Neural foraminal stenosis of lumbar spine (Acute) Atrial fibrillation (Chronic) Cardiomyopathy (Acute) SOB (shortness of breath) (Acute) Mitral regurgitation (Chronic) Acute on chronic heart failure with reduced ejection fraction and diastolic dysfunction (Acute) Bilateral hip pain (Acute) Osteoarthritis of right knee (Chronic) Preoperative cardiovascular examination (Acute) Status post lumbar surgery (Acute) [id number] post arthroscopy of left knee (Acute) History of total right knee replacement (Acute 01/06/21) Elevated LFTs (Acute) COVID-19 (Acute) Trochanteric bursitis of left hip (Acute) Surgical History? Hx of colonoscopy Oophrectomy, Both (02/20/14) TVH, BSO with R sided uterosacral ligament suspension with Anterior Coloporrhapy. EP/aocS/P total knee arthroplasty RightVaginal hysterectomy Social History/Home Situation: Kaleigh lives with in a private home. She is modified independent with use of a front wheeled walker prior to admission. Equipment Owned/DME: FWW Subjective: Kaleigh reports that majority of her mobility limitations is caused mainly by lower abdominal pain and less of her recent left hip surgery and pain. However patient complained of discomfort at 8/10 in the front and side of her thigh and hip when she got back to bed after having a bowel movement. Patient indicated that she has had 1 fall inside the house when she tripped and another fall on the ice for the past 12 months. She continues to report lower abdominal pain and right hip pain with bed mobility and movement transitions during transfers. Has had 2 loose bowel movements since this morning. Denies headache, chest pain, and nausea throughout session. Objective: General Observation: Seated on bedside commode. Telemetry monitoring in place. IV access in right UE. Right TKA incision flat and well-healed. Aldana catheter discharged and taken out by nurse today. Mental Status: Alert and oriented as to person, place, time, and purpose. Able to pay attention, focus, and respond appropriately. Pain: 6/10 in lower abdominal area at rest; pain report of up to 8/10 in the right hip and thigh with sit to stand as well as sit to supine movement transitions Vital Signs: WNL as monitored on tele ROM: Right Upper Extremity: Shoulder Flexion WFL. Shoulder abduction WFL. Elbow flexion WFL. Wrist flexion WFL. Functional opening and closing of hand WFL. Left Upper Extremity: Shoulder Flexion WFL. Shoulder abduction WFL. Elbow flexion WFL. Wrist flexion WFL. Functional opening and closing of hand WFL. Right Lower Extremity: Hip flexion allows up to 45 degrees of hip flexion while in supine with report of discomfort in the hip and anterolateral thigh. Hip abduction allows up to 20 degrees with pain ant end of range. Knee flexion up to 45 degrees in supine limited by pain report in thigh. Ankle dorsiflexion WFL. Ankle plantarflexion WFL. Left Lower Extremity: Hip flexion allows up to 45 degrees of hip flexion while in supine with report of discomfort in the hip and anterolateral thigh. Hip abduction allows up to 20 degrees with pain ant end of range. Knee flexion up to 45 degrees in supine limited by pain report in thigh. Ankle dorsiflexion WFL. Ankle plantarflexion WFL. Strength: Right Upper Extremity: Shoulder flexors 4/5. Shoulder abductors 4/5. Elbow flexors 5/5. Elbow extensors 5/5. Sawmill Moulder Operator strong. Left Upper Extremity: Shoulder flexors 4/5. Shoulder abductors 4/5. Elbow flexors 5/5. Elbow extensors 5/5. Sawmill Moulder Operator strong. Right Lower Extremity: Hip flexors 3-/5. Hip abductors 3-/5. Knee flexors 3-/5. Knee extensors 3/5. Ankle dorsiflexors 5/5. Ankle plantarflexors 5/5. Left Lower Extremity: Hip flexors 3-/5. Hip abductors 3-/5. Knee flexors 3-/5. Knee extensors 3/5. Ankle dorsiflexors 5/5. Ankle plantarflexors 5/5. Bed Mobility/Transfers: Sit to supine with minimal assist to B LE due to pain in lower abdominal area and right hip. Sit to stand standby assist Stand to sit standby assist Bedside commode to bed standby assist Gait: Instructed patient with level surface ambulation of 8 feet requiring standby assist. Adrianna decreased. Step height decreased. Step length decreased. Reports fatigue and increased pain in lower abdominal area after activity. THERA EX: Initiated patient with gluteal sets and quadriceps setting for today's session. Advised patient to do same exercises every two hours in her room as she is able to tolerate. Balance: Static Sitting: Normal Dynamic Sitting: Normal Static Standing: Fair Dynamic Standing: Fair Special Tests: Mobility Limitations Standardized Measure [facility] AM-PAC 6 clicks Basic Mobility Inpatient Short Form: Raw Score: 18 CMS Score: 47% deficit Informed Consent/Education: Patient was instructed in purpose of PT consult and plan of care. Agreeable to proceed with established PT POC to achieve personal goals. ASSESSMENT: Patient demonstrates functional mobility decline requiring the use of front wheeled walker and assistance of 1 person for all supine to sit and sit to supine activities as well as for ambulation performance. He reported lower abdominal area, continued discomfort in the right anterolateral hip and thigh as well as left hip surgery on 05/28/2021 are all compounding her admitting diagnoses. Will follow most recent orthopedic recommendations to continue rehabilitation from 05/29/2019 L hip surgery and right hip overuse/quadricep strain. Assist of 1 for nursing staff for all mobility ADL performance using FWW.. Patient presents with clinical signs and symptoms consistent with current/admitting diagnoses that have resulted to mobility limitations, gait instability, generalized weakness, and overall ADL decline as demonstrated by the following impairment level findings: 1. Decreased strength to B LE major muscle groups 2. Impaired sitting/standing balance 3. Impaired activity tolerance 4. Limitation of joint range of motion in B hips 5. Shortness of breath 6. Lower abdominal pain Impairments are contributing to the following functional limitations: 1. Decline in bed mobility skills 2. Decline in transfer skills 3. Difficulty with ambulation without assistive device 4. Increased completion time for mobility ADL performance 5. Increased risk for falls 6. Difficulty with managing steps alone safely Patient is assessed as a [id number] moderatecomplexity based on the following: History: 76-year-old female with past medical history as indicated above Examination: Demonstrable impairment in strength, balance, and mobility level with underlying impairments and functional limitations as exhibited above as well as deficit score of 47% utilizing the [facility] Mobility Inpatient Short Form Presentation: Evolving Decision Makin moderate complexity Goals: Goals X1 week 1. Supine-Sit independent 2. Sit-Supine independent 3. Sit-Stand independent 4. Stand-Sit independent with FWW 5. Bed-Chair independent with FWW 6. Chair-Bed independent with FWW 7. Independent gait on level surface with use of FWW for at least 300 feet without report of pain nor dyspnea 8. Independent stair negotiation while holding onto B rails for at least 5 steps without report of pain nor dyspnea 9. Independent with home exercise program 10. Good static and dynamic standing balance/tolerance Plan of Care/Treatment Plan: 1-2x/day, 7 days/week x 1 week. Plan of care has been reviewed with the WHEEL BUFFER providing the service under Physical Therapy direction. Initiate Physical Therapy intervention for pain management as needed, strengthening, bed mobility, transfers, gait, stairs, balance training, and use of assistive device. DISCHARGE RECOMMENDATIONS: [] Home with no services [] [] Home with services [specify] [X] Home with outpatient PT. Home when medically cleared by hospitalist. Will continue to benefit from resumption of outpatient PT services for continued rehabilitation from most for most recent hip surgery and right quadriceps overuse/quadriceps strain. [] SNF for continued rehabilitation [] [] Skilled Nursing Care [] [] SNF versus LTC based on ability to participate and progress [] TREATMENT CODE/TIME: 74404 x 20 minutes, 78297 x 11 minutes beginning at 11:20 AM. Thank you for the opportunity to participate in the care of this patient. Edilma Romeo PT, DPT, CLT [facility] [place], [place]
[2021-06-19] MEDS: Normal Saline Flush 10 ML SYR IVP ×2 (11:55→17:20)
[2021-06-19] MEDS: Insulin Aspart 300 UNITS/3 ML PEN SC ×2 (12:10→17:42)
--- NOTE | 2021-06-19 13:24 | W.PM.PROGNOT ---
Date of Service Date of service: 06/19/21 Time of Service: 13:24 Assessment and Plan Assessment and plan (1) Acute diverticulitis: Status: Acute Assessment and plan: -Continue IV antibiotics while inpatient, on Zosyn clinically improving -No current plans for surgical intervention -OK to advance to full liquid diet with ensure, should stay on this until abdominal pain is gone -Recommend high protein supplements to help encourage healing -Low fiber diet counseling -Ambulation with physical therapy and RN, walks with rolling walker due to recent surgery -Labs reviewed, leukocytosis resolved (2) Bowel perforation: Status: Acute Assessment and plan: -Medical management, no current plans for surgical intervention -Monitor for abscess development (3) UTI (urinary tract infection): Status: Acute Assessment and plan: -Cultures positive for E.Coli sensitive to Zosyn (4) Diabetes mellitus: Status: Acute (5) Acute on chronic heart failure with reduced ejection fraction and diastolic dysfunction: Status: Acute (6) Atrial fibrillation with rapid ventricular response: Status: Acute Assessment and plan: -On Eliquis -Heart rate improved (7) Hypertension: Status: Chronic Qualifiers: Hypertension type: essential hypertension Qualified Code(s): I10 - Essential (primary) hypertension (8) DVT prophylaxis: Status: Acute (9) Discharge planning issues: Status: Acute Subjective Subjective Patient reports: no new complaints, feels better, bowel movement, diarrhea and afebrile; denies nausea or vomiting Exam Const General: cooperative, comfortable and no acute distress Nutritional Appearance: average body habitus HENMT Head: normal to inspection, normocephalic and atraumatic Resp Effort & Inspection: normal respiratory effort, able to speak in complete sentences, no audible wheezes and no respiratory distress Cardio Rate: tachycardic Rhythm: abnormal rhythm GI Inspection: normal to inspection and non-distended Palpation: soft, no guarding, not rigid and tender in the LLQ (somewhat improved) Percussion: normal to percussion General: other (nevarez catheter placed) Skin General skin exam: no rashes or lesions noted Objective Last Vital Signs Temp 98.1 F 06/19/21 09:51 Pulse 103 H 06/19/21 09:51 Resp 23 06/19/21 11:00 BP 126/95 H 06/19/21 09:32 Pulse Ox 93 06/19/21 11:00 Laboratory Results - last 24 hr 06/19/21 06/19/21 06/19/21 06:50 06:50 06:50 WBC 10.56 RBC 3.17 L Hgb 10.1 L Hct 31.0 L MCV 97.8 H MCH 31.9 MCHC 32.6 RDW 12.8 Plt Count 159 MPV 11.3 H Immature Gran % 0.6 Neutrophils % 82.3 Lymphocytes % 7.6 Monocytes % 7.1 Eosinophils % 2.1 Basophils % 0.3 Nucleated RBC % 0.0 Absolute Neutrophils 8.70 H Absolute Lymphocytes 0.80 L Absolute Monocytes 0.75 Absolute Eosinophils 0.22 Absolute Basophils 0.03 Sodium 136 Potassium 4.0 Chloride 102 Carbon Dioxide 24.0 Anion Gap 10.0 BUN 25 H Creatinine 1.2 H Estimated GFR/1.73 m2 43.80 Glucose 120 H Calcium 8.6 Magnesium 2.2 C-Reactive Protein > 25.00 H NT-Pro-B Natriuret Pep 4647 H
--- NOTE | 2021-06-19 14:03 | PHACLINREV_ITS ---
Pharmacy Admission Review - Admission Clinical Review (Last Reviewed 06/17/21 @ 22:13 by Shereen Mercer DO) Discharge planning issues (Acute) DVT prophylaxis (Acute) Acute diverticulitis (Acute ~03/2021) Bowel perforation (Acute) UTI (urinary tract infection) (Acute) Atrial fibrillation with rapid ventricular response (Acute) Tear of left gluteus medius tendon (Acute) Paroxysmal SVT (supraventricular tachycardia) (Acute 02/15/17) Infection resistant to penicillin (Acute) Diabetes mellitus (Acute) Cardiomyopathy (Acute) Acute on chronic heart failure with reduced ejection fraction and diastolic dysfunction (Acute) Status post arthroscopy of left knee (Acute) History of total right knee replacement (Acute 01/06/21) COVID-19 (Acute) Trochanteric bursitis of left hip (Acute) lisinopril Adverse Reaction (Severe, Verified 06/17/21 08:52) COUGH codeine Adverse Reaction (Intermediate, Verified 06/17/21 08:52) Nausea metformin Adverse Reaction (Intermediate, Verified 06/17/21 08:52) diarrhea oxycodone Adverse Reaction (Intermediate, Verified 06/17/21 08:52) Nausea Resuscitation Status Full Code Height 5 ft 2 in Weight 94.5 kg - Renal Dosing Renal Dosing: BUN 25 mg/dL (7-18) H 06/19/21 06:50 Creatinine 1.2 mg/dL (0.55-1.02) H 06/19/21 06:50 Medications needing adjustments: Reviewed List of meds needing interventions: eCrCl 43 ml/min using adj bw; zosyn dosing appropraite - Anticoagulation Anticoagulation: Hgb 10.1 g/dL (11.2-15.7) L 06/19/21 06:50 Hct 31.0 % (36.0-46.0) L 06/19/21 06:50 Plt Count 159 10^3/uL (130-400) 06/19/21 06:50 Creatinine 1.2 mg/dL (0.55-1.02) H 06/19/21 06:50 Therapeutic Anticoagulation: Reviewed Medications: Apixaban - Opiate Usage Evaluate Pain Scale/Pains Meds: Reviewed Scheduled Bowel Reg ordered if on Opiates?: No - Relevant Labs Sodium 136 mmol/L (136-145) 06/19/21 06:50 Potassium 4.0 mmol/L (3.5-5.1) 06/19/21 06:50 Chloride 102 mmol/L (98-107) 06/19/21 06:50 Magnesium 2.2 mg/dL (1.8-2.4) 06/19/21 06:50 C-Reactive Protein > 25.00 mg/dL (0.0-0.3) H 06/19/21 06:50 - DM Control DM Control: Glucose 120 mg/dL (74-106) H 06/19/21 06:50 Finger Stick Blood Glucose 159 Finger Stick Blood Glucose 159 Finger Stick Blood Glucose 106 Finger Stick Blood Glucose 106 Finger Stick Blood Glucose 106 Insulin Dosing: Reviewed (aspart per SS only (on glipizide er 5mg at home)) - Heart Failure/PR Heart Failure/PR: NT-Pro-B Natriuret Pep 4647 pg/mL (<300) H 06/19/21 06:50 EF%, LISA's, B-Blockers, Diuretics: Reviewed (diltiazem, metoprolol (losartan at home)) - BP Control BP Control: Blood Pressure 126/95 Blood Pressure 116/69 Blood Pressure 114/78 Blood Pressure 104/72 Blood Pressure 122/85 Blood Pressure 107/62 Blood Pressure 85/46 If elevated: Reviewed - Qtc Review List meds needing interventions: QTc 441 on admission - IV to PO Switch IV Medications: Reviewed - Home Meds Home Med List reviewed: Reviewed Relevent Home Meds Not ordered & why?: not ordered: calcium, glipizide (aspart p er ss) - Current meds Current Medication Order Review: Reviewed (will transition to PO augmentin once tolerating orals)
[2021-06-19] MEDS: HYDROmorphone 2 MG/ML SYR 1 MG IVP (17:19)
[2021-06-19] MEDS: dilTIAZem CD 120 MG CAPCR PO (20:57)
[2021-06-19] MEDS: Famotidine 20 MG TAB PO (20:57)
[2021-06-20] VITALS (17 sets, daily range): BP systolic 131–143; BP diastolic 77–93; PULSE 73–131; RESP 17–27; TEMP 36.7–36.8; O2SAT 92–95
[2021-06-20] MEDS: PIPERACILLIN/TAZO 3.375 GM in Normal Saline 50 ML IVPB ×3 (00:04→13:19)
[2021-06-20] MEDS: HYDROmorphone 2 MG TAB PO ×4 (02:30→22:29)
[2021-06-20] MEDS: ACETAMINOPHEN 1,000 MG/100 ML BTL 400 MG IVPB ×2 (05:51→13:59)
[2021-06-20 05:59] LABS: C-Reactive Protein > 25.00 mg/dL (0.0-0.3)
[2021-06-20] MEDS: HYDROmorphone 2 MG/ML SYR 1 MG IVP ×2 (06:33→11:03)
[2021-06-20] MEDS: Apixaban 5 MG TAB PO ×2 (08:26→19:00)
[2021-06-20] MEDS: Potassium Chloride 20 MEQ TABCR PO (08:26)
[2021-06-20] MEDS: Furosemide 40 MG TAB PO (08:26)
[2021-06-20] MEDS: Magnesium Oxide 400 MG TAB PO (08:27)
[2021-06-20] MEDS: Metoprolol CR 100 MG TABCR 200 MG PO (08:27)
--- NOTE | 2021-06-20 08:33 | PGE_ITS ---
Date of Service Date of service: 06/20/21 Time of Service: 10:35 Assessment and Plan Assessment and plan (1) Acute diverticulitis: Status: Acute Assessment and plan: -Continue IV antibiotics while inpatient, on Zosyn clinically improving. Would hold off on PO Augmentin until pain significantly improves. -No current plans for surgical intervention -OK to advance to full liquid diet with ensure, should stay on this until abdominal pain is gone -Recommend high protein supplements to help encourage healing -Low fiber diet counseling -Ambulation with physical therapy and RN, walks with rolling walker due to recent surgery -Labs reviewed, leukocytosis resolved (2) Bowel perforation: Status: Acute Assessment and plan: -Medical management, no current plans for surgical intervention -Monitor for abscess development (3) UTI (urinary tract infection): Status: Acute Assessment and plan: -Cultures positive for E.Coli sensitive to Zosyn (4) Diabetes mellitus: Status: Acute (5) Acute on chronic heart failure with reduced ejection fraction and diastolic dysfunction: Status: Acute (6) Atrial fibrillation with rapid ventricular response: Status: Acute Assessment and plan: -On Eliquis -Heart rate improved (7) Hypertension: Status: Chronic Qualifiers: Hypertension type: essential hypertension Qualified Code(s): I10 - Essential (primary) hypertension (8) DVT prophylaxis: Status: Acute (9) Discharge planning issues: Status: Acute Subjective Subjective Patient reports: no new complaints, feels better, tolerating liquids well, bowel movement, diarrhea and afebrile Exam Const General: cooperative, comfortable and no acute distress Nutritional Appearance: average body habitus HENLA Head: normal to inspection, normocephalic and atraumatic Resp Effort & Inspection: normal respiratory effort, able to speak in complete sente nces, no audible wheezes and no respiratory distress Cardio Rate: tachycardic Rhythm: abnormal rhythm irregularly irregular GI Inspection: normal to inspection and non-distended Palpation: soft, guarding, not rigid and tender in the LLQ (somewhat improved), in the LUQ and suprapubicly Percussion: normal to percussion General: other (nevarez catheter placed) Skin General skin exam: no rashes or lesions noted Objective Last Vital Signs Temp 98.4 F 06/19/21 11:15 Pulse 86 06/20/21 07:32 Resp 24 06/20/21 07:32 BP 131/77 04/17/22 07:32 Pulse Ox 92 06/20/21 07:32 Laboratory Results - last 24 hr 06/20/21 05:10 Magnesium 2.0 C-Reactive Protein > 25.00 H
--- NOTE | 2021-06-20 10:05 | PGE_ITS ---
Date of Service Date of service: 06/20/21 Time of Service: 10:05 Assessment and Plan Assessment and plan (1) Acute diverticulitis: Status: Acute Assessment and plan: First episode diverticulitis. Currently on IV Zosyn however this can be changed to an Augmentin given that she is tolerating her diet. However in light of the diarrhea it may be advisable to use a combination of a cephalosporin and Flagyl. (2) Bowel perforation: Status: Acute Assessment and plan: See above. General surgery following. (3) UTI (urinary tract infection): Status: Acute Assessment and plan: Dx on 06/15/21 and has taken 3 doses of cipro as outpt. Cx positive for E.Coli. Sensitive to amp/sulb. Pt. currently on Zosyn and will transition to oral Augmentin (4) Diabetes mellitus: Status: Acute Assessment and plan: Hold glipizide. Monitor fingerstick with SS insulin correction dose. BG stable at 130's to 208. (5) Acute on chronic heart failure with reduced ejection fraction and diastolic dysfunction: Status: Acute Assessment and plan: Cont lasix 40mg po QD. discontinue IV fluids (6) Atrial fibrillation with rapid ventricular response: Status: Acute Assessment and plan: Rapid vent rate. Cont Apixaban. Cont scheduled oral metoprolol Cr 200mg daily and Diltiazem CD 120mg po QHS PRN IV metoprolol for ventricular rate > 120. Supplement K to keep above 4.0. Will titrate her Diltiazem dose to improve her heart rate control (7) Hypertension: Status: Chronic Assessment and plan: On metoprolol and diltiazem. Monitor. Qualifiers: Hypertension type: essential hypertension Qualified Code(s): I10 - Esse ntial (primary) hypertension (8) DVT prophylaxis: Status: Acute Assessment and plan: On Apixaban (9) Discharge planning issues: Status: Acute Assessment and plan: Plan for discharge home when tolerating a diet and able to take oral antibiotics. Per orthopedics recommendation she can resume physical therapy for rehabilitation of her recent gluteal tendon rupture repair. Dr. العراقي did put in P.T. consult yesterday. Subjective Subjective Interval history since last seen: Kaleigh is feeling better today. No nausea or vomiting. Stools however are loose watery. C. difficile study is pending. I was also ordered stool cultures and lactoferrin. She continues on Zosyn for diverticulitis with microperforation. She tolerated clear liquid diet yesterday we will advance to a regular cardiac/carbohydrate restricted diet. Exam Narrative Exam Narrative: Obese white female lying in bed no acute distress. She is alert and oriented person place time circumstance. Lungs are clear to auscultation Heart is irregularly irregular and tachycardic rate in the low 100s Abdomen obese soft normal bowel sounds nondistended mild to moderate tenderness in left lower quadrant no rebound tenderness. Extremities without peripheral cyanosis or edema. Objective Last Vital Signs Temp 36.9 C 06/19/21 11:15 Pulse 86 06/20/21 07:32 Resp 24 06/20/21 07:32 BP 131/77 06/20/21 07:32 Pulse Ox 92 06/20/21 07:32 Laboratory Results - last 24 hr 06/20/21 05:10 Magnesium 2.0 C-Reactive Protein > 25.00 H Reviewed Pertinent PMH: Yes
--- NOTE | 2021-06-20 10:36 | NUR.NOTE ---
Nursing Note:Patient [facility]
[2021-06-20] MEDS: dilTIAZem 30 MG TAB 60 MG PO (11:02)
[2021-06-20] MEDS: Normal Saline Flush 10 ML SYR IVP ×3 (11:02→19:01)
[2021-06-20] MEDS: Psyllium PKT 1 EACH PO ×2 (13:19→19:00)
[2021-06-20] MEDS: Insulin Aspart 300 UNITS/3 ML PEN SC ×2 (14:01→16:07)
[2021-06-20] MEDS: Amoxicillin 875/Clav. 125 TAB PO (19:52)
[2021-06-20] MEDS: dilTIAZem CD 180 MG CAPCR PO (21:10)
[2021-06-20] MEDS: Famotidine 20 MG TAB PO (21:10)
[2021-06-20] MEDS: Acetaminophen 500 MG TAB 1000 MG PO (21:10)
[2021-06-21 02:03] VITALS: BP 139/109; PULSE 94; PULSE 95; RESP 19
[2021-06-21 02:04] VITALS: PULSE 102; RESP 31
[2021-06-21 04:00] VITALS: PULSE 82; RESP 17
[2021-06-21 06:00] VITALS: PULSE 93; RESP 22
[2021-06-21 06:32] LABS: Abs Immature Grans 0.12 10^3/uL (0.0-0.06); Absolute Basophil Count 0.04 10^3/uL (0.0-0.2); Absolute Eosinophil Count 0.38 10^3/uL (0.0-0.7); Absolute Lymphocyte Count 1.11 10^3/uL (1.2-3.4); Absolute Monocyte Count 0.72 10^3/uL (0.1-0.8); Absolute Neutrophil Count 7.27 10^3/uL (1.2-6.7); Basophils % 0.4; Eosinophils % 3.9; HCT 31.5 % (36.0-46.0); HGB 10.4 g/dL (11.2-15.7); Immature Grans % 1.2; Lymphocytes % 11.5; MCH 31.6 pg (27.0-33.0); MCV 95.7 fL (80-95); MPV 10.3 fL (8.0-11.0); Monocytes % 7.5; Neutrophils % 75.5; Platelet Count 207 10^3/uL (130-400); RBC 3.29 10^6/uL (3.93-5.22); RDW 12.3 % (11.7-14.6); RDW-SD 43.8 fL; WBC 9.64 10^3/uL (4.4-10.8)
[2021-06-21 06:49] LABS: ALT 18 U/L (14-59); AST 9 U/L (15-37); Albumin 2.1 g/dL (3.4-5.0); Alkaline Phosphatase 53 U/L (46-116); BUN 14 mg/dL (7-18); Bilirubin, Total 0.6 mg/dL (0.2-1.0); C-Reactive Protein 21.57 mg/dL (0.0-0.3); CREATININE 0.9 mg/dL (0.55-1.02); Calcium 8.5 mg/dL (8.5-10.1); Chloride 102 mmol/L (98-107); Glucose 137 mg/dL (74-106); Potassium 3.7 mmol/L (3.5-5.1); Sodium 137 mmol/L (136-145); Total Protein 6.2 g/dL (6.4-8.2)
[2021-06-21 07:08] LABS: Procalcitonin 1.6 ng/mL
[2021-06-21 07:47] LABS: C Diff PCR Negative (Negative)
[2021-06-21 08:00] VITALS: PULSE 113; RESP 21
[2021-06-21] MEDS: Acetaminophen 500 MG TAB 1000 MG PO (08:25)
[2021-06-21] MEDS: Apixaban 5 MG TAB PO (08:25)
[2021-06-21] MEDS: Amoxicillin 875/Clav. 125 TAB PO (08:25)
[2021-06-21] MEDS: Metoprolol CR 100 MG TABCR 200 MG PO (08:26)
[2021-06-21] MEDS: Potassium Chloride 20 MEQ TABCR PO (08:26)
[2021-06-21] MEDS: Furosemide 40 MG TAB PO (08:26)
[2021-06-21] MEDS: Magnesium Oxide 400 MG TAB PO (08:26)
--- NOTE | 2021-06-21 08:40 | W.PM.PROGNOT ---
Date of Service Date of service: 06/21/21 Time of Service: 08:40 Assessment and Plan Assessment and plan (1) Acute diverticulitis: Status: Acute Assessment and plan: Patient is now on Augmentin and tolerating oral antibiotics and oral diet. Plan will be to discharge her home on 7 more days of Augmentin. I advised her that this can give her some diarrhea and recommended that she take it with food. I am also going to put her on some lactobacillus capsules as a probiotic. (2) Bowel perforation: Status: Acute Assessment and plan: See above. General surgery following. Patient to follow-up with Dr. Mercer as an outpatient. Patient had a microperforation which was able to be medically managed. Once she is completely recuperated from this she will need to have a colonoscopy. (3) UTI (urinary tract infection): Status: Resolved Assessment and plan: Dx on 06/15/21 and has taken 3 doses of cipro as outpt. Patient was treated with Zosyn while an inpatient we will continue on 7 more days of Augmentin. (4) Diabetes mellitus: Status: Acute Assessment and plan: Blood sugars have been running in the 180s to 200s. However the patient will now resume her glipizide upon discharge and follow-up with her PCP. (5) Acute on chronic heart failure with reduced ejection fraction and diastolic dysfunction: Status: Acute Assessment and plan: Patient will resume her losartan and stay on her furosemide and potassium supplements. She also remain on her metoprolol XL 200 mg daily. (6) Atrial fibrillation with rapid ventricular response: Status: Acute Assessment and plan: Continue Toprol-XL 200 mg daily. Cardizem has been titrated to 180 mg at at bedtime. Continue apixaban. Follow-up per PCP as an outpatient. (7) Hypertension: Status: Chronic Assessment and plan: On metoprolol and diltiazem. Monitor. Qualifiers: Hypertension type: essential hypertension Qualified Code(s): I10 - Essential (primary) hypertension (8) DVT prophylaxis: Status: Resolved Assessment and plan: On Apixaban (9) Discharge planning issues: Status: Resolved Assessment and plan: Patient be discharged home today. She has a walker and states that she only has 1 step to get into her home otherwise is on 1 level floor. Subjective Subjective Interval history since last seen: Patient is feeling markedly better. No nausea or vomiting. She is having semiformed stools no melena hematochezia. Crampy abdominal pain is improving. She is remained afebrile. She is looking forward to going home. Patient was seen with Trisha Franklin, nurse practitioner from the surgical office. Exam Narrative Exam Narrative: Elderly female sitting up in her chair just having finished breakfast. She is alert and oriented x3. Lungs are clear to auscultation Heart is irregularly irregular but at a controlled rate rhythm is atrial fibrillation. Abdomen is soft nondistended no guarding or rebound tenderness she has normal bowel sounds. Extremities without peripheral edema. Objective Last Vital Signs Temp 36.7 C 06/20/21 22:36 Pulse 95 H 06/21/21 02:03 Resp 19 06/21/21 02:03 BP 139/109 H 06/21/21 02:03 Pulse Ox 95 06/20/21 22:47 Laboratory Results - last 24 hr 06/21/21 06/21/21 06/21/21 06:10 06:10 06:10 WBC 9.64 RBC 3.29 L Hgb 10.4 L Hct 31.5 L MCV 95.7 H MCH 31.6 MCHC 33.0 RDW 12.3 Plt Count 207 MPV 10.3 Immature Gran % 1.2 Neutrophils % 75.5 Lymphocytes % 11.5 Monocytes % 7.5 Eosinophils % 3.9 Basophils % 0.4 Nucleated RBC % 0.0 Absolute Neutrophils 7.27 H Absolute Lymphocytes 1.11 L Absolute Monocytes 0.72 Absolute Eosinophils 0.38 Absolute Basophils 0.04 Sodium 137 Potassium 3.7 Chloride 102 Carbon Dioxide 30.0 Anion Gap 5.0 BUN 14 D Creatinine 0.9 Estimated GFR/1.73 m2 >= 60.00 Glucose 137 H Calcium 8.5 Total Bilirubin 0.6 AST 9 L ALT 18 Alkaline Phosphatase 53 C-Reactive Protein 21.57 H Total Protein 6.2 L Albumin 2.1 L Procalcitonin 1.6 Stl C.difficile Tox PCR 06/21/21 06:35 WBC RBC Hgb Hct MCV MCH MCHC RDW Plt Count MPV Immature Gran % Neutrophils % Lymphocytes % Monocytes % Eosinophils % Basophils % Nucleated RBC % Absolute Neutrophils Absolute Lymphocytes Absolute Monocytes Absolute Eosinophils Absolute Basophils Sodium Potassium Chloride Carbon Dioxide Anion Gap BUN Creatinine Estimated GFR/1.73 m2 Glucose Calcium Total Bilirubin AST ALT Alkaline Phosphatase C-Reactive Protein Total Protein Albumin Procalcitonin Stl C.difficile Tox PCR Negative
--- NOTE | 2021-06-21 09:17 | W.PM.PROGNOT ---
Date of Service Date of service: 06/21/21 Time of Service: 09:17 Assessment and Plan Assessment and plan (1) Acute diverticulitis: Status: Acute Assessment and plan: -Abdominal pain has significantly improved. -(+) Soft, BMs -No current plans for surgical intervention -Tolerating soft diet -Recommend high protein supplements to help encourage healing -Low fiber diet counseling -Ambulation with physical therapy and RN, walks with rolling walker due to recent surgery (2) Bowel perforation: Status: Acute Assessment and plan: -Medical management, no current plans for surgical intervention -Monitor for abscess development (3) UTI (urinary tract infection): Status: Acute Assessment and plan: -Cultures positive for E.Coli sensitive to Zosyn (4) Diabetes mellitus: Status: Acute (5) Acute on chronic heart failure with reduced ejection fraction and diastolic dysfunction: Status: Acute (6) Atrial fibrillation with rapid ventricular response: Status: Acute Assessment and plan: -On Eliquis -Heart rate improved (7) Hypertension: Status: Chronic Qualifiers: Hypertension type: essential hypertension Qualified Code(s): I10 - Essential (primary) hypertension (8) DVT prophylaxis: Status: Acute (9) Discharge planning issues: Status: Acute Subjective Subjective Interval history since last seen: Patient reports she continues to feel much improved. She states that she tolerated breakfast well. She describes having lower abdominal cramping and gas, I think I could have another BM. Denies any sharp pain. Exam Const General: cooperative, healthy appearing and comfortable Orientation: alert and oriented x3 Resp Effort & Inspection: normal respiratory effort, no audible wheezes and no cough GI Inspection: normal to inspection Palpation: soft, no guarding and tender Objective Last Vital Signs Temp 36.7 C 06/20/21 22:36 Pulse 95 H 06/21/21 02:03 Resp 21 06/21/21 08:00 BP 139/109 H 06/21/21 02:03 Pulse Ox 95 06/20/21 22:47 Laboratory Results - last 24 hr 06/21/21 06/21/21 06/21/21 06:10 06:10 06:10 WBC 9.64 RBC 3.29 L Hgb 10.4 L Hct 31.5 L MCV 95.7 H MCH 31.6 MCHC 33.0 RDW 12.3 Plt Count 207 MPV 10.3 Immature Gran % 1.2 Neutrophils % 75.5 Lymphocytes % 11.5 Monocytes % 7.5 Eosinophils % 3.9 Basophils % 0.4 Nucleated RBC % 0.0 Absolute Neutrophils 7.27 H Absolute Lymphocytes 1.11 L Absolute Monocytes 0.72 Absolute Eosinophils 0.38 Absolute Basophils 0.04 Sodium 137 Potassium 3.7 Chloride 102 Carbon Dioxide 30.0 Anion Gap 5.0 BUN 14 D Creatinine 0.9 Estimated GFR/1.73 m2 >= 60.00 Glucose 137 H Calcium 8.5 Total Bilirubin 0.6 AST 9 L ALT 18 Alkaline Phosphatase 53 C-Reactive Protein 21.57 H Total Protein 6.2 L Albumin 2.1 L Procalcitonin 1.6 Stl C.difficile Tox PCR 06/21/21 06:35 WBC RBC Hgb Hct MCV MCH MCHC RDW Plt Count MPV Immature Gran % Neutrophils % Lymphocytes % Monocytes % Eosinophils % Basophils % Nucleated RBC % Absolute Neutrophils Absolute Lymphocytes Absolute Monocytes Absolute Eosinophils Absolute Basophils Sodium Potassium Chloride Carbon Dioxide Anion Gap BUN Creatinine Estimated GFR/1.73 m2 Glucose Calcium Total Bilirubin AST ALT Alkaline Phosphatase C-Reactive Protein Total Protein Albumin Procalcitonin Stl C.difficile Tox PCR Negative
--- NOTE | 2021-06-21 09:41 | W.PM.DS.N ---
DS: Diagnosis Discharge Diagnosis (1) Acute diverticulitis: Status: Acute Asessment and Plan: Patient presented with low-grade fever and left lower quadrant abdominal pain and diarrhea. CT of the abdomen pelvis demonstrated small microperforation of the sigmoid diverticulitis with no abscess and no bowel obstruction. Blood cultures came back no growth x4 sets. Stool was negative for C. difficile. Patient was initially treated with ciprofloxacin and Flagyl in the emergency department. However because of her recent tendon rupture and repair it was decided to avoid quinolones and she was put on Zosyn. She was on Zosyn from 06/17/2021 through 06/20/2021 and then switch to Augmentin. Initially she was made n.p.o. and given IV fluids and given parenteral narcotics and parenteral antiemetics. Her pain did improve IV fluids were discontinued diet was advanced to clear liquids and then later advanced to regular solid foods. Patient was tolerating her diet and tolerating her Augmentin. Stool was checked for C. difficile and found to be negative. Patient be discharged home on 7 more days of Augmentin 875 mg twice a day. Patient is to follow-up with Dr. Mercer in the office in 2 to 4 weeks and follow-up with her primary care provider in the next week. (2) Bowel perforation: Status: Acute Asessment and Plan: Patient a microperforation of her sigmoid colon with no abscess. This was treated medically and and did not require any surgical intervention. (3) UTI (urinary tract infection): Status: Resolved Asessment and Plan: Patient had an E. coli urinary tract infection was diagnosed prior to admission and treated with 3 days of ciprofloxacin. Current antibiotic treatment is more than adequate to treat her UTI. (4) Diabetes mellitus: Status: Chronic Asessment and Plan: Patient will resume her home dose of glipizide upon discharge. (5) Acute on chronic heart failure with reduced ejection fraction and diastolic dysfunction: Status: Resolved Asessment and Plan: Patient did not have acute on chronic heart failure but she does have chronic heart failure with reduced ejection fraction and diastolic dysfunction. She never went into acute heart failure during this hospitalization in spite of her rapid atrial fibrillation. Patient was given and limited IV fluids once she was able to take p.o. we discontinued IV fluids. She was kept on her home dose of Lasix. Her atrial fibrillation was treated with her Toprol-XL and her Cardizem CD with as needed dosing of IV Lopressor. Cardizem CD was titrated up to 180 mg at bedtime. (6) Atrial fibrillation with rapid ventricular response: Status: Acute Asessment and Plan: Continue home dose of Toprol XL 10 mg daily. Cardizem CD was increased to 180 mg nightly. Patient remained on her apixaban and her Lasix. (7) Hypertension: Status: Chronic Asessment and Plan: Medications as above (8) DVT prophylaxis: Status: Resolved Asessment and Plan: Patient was on apixaban throughout her hospital stay (9) Discharge planning issues: Status: Resolved Asessment and Plan: Patient was discharged home. She declined any home health services at this time and she has been fully ambulatory with use of her walker. She plans to resume outpatient physical therapy to rehab from her gluteal tendon repair Discharge Plan Disposition Patient Disposition: HOME Condition: Improving Discharge Details Reason For Visit: Diverticulitis,Atrial Fibrillation with Rapid [place] Admit Date/Time: 06/17/21 12:04 Admit Provider: David العراقي Attending Provider: David العراقي Primary Care Provider: Audrey Arora Hospital Course Hospital Course: 76-year-old female past medical history atrial fibrillation, cardiomyopathy, heart failure with reduced ejection fraction, diabetes mellitus type 2, spinal stenosis, previous COVID-19 infection, status post gluteal tendon repair and trochanteric bursectomy approximately 3 weeks prior to current admission. She came with several days of nausea and lower quadrant abdominal pain was seen in [facility] 2 days prior to presentation. Lab at that time included urinalysis suggestive of UTI she went on a 3-day course of Cipro. Pain is continued crampy and constant worse with movement. She had some loose stools the night prior to presentation for which she took Imodium. She had a fever of 101 at [facility] and was sent to the emergency department where she was noted to be tachycardic with heart rate in 110s to 130s. She was not hypotensive and not hypoxemic. She had a white count of 11,600. CT of the abdomen pelvis showed an area in the sigmoid colon consistent with a microperforation of a diverticulitis no abscess formation was seen no bowel obstruction was seen. She was initially treated with metronidazole and ciprofloxacin however these were changed to Zosyn because of concern of recent tendon rupture and repair. Her rapid atrial fibrillation was treated with her usual dose of Toprol-XL 10 mg in addition to IV metoprolol. EKG admission showed old inferior infarct in 2 3 and aVF. Patient was admitted to the intensive care unit and surgical consult was obtained with Dr. Mercer. Patient was made n.p.o. given IV fluids and given parenteral narcotics and parenteral antiemetics. Her outpatient urine culture was positive for E. coli for which she had been treated for 3 days with ciprofloxacin and the E. coli was found to be sensitive to ampicillin sulbactam. While she was n.p.o. glipizide was placed on hold and sliding scale insulin correction dose was ordered along with fingerstick blood sugar monitoring. She was kept on her apixaban for atrial fibrillation and her rate was managed with her oral Toprol-XL 200 mg daily and diltiazem CD1 120 mg nightly. She did require some as needed doses of IV metoprolol as well for heart rates above 120 bpm her Cardizem dose was adjusted up to 180 mg at night. Her diet was advanced to clear liquids she tolerated this well and then her diet was advanced to regular foods which she also was tolerating. She was having soft formed bowel movements with no melena or hematochezia. Crampy abdominal pain improved. She had no chest pain or pressure and no dyspnea throughout her hospital course. Patient is advised to follow a low fiber diet for the next few weeks and then advance to adding fiber in her diet after 4 weeks. She is to follow-up with her primary care provider in the next week and follow-up with Dr. Mercer in the next 2 to 4 weeks. Patient is being discharged on a 7-day course of Augmentin 875 mg twice a day. Prescription was also given for new dose of her Cardizem CD 180 mg at bedtime. Her Toprol-XL dose was maintained the same at 200 mg daily. Home Meds and New Rx's Prescriptions: New diltiazem HCl 180 mg capsule,extended release 24 hr 180 mg PO HS Qty: 30 1RF amoxicillin-pot clavulanate 875-125 mg tablet 1 ea PO BID AC 7 Days Qty: 14 0RF Rx Instructions: take twice per day with meals x 14 days Continued omega-3 fatty acids [Fish Oil Concentrate] 1,000 mg capsule 1,000 mg PO DAILY 0RF magnesium oxide 400 mg magnesium tablet 400 mg PO DAILY 0RF furosemide 40 mg tablet 40 mg PO QAM Qty: 90 3RF glipizide [Glucotrol XL] 5 mg tablet extended release 24hr 5 mg PO DAILY Qty: 90 3RF losartan 100 mg tablet 100 mg PO DAILY Qty: 90 3RF metoprolol succinate [Toprol XL] 200 mg tablet extended release 24 hr 200 mg PO DAILY Qty: 90 3RF potassium chloride [Klor-Con M20] 20 mEq tablet,ER particles/crystals 20 meq PO DAILY Qty: 90 1RF (DME) blood-glucose meter misc 1 ea Miscellaneous twice weekly Qty: 100 4RF Rx Instructions: METER TYPE ONE TOUCH ULTRA MINI E11.9 daily testing (DME) lancets 28 gauge misc 1 ea Miscellaneous DAILY Qty: 100 4RF Label Comments: pt. reports taking BS two days, 137 Rx Instructions: ONE TOUCH ULTRA MINI METER. NO INSULIN. DIAGNOSIS CODE E11.9 (DME) Blood Glucose Test Strip See Dose Instructions .ROUTE .MEDSUPPLY Qty: 100 5RF Dose Instruction: As directed Rx Instructions: daily E11.9 One touch Eliquis 5 mg tablet 5 mg PO BID Qty: 180 6RF Label Comments: pt took AM dose Calcium 600 + D(3) 1 EACH tablet 1 tab PO DAILY 0RF acetaminophen 500 mg tablet 1,000 mg PO Q8H PRN (Reason: pain) Qty: 90 3RF Discontinued diltiazem HCl 120 mg capsule,extended release 24hr 120 mg PO HS Qty: 90 3RF Discharge Instructions Instructions: Diverticulitis (GEN), Diverticulitis Diet (DC), Perforated Bowel (DC) Additional Instructions: Follow low fiber diet as per discharge instructions for the next month and afterwards gradually introduce fiber back into your diet. Keep up your fluids avoid dehydration. Finish out all of your amoxicillin/clavulanic acid antibiotic as prescribed. Make a follow-up appointment with your primary care provider as well as with Dr. Mercer. Note your diltiazem dose was increased to 180 mg at bedtime. Your Toprol (metoprolol succinate) dose is unchanged. He should continue all of your other medications as previously prescribed. Referrals: Audrey Arora MD [Primary Care Provider] - Shereen Mercer DO [OSTEOPATHIC DOCTOR] - Activity:: Activity as Tolerated Equipment/Supplies:: No Equipment Needed Diet:: Low fiber Discharge Orders Discharge Orders: Discharge Order (Routine); Ordered 06/21/21 Ordered By: Kostas Mtz Other Ambulatory Orders: Complete Blood Count w/Diff (Routine) Timeframe: 1 Week Facility: [facility] - Location: Laboratory Outpatient Ordered By: Kostas Mtz DS: Summary Time Spent with Patient providing and/or coordinating discharge services: Greater than 30 minutes Status at Discharge Functional status at discharge: uses cane/walker Overall status at discharge: patient is progressing back to baseline Mental Status: mental status grossly normal Speech and Movement: speech and movement normal Mood: congruent mood Affect: normal affect Exam Narrative Exam Narrative: Elderly female sitting up in her chair just having finished breakfast. She is alert and oriented x3. Lungs are clear to auscultation Heart is irregularly irregular but at a controlled rate rhythm is atrial fibrillation. Abdomen is soft nondistended no guarding or rebound tenderness she has normal bowel sounds. Extremities without peripheral edema. Psych Mental Status: mental status grossly normal Speech and Movement: speech and movement normal Mood: congruent mood Affect: normal affect DS: Data Vitals/I&O Vitals and I&O: Vital Signs Temperature 36.7 C 06/20/21 22:36 Temperature Source Temporal Artery Scan 06/20/21 22:36 Pulse 95 H 06/21/21 02:03 Pulse Rhythm Irregular 06/21/21 08:43 Pulse 113 H 06/21/21 08:00 Respiratory Rate 21 06/21/21 08:00 Respiratory Effort Non-Labored 06/21/21 08:43 Respiratory Depth Normal 06/21/21 08:43 Respiratory Pattern Normal 06/21/21 08:43 Blood Pressure 139/109 H 06/21/21 02:03 Blood Pressure Mean 116 06/21/21 02:03 Blood Pressure Position Supine 06/19/21 06:26 Pulse Oximetry 95 06/20/21 22:47 Oxygen Delivery Method Nasal Cannula 06/20/21 22:50 Oxygen Flow Rate 3 06/20/21 22:50 Fraction of Inspired Oxygen (FIO2) 21 06/18/21 21:30 Pain Level 2 06/20/21 21:09 Comment 06/18/21 06:26 Intake & Output 06/20/21 06/20/21 06/21/21 11:59 23:59 11:59 Intake Total 320 / 2410 0 / 2410 450 / 450 Output Total 825 / 2535 1710 / 2535 2099 Balance -505 / -125 380 / -125 -1650 / -1650 Intake: IV 200 / 350 150 / 350 Oral 120 / 2060 194 / 2059 450 / 450 Output: Urine 575 / 2280 1705 / 2280 2099 / 2099 Stool 250 / 255 5 / 255 Other: Urine Color Yellow Yellow Light Fabiana Urine Appearance Clear Clear Clear Urine Odor Normal Normal Normal Comment mixed with stool Stool Occult Blood Negative Stool Size Small Small Stool Characteristics Soft Liquid Soft Liquid Brown Voiding Methods Bedside Commode Bedside Commode Bedside Commode Data Completed and Pending Labs on day of discharge: Labs from last 24 hours 06/21/21 06/21/21 06/21/21 06:35 06:35 06:10 WBC RBC Hgb Hct MCV MCH MCHC RDW Plt Count MPV Immature Gran % Neutrophils % Lymphocytes % Monocytes % Eosinophils % Basophils % Nucleated RBC % Absolute Neutrophils Absolute Lymphocytes Absolute Monocytes Absolute Eosinophils Absolute Basophils Sodium Potassium Chloride Carbon Dioxide Anion Gap BUN Creatinine Estimated GFR/1.73 m2 Glucose Calcium Total Bilirubin AST ALT Alkaline Phosphatase C-Reactive Protein Total Protein Albumin Procalcitonin 1.6 Stool Campylobacter PCR Pending Stl C.difficile Tox PCR Negative Stool Salmonella PCR Pending Stool Shigella PCR Pending Shiga Toxin (PCR) Pending 06/21/21 06/21/21 06:10 06:10 WBC 9.64 RBC 3.29 L Hgb 10.4 L Hct 31.5 L MCV 95.7 H MCH 31.6 MCHC 33.0 RDW 12.3 Plt Count 207 MPV 10.3 Immature Gran % 1.2 Neutrophils % 75.5 Lymphocytes % 11.5 Monocytes % 7.5 Eosinophils % 3.9 Basophils % 0.4 Nucleated RBC % 0.0 Absolute Neutrophils 7.27 H Absolute Lymphocytes 1.11 L Absolute Monocytes 0.72 Absolute Eosinophils 0.38 Absolute Basophils 0.04 Sodium 137 Potassium 3.7 Chloride 102 Carbon Dioxide 30.0 Anion Gap 5.0 BUN 14 D Creatinine 0.9 Estimated GFR/1.73 m2 >= 60.00 Glucose 137 H Calcium 8.5 Total Bilirubin 0.6 AST 9 L ALT 18 Alkaline Phosphatase 53 C-Reactive Protein 21.57 H Total Protein 6.2 L Albumin 2.1 L Procalcitonin Stool Campylobacter PCR Stl C.difficile Tox PCR Stool Salmonella PCR Stool Shigella PCR Shiga Toxin (PCR) Preliminary micro results at discharge 06/17/21 10:45 Blood Culture - Preliminary Blood NO GROWTH 72 HOURS 06/17/21 10:30 Blood Culture - Preliminary Blood NO GROWTH 72 HOURS 06/17/21 13:08 Blood Culture - Preliminary Blood NO GROWTH 72 HOURS 06/17/21 13:18 Blood Culture - Preliminary Blood NO GROWTH 72 HOURS PFSH All Active Problems (Updated 06/21/21 @ 09:47 by Kostas Mtz) Anemia (Chronic) Acute diverticulitis (Acute ~03/2021) Bowel perforation (Acute) Atrial fibrillation with rapid ventricular response (Acute) Right thigh pain (Acute) Tear of left gluteus medius tendon (Acute) Hypertension (Chronic) Obesity (Chronic) H/O surgical procedure (Acute) a. MINDA/BSO with colporrhaphy and cystocele repair 02/20/2014 b. colonoscopy 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 Surgery 02/16. Vaginal Hyst. Polyp of colon (Acute 02/03/04) Paroxysmal SVT (supraventricular tachycardia) (Acute 02/15/17) zio patch Kidney stone (Acute) Infection resistant to penicillin (Acute) MRSA abscess x 2 Diabetes mellitus (Chronic) Cystocele (Acute 06/24/14) Mucous polyp of cervix (Acute) Spinal stenosis (Acute) Neural foraminal stenosis of lumbar spine (Acute) Atrial fibrillation (Chronic) Cardiomyopathy (Acute) SOB (shortness of breath) (Acute) Mitral regurgitation (Chronic) Bilateral hip pain (Acute) Osteoarthritis of right knee (Chronic) Preoperative cardiovascular examination (Acute) Status post lumbar surgery (Acute) L3-L5 Status post arthroscopy of left knee (Acute) History of total right knee replacement (Acute 01/06/21) Elevated LFTs (Acute) COVID-19 (Acute) Trochanteric bursitis of left hip (Acute) Surgical History Hx of colonoscopy Oophrectomy, Both (02/20/14) TVH, BSO with R sided uterosacral ligament suspension with Anterior Coloporrhapy. EP/aoc S/P total knee arthroplasty Right Vaginal hysterectomy Family History Mother Diabetes Father Heart disease Diabetes Sister , AGE 85 Cancer Diabetes Heart disease Sister , AGE 51 Heart disease Sister , AGE 84 Diabetes Heart disease Brother , AGE 34 No problems noted. Brother , AGE 82 Diabetes Heart disease Social History Smoking/Tobacco Use Status: Former Tobacco Use Quit Date: 03/06/81 Second Hand Exposure: Yes Smoking risk assessment performed?: Yes Alcohol Intake: never Drug use: Never Substance use type: does not use Household members: spouse Housing: house Communication Needs: None Do you need help understanding health information?: Often Pets and animals: Yes Pets and animals: dog(s) Sexually active: No Do you think of yourself as: straight/heterosexual Current gender identity: female How often do you talk on the phone with friends or family?: three or more times per week How often do you get together with friends or relatives?: decline to answer How often do you attend sikh or hoahaoism services?: decline to answer Do you belong to any clubs or organized social groups?: decline to answer Panel score (0-1 are the most socially isolated patients): 1 Radha/Jewish: Sabianist Special radha needs: No Seatbelt use: always Drive intox or ride w/intox dumpster driver: No Do you feel safe at home: Yes Do you feel safe in your relationship?: Yes
--- NOTE | 2021-06-21 10:24 | CMDISCH_ITS ---
- If Service Date Differs Date of service: 06/21/21 Time of Service: 10:24 LACE Index Scoring Tool - Questions: Length of Stay (in days): 4 - 6 Acuity (Admit via E.D.?): Yes Comorbidities: Diabetes w/o Complication E.D. Visits: 2 - Answers: Total Score: 10 Risk of Readmission: High Risk Care Management Discharge Reason for Hospitalization: Diverticulitis, A-Fib with Rapid Ventricular Discharge Plan: Discharge home with RX for oral ABX via private vehicle with family. Kaleigh will resume outpatient PT, she declines [facility] services at this time. Kaleigh will have labs and follow up with her PCP next week. Kaleigh will follow up with Dr. Mercer in 2-4 weeks. Patient/Family Education Needs: Review discharge instructions, limitations, medications and plan to follow up with community providers. ask me three. Services Needed at Discharge: Physical Therapy
--- NOTE | 2021-06-21 17:00 | INDS_ITS ---
Date of service: 06/21/21 PT Notes Visit Reasons: Diverticulitis,Atrial Fibrillation with Rapid [facility] Inpatient Discharge Summary Date: 06/21/2021 Dates of service: 06/19/2021 only This is a clinical summary of care provided for the duration of dates listed above. No charge was made in the completion of this documentation. Referring Doctor: Shereen Mercer MD PT Orders: PT CONSULT: patient had recent left hip surgery.? In hosp with diverticulitis Precautions: 1. Per orthopedic orders from Dr. De La Fuente on 06/09/2021 for the L hip:?Protected weight bearing with FWW for 6 weeks.? Encourage hip, knee, ankle ROM. No strengthening for 3 months 2.?Per orthopedic orders from Dr. De La Fuente on 06/09/2021 for the R hip/thigh:? Quadriceps stretching, soft tissue modalities, and strengthening Patient Profile/Admitting Diagnosis: Kaleigh is a 76-year-old female who presented to the ED on 06/17/2021 due to lower abdominal pain and nausea.? Patient is diagnosed with acute diverticulitis, bowel perforation, urinary tract infection, type is, acute on chronic congestive heart failure with reduced ejection fraction, atrial fibrillation, and hypertension.? Patient is status post right TKA 5 months ago.? She is also status post endoscopic left hip iliotibial band release, left greater trochanteric bursectomy, and left gluteal tendon repair on 05/28/2021.? Dr. De La Fuente diagnosed patient with a possible right thigh overuse for quadricep strain and recommended continued physical for rehabilitation.? Patient received OP PT services at [facility] for an evaluation and 1 session with good response prior to this hospitalization.? PMHX: All Active Problems?(Updated 06/17/21 @ 17:19 by David العراقي MD) DVT prophylaxis (Acute) Acute diverticulitis (Acute) Bowel perforation (Acute) UTI (urinary tract infection) (Acute) Atrial fibrillation with rapid ventricular response (Acute) Right thigh pain (Acute) Tear of left gluteus medius tendon (Acute) Hypertension (Chronic) Obesity (Chronic) H/O surgical procedure (Acute) a.? MINDA/BSO with colporrhaphy and cystocele repair 02/20/2014 b.? colonoscopy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? Surgery 02/16. ? Vaginal Hyst. Polyp of colon (Acute 02/03/04) Paroxysmal SVT (supraventricular tachycardia) (Acute 02/15/17) zio patch Kidney stone (Acute) Infection resistant to penicillin (Acute) MRSA abscess x 2 Diabetes mellitus (Acute) Cystocele (Acute 06/24/14) Mucous polyp of cervix (Acute) Spinal stenosis (Acute) Neural foraminal stenosis of lumbar spine (Acute) Atrial fibrillation (Chronic) Cardiomyopathy (Acute) SOB (shortness of breath) (Acute) Mitral regurgitation (Chronic) Acute on chronic heart failure with reduced ejection fraction and diastolic dysfunction (Acute) Bilateral hip pain (Acute) Osteoarthritis of right knee (Chronic) Preoperative cardiovascular examination (Acute) Status post lumbar surgery (Acute) [id number] post arthroscopy of left knee (Acute) History of total right knee replacement (Acute 01/06/21) Elevated LFTs (Acute) COVID-19 (Acute) Trochanteric bursitis of left hip (Acute) Surgical History? Hx of colonoscopy Oophrectomy, Both (02/20/14) TVH, BSO with R sided uterosacral ligament suspension with Anterior Coloporrhapy. EP/aocS/P total knee arthroplasty RightVaginal hysterectomy Social History/Home Situation: Kaleigh lives with in a private home.? She is modified independent with use of a front wheeled walker prior to admission.? Equipment Owned/DME: [facility] Subjective: NT. See most recent PARKING PATROLLER notes. Objective: General Observation: NT. See most recent PARKING PATROLLER notes. Mental Status: NT. See most recent PARKING PATROLLER notes. Pain: NT. See most recent PARKING PATROLLER notes. Vital Signs: NT. See most recent PARKING PATROLLER notes. ROM: Right Upper Extremity: ? Shoulder Flexion WFL. Shoulder abduction WFL. Elbow flexion WFL. Wrist flexion WFL. Functional opening and closing of hand WFL. Left Upper Extremity:? Shoulder Flexion WFL. Shoulder abduction WFL. Elbow flexion WFL. Wrist flexion WFL. Functional opening and closing of hand WFL. Right Lower Extremity: Hip flexion allows up to 45 degrees of hip flexion while in supine with report of discomfort in the hip and anterolateral thigh.? Hip abduction allows up to 20 degrees with pain ant end of range. Knee flexion up to 45 degrees in supine limited by pain report in thigh. Ankle dorsiflexion WFL. Ankle plantarflexion WFL. Left Lower Extremity: Hip flexion allows up to 45 degrees of hip flexion while in supine with report of discomfort in the hip and anterolateral thigh.? Hip abduction allows up to 20 degrees with pain ant end of range. Knee flexion up to 45 degrees in supine limited by pain report in thigh. Ankle dorsiflexion WFL. Ankle plantarflexion WFL. Strength: Right Upper Extremity: Shoulder flexors 4/5. Shoulder abductors 4/5. Elbow flexors 5/5. Elbow extensors 5/5. Flour Mixer Helper strong. Left Upper Extremity: Shoulder flexors 4/5. Shoulder abductors 4/5. Elbow flexors 5/5. Elbow extensors 5/5. Flour Mixer Helper strong. Right Lower Extremity: Hip flexors 3-/5. Hip abductors 3-/5. Knee flexors 3-/5. Knee extensors 3/5. Ankle dorsiflexors 5/5. Ankle plantarflexors 5/5. Left Lower Extremity: Hip flexors 3-/5. Hip abductors 3-/5. Knee flexors 3-/5. Knee extensors 3/5. Ankle dorsiflexors 5/5. Ankle plantarflexors 5/5. Bed Mobility/Transfers: Sit to supine with minimal assist to B LE due to pain in lower abdominal area an d right hip.? Sit to stand standby assist Stand to sit standby assist Bedside commode to bed standby assist Gait: Instructed patient with level surface ambulation of 8 feet requiring standby assist. Adrianna decreased. Step height decreased.? Step length decreased.? Reports fatigue and increased pain in lower abdominal area after activity. Balance: Static Sitting: Normal Dynamic Sitting: Normal Static Standing: Fair Dynamic Standing: Fair ASSESSMENT: Patient demonstrates functional mobility decline requiring the use of front wheeled walker and assistance of 1 person for all supine to sit and sit to supine activities as well as for ambulation performance.? He reported lower abdominal area, continued discomfort in the right anterolateral hip and thigh as well as left hip surgery on 05/28/2021 are all compounding her admitting diagnoses.? Will follow most recent orthopedic recommendations to continue rehabilitation from 05/29/2019 L hip surgery and right hip overuse/quadricep strain.? Assist of 1 for nursing staff for all mobility ADL performance using FWW.. Patient presents with clinical signs and symptoms consistent with current/admitting diagnoses that have resulted to mobility limitations, gait instability, generalized weakness, and overall ADL decline as demonstrated by the following impairment level findings: 1.? Decreased strength to B LE major muscle groups 2.? Impaired sitting/standing balance 3.? Impaired activity tolerance 4.? Limitation of joint range of motion in B hips 5.? Shortness of breath 6.? Lower abdominal pain Impairments are contributing to the following functional limitations: 1.? Decline in bed mobility skills 2.? Decline in transfer skills 3.? Difficulty with ambulation without assistive device 4.? Increased completion time for mobility ADL performance 5.? Increased risk for falls 6.? Difficulty with managing steps alone safely Goals X1 week 1. Supine-Sit independent NOT MET 2. Sit-Supine independent NOT MET 3. Sit-Stand independent NOT MET 4. Stand-Sit independent with FWW NOT MET 5. Bed-Chair independent with FWW NOT MET 6. Chair-Bed independent with FWW NOT MET 7. Independent gait on level surface with use of FWW for at least 300 feet without report of pain nor dyspnea NOT MET 8. Independent stair negotiation while holding onto B rails for at least 5 steps without report of pain nor dyspnea NOT MET 9. Independent with home exercise program NOT MET 10. Good static and dynamic standing balance/tolerance NOT MET DISCHARGE RECOMMENDATIONS: [] ? Home with no services [] [] ? Home with services [specify] [X] ? Home with outpatient PT.? Home when medically cleared by hospitalist.? Will continue to benefit from resumption of outpatient PT services for continued rehabilitation from [facility] for most recent hip surgery and right quadriceps overuse/quadriceps strain. [] ? SNF for continued rehabilitation [] [] ? Intermediate Care [] [] ? SNF versus LTC based on ability to participate and progress [] TREATMENT CODE/TIME: CA Thank you for the opportunity to participate in the care of this patient. Edilma Romeo PT, DPT, CLT [facility] [place], [place]
[2021-06-21 23:49] LABS: Campylobacter PCR Negative (Negative); Salmonella PCR Negative (Negative); Shiga Toxin PCR Negative (Negative); Shigella/Enteroinvasive Ecoli Negative (Negative)
== END 2021-06-21 10:50 | disposition home or self-care (01) | DRG 392 ==
LOC: ER 12:41 → ICU 15:23
PROVIDERS: Internal Medicine; Student in an Organized Health Care Education/Training Program; Surgery; Admitting Provider Family Medicine; Emergency Provider Physician Assistant; PCP Family Medicine; Visit Provider Family Medicine
DX: K57.20 Diverticulitis of large intestine with perforation and abscess without bleeding (principal); I42.9 Cardiomyopathy, unspecified; I47.1 Supraventricular tachycardia; I50.42 Chronic combined systolic (congestive) and diastolic (congestive) heart failure; E11.9 Type 2 diabetes mellitus without complications; E66.9 Obesity, unspecified; I11.0 Hypertensive heart disease with heart failure; I48.91 Unspecified atrial fibrillation; M48.061 Spinal stenosis, lumbar region without neurogenic claudication; I34.0 Nonrheumatic mitral (valve) insufficiency; M70.62 Trochanteric bursitis, left hip; B96.20 Unspecified Escherichia coli [E. coli] as the cause of diseases classified elsewhere; Z79.01 Long term (current) use of anticoagulants; Z79.84 Long term (current) use of oral hypoglycemic drugs; Z68.38 Body mass index [BMI] 38.0-38.9, adult; Z96.651 Presence of right artificial knee joint; I25.2 Old myocardial infarction; Z86.16 Personal history of COVID-19
CPT/HCPCS: 36415; 80048; 80053; 83690; 84145; 87040; 87493; 87505; 87635; 93005; 96361; 96365; 96375; 97162; 97530; 99222; 99223; 99232; 99285; 71045; 74177; 81003; 81015; 83605; 83630; 83735; 83880; 85025; 86140; 93010; 99233; 99239; J0131; J1170; J1885; J2270; J2405; J2543; J3490

== ENCOUNTER → 2021-06-28 08:56 | Outpatient (BNVA) | payer MEDICARE, SELFPAY | PROVIDERS: PCP Family Medicine; Referring Provider Family Medicine; Visit Provider Surgery | DX: K57.92 Diverticulitis of intestine, part unspecified, without perforation or abscess without bleeding (principal); K63.1 Perforation of intestine (nontraumatic); E11.9 Type 2 diabetes mellitus without complications; I48.20 Chronic atrial fibrillation, unspecified; D64.9 Anemia, unspecified; I42.9 Cardiomyopathy, unspecified; R06.02 Shortness of breath; I34.0 Nonrheumatic mitral (valve) insufficiency; I42.8 Other cardiomyopathies; I10 Essential (primary) hypertension; E66.9 Obesity, unspecified; Z96.651 Presence of right artificial knee joint | CPT/HCPCS: 99213 ==

== ENCOUNTER → 2021-06-29 03:58 | Outpatient (CLI) | payer MEDICARE, SELFPAY ==
--- NOTE | 2021-06-29 07:00 | DI.RAD_ITS ---
Exam(s) XR CHEST 2V PA LATERAL EXAM: XR CHEST 2V PA LATERAL CLINICAL HISTORY: SOB,R06.02, F/U PORT CXR TECHNIQUE: 2D digital imaging was performed of the chest. Two images were obtained. PA and lateral views were obtained. COMPARISON: CR,XR XR CHEST 2V PA LATERAL from 08/19/2019 CR,XR XR PORTABLE CHEST AP from 06/18/2021 FINDINGS: MEDIASTINUM: Normal. HEART: Normal. PULMONARY VASCULATURE: Normal. LUNGS: Clear. PLEURAL SPACE: No pleural effusion or pneumothorax. BONE:Within normal limits for the patient's age. OTHER FINDINGS:Normal. IMPRESSION: No acute pulmonary findings. DATA REPOSITORY: RADIATION DOSE DELIVERED:
== END ==
PROVIDERS: PCP Family Medicine; Visit Provider Family Medicine
DX: R06.02 Shortness of breath (principal)
CPT/HCPCS: 36415; 71046; 82728; 85025; 86140

== ENCOUNTER 2021-06-29 06:03 | Outpatient (CLI) | payer MEDICARE, SELFPAY ==
[2021-06-29 09:33] LABS: Absolute Basophil Count 0.05 10^3/uL (0.0-0.2); Absolute Eosinophil Count 0.16 10^3/uL (0.0-0.7); Absolute Lymphocyte Count 1.46 10^3/uL (1.2-3.4); Absolute Monocyte Count 0.58 10^3/uL (0.1-0.8); Absolute Neutrophil Count 10.24 10^3/uL (1.2-6.7); Basophils % 0.4; Eosinophils % 1.3; HCT 35.5 % (36.0-46.0); HGB 11.6 g/dL (11.2-15.7); Immature Grans % 0.8; Lymphocytes % 11.6; MCH 30.5 pg (27.0-33.0); MCHC 32.7 % (32.0-36.0); MCV 93.4 fL (80-95); Monocytes % 4.6; Neutrophils % 81.3; Platelet Count 304 10^3/uL (130-400); RDW 12.3 % (11.7-14.6); RDW-SD 42.4 fL
[2021-06-29 10:32] LABS: C-Reactive Protein 5.26 mg/dL (0.0-0.3)
[2021-06-29 10:55] LABS: Ferritin 515 ng/mL (8-252)
== END 2021-06-29 06:04 | disposition home or self-care (01) ==
LOC: LBO 06:03
PROVIDERS: PCP Family Medicine; Visit Provider Surgery
DX: D64.9 Anemia, unspecified (principal); E11.9 Type 2 diabetes mellitus without complications; I48.20 Chronic atrial fibrillation, unspecified; R06.02 Shortness of breath
CPT/HCPCS: 36415; 82728; 85025; 86140

== ENCOUNTER → 2021-07-21 09:37 | Outpatient (BNVA) | payer MEDICARE, SELFPAY | PROVIDERS: PCP Family Medicine; Referring Provider Family Medicine; Visit Provider Student in an Organized Health Care Education/Training Program | DX: X58.XXXA Exposure to other specified factors, initial encounter (principal); M70.61 Trochanteric bursitis, right hip; M70.62 Trochanteric bursitis, left hip; S76.012A Strain of muscle, fascia and tendon of left hip, initial encounter ==

== ENCOUNTER → 2021-07-26 10:27 | Outpatient (BNVA) | payer MEDICARE, SELFPAY | PROVIDERS: PCP Family Medicine; Referring Provider Emergency Medicine; Visit Provider Internal Medicine Cardiovascular Disease | DX: I48.20 Chronic atrial fibrillation, unspecified (principal); I42.8 Other cardiomyopathies; I10 Essential (primary) hypertension | CPT/HCPCS: 99214; 99213 ==

== ENCOUNTER 2021-08-06 16:02 | Outpatient (REF) | payer MEDICARE, SELFPAY ==
[2021-08-06 14:09] LABS: COMMENT (LAB VIEW ONLY) 44.62 mg/dL; Microalb ug/mg Crea 21.3 ug/mg Cr
== END 2021-08-06 16:03 | disposition home or self-care (01) ==
LOC: LBN 16:02
PROVIDERS: PCP Family Medicine; Visit Provider Family Medicine
DX: E11.9 Type 2 diabetes mellitus without complications (principal)
CPT/HCPCS: 82043; 82570

== ENCOUNTER → 2021-09-08 08:52 | Outpatient (BNVA) | payer MEDICARE, SELFPAY | PROVIDERS: PCP Family Medicine; Referring Provider Family Medicine; Visit Provider Student in an Organized Health Care Education/Training Program | DX: X58.XXXA Exposure to other specified factors, initial encounter (principal); S76.012A Strain of muscle, fascia and tendon of left hip, initial encounter; M70.61 Trochanteric bursitis, right hip; M70.62 Trochanteric bursitis, left hip | CPT/HCPCS: 99213 ==

== ENCOUNTER → 2021-09-09 08:51 | Outpatient (BNVA) | payer MEDICARE, SELFPAY | PROVIDERS: PCP Family Medicine; Referring Provider Family Medicine; Visit Provider Surgery | DX: K57.92 Diverticulitis of intestine, part unspecified, without perforation or abscess without bleeding (principal) | CPT/HCPCS: 99212 ==

== ENCOUNTER 2021-10-05 03:27 | Outpatient (CLI) | payer MEDICARE, SELFPAY ==
[2021-10-05 12:27] LABS: Abs Immature Grans 0.01 10^3/uL (0.0-0.06); Absolute Basophil Count 0.07 10^3/uL (0.0-0.2); Absolute Eosinophil Count 0.22 10^3/uL (0.0-0.7); Absolute Lymphocyte Count 2.22 10^3/uL (1.2-3.4); Absolute Monocyte Count 0.49 10^3/uL (0.1-0.8); Absolute Neutrophil Count 4.18 10^3/uL (1.2-6.7); Eosinophils % 3.1; HCT 40.5 % (36.0-46.0); HGB 13.6 g/dL (11.2-15.7); Immature Grans % 0.1; Lymphocytes % 30.9; MCH 30.1 pg (27.0-33.0); MCHC 33.6 % (32.0-36.0); MCV 90 fL (80-95); MPV 11.9 fL (8.0-11.0); Monocytes % 6.8; Neutrophils % 58.1; Platelet Count 169 10^3/uL (130-400); RBC 4.52 10^6/uL (3.93-5.22); RDW 13.4 % (11.7-14.6); WBC 7.19 10^3/uL (4.4-10.8)
== END 2021-10-05 03:28 | disposition home or self-care (01) ==
LOC: LOS 03:27
PROVIDERS: PCP Family Medicine; Visit Provider Family Medicine
DX: D64.9 Anemia, unspecified (principal)
CPT/HCPCS: 36415; 85025

== ENCOUNTER 2021-10-27 15:31 | Outpatient (REF) | payer MEDICARE, SELFPAY ==
[2021-10-27 13:39] LABS: Bilirubin Negative (Negative); Blood Small (Negative); Clarity Cloudy (Clear); Glucose Negative (Negative); Ketones Negative (Negative); Leukocyte Esterase Large (Negative); Nitrite Negative (Negative); Urobilinogen 0.2 EU/dL (Up TO 0.2)
[2021-10-27 13:47] LABS: Bacteria Many HPF (Negative); C & S Indicated? C&S Done As Ordered; Casts Negative LPF (Negative); Crystals Negative HPF (Negative); Epithelial Cells Rare HPF (Negative); Mucus Negative (Negative); Other Cells Negative (Negative); WBC >50 HPF (0-5)
== END 2021-10-27 15:32 | disposition home or self-care (01) ==
LOC: LBN 15:31
PROVIDERS: PCP Family Medicine; Visit Provider Family Medicine
DX: R30.0 Dysuria (principal)
CPT/HCPCS: 81003; 81015; 87086

== ENCOUNTER → 2021-12-15 09:23 | Outpatient (BNVA) | payer MEDICARE, SELFPAY | PROVIDERS: PCP Family Medicine; Referring Provider Family Medicine; Visit Provider Student in an Organized Health Care Education/Training Program | DX: S76.012D Strain of muscle, fascia and tendon of left hip, subsequent encounter (principal); X58.XXXD Exposure to other specified factors, subsequent encounter | CPT/HCPCS: 99213 ==

== ENCOUNTER 2022-01-10 08:43 | Outpatient (CLI) | payer MEDICARE, SELFPAY ==
--- NOTE | 2022-01-10 08:20 | DI.RAD_ITS ---
Exam(s) XR KNEE RT 2V AP,LAT EXAM: XR KNEE RT 2V AP,LAT CLINICAL HISTORY: annual f/u R TKA. TECHNIQUE: 2D digital imaging was performed. COMPARISON: CR XR KNEE RT 1V from 01/18/2021 FINDINGS: Two views: There is stable position alignment components of prosthesis. No fracture or loosening evident. IMPRESSION: DATA REPOSITORY: RADIATION DOSE DELIVERED:
== END 2022-01-10 08:44 | disposition home or self-care (01) ==
LOC: DIORS 08:44
PROVIDERS: PCP Family Medicine; Referring Provider Family Medicine; Visit Provider Student in an Organized Health Care Education/Training Program
DX: Z96.651 Presence of right artificial knee joint (principal)
CPT/HCPCS: 99214; 73560

== ENCOUNTER 2022-02-22 08:16 | Observation (INO) | payer MEDICARE, SELFPAY ==
[2022-02-22] VITALS (44 sets, daily range): BP systolic 107–177; BP diastolic 69–110; PULSE 63–109; RESP 1–35; TEMP 36.3–37.1; O2SAT 85–99
--- NOTE | 2022-02-22 08:15 | RT.EKG_ITS ---
APPROVED REPORT Exam: Resting ECG Reason for Exam: shortness of breath Patient Location: E HR:98 bpm ECG Measurements Heart Rate 98 AXIS NV [id number] P [id number] QRSd 93 QRS -1 QT 360 T 19 QTc 460 Conclusion Atrial fibrillation...V-rate 82-121, irreg A-activity Ventricular premature complex...V complex w/ short R-R interval
--- NOTE | 2022-02-22 08:15 | DI.RAD_ITS ---
Exam(s) XR PORTABLE CHEST AP EXAM: XR PORTABLE CHEST AP CLINICAL HISTORY: shortness of breath. TECHNIQUE: 2D digital imaging was performed. COMPARISON: No exams were available for comparison FINDINGS: Single AP portable view. Cardiomegaly again noted. Mediastinum not widened Mildly increased interstitial markings are noted in both lung jarrell but without distinct Lissa B li manny evident. Nevertheless probably represents significant bilateral interstitial disease. No obviou s pleural effusions. IMPRESSION: Bilateral interstitial disease, either element of developing pulmonary edema or infectious. Recommen d nonportable PA and lateral views when clinically possible. DATA REPOSITORY: RADIATION DOSE DELIVERED:
[2022-02-22] MEDS: Albuterol/Ipratropium 3 ML UPD VIAL UPD (08:40)
--- NOTE | 2022-02-22 08:44 | ED.GENADUL_ITS ---
Discharge Plan Disposition Patient Disposition: Admit to [facility] Condition: Serious Discharge Details Clinical Impression: Respiratory failure, COVID-19, Pneumonia Admit Date/Time: 02/22/22 12:52 Admit Provider: David العراقي Attending Provider: David العراقي Primary Care Provider: Audrey Arora ED Provider: Alma Delia Fletcher Discharge Data Discharge Date/Time-TO BE ENTERED AT DEPARTURE: 02/22/22 13:56 Medical Decision Making This 77-year-old female with history of COPD presents with report of COVID-19 with wheezing and difficulty breathing, Secondary to age comorbidities and presentation, several duo nebs were admini stered, Decadron initiated Chest x-ray shows evidence of a right lower lobe infiltrate per radiology interpretation my review, unclear as to whether or not this is viral or bacterial in nature, ceftriaxone and doxycycline initiated D-dimer is elevated, patient is appropriately anticoagulated for atrial fibrillation on Eliquis, I see no clear indication for CTA at this time and my suspicion for pulmonary embolism is quite low, but D-dimer was ordered for screening for coagulopathy in the setting of COVID-19 Patient has no active chest pain in BNP was elevated patient's Baseline, no overt evidence of CHF at this time She has been rate controlled throughout this encounter and has taken her medications prior to arrival She is responding initially to oxygen, she was hypoxic at 87%, at rest on room air she is 90 to 92% and no longer requiring oxygen after several DuoNeb's and Decadron Remdesivir was initiated At this time secondary to hypoxia, desaturation to 85% with ambulation in the presence of COVID-19 and respiratory failure, patient will need admission to the hospital, she is agreeable to admission at this time Case discussed with Dr. Kaufman is agreeable to admission at this time Medical Records Medical records reviewed: Yes I reviewed the patient's medical records. Lab Data Lab results reviewed: Yes I reviewed the patient's lab results. HPI General Date/Time Provider Initiated Documentation: 02/22/22 08:23 . HPI Narrative: 77-year-old female with history of anemia, chronic A. fib, diabetes, spinal stenosis, cardiomyopathy presents with report of shortness of breath, cough. She states that she was tested last Monday at urgent care told that she has COVID-19. She is fully vaccinated. She states she presents today secondary to significant shortness of breath and wheezing. She has been using her albuterol at home without relief in symptoms. She denies any calf pain or swelling. She denies any chest discomfort. She denies any fever or chills. Related Data Home Medications Medication Instructions Recorded Confirmed blood-glucose meter #100 ea 06/12/18 02/22/22 magnesium oxide 400 mg PO DAILY 03/18/19 02/22/22 lancets 28 gauge #100 ea 03/31/20 02/22/22 omega-3 fatty acids 1,000 mg 1,000 mg PO DAILY 08/11/20 02/22/22 capsule (Fish Oil Concentrate) blood sugar diagnostic (Blood #100 ea 09/16/20 02/22/22 Glucose Test strips) acetaminophen 500 mg tablet 1,000 mg PO Q8H PRN pain #90 tabs 01/06/21 02/22/22 calcium carbonate-vitamin D3 600 1 tab PO BID 06/25/21 02/22/22 mg-125 unit tablet (Calcium) vit C,E,zinc,copper-[id number] 250 1 cap PO DAILY 06/30/21 02/22/22 mg-lutein 5 mg-zeaxanthin 1 mg capsule (Ocuvite Adult 50 Plus) diltiazem HCl 180 mg capsule,24 180 mg PO HS #90 caps 07/16/21 02/22/22 hr,extended release albuterol sulfate 90 mcg/actuation 2 puff inhalation QID PRN 02/17/22 02/22/22 aerosol inhaler (Ventolin HFA) shortness of breath or wheezing #8.5 grams furosemide 40 mg tablet 40 mg PO QAM #90 tabs 02/22/22 02/22/22 glipizide 5 mg tablet, extended 5 mg PO DAILY #90 tab-caps 02/22/22 02/22/22 release 24 hr (Glucotrol XL) losartan 100 mg tablet 100 mg PO DAILY #90 tabs 02/22/22 02/22/22 metoprolol succinate 200 mg 200 mg PO DAILY #90 tabs 02/22/22 02/22/22 tablet,extended release 24 hr (Toprol XL) potassium chloride 20 mEq 20 meq PO DAILY #90 tabs 02/22/22 02/22/22 tablet,extended release(part/cryst) (Klor-Con M) Previous Rx's Medication Instructions Recorded blood-glucose meter #100 ea 06/12/18 lancets 28 gauge #100 ea 03/31/20 blood sugar diagnostic (Blood #100 ea 09/16/20 Glucose Test strips) acetaminophen 500 mg tablet 1,000 mg PO Q8H PRN pain #90 tabs 01/06/21 diltiazem HCl 180 mg capsule,24 180 mg PO HS #90 caps 07/16/21 hr,extended release albuterol sulfate 90 mcg/actuation 2 puff inhalation QID PRN 02/17/22 aerosol inhaler (Ventolin HFA) shortness of breath or wheezing #8.5 grams furosemide 40 mg tablet 40 mg PO QAM #90 tabs 02/22/22 glipizide 5 mg tablet, extended 5 mg PO DAILY #90 tab-caps 02/22/22 release 24 hr (Glucotrol XL) losartan 100 mg tablet 100 mg PO DAILY #90 tabs 02/22/22 metoprolol succinate 200 mg 200 mg PO DAILY #90 tabs 02/22/22 tablet,extended release 24 hr (Toprol XL) potassium chloride 20 mEq 20 meq PO DAILY #90 tabs 02/22/22 tablet,extended release(part/cryst) (Yonatan Hawkins) Allergies Allergy/AdvReac Type Severity Reaction Status Date / Time lisinopril AdvReac Severe COUGH Verified 02/22/22 08:29 codeine AdvReac Intermediate Nausea Verified 02/22/22 08:29 metformin AdvReac Intermediate diarrhea Verified 02/22/22 08:29 oxycodone AdvReac Intermediate Nausea Verified 02/22/22 08:29 General Stated Complaint: RespSymp KAILYN: 3 Review of Systems All systems reviewed & are unremarkable except as noted in HPI and below PFSH All Active Problems (Updated 02/23/22 @ 09:48 by DEVIKA Krause) Respiratory failure (Acute) COVID-19 (Acute) Pneumonia (Acute) Anemia of chronic disease (Chronic) Chronic atrial fibrillation (Chronic) Diabetes mellitus (Chronic) Spinal stenosis (Chronic) Cardiomyopathy (Chronic) LVEF 42% in 08/2019 SOB (shortness of breath) (Chronic) with exertion Mitral regurgitation (Chronic) Medical History (Updated 02/23/22 @ 09:48 by DEVIKA Krause) Acute diverticulitis (~03/2021) Bowel perforation Cystocele (06/24/14) Hypertension Infection resistant to penicillin MRSA abscess x 2 Kidney stone Neural foraminal stenosis of lumbar spine Obesity Osteoarthritis of right knee Paroxysmal SVT (supraventricular tachycardia) (02/15/17) zio patch Polyp of colon (02/03/04) Right thigh pain Trochanteric bursitis of left hip Trochanteric bursitis, right hip Uterine procidentia (01/20/14) with rectocoele. Surgery 02/16. Vaginal Hyst. Surgical History (Updated 12/15/21 @ 10:01 by DEVIKA Hoff) H/O surgical procedure a. MINDA/BSO with colporrhaphy and cystocele repair 02/20/2014 b. colonoscopy History of total right knee replacement (01/06/21) Hx of colonoscopy Oophrectomy, Both (02/20/14) TVH, BSO with R sided uterosacral ligament suspension with Anterior Coloporrhapy. EP/aoc S/P total knee arthroplasty Right Status post arthroscopy of left knee Status post lumbar surgery L3-L5 Tear of left gluteus medius tendon S/P Repair: 05/28/2021 Vaginal hysterectomy Family History Mother Diabetes Father Heart disease Diabetes Sister , AGE 85 Cancer Diabetes Heart disease Sister , AGE 51 Heart disease Sister , AGE 84 Diabetes Heart disease Brother , AGE 34 No problems noted. Brother , AGE 82 Diabetes Heart disease Social History Smoking/Tobacco Use Status: Former Tobacco Use Quit Date: 03/06/81 Second Hand Exposure: Yes Smoking risk assessment performed?: Yes Alcohol Intake: never Drug use: Never Substance use type: does not use Household members: spouse Housing: house Number of Children: 2 number of grandchildren: 4 Communication Needs: None Do you need help understanding health information?: Often current occupation: retired from retail, farm work Pets and animals: Yes Pets and animals: dog(s) Sexually active: No Do you think of yourself as: straight/heterosexual Current gender identity: female How often do you talk on the phone with friends or family?: three or more times per week How often do you get together with friends or relatives?: decline to answer How often do you attend sabianist or uatsdin services?: decline to answer Do you belong to any clubs or organized social groups?: decline to answer Panel score (0-1 are the most socially isolated patients): 1 Radha/Zoroastrianism: [employer] Special radha needs: No Seatbelt use: always Drive intox or ride w/intox pizza delivery driver: No Do you feel safe at home: Yes Do you feel safe in your relationship?: Yes Additional Social history: Enjoys playing golf, [employer]. Exam Const General: cooperative, comfortable and no acute distress Eyes Sclera: sclerae normal Resp Effort & Inspection: respiratory distress Auscultation: rhonchi and wheezes Cardio Rate: regular rate Rhythm: abnormal rhythm GI Inspection: normal to inspection Auscultation: normal bowel sounds Skin General skin exam: no rashes or lesions noted Neuro General: patient alert Cognition: normal cognition Extrem General: normal to inspection Other: no calf swelling or tenderness Distal pulses intact Course Vital Signs Vital signs: Vital Signs Temperature 36.3 C L 02/22/22 08:25 Pulse 87 02/22/22 08:25 Respiratory Rate 24 02/22/22 08:25 Blood Pressure 177/108 H 02/22/22 08:25 Pulse Oximetry 87 L 02/22/22 08:25 Temperature 36.3 C L 02/22/22 08:25 Temperature Source Temporal Artery Scan 02/22/22 08:25 Pulse 87 02/22/22 08:25 Respiratory Rate 24 02/22/22 08:25 Respiratory Effort Non-Labored 02/22/22 08:30 Blood Pressure 177/108 H 02/22/22 08:25 Pulse Oximetry 87 L 02/22/22 08:25 Oxygen Delivery Method Room Air 02/22/22 08:25 Oxygen Flow Rate 0 02/22/22 08:25
[2022-02-22] MEDS: Dexamethasone 10 MG/ML VIAL 6 MG IV (09:27)
[2022-02-22 09:28] LABS: BE (Venous) 3 mmol/L (-2-3); HCO3 (Venous) 28 mmol/L (23-28); O2 Sat (Venous) 66 %; TCO2 (Venous) 26 mmol/L (24-29); pCO2 (Venous) 50 mmHg (41-51); pH (Venous) 7.36 (7.31-7.41); pO2 (Venous) 36 mmHg
[2022-02-22 09:30] LABS: Abs Immature Grans 0.04 10^3/uL (0.0-0.06); Absolute Basophil Count 0.04 10^3/uL (0.0-0.2); Absolute Eosinophil Count 0.17 10^3/uL (0.0-0.7); Absolute Lymphocyte Count 1.45 10^3/uL (1.2-3.4); Absolute Monocyte Count 0.33 10^3/uL (0.1-0.8); Absolute Neutrophil Count 5.63 10^3/uL (1.2-6.7); Basophils % 0.5; Eosinophils % 2.2; HCT 36.7 % (36.0-46.0); HGB 12.2 g/dL (11.2-15.7); Immature Grans % 0.5; Lymphocytes % 18.9; MCHC 33.2 % (32.0-36.0); MCV 93 fL (80-95); MPV 10.3 fL (8.0-11.0); Monocytes % 4.3; Neutrophils % 73.6; Platelet Count 165 10^3/uL (130-400); RBC 3.94 10^6/uL (3.93-5.22); RDW 12.4 % (11.7-14.6); RDW-SD 42.1 fL; WBC 7.66 10^3/uL (4.4-10.8)
[2022-02-22 09:48] LABS: Influenza A PCR Negative (Negative); Influenza B PCR Negative (Negative); RSV PCR Negative (Negative)
[2022-02-22 09:49] LABS: Source Nasopharynx
[2022-02-22 09:51] LABS: COVID-19 PCR Positive (Negative)
[2022-02-22 09:58] LABS: ALT 48 U/L (14-59); AST 23 U/L (15-37); Albumin 3.4 g/dL (3.4-5.0); Alkaline Phosphatase 67 U/L (46-116); Anion Gap 7.5 mmol/L (3-11); BUN 15 mg/dL (7-18); Bilirubin, Total 0.8 mg/dL (0.2-1.0); CO2 28.5 mmol/L (21.0-32.0); CREATININE 1.1 mg/dL (0.55-1.02); Calcium 9.3 mg/dL (8.5-10.1); Chloride 104 mmol/L (98-107); Estimated GFR 52.08 (mL/min/1.73m2); Glucose 176 mg/dL (74-106); Magnesium 1.7 mg/dL (1.8-2.4); NT-proBNP 3364 pg/mL (<300); Potassium 4.1 mmol/L (3.5-5.1); Sodium 140 mmol/L (136-145); Total Protein 7.6 g/dL (6.4-8.2); Troponin I < 50 ng/L (<or=60)
[2022-02-22 10:04] LABS: D-Dimer 906 ng/mlFEU (<500)
[2022-02-22 12:19] LABS: Lactate 1.3 mmol/L (0.6-1.4)
[2022-02-22] MEDS: Doxycycline Hyclate 100 MG CAP PO (12:38)
[2022-02-22] MEDS: cefTRIAXone 2 GM/50 ML BAG IVPB (12:38)
[2022-02-22 12:43] LABS: Troponin I < 50 ng/L (<or=60)
[2022-02-22 13:11] LABS: Procalcitonin < 0.1 ng/mL
[2022-02-22] MEDS: REMDESIVIR 200 MG in Normal Saline 250 ML 250 MG IVPB (13:36)
--- NOTE | 2022-02-22 15:06 | HPE_ITS ---
Date of service: 02/22/22 Time of Service: 15:07 Assessment and Plan Assessment and plan (1) SOB (shortness of breath): Status: Chronic Assessment and plan: SOB. Covid 19 positive Discussion related to code status - continues to want to be a full code - short term ventilator and CPR (last COLST on file 05/12/2018 (2) Diabetes mellitus: Status: Chronic Assessment and plan: Generally stable on Glipizide SS while in pt - on steroids Check AC HS Qualifiers: Diabetes mellitus complication detail: with other arthropathy Diabetes mellitus complication status: with diabetic arthropathy Diabetes mellitus regional intermodal truck driver insulin use: without regional intermodal truck driver use Diabetes mellitus type: type 2 Qualified Code(s): E11.618 - Type 2 diabetes mellitus with other diabetic arthropathy (3) Acute on chronic heart failure with reduced ejection fraction and diastolic dysfunction: Status: Resolved Assessment and plan: Chronic - stable continue home meds - diltiazem; furosemide; metoprolol; (4) Hypertension: Assessment and plan: Stable continue home meds, monitor Qualifiers: Hypertension type: essential hypertension Qualified Code(s): I10 - Essential (primary) hypertension (5) DVT prophylaxis: Status: Deleted Assessment and plan: continue Apixaban (6) Discharge planning issues: Status: Deleted Assessment and plan: Home when stable History of Present Illness Narrative: 77-year-old female with history of anemia, chronic A. fib, diabetes, spinal stenosis, cardiomyopathy presents with report of shortness of breath, cough.? Sh e states that she was tested yesterday at [facility] told that she has COVID- 19.? She is fully vaccinated.? She states she presents today secondary to significant shortness of breath and wheezing.? She has been using her albuterol at home without relief in symptoms.? She denies any calf pain or swelling.? She denies any chest discomfort.? She denies any fever or chills. She had a full course of Molnupiravir. She received Remdesivir in the ED. No evidence supporting Remdesivir after full course of Molnupiravir, we will not continue the Remdesivir. Review of Systems All systems reviewed & are unremarkable except as noted in HPI and below PFSH All Active Problems (Updated 02/23/22 @ 09:48 by DEVIKA Krause) Respiratory failure (Acute) COVID-19 (Acute) Pneumonia (Acute) Anemia of chronic disease (Chronic) Chronic atrial fibrillation (Chronic) Diabetes mellitus (Chronic) Spinal stenosis (Chronic) Cardiomyopathy (Chronic) LVEF 42% in 08/2019 SOB (shortness of breath) (Chronic) with exertion Mitral regurgitation (Chronic) Medical History (Updated 02/23/22 @ 09:48 by DEVIKA Krause) Acute diverticulitis (~03/2021) Bowel perforation Cystocele (06/24/14) Hypertension Infection resistant to penicillin MRSA abscess x 2 Kidney stone Neural foraminal stenosis of lumbar spine Obesity Osteoarthritis of right knee Paroxysmal SVT (supraventricular tachycardia) (02/15/17) zio patch Polyp of colon (02/03/04) Right thigh pain Trochanteric bursitis of left hip Trochanteric bursitis, right hip Uterine procidentia (01/20/14) with rectocoele. Surgery 02/16. Vaginal Hyst. Surgical History (Updated 12/15/21 @ 10:01 by DEVIKA Hoff) H/O surgical procedure a. MINDA/BSO with colporrhaphy and cystocele repair 02/20/2014 b. colonoscopy History of total right knee replacement (01/06/21) Hx of colonoscopy Oophrectomy, Both (02/20/14) TVH, BSO with R sided uterosacral ligament suspension with Anterior Coloporrhapy. EP/aoc S/P total knee arthroplasty Right Status post arthroscopy of left knee Status post lumbar surgery L3-L5 Tear of left gluteus medius tendon S/P Repair: 05/28/2021 Vaginal hysterectomy Family History Mother Diabetes Father Heart disease Diabetes Sister , AGE 85 Cancer Diabetes Heart disease Sister , AGE 51 Heart disease Sister , AGE 84 Diabetes Heart disease Brother , AGE 34 No problems noted. Brother , AGE 82 Diabetes Heart disease Social History Smoking/Tobacco Use Status: Former Tobacco Use Quit Date: 03/06/81 Second Hand Exposure: Yes Smoking risk assessment performed?: Yes Alcohol Intake: never Drug use: Never Substance use type: does not use Household members: spouse Housing: house Number of Children: 2 number of grandchildren: 4 Communication Needs: None Do you need help understanding health information?: Often current occupation: retired from retail, farm work Pets and animals: Yes Pets and animals: dog(s) Sexually active: No Do you think of yourself as: straight/heterosexual Current gender identity: female How often do you talk on the phone with friends or family?: three or more times per week How often do you get together with friends or relatives?: decline to answer How often do you attend mormonism or worship services?: decline to answer Do you belong to any clubs or organized social groups?: decline to answer Panel score (0-1 are the most socially isolated patients): 1 Radha/Cheondoism: Protestant Special radha needs: No Seatbelt use: always Drive intox or ride w/intox owner operator tanker truck driver: No Do you feel safe at home: Yes Do you feel safe in your relationship?: Yes Additional Social history: Enjoys playing golf, bowling. Meds Allergies and Home Medications Allergies Allergy/AdvReac Type Severity Reaction Status Date / Time lisinopril AdvReac Severe COUGH Verified 02/22/22 08:29 codeine AdvReac Intermediate Nausea Verified 02/22/22 08:29 metformin AdvReac Intermediate diarrhea Verified 02/22/22 08:29 oxycodone AdvReac Intermediate Nausea Verified 02/22/22 08:29 Home Medications Medication Instructions Recorded Confirmed Type blood-glucose meter #100 ea 06/12/18 02/22/22 Rx magnesium oxide 400 mg PO DAILY 03/18/19 02/22/22 History lancets 28 gauge #100 ea 03/31/20 02/22/22 Rx omega-3 fatty acids 1,000 mg 1,000 mg PO DAILY 08/11/20 02/22/22 History capsule (Fish Oil Concentrate) blood sugar diagnostic (Blood #100 ea 09/16/20 02/22/22 Rx Glucose Test strips) acetaminophen 500 mg tablet 1,000 mg PO Q8H PRN pain #90 tabs 01/06/21 02/22/22 Rx calcium carbonate-vitamin D3 600 1 tab PO BID 06/25/21 02/22/22 History mg-125 unit tablet (Calcium) vit C,E,zinc,copper-fevcn2m 250 1 cap PO DAILY 06/30/21 02/22/22 History mg-lutein 5 mg-zeaxanthin 1 mg capsule (Ocuvite Adult 50 Plus) diltiazem HCl 180 mg capsule,24 180 mg PO HS #90 caps 07/16/21 02/22/22 Rx hr,extended release albuterol sulfate 90 mcg/actuation 2 puff inhalation QID PRN 02/17/22 02/22/22 Rx aerosol inhaler (Ventolin HFA) shortness of breath or wheezing #8.5 grams furosemide 40 mg tablet 40 mg PO QAM #90 tabs 02/22/22 02/22/22 Rx glipizide 5 mg tablet, extended 5 mg PO DAILY #90 tab-caps 02/22/22 02/22/22 Rx release 24 hr (Glucotrol XL) losartan 100 mg tablet 100 mg PO DAILY #90 tabs 02/22/22 02/22/22 Rx metoprolol succinate 200 mg 200 mg PO DAILY #90 tabs 02/22/22 02/22/22 Rx tablet,extended release 24 hr (Toprol XL) potassium chloride 20 mEq 20 meq PO DAILY #90 tabs 02/22/22 02/22/22 Rx tablet,extended release(part/cryst) (Klor-Con M) Exam Narrative Exam Narrative: Constitutional: Alert and oriented x3. Appears stated age. Normal body habitus. Head: Normocephalic, no trauma. Eyes: Pupils PERRL, Red reflex noted, EOM's intact. Eyelids symmetrical without lesions, discharge, or swelling. Chest: RRR, Normal S1, S2, distal pulses intact. Resp: Lungs clear to auscultation bilaterally, no wheezes, rales, or rhonchi. Abdomen: Soft, non-distended, negative Iyer sign, right CVA tenderness with palpation. Musculoskeletal: Normal gait, 5/5 strength to all four extremities. Skin: No suspicious rashes or lesions. Capillary refill less than 2 sec. Neurologic: Cranial nerves II-XII intact. Alert and oriented x 3. Motor: No deficits noted. Sensory: Intact bilaterally all 4 extremities. Hematologic/Lymphatic: No ecchymosis, no lymphadenopathy. Results Labs Result diagrams: 02/23/22 07:25 02/23/22 07:25 Labs: Laboratory Results - last 24 hr 02/22/22 02/22/22 02/22/22 08:28 09:01 09:21 WBC RBC Hgb Hct MCV MCH MCHC RDW Plt Count MPV Immature Gran % Neutrophils % Lymphocytes % Monocytes % Eosinophils % Basophils % Nucleated RBC % Absolute Neutrophils Absolute Lymphocytes Absolute Monocytes Absolute Eosinophils Absolute Basophils D-Dimer VBG pH VBG pCO2 VBG pO2 VBG HCO3 VBG Total CO2 VBG O2 Saturation VBG Base Excess VBG Lactate Sodium 140 Potassium 4.1 Chloride 104 Carbon Dioxide 28.5 Anion Gap 7.5 BUN 15 Creatinine 1.1 H Est GFR (CKD-EPI 2020) 52.08 Glucose 176 H Calcium 9.3 Magnesium 1.7 L Total Bilirubin 0.8 AST 23 ALT 48 Alkaline Phosphatase 67 Troponin I < 50 NT-Pro-B Natriuret Pep Cancelled 3364 H Total Protein 7.6 Albumin 3.4 Procalcitonin COVID-19 Source Nasopharynx SARS-CoV-2 (PCR) Positive A Influenza Type A (PCR) Negative Influenza Type B (PCR) Negative RSV (PCR) Negative 02/22/22 02/22/22 02/22/22 09:21 09:21 09:21 WBC 7.66 RBC 3.94 Hgb 12.2 Hct 36.7 MCV 93 MCH 31.0 MCHC 33.2 RDW 12.4 Plt Count 165 MPV 10.3 Immature Gran % 0.5 Neutrophils % 73.6 Lymphocytes % 18.9 Monocytes % 4.3 Eosinophils % 2.2 Basophils % 0.5 Nucleated RBC % 0.0 Absolute Neutrophils 5.63 Absolute Lymphocytes 1.45 Absolute Monocytes 0.33 Absolute Eosinophils 0.17 Absolute Basophils 0.04 D-Dimer 906 H VBG pH 7.36 VBG pCO2 50 VBG pO2 36 VBG HCO3 28 VBG Total CO2 26 VBG O2 Saturation 66 VBG Base Excess 3 VBG Lactate Sodium Potassium Chloride Carbon Dioxide Anion Gap BUN Creatinine Est GFR (CKD-EPI 2020) Glucose Calcium Magnesium Total Bilirubin AST ALT Alkaline Phosphatase Troponin I NT-Pro-B Natriuret Pep Total Protein Albumin Procalcitonin COVID-19 Source SARS-CoV-2 (PCR) Influenza Type A (PCR) Influenza Type B (PCR) RSV (PCR) 02/22/22 02/22/22 02/22/22 12:12 12:12 12:12 WBC RBC Hgb Hct MCV MCH MCHC RDW Plt Count MPV Immature Gran % Neutrophils % Lymphocytes % Monocytes % Eosinophils % Basophils % Nucleated RBC % Absolute Neutrophils Absolute Lymphocytes Absolute Monocytes Absolute Eosinophils Absolute Basophils D-Dimer VBG pH VBG pCO2 VBG pO2 VBG HCO3 VBG Total CO2 VBG O2 Saturation VBG Base Excess VBG Lactate 1.3 Sodium Potassium Chloride Carbon Dioxide Anion Gap BUN Creatinine Est GFR (CKD-EPI 2020) Glucose Calcium Magnesium Total Bilirubin AST ALT Alkaline Phosphatase Troponin I < 50 NT-Pro-B Natriuret Pep Total Protein Albumin Procalcitonin < 0.1 COVID-19 Source SARS-CoV-2 (PCR) Influenza Type A (PCR) Influenza Type B (PCR) RSV (PCR) Last Vital Signs Temp 36.5 C 02/22/22 14:44 Pulse 92 H 02/22/22 14:44 Resp 18 02/22/22 14:44 BP 162/92 H 02/22/22 14:44 Pulse Ox 97 02/22/22 14:44
[2022-02-22] MEDS: Apixaban 5 MG TAB PO (19:33)
[2022-02-22] MEDS: Calcium 600mg/Vit D 200U TAB 1 TAB PO (19:33)
[2022-02-22] MEDS: dilTIAZem CD 180 MG CAPCR PO (19:57)
[2022-02-23 03:56] VITALS: BP 162/90; PULSE 98; RESP 20; TEMP 36.4; O2SAT 96
[2022-02-23 07:39] LABS: Abs Immature Grans 0.03 10^3/uL (0.0-0.06); Absolute Basophil Count 0.02 10^3/uL (0.0-0.2); Absolute Lymphocyte Count 1.04 10^3/uL (1.2-3.4); Absolute Monocyte Count 0.41 10^3/uL (0.1-0.8); Basophils % 0.2; HCT 35.3 % (36.0-46.0); HGB 11.9 g/dL (11.2-15.7); Immature Grans % 0.3; Lymphocytes % 10.3; MCH 30.8 pg (27.0-33.0); MCHC 33.7 % (32.0-36.0); MCV 92 fL (80-95); MPV 10.6 fL (8.0-11.0); Monocytes % 4.1; Neutrophils % 85.1; Platelet Count 183 10^3/uL (130-400); RBC 3.86 10^6/uL (3.93-5.22); RDW 12.2 % (11.7-14.6); RDW-SD 40.4 fL
[2022-02-23 07:52] VITALS: BP 165/97; PULSE 97; RESP 19; TEMP 36.7; O2SAT 96
[2022-02-23 07:55] LABS: Anion Gap 7.8 mmol/L (3-11); BUN 23 mg/dL (7-18); CO2 27.2 mmol/L (21.0-32.0); CREATININE 1.1 mg/dL (0.55-1.02); Calcium 9.5 mg/dL (8.5-10.1); Chloride 103 mmol/L (98-107); Estimated GFR 52.08 (mL/min/1.73m2); Glucose 214 mg/dL (74-106); Magnesium 1.9 mg/dL (1.8-2.4); Potassium 3.7 mmol/L (3.5-5.1); Sodium 138 mmol/L (136-145)
[2022-02-23] MEDS: Furosemide 40 MG TAB PO (09:04)
[2022-02-23] MEDS: Losartan 50 MG TAB 100 MG PO (09:04)
[2022-02-23] MEDS: Omega-3 Fatty Acids 1000 MG CAP PO (09:04)
[2022-02-23] MEDS: Apixaban 5 MG TAB PO ×2 (09:04→20:23)
[2022-02-23] MEDS: Metoprolol CR 100 MG TABCR 200 MG PO (09:05)
[2022-02-23] MEDS: Calcium 600mg/Vit D 200U TAB 1 TAB PO ×2 (09:05→20:23)
[2022-02-23] MEDS: Potassium Chloride 20 MEQ TABCR PO (09:05)
[2022-02-23] MEDS: glipiZIDE C.R. 5 MG TABCR PO (09:05)
[2022-02-23] MEDS: Magnesium Oxide 400 MG TAB PO (09:05)
--- NOTE | 2022-02-23 09:26 | INITIAL_ITS ---
- If Service Date Differs Date of service: 02/23/22 Time of Service: 09:26 Care Management Initial Assess REASON FOR HOSPITALIZATION:: Respiratory Failure, Covid PAST MEDICAL HISTORY/PAST SURGICAL HISTORY:: All Active Problems (Updated 12/15/21 @ 10:01 by DEVIKA Hoff). Anemia of chronic disease (Chronic). Chronic atrial fibrillation (Chronic). Diabetes mellitus (Chronic). Spinal stenosis (Chronic). Cardiomyopathy (Chronic). LVEF 42% in 08/2019. SOB (shortness of breath) (Chronic). with exertion. Mitral regurgitation (Chronic). Medical History (Updated 12/15/21 @ 10:01 by DEVIKA Hoff). Acute diverticulitis (~03/2021). Bowel perforation. Cystocele (06/24/14). Hypertension. Infection resistant to penicillin. MRSA abscess x 2. Kidney stone. Neural foraminal stenosis of lumbar spine. Obesity. Osteoarthritis of right knee. Paroxysmal SVT (supraventricular tachycardia) (02/15/17). zio patch. Polyp of colon (02/03/04). Right thigh pain. Trochanteric bursitis of left hip. Trochanteric bursitis, right hip. Uterine procidentia (01/20/14). with rectocoele. Surgery 02/16. Vaginal Hyst. Surgical History (Updated 12/15/21 @ 10:01 by DEVIKA Hoff). H/O surgical procedure. a. MINDA/BSO with colporrhaphy and cystocele repair 02/20/2014. b. colonoscopy. History of total right knee replacement (01/06/21). Hx of colonoscopy. Oophrectomy, Both (02/20/14). TVH, BSO with R sided uterosacral ligament suspension with Anterior Coloporrhapy. EP/aoc. S/P total knee arthroplasty. Right. Status post arthroscopy of left knee. Status post lumbar surgery. L3-L5. Tear of left gluteus medius tendon. S/P Repair: 05/28/2021. Vaginal hysterectomy PREVIOUS FUNCTIONAL STATUS/SOCIAL/FAMILY SUPPORTS:: Kaleigh resides with her spouse Cam in [place], [place]. She has two children that live local and has a good support system. 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 CURRENT FUNCTIONAL STATUS:: Kaleigh is being closely monitored and treated. CM spoke with Kaleigh via phone, since she is on Covid precautions. Kaleigh shares with CM that nursing has been keeping her daughter up to date and she has no concerns at this time. ADVANCE DIRECTIVES:: On file, [facility] is [facility] Has patient been provided with info about the portal/API?: Yes Did the patient sign up for the portal?: No CODE STATUS:: Full Code INSURANCE COVERAGE / FINANCIAL ISSUES:: [employer], Medicare, [employer] CURRENT HOME/COMMUNITY SERVICES/EQUIPMENT:: [facility] PRIMARY CARE PHYSICIAN:: Audrey Arora POTENTIAL DISCHARGE NEEDS:: Follow up with primary care provider, evaluation for increased community support. PATIENT/FAMILY EDUCATION NEEDS:: Discharge education, limitations and follow up plan of care including ask me three and self management. TRANSPORTATION:: Via private car with family at time of discharge. PLAN:: Anticipate, Kaleigh will discharge home when medically ready, per provider. She will transport via private vehicle with family. Additional, services to be determined. CM to continue to provide support and assess for discharge needs and services.
[2022-02-23 12:06] VITALS: BP 162/82; PULSE 79; RESP 19; TEMP 36.7; O2SAT 95
[2022-02-23] MEDS: Insulin Aspart 300 UNITS/3 ML PEN SC ×3 (12:44→22:44)
[2022-02-23] MEDS: Benzonatate 100 MG CAP PO (14:19)
[2022-02-23 15:11] VITALS: BP 154/84; PULSE 74; RESP 22; TEMP 36.5; O2SAT 96
[2022-02-23] MEDS: Albuterol HFA 8 GM 60 PUFF INH IH (16:16)
--- NOTE | 2022-02-23 19:01 | W.PM.PROGNOT ---
Date of Service Date of service: 02/23/22 Time of Service: 19:01 Assessment and Plan Assessment and plan (1) SOB (shortness of breath): Status: Chronic Assessment and plan: SOB. Covid 19 positive she did have full course of Molnupiravir - No oxygen requirement. Discussion related to code status - continues to want to be a full code - requests short term ventilator if necessary and CPR (last COLST on file 05/12/2018 (2) Diabetes mellitus: Status: Chronic Assessment and plan: Generally stable on Glipizide SS while in pt - on steroids Check AC HS Qualifiers: Diabetes mellitus type: type 2 Diabetes mellitus intermission coordinator insulin use: without intermediate use Diabetes mellitus complication status: with diabetic arthropathy Diabetes mellitus complication detail: with other arthropathy Qualified Code(s): E11.618 - Type 2 diabetes mellitus with other diabetic arthropathy (3) Acute on chronic heart failure with reduced ejection fraction and diastolic dysfunction: Status: Resolved Assessment and plan: Chronic - stable continue home meds - diltiazem; furosemide; metoprolol; (4) Hypertension: Assessment and plan: Stable continue home meds, monitor Qualifiers: Hypertension type: essential hypertension Qualified Code(s): I10 - Essential (primary) hypertension (5) DVT prophylaxis: Status: Deleted Assessment and plan: continue Apixaban (6) Discharge planning issues: Status: Deleted Assessment and plan: Home when stable Subjective Subjective Patient reports: no new complaints, feels better, tolerating a regular diet and afebrile; denies diarrhea, nausea or vomiting Interval history since last seen: Feeling better Exam Narrative Exam Narrative: Constitutional: Alert and oriented x3. Appears stated age. Normal body habitus. Head: Normocephalic, no trauma. Eyes: Pupils PERRL, Red reflex noted, EOM's intact. Eyelids symmetrical without lesions, discharge, or swelling. Chest: RRR, Normal S1, S2, distal pulses intact. Resp: Lungs clear to auscultation bilaterally, no wheezes, rales, or rhonchi. Abdomen: Soft, non-distended, negative Iyer sign, right CVA tenderness with palpation. Musculoskeletal: Normal gait, 5/5 strength to all four extremities. Skin: No suspicious rashes or lesions. Capillary refill less than 2 sec. Neurologic: Cranial nerves II-XII intact. Alert and oriented x 3. Motor: No deficits noted. Sensory: Intact bilaterally all 4 extremities. Hematologic/Lymphatic: No ecchymosis, no lymphadenopathy. Objective Last Vital Signs Temp 36.5 C 02/23/22 15:11 Pulse 74 02/23/22 15:11 Resp 22 02/23/22 15:11 BP 154/84 H 02/23/22 15:11 Pulse Ox 96 02/23/22 15:11 Laboratory Results - last 24 hr 02/23/22 02/23/22 07:25 07:25 WBC 10.10 RBC 3.86 L Hgb 11.9 Hct 35.3 L MCV 92 MCH 30.8 MCHC 33.7 RDW 12.2 Plt Count 183 MPV 10.6 Immature Gran % 0.3 Neutrophils % 85.1 Lymphocytes % 10.3 Monocytes % 4.1 Eosinophils % 0.0 Basophils % 0.2 Nucleated RBC % 0.0 Absolute Neutrophils 8.60 H Absolute Lymphocytes 1.04 L Absolute Monocytes 0.41 Absolute Eosinophils 0.00 Absolute Basophils 0.02 Sodium 138 Potassium 3.7 Chloride 103 Carbon Dioxide 27.2 Anion Gap 7.8 BUN 23 H Creatinine 1.1 H Est GFR (CKD-EPI 2020) 52.08 Glucose 214 H Calcium 9.5 Magnesium 1.9
[2022-02-23 20:26] VITALS: BP 165/90; PULSE 64; RESP 20; TEMP 36.4; O2SAT 96
[2022-02-23] MEDS: dilTIAZem CD 180 MG CAPCR PO (22:44)
[2022-02-23 22:48] VITALS: BP 160/95; PULSE 86; RESP 20; TEMP 36.6; O2SAT 94
[2022-02-24 02:55] VITALS: BP 159/91; PULSE 71; RESP 18; TEMP 36.1; O2SAT 94
[2022-02-24 07:12] LABS: Abs Immature Grans 0.04 10^3/uL (0.0-0.06); Absolute Basophil Count 0.02 10^3/uL (0.0-0.2); Absolute Eosinophil Count 0.11 10^3/uL (0.0-0.7); Absolute Lymphocyte Count 1.82 10^3/uL (1.2-3.4); Absolute Monocyte Count 0.61 10^3/uL (0.1-0.8); Basophils % 0.2; Eosinophils % 1.1; HCT 34.1 % (36.0-46.0); HGB 11.5 g/dL (11.2-15.7); Immature Grans % 0.4; Lymphocytes % 18.8; MCH 31.2 pg (27.0-33.0); MCHC 33.7 % (32.0-36.0); MCV 92 fL (80-95); MPV 10.6 fL (8.0-11.0); Monocytes % 6.3; Neutrophils % 73.2; Platelet Count 189 10^3/uL (130-400); RBC 3.69 10^6/uL (3.93-5.22); RDW 12.5 % (11.7-14.6); RDW-SD 42.1 fL
[2022-02-24 07:35] LABS: Anion Gap 8.1 mmol/L (3-11); BUN 25 mg/dL (7-18); CO2 28.9 mmol/L (21.0-32.0); Calcium 9.5 mg/dL (8.5-10.1); Chloride 103 mmol/L (98-107); Estimated GFR 58.39 (mL/min/1.73m2); Glucose 138 mg/dL (74-106); Potassium 3.7 mmol/L (3.5-5.1); Sodium 140 mmol/L (136-145)
[2022-02-24] MEDS: Furosemide 40 MG TAB PO (08:22)
[2022-02-24] MEDS: Apixaban 5 MG TAB PO (08:22)
[2022-02-24] MEDS: glipiZIDE C.R. 5 MG TABCR PO (08:23)
[2022-02-24] MEDS: Calcium 600mg/Vit D 200U TAB 1 TAB PO (08:23)
[2022-02-24] MEDS: Metoprolol CR 100 MG TABCR 200 MG PO (08:23)
[2022-02-24] MEDS: Omega-3 Fatty Acids 1000 MG CAP PO (08:23)
[2022-02-24] MEDS: Losartan 50 MG TAB 100 MG PO (08:23)
[2022-02-24] MEDS: Magnesium Oxide 400 MG TAB PO (08:23)
[2022-02-24] MEDS: Potassium Chloride 20 MEQ TABCR PO (08:23)
[2022-02-24 08:24] VITALS: BP 160/99; PULSE 86; RESP 20; TEMP 36.1; O2SAT 97
--- NOTE | 2022-02-24 09:55 | CMPROGNOTE_ITS ---
- If Service Date Differs Date of service: 02/24/22 Time of Service: 09:56 Care Management Progress Note S/O: A: Kaleigh is a 77 year old female admitted to [facility] on 02/22/22 for respiratory failure. P: Anticipate, Kaleigh will discharge home when medically ready, per provider. She will transport via private vehicle with family. Additional, services to be determined. CM to continue to provide support and assess for discharge needs and services.
--- NOTE | 2022-02-24 10:28 | W.INDIABCONS ---
Date of service: 02/24/22 Time of Service: 10:29 Diabetes Inpatient Consult Reason for Visit: dm DESCRIPTION/ASSESSMENT: Kaleigh was admitted with covid 19 PNA with respiratory failure. PMH: Dm 2, CHF, HTN. BMI indicates class 2 obesity. Following diabetic diet with excellent intake. Home Dm meds: 5 mg glipizide qd. Most recent A1C: 6.3% (08/06/21) indicates excellent glycemic management. Not at nutritional risk. No education needed at this time. PLAN: Will monitor po intake, weight, labs Time Spent in Nutritional Counseling and Treatment: 0
[2022-02-24] MEDS: Benzonatate 100 MG CAP PO (10:50)
[2022-02-24] MEDS: predniSONE 20 MG TAB 40 MG PO (10:50)
[2022-02-24 11:00] VITALS: PULSE 110; PULSE 79; PULSE 98; O2SAT 92; O2SAT 94
--- NOTE | 2022-02-24 13:44 | W.PM.DS.N ---
Date of service: 02/24/22 Time of Service: 13:44 DS: Diagnosis Discharge Diagnosis (1) SOB (shortness of breath): Status: Chronic (2) Diabetes mellitus: Status: Chronic (3) Acute on chronic heart failure with reduced ejection fraction and diastolic dysfunction: Status: Resolved Discharge Plan Disposition Patient Disposition: Home Condition: Good Discharge Details Reason For Visit: Respiratory failure Admit Date/Time: 02/22/22 12:52 Admit Provider: David العراقي Attending Provider: David العراقي Primary Care Provider: Audrey Arora Hospital Course Hospital Course: 77-year-old female with history of anemia, chronic A. fib, diabetes, spinal stenosis, cardiomyopathy presented to the [facility] ED with report of shortness of breath and cough.? She stated that she was tested at [facility] and was told that she has COVID-19.? She is fully vaccinated.? She stated she began having shortness of breath and wheezing.? She has been using her albuterol at home without relief in symptoms.? She denied any calf pain or swelling.? She denied any chest discomfort.? She denied any fever or chills. She had a full course of Molnupiravir.? She received Remdesivir in the ED.? No evidence supporting Remdesivir after full course of Molnupiravir, we did not continue the Remdesivir. She had no oxygen requirements. Her procalcitonin was negative. She was not put on any antibiotics. She continued her home medications. She felt better quickly, was able to eat and drink and was discharged to home, stable improved with a prescription to take prednisone for 5 days, and Tessalon perles as needed. Of note she was on Eliquis 5 mg twice a day when she arrived at the hospital however it was not on her home medication list; we have added it below. Discussesd with Dr العراقي ? Home Meds and New Rx's Prescriptions: New Eliquis 5 mg Tablet 5 mg PO BID Qty: 0 0RF Inhaler, Assist Devices [Pocket Chamber] 1 ea miscellaneous DIRECTED Qty: 0 0RF benzonatate 100 mg Capsule 100 mg PO TID PRN PRN (Reason: Cough) Qty: 30 0RF prednisone 20 mg tablet 40 mg PO DAILY Qty: 5 0RF Continued omega-3 fatty acids [Fish Oil Concentrate] 1,000 mg capsule 1,000 mg PO DAILY diltiazem HCl 180 mg capsule,extended release 24 hr 180 mg PO HS Qty: 90 3RF albuterol sulfate [Ventolin HFA] 90 mcg/actuation HFA aerosol inhaler 2 puff inhalation QID PRN (Reason: shortness of breath or wheezing) Qty: 8.5 0RF magnesium oxide 400 mg magnesium tablet 400 mg PO DAILY Ocuvite Adult 50 Plus 250-5-1 mg capsule 1 cap PO DAILY (DME) blood-glucose meter misc 1 ea Miscellaneous twice weekly Qty: 100 4RF Rx Instructions: METER TYPE ONE TOUCH ULTRA MINI E11.9 daily testing (DME) lancets 28 gauge misc 1 ea Miscellaneous DAILY Qty: 100 4RF Label Comments: pt. reports taking BS two days, 137 Rx Instructions: ONE TOUCH ULTRA MINI METER. NO INSULIN. DIAGNOSIS CODE E11.9 (DME) Blood Glucose Test Strip See Dose Instructions .ROUTE .MEDSUPPLY Qty: 100 5RF Dose Instruction: As directed Rx Instructions: daily E11.9 One touch potassium chloride [Klor-Con M20] 20 mEq tablet,ER particles/crystals 20 meq PO DAILY Qty: 90 1RF losartan 100 mg tablet 100 mg PO DAILY Qty: 90 3RF furosemide 40 mg tablet 40 mg PO QAM Qty: 90 3RF metoprolol succinate [Toprol XL] 200 mg tablet extended release 24 hr 200 mg PO DAILY Qty: 90 3RF glipizide [Glucotrol XL] 5 mg tablet extended release 24hr 5 mg PO DAILY Qty: 90 3RF Calcium 600 + D(3) 600-125 mg-unit tablet 1 tab PO BID acetaminophen 500 mg tablet 1,000 mg PO Q8H PRN (Reason: pain) Qty: 90 3RF Discharge Instructions Instructions: Benzonatate (By mouth), Prednisone (By mouth), COVID-19 (Coronavirus Disease 2019) (DC) Stand Alone Forms: Nursing Discharge Form Referrals: Audrey Arora MD [Primary Care Provider] - 03/11/22 10:20 am (1-2 weeks) Activity:: Activity as Tolerated Equipment/Supplies:: No Equipment Needed Diet:: As Tolerated Discharge Orders Discharge Orders: Discharge Order (Routine); Ordered 02/24/22 Ordered By: Marcelina South Discharge Data Discharge Date/Time-TO BE ENTERED AT DEPARTURE: 02/24/22 14:30 DS: Summary Time Spent with Patient providing and/or coordinating discharge services: Greater than 30 minutes Status at Discharge Functional status at discharge: independent ambulation Overall status at discharge: patient is back to baseline Mental Status: mental status grossly normal Speech and Movement: speech and movement normal Mood: congruent mood Affect: normal affect Exam Narrative Exam Narrative: Constitutional: Alert and oriented x3. Appears stated age. Normal body habitus. Head: Normocephalic, no trauma. Eyes: Pupils PERRL, Red reflex noted, EOM's intact. Eyelids symmetrical without lesions, discharge, or swelling. Chest: RRR, Normal S1, S2, distal pulses intact. Resp: Lungs clear to auscultation bilaterally, no wheezes, rales, or rhonchi. Abdomen: Soft, non-distended, negative Iyer sign, right CVA tenderness with palpation. Musculoskeletal: Normal gait, 5/5 strength to all four extremities. Skin: No suspicious rashes or lesions. Capillary refill less than 2 sec. Neurologic: Cranial nerves II-XII intact. Alert and oriented x 3. Motor: No deficits noted. Sensory: Intact bilaterally all 4 extremities. Hematologic/Lymphatic: No ecchymosis, no lymphadenopathy. Psych Mental Status: mental status grossly normal Speech and Movement: speech and movement normal Mood: congruent mood Affect: normal affect DS: Data Vitals/I&O Vitals and I&O: Vital Signs Temperature 36.1 C L 02/24/22 08:24 Temperature Source Tympanic 02/24/22 08:24 Pulse 86 02/24/22 08:24 Pulse Rhythm Regular 02/24/22 11:29 Pulse 102 H 02/22/22 12:50 Respiratory Rate 20 02/24/22 08:24 Respiratory Effort Non-Labored 02/24/22 11:29 Respiratory Depth Normal 02/24/22 11:29 Respiratory Pattern Normal 02/24/22 11:29 Blood Pressure 160/99 H 02/24/22 08:24 Blood Pressure Mean 74 02/22/22 12:02 Pulse Oximetry 97 02/24/22 08:24 Oxygen Delivery Method Room Air 02/24/22 08:24 Oxygen Flow Rate 0 02/24/22 08:24 Pain Level 0 02/24/22 08:24 Comment 02/22/22 19:47 Intake & Output 02/23/22 02/24/22 02/24/22 23:59 11:59 23:59 Other: Comment patient voids independently pt voided independently Stool Size Moderate Stool Characteristics Soft Formed Voiding Methods Toilet Data Completed and Pending Labs on day of discharge: Labs from last 24 hours 02/24/22 02/24/22 06:22 06:22 WBC 9.70 RBC 3.69 L Hgb 11.5 Hct 34.1 L MCV 92 MCH 31.2 MCHC 33.7 RDW 12.5 Plt Count 189 MPV 10.6 Immature Gran % 0.4 Neutrophils % 73.2 Lymphocytes % 18.8 Monocytes % 6.3 Eosinophils % 1.1 Basophils % 0.2 Nucleated RBC % 0.0 Absolute Neutrophils 7.10 H Absolute Lymphocytes 1.82 Absolute Monocytes 0.61 Absolute Eosinophils 0.11 Absolute Basophils 0.02 Sodium 140 Potassium 3.7 Chloride 103 Carbon Dioxide 28.9 Anion Gap 8.1 BUN 25 H Creatinine 1.0 Est GFR (CKD-EPI 2020) 58.39 Glucose 138 H Calcium 9.5 Magnesium 2.0 Preliminary micro results at discharge 02/22/22 12:36 Blood Culture - Preliminary Blood NO GROWTH 24 HOURS 02/22/22 12:12 Blood Culture - Preliminary Blood NO GROWTH 24 HOURS PFSH All Active Problems (Updated 02/23/22 @ 09:48 by DEVIKA Krause) Respiratory failure (Acute) COVID-19 (Acute) Pneumonia (Acute) Anemia of chronic disease (Chronic) Chronic atrial fibrillation (Chronic) Diabetes mellitus (Chronic) Spinal stenosis (Chronic) Cardiomyopathy (Chronic) LVEF 42% in 08/2019 SOB (shortness of breath) (Chronic) with exertion Mitral regurgitation (Chronic) Medical History (Updated 02/23/22 @ 09:48 by DEVIKA Krause) Acute diverticulitis (~03/2021) Bowel perforation Cystocele (06/24/14) Hypertension Infection resistant to penicillin MRSA abscess x 2 Kidney stone Neural foraminal stenosis of lumbar spine Obesity Osteoarthritis of right knee Paroxysmal SVT (supraventricular tachycardia) (02/15/17) zio patch Polyp of colon (02/03/04) Right thigh pain Trochanteric bursitis of left hip Trochanteric bursitis, right hip Uterine procidentia (01/20/14) with rectocoele. Surgery 02/16. Vaginal Hyst. Surgical History (Updated 12/15/21 @ 10:01 by DEVIKA Hoff) H/O surgical procedure a. MINDA/BSO with colporrhaphy and cystocele repair 02/20/2014 b. colonoscopy History of total right knee replacement (01/06/21) Hx of colonoscopy Oophrectomy, Both (02/20/14) TVH, BSO with R sided uterosacral ligament suspension with Anterior Coloporrhapy. EP/aoc S/P total knee arthroplasty Right Status post arthroscopy of left knee Status post lumbar surgery L3-L5 Tear of left gluteus medius tendon S/P Repair: 05/28/2021 Vaginal hysterectomy Family History Mother Diabetes Father Heart disease Diabetes Sister , AGE 85 Cancer Diabetes Heart disease Sister , AGE 51 Heart disease Sister , AGE 84 Diabetes Heart disease Brother , AGE 34 No problems noted. Brother , AGE 82 Diabetes Heart disease Social History Smoking/Tobacco Use Status: Former Tobacco Use Quit Date: 03/06/81 Second Hand Exposure: Yes Smoking risk assessment performed?: Yes Alcohol Intake: never Drug use: Never Substance use type: does not use Household members: spouse Housing: house Number of Children: 2 number of grandchildren: 4 Communication Needs: None Do you need help understanding health information?: Often current occupation: retired from retail, farm work Pets and animals: Yes Pets and animals: dog(s) Sexually active: No Do you think of yourself as: straight/heterosexual Current gender identity: female How often do you talk on the phone with friends or family?: three or more times per week How often do you get together with friends or relatives?: decline to answer How often do you attend mandaen or mormon services?: decline to answer Do you belong to any clubs or organized social groups?: decline to answer Panel score (0-1 are the most socially isolated patients): 1 Radha/Temple: Mandaen Special radha needs: No Seatbelt use: always Drive intox or ride w/intox 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
--- NOTE | 2022-02-24 14:48 | PDOC.CMDIS ---
- If Service Date Differs Date of service: 02/24/22 Time of Service: 14:48 LACE Index Scoring Tool - Questions: Length of Stay (in days): 2 Acuity (Admit via E.D.?): Yes Comorbidities: Diabetes w/o Complication E.D. Visits: 3 - Answers: Total Score: 9 Risk of Readmission: Low Risk Care Management Discharge Reason for Hospitalization: Respiratory Failure, Covid Discharge Plan: Kaleigh will return home with no additional services. Her will drive her home via private vehicle. She will follow up with her PCP (03/11/22 at 10:20am) and discharge plan of care. Patient/Family Education Needs: Review discharge instructions and limitations, discussion of self care needs including ask me three.
== END 2022-02-24 14:30 | disposition home or self-care (01) ==
LOC: ER 13:38 → MS 13:58
PROVIDERS: Nurse Practitioner Family; Admitting Provider Family Medicine; Emergency Provider Physician Assistant; PCP Family Medicine; Visit Provider Family Medicine
DX: J96.90 Respiratory failure, unspecified, unspecified whether with hypoxia or hypercapnia (principal); I50.43 Acute on chronic combined systolic (congestive) and diastolic (congestive) heart failure; U07.1 COVID-19; I11.0 Hypertensive heart disease with heart failure; J84.9 Interstitial pulmonary disease, unspecified; E11.618 Type 2 diabetes mellitus with other diabetic arthropathy; Z79.01 Long term (current) use of anticoagulants; J44.0 Chronic obstructive pulmonary disease with (acute) lower respiratory infection; I48.20 Chronic atrial fibrillation, unspecified; I42.9 Cardiomyopathy, unspecified; M48.00 Spinal stenosis, site unspecified; Z79.84 Long term (current) use of oral hypoglycemic drugs; Z79.899 Other long term (current) drug therapy; D63.8 Anemia in other chronic diseases classified elsewhere; I34.0 Nonrheumatic mitral (valve) insufficiency
CPT/HCPCS: 36415; 80048; 80053; 82805; 84145; 87040; 87637; 93005; 94618; 94640; 96365; 96366; 96375; 99217; 99285; 71045; 83605; 83735; 83880; 84484; 85025; 85379; 93010; 99219; 99225; G0378; J0248; J1100; J7512; J7620

== ENCOUNTER → 2022-03-11 09:18 | Outpatient (BNVA) | payer MEDICARE, SELFPAY | PROVIDERS: PCP Family Medicine; Referring Provider Family Medicine; Visit Provider Surgery | DX: K57.92 Diverticulitis of intestine, part unspecified, without perforation or abscess without bleeding (principal); Z86.16 Personal history of COVID-19 | CPT/HCPCS: 99212 ==

== ENCOUNTER 2022-03-17 04:17 | Outpatient (CLI) | payer MEDICARE, SELFPAY ==
[2022-03-17] MEDS: Albuterol HFA 18 GM 200 PUFF INH IH (11:13)
[2022-03-17] MEDS: Inhaler, Assist Device 1 EACH MC (11:14)
--- NOTE | 2022-03-18 14:32 | W.PFT ---
Date of service: 03/17/22 Time of Service: 10:03 Pulmonary Function Test Result Requesting Provider Audrey Arora Indications: Dyspnea on exertion Interpretation Spirometry: There is no airflow limitation. Although strict criteria are not met, there is likely a significant bronchodilator response. (12% increase, but only 160cc improvement). The FVC is low. Lung Volumes: Normal lung volumes Diffusion Capacity: Normal diffusion Airway Pressure: Normal airways resistance Impression Normal pulmonary function, with a possibly significant bronchodilator response (although strict criteria not met). There is pseudo-restriction present likely due to the patients elevated BMI. Clinical Correlation therefore is recommended.
== END 2022-03-17 04:18 | disposition home or self-care (01) ==
LOC: RT 04:17
PROVIDERS: PCP Family Medicine; Visit Provider Family Medicine
DX: R06.02 Shortness of breath (principal); R06.09 Other forms of dyspnea; Z87.891 Personal history of nicotine dependence
CPT/HCPCS: 94060; 94726; 94729

== ENCOUNTER 2022-03-22 02:07 | Outpatient (CLI) | payer MEDICARE, SELFPAY ==
--- NOTE | 2022-03-22 07:20 | DI.RAD_ITS ---
Exam(s) XR CHEST 2V PA LATERAL EXAM: XR CHEST 2V PA LATERAL CLINICAL HISTORY: f/u recent CXR,SOB, R06.02,BILAT INTERSTITIAL DISEASE. TECHNIQUE: 2D digital imaging was performed. COMPARISON: CR XR PORTABLE CHEST AP from 02/22/2022 FINDINGS: 2 views: Heart size is upper normal. The mediastinum is not widened. Lungs are clear. No infiltrates nor pleural effusions. Previously present interstitial lung pattern has resolved bilaterally. The lungs are presently clear . There are no pleural effusions. IMPRESSION: No acute pulmonary findings at this time. DATA REPOSITORY: RADIATION DOSE DELIVERED:
== END 2022-03-22 02:27 ==
LOC: DI 02:07
PROVIDERS: PCP Family Medicine; Visit Provider Family Medicine
DX: R06.02 Shortness of breath (principal); J84.9 Interstitial pulmonary disease, unspecified
CPT/HCPCS: 71046

== ENCOUNTER 2022-04-28 00:59 | Outpatient (CLI) | payer MEDICARE, SELFPAY ==
--- NOTE | 2022-04-28 06:45 | DI.US_ITS ---
APPROVED REPORT EXAM: Comprehensive 2D, Doppler, and color-flow Echocardiogram Patient Location: Out-Patient Bus Matron: Dominique Rice RDCS (AE) Indications: Worsening dyspnea, underlying cardiomyopathy, heart murmur Other Information Study Quality: Adequate Conclusion Normal left ventricular wall thickness and chamber size. Estimated ejection fraction is 55%. Wall m otion is normal Normal right ventricular size and systolic function Both atria are moderately dilated Aortic valve is trileaflet and sclerotic. There is trace to mild aortic regurgitation. There is no aortic stenosis Mild mitral annular calcification. Mitral leaflets are normal. There is moderate mitral regurgitati on Normal tricuspid valve with mild regurgitation. Estimated right ventricular systolic pressure is 29 mmHg Wall motion Left Ventricle The left ventricle is normal size. The left ventricular systolic function is normal. The left ventric ular ejection fraction is within the normal range. There is normal left ventricular wall thickness. T here is normal LV segmental wall motion. There is no ventricular septal defect visualized. LVEF is 55 %. Right Ventricle The right ventricle is normal size. The right ventricular systolic function is normal. The RVSP is 28 .7_ mmHg. Atria Left atrium is moderately dilated. Right atrium is moderately dilated. The interatrial septum is inta ct with no evidence for an atrial septal defect. Aortic Valve The Aortic valve is sclerotic. Aortic valve is trileaflet. There is no aortic valvular stenosis. Tra ce to mild aortic regurgitation. Mitral Valve Mild mitral annular calcification. Mitral leaflets are normal No evidence of mitral valve stenosis. M oderate mitral regurgitation. Tricuspid Valve The tricuspid valve is normal in structure. There is no tricuspid valve stenosis. Mild tricuspid regu rgitation. Pulmonic Valve The pulmonary valve is normal in structure. There is no pulmonic valvular stenosis. Mild pulmonic reg urgitation. Great Vessels The aortic root is normal in size. Ascending aorta is not well visualized. Aortic arch is not well vi sualized. IVC is normal in size and collapses >50% with inspiration. Pericardium There is no pericardial effusion. 2D Dimensions IVSD d PLAX 0.90 cm F: 0.6-1.0 LV Vol A2C d MOD 118.0 mL LVPW d PLAX 0.89 cm F: 0.6 - 1.0 LV Vol A4C d MOD 103.3 mL LVID d PLAX 4.74 cm F: 3.8 - 5.2 LA vol/ BSA A2C s A-L 45.3 mL/m2 LVDs 3.30 cm F: 2.2 - 3.5 LA vol/ BSA A4C s A-L 68.1 mL/m2 Ao Root d 3.10 cm F: 2.7 - 3.3 LA Vol/ BSA Biplane s A-L 56.7 mL/m2 RA Area A4C 21.38 cm2 LA Area A4C s MOD 32.37 cm2 RA Vol/ BSA A4C s A-L 39.7 mL/m2 LA Area A2C s MOD 25.83 cm2 LV EF Teichholz 57.5 % LV EF A4C MOD 55.2 % LVEF ([place]'s) 53.76 % F: 54 - 74 LV EF A2C MOD 54.6 % LV Volume 85.16 mL F: 46 - 106 LV EF Biplane MOD 53.8 % LV Volume Index 45.29 mL/m2 F: 29 - 61 SV 59.76 mL LV Vol Biplane MOD 111.2 mL SV Index 31.81 mL/m2 FS 30.20 % M-Mode TAPSE 2.24 cm (M/F) >1.7 LV Diastology MV E' medial 0.035 (>0.07 m/s) MV E Vmax 0.98 (0.4-1.3 m/s) LV E/e MED 27.75 (<14) MV E/E' medial 27.78 Aortic Valve LVOT Area 3.37 cm2 AoV Area Vmax 3.16 cm2 LVOT Vmax 1.10 m/s AoV Area/ BSA (Vmax) 1.68 cm2/m2 LVOT Mean Ronak. 0.66 m/s MIRANDA Mean Ronak. 2.72 cm2 LVOT Peak Grad 4.8 mmHg MIRANDA Mean Ronak. Index 1.45 cm2/m2 LVOT Mean Grad 2.1 mmHg AR DT 1700 msec LVOT VTI 0.201 m AR PHT 493 msec LVOT Diam s 2.05 cm AoV Vmax 1.17 m/s Velocity Ratio 0.94 AoV Mean Ronak. 0.82 m/s AoV Peak Grad 5.5 mmHg LVOT SV 67.83 mL AoV Mean Grad 2.9 mmHg AoV VTI 0.223 m AoV Area VTI 3.05 cm2 AoV Area/ BSA (VTI) 1.62 cm/m2 Mitral Valve MV DT 196 (160-240 msec) MR Vmax 5.35 m/s MV PHT 57 msec MR VTI 1.824 m MV Area PHT 3.87 cm2 MR Peak Grad 114.6 mmHg MV VTI 0.287 m MR Mean Grad 74.2 mmHg MV VTI Annulus 0.263 m MR PISA Radius 0.61 cm MV Area VTI 2.18 (4.0-6.0 cm2) MR EROA 0.15 cm2 MR Aliasing Velocity 0.35 m/s MR PISA 2.30 cm2 Pulmonary Valve PV Vmax 0.96 (0.5-1.5 m/s) RVOT Peak Gr. 1.63 mmHg PV Peak Grad 3.7 mmHg RVOT Mean Gr. 0.75 mmHg PV Mean Grad 1.6 mmHg RVOT VTI 0.117 m PV VTI 0.147 m RVOT Vmax 0.64 m/s Tricuspid Valve TR Peak Grad 25.7 mmHg TR Vmax 2.54 m/s RA Pressure 3.00 mmHg RVSP (TR) 28.7 mmHg
== END 2022-04-28 01:19 ==
LOC: DI 00:59
PROVIDERS: PCP Family Medicine; Visit Provider Family Medicine
DX: I42.8 Other cardiomyopathies (principal); R01.1 Cardiac murmur, unspecified
CPT/HCPCS: 93306

== ENCOUNTER 2022-05-30 02:25 | Outpatient (CLI) | payer MEDICARE, SELFPAY ==
[2022-05-30 14:33] LABS: Hemoglobin A1C 7.3 % (<5.7)
[2022-05-30 14:39] LABS: Anion Gap 9.4 mmol/L (3-11); BUN 19 mg/dL (7-18); CO2 24.6 mmol/L (21.0-32.0); CREATININE 1.1 mg/dL (0.55-1.02); Calcium 9.7 mg/dL (8.5-10.1); Calculated LDL 74 mg/dL (<100); Chloride 102 mmol/L (98-107); Cholesterol 164 mg/dL (<200); Estimated GFR 52.08 (mL/min/1.73m2); Glucose 204 mg/dL (74-106); HDL Cholesterol 60 mg/dL (40-60); Potassium 4.2 mmol/L (3.5-5.1); Sodium 136 mmol/L (136-145); Triglyceride 154 mg/dL (<150)
[2022-05-30 14:40] LABS: COMMENT (LAB VIEW ONLY) 83.47 mg/dL; Microalb ug/mg Crea 41.6 ug/mg Cr
== END 2022-05-30 02:26 | disposition home or self-care (01) ==
LOC: LOS 02:25
PROVIDERS: PCP Family Medicine; Visit Provider Family Medicine
DX: E11.65 Type 2 diabetes mellitus with hyperglycemia (principal); I10 Essential (primary) hypertension
CPT/HCPCS: 36415; 80048; 80061; 82043; 82570; 83036

== ENCOUNTER 2022-06-13 10:05 | Outpatient (CLI) | payer MEDICARE, SELFPAY ==
--- NOTE | 2022-06-13 09:30 | DI.RAD_ITS ---
Exam(s) XR SHOULDER RT COMPLETE 2+V EXAM: XR SHOULDER RT COMPLETE 2+V CLINICAL HISTORY: right shoulder pain. TECHNIQUE: 2D digital imaging was performed of the right shoulder. Three images were obtained. AP, Y-view and axillary views were obtained. COMPARISON: No exams were available for comparison FINDINGS: BONES: No acute fracture is present. No bony destructive lesion is seen. JOINTS: No dislocation present. Degenerative changes are seen at both the acromioclavicular and gleno humeral joints with joint space narrowing and bony hypertrophy. SOFT TISSUE: Normal. IMPRESSION: Degenerative changes of the shoulder. DATA REPOSITORY: RADIATION DOSE DELIVERED:
--- NOTE | 2022-06-13 09:30 | DI.RAD_ITS ---
Exam(s) XR WRIST RT COMPLETE EXAM: XR WRIST RT COMPLETE CLINICAL HISTORY: right wrist pain. TECHNIQUE: 2D digital imaging was performed of the right wrist. Four views were obtained. Scaphoid, PA, lateral and oblique views were obtained. COMPARISON: No exams were available for comparison FINDINGS: BONES: No acute fracture is present. No bony destructive lesion is seen. JOINTS: The carpal bones are normally aligned. There are marked degenerative changes seen at the 1st CMC joint characterized by joint space narrowing and bony hypertrophy. More mild degenerative change s are seen at the interphalangeal joint in the MCP joint of the thumb. SOFT TISSUE: Atherosclerosis. IMPRESSION: Marked degenerative changes of the 1st CMC joint. DATA REPOSITORY: RADIATION DOSE DELIVERED:
== END 2022-06-13 10:06 | disposition home or self-care (01) ==
LOC: DIORS 10:06
PROVIDERS: PCP Family Medicine; Referring Provider Family Medicine; Visit Provider Physician Assistant
DX: M18.11 Unilateral primary osteoarthritis of first carpometacarpal joint, right hand; M19.011 Primary osteoarthritis, right shoulder; E11.9 Type 2 diabetes mellitus without complications; W19.XXXA Unspecified fall, initial encounter
CPT/HCPCS: 20610; 73030; 73110; J1040

== ENCOUNTER → 2022-08-08 09:34 | Outpatient (BNVA) | payer MEDICARE, SELFPAY | PROVIDERS: PCP Family Medicine; Referring Provider Family Medicine; Visit Provider Student in an Organized Health Care Education/Training Program | DX: M75.101 Unspecified rotator cuff tear or rupture of right shoulder, not specified as traumatic (principal); M53.3 Sacrococcygeal disorders, not elsewhere classified | CPT/HCPCS: 99213; 99214 ==

== ENCOUNTER → 2022-08-08 12:51 | Outpatient (BNVA) | payer MEDICARE, SELFPAY | PROVIDERS: PCP Family Medicine; Visit Provider Internal Medicine Cardiovascular Disease | DX: I10 Essential (primary) hypertension (principal); I48.21 Permanent atrial fibrillation; Z79.01 Long term (current) use of anticoagulants; I42.8 Other cardiomyopathies | CPT/HCPCS: 99214 ==

== ENCOUNTER 2022-08-17 03:31 | Outpatient (CLI) | payer MEDICARE, SELFPAY ==
[2022-08-17 12:52] LABS: Anion Gap 12.5 mmol/L (3-11); BUN 29 mg/dL (7-18); CO2 24.5 mmol/L (21.0-32.0); CREATININE 1.2 mg/dL (0.55-1.02); Calcium 9.8 mg/dL (8.5-10.1); Chloride 102 mmol/L (98-107); Estimated GFR 46.91 (mL/min/1.73m2); Glucose 242 mg/dL (74-106); Sodium 139 mmol/L (136-145)
== END 2022-08-17 03:32 | disposition home or self-care (01) ==
LOC: LOS 03:31
PROVIDERS: PCP Family Medicine; Visit Provider Family Medicine
DX: E11.9 Type 2 diabetes mellitus without complications (principal); I10 Essential (primary) hypertension; R80.8 Other proteinuria
CPT/HCPCS: 36415; 80048

== ENCOUNTER 2022-08-24 01:44 | Outpatient (CLI) | payer MEDICARE, SELFPAY ==
--- NOTE | 2022-08-24 07:00 | DI.MRI_ITS ---
Exam(s) MR PELVIS WO EXAM: MR PELVIS WO CLINICAL HISTORY: pain, SI JOINT DYSFUNCTION, M53.3 TECHNIQUE: Multiplanar multisequence MRI of Pelvis was performed COMPARISON: CR XR HIP LT AP LAT ONLY from 04/26/2021 MR MR LOWER JOINT LT WO from 04/27/2021 FINDINGS: Bones: There is no fracture or contusion pattern. No bone marrow edema is seen. The SI joints and s ymphysis pubis are well maintained. No evidence of ankylosis. No effusion is seen. Musculotendinous structures: Musculotendinous structures demonstrate no abnormality. There is mild fatty atrophy of the paraspinal and gluteal muscles. Intrapelvic structures demonstrate no significa nt abnormality. IMPRESSION: 1. Unremarkable sacroiliac joints without evidence of ankylosis or sacroiliitis. 2. Mild fatty atrophy of the paraspinal and gluteal muscles. DATA REPOSITORY:
--- NOTE | 2022-08-24 07:00 | DI.MRI_ITS ---
Exam(s) MR LUMBAR SPINE WO EXAM: MR LUMBAR SPINE WO CLINICAL HISTORY: PAIN, LUMBAR SPINAL STENOSIS, M48.061. TECHNIQUE: Multiplanar multisequence MRI of the Lumbar spine was performed. COMPARISON: MR MR LUMBAR SPINE WO from 02/15/2019 FINDINGS: Bones: The last intervertebral disc space is designated the L5/S1 level for the numbering purpose of this examination. The vertebral body heights are well maintained. Alignment is satisfactory. There are endplate degenerative signal changes seen at multiple levels of the lower thoracic and lumbar spi ne. Post laminectomy changes are seen at L4. Cord: The conus tip ends at the L1 level. It is of normal size and signal intensity. T12-L1: No disc herniations or bulges are present. No central spinal canal or neural foraminal stenos is. L1-2: No disc herniations or bulges are present. No central spinal canal or neural foraminal stenosis . L2-3: There is a mild diffuse disc bulge. There are degenerative changes of the facets. No signific ant central spinal canal stenosis is seen. There is qfzz-sz-pzsrwdek bilateral neural foraminal sten osis. L3-4: There is a diffuse disc bulge. There are degenerative changes of the facets. There is mild na rrowing of the central spinal canal. There is marked right and moderately severe left neural foramin al stenosis. L4-5: No disc herniations or bulges are present. There are degenerative changes of the facets. No si gnificant central spinal canal stenosis is seen. No right neural foraminal stenosis is seen. There is tkuw-di-ctinvqcs left neural foraminal stenosis. L5-S1: There is a mild diffuse disc bulge. There are degenerative changes of the facets. There is m ild narrowing of the central spinal canal. Moderately severe right and severe left neural foraminal stenosis is present. Soft tissues: The visualized SI joints and sacrum are well maintained. There is mild fatty atrophy of the paraspinal and gluteal muscles. Visualized abdominal organs: There is a stable simple cyst in the left kidney. No follow-up is recom mended. IMPRESSION: 1. Postsurgical changes in the lower lumbar spine. 2. Multilevel degenerative changes in the lumbar spine resulting in central spinal canal and neural f oraminal stenosis as described above. DATA REPOSITORY:
== END 2022-08-24 02:04 ==
LOC: DI 01:44
PROVIDERS: PCP Family Medicine; Visit Provider Student in an Organized Health Care Education/Training Program
DX: M53.3 Sacrococcygeal disorders, not elsewhere classified (principal); M48.061 Spinal stenosis, lumbar region without neurogenic claudication; M62.59 Muscle wasting and atrophy, not elsewhere classified, multiple sites
CPT/HCPCS: 72148; 72195

== ENCOUNTER → 2022-09-01 10:38 | Outpatient (BNVA) | payer MEDICARE, SELFPAY | PROVIDERS: PCP Family Medicine; Referring Provider Family Medicine; Visit Provider Student in an Organized Health Care Education/Training Program | DX: M70.62 Trochanteric bursitis, left hip (principal) | CPT/HCPCS: 20610; J1040 ==

== ENCOUNTER 2022-09-14 09:42 | Outpatient (CLI) | payer MEDICARE, SELFPAY ==
[2022-09-14 12:50] LABS: Anion Gap 11.4 mmol/L (3-11); BUN 29 mg/dL (7-18); CO2 25.6 mmol/L (21.0-32.0); CREATININE 1.4 mg/dL (0.55-1.02); Calcium 9.2 mg/dL (8.5-10.1); Chloride 103 mmol/L (98-107); Estimated GFR 38.99 (mL/min/1.73m2); Glucose 294 mg/dL (74-106); Potassium 3.8 mmol/L (3.5-5.1); Sodium 140 mmol/L (136-145)
== END 2022-09-14 09:43 | disposition home or self-care (01) ==
LOC: LOS 09:43
PROVIDERS: PCP Family Medicine; Visit Provider Family Medicine
DX: I10 Essential (primary) hypertension (principal)
CPT/HCPCS: 36415; 80048

== ENCOUNTER 2022-09-22 15:00 | Outpatient (REF) | payer MEDICARE, SELFPAY ==
[2022-09-22 13:18] LABS: Bilirubin Negative (Negative); Blood Negative (Negative); Clarity Turbid (Clear); Glucose 500 mg/dL (Negative); Ketones Negative (Negative); Leukocyte Esterase Negative (Negative); Nitrite Negative (Negative); Urobilinogen 0.2 mg/dL (Up to 0.2); pH 5.5 (5-8)
== END 2022-09-22 15:01 | disposition home or self-care (01) ==
LOC: LBN 15:00
PROVIDERS: PCP Family Medicine; Visit Provider Family Medicine
DX: R30.0 Dysuria (principal)
CPT/HCPCS: 81003

== ENCOUNTER 2022-09-27 04:31 | Outpatient (CLI) | payer MEDICARE, SELFPAY ==
[2022-09-27 13:10] LABS: BUN 25 mg/dL (7-18); CREATININE 1.3 mg/dL (0.55-1.02); Calcium 9.7 mg/dL (8.5-10.1); Chloride 107 mmol/L (98-107); Estimated GFR 42.62 (mL/min/1.73m2); Glucose 214 mg/dL (74-106); Sodium 142 mmol/L (136-145)
== END 2022-09-27 04:32 | disposition home or self-care (01) ==
PROVIDERS: PCP Family Medicine; Visit Provider Family Medicine
DX: E11.29 Type 2 diabetes mellitus with other diabetic kidney complication (principal); I10 Essential (primary) hypertension; R80.9 Proteinuria, unspecified
CPT/HCPCS: 36415; 80048

== ENCOUNTER 2022-10-12 14:15 | Outpatient (REF) | payer MEDICARE, SELFPAY ==
[2022-10-12 14:10] LABS: Bilirubin Negative (Negative); Blood Moderate (Negative); Clarity Cloudy (Clear); Glucose >=1000 mg/dL (Negative); Ketones Negative (Negative); Leukocyte Esterase Moderate (Negative); Nitrite Negative (Negative); Specific Gravity 1.015 (1.005-1.025); Urobilinogen 0.2 mg/dL (Up to 0.2)
[2022-10-12 14:24] LABS: C & S Indicated? Yes; WBC >50 HPF (0-5)
== END 2022-10-12 14:16 | disposition home or self-care (01) ==
LOC: LBN 14:15
PROVIDERS: PCP Family Medicine; Visit Provider Family Medicine
DX: R30.0 Dysuria (principal); N39.0 Urinary tract infection, site not specified
CPT/HCPCS: 81003; 81015; 87086

== ENCOUNTER 2023-01-09 14:35 | Outpatient (CLI) | payer MEDICARE, SELFPAY ==
--- NOTE | 2023-01-09 10:00 | DI.RAD_ITS ---
Exam(s) XR KNEE RT 2V AP,LAT EXAM: XR KNEE RT 2V AP,LAT CLINICAL HISTORY: annual f/u R TKA. TECHNIQUE: 2D digital imaging was performed. Two images were obtained. AP and lateral views were ob tained. COMPARISON: CR XR KNEE RT 2V AP,LAT from 01/10/2022 FINDINGS: BONES: There are stable post operative changes of a right total knee replacement present. No fractur e or dislocation. There is an enthesophyte at the superior patella. JOINTS: The orthopedic hardware is in good position. No evidence of hardware loosening. SOFT TISSUE: Atherosclerosis is present IMPRESSION: Stable postoperative changes. DATA REPOSITORY: RADIATION DOSE DELIVERED:
--- NOTE | 2023-01-09 10:15 | DI.RAD_ITS ---
Exam(s) XR HIP PELVIS ADULT BL EXAM: XR HIP PELVIS ADULT BL CLINICAL HISTORY: BILATERAL HIP PAIN. TECHNIQUE: 2D digital imaging was performed of the pelvis and bilateral hips. Three images were obt ained. AP pelvis and lateral views of both hips were obtained. COMPARISON: CR XR HIP PELVIS ADULT BL from 08/12/2020 CR XR HIP LT AP LAT ONLY from 04/26/2021 FINDINGS: BONES: No acute fracture is present. No bony destructive lesion is seen. There are enthesophytes seen at the left greater trochanter. JOINTS: No dislocation present. There are degenerative changes of the hips bilaterally characterized by joint space narrowing and acetabular spurring. SOFT TISSUE: Atherosclerosis is present. IMPRESSION: Degenerative changes of the hips bilaterally. DATA REPOSITORY: RADIATION DOSE DELIVERED:
== END 2023-01-09 14:36 | disposition home or self-care (01) ==
LOC: DIORS 14:35
PROVIDERS: PCP Family Medicine
DX: R22.31 Localized swelling, mass and lump, right upper limb; G56.01 Carpal tunnel syndrome, right upper limb; M99.83 Other biomechanical lesions of lumbar region; Z96.651 Presence of right artificial knee joint
CPT/HCPCS: 73521; 99213; 73560

== ENCOUNTER 2023-01-30 08:15 | Outpatient (CLI) | payer MEDICARE, SELFPAY ==
--- NOTE | 2023-01-30 08:15 | RT.EKG_ITS ---
APPROVED REPORT Exam: Resting ECG Reason for Exam: afib Patient Location: O HR:81 bpm ECG Measurements Heart Rate 81 AXIS WA [id number] P [id number] QRSd 102 QRS -20 QT 379 T -2 QTc 440 Conclusion Atrial fibrillation...V-rate 58-102, irreg A-activity Ventricular premature complex...V complex w/ short R-R interval Minor ST-T abnormalities
== END 2023-01-30 08:16 | disposition home or self-care (01) ==
LOC: DI.CARD 08:17
PROVIDERS: PCP Family Medicine; Visit Provider Internal Medicine Cardiovascular Disease
DX: I47.10 Supraventricular tachycardia, unspecified (principal)
CPT/HCPCS: 93010

== ENCOUNTER → 2023-01-30 10:39 | Outpatient (BNVA) | payer MEDICARE, SELFPAY | PROVIDERS: PCP Family Medicine; Referring Provider Family Medicine; Visit Provider Internal Medicine Cardiovascular Disease | DX: Z01.810 Encounter for preprocedural cardiovascular examination (principal); I48.21 Permanent atrial fibrillation; Z79.01 Long term (current) use of anticoagulants; I42.8 Other cardiomyopathies | CPT/HCPCS: 93005; 99214 ==

== ENCOUNTER → 2023-01-31 02:18 | Outpatient (CLI) | payer MEDICARE, SELFPAY ==
--- NOTE | 2023-01-31 07:15 | DI.MRI_ITS ---
Exam(s) MR UPPER JOINT RT WO EXAM: MR UPPER JOINT RT WO CLINICAL HISTORY: PAIN,mass of rt wrist,r22.31. TECHNIQUE: Multiplanar multisequence MRI was performed. COMPARISON: None. FINDINGS: BONES: There is no fracture nor bone contusion. No evidence of avascular necrosis. No significant ul amie variance. Hook of the hamate appears unremarkable. JOINTS: There are joint effusions in the mid carpal row compartment as well as in the distal radiouln ar joint and radiocarpal joint. Some cartilage thinning noted at this level. There is no significant ulnar variance. Lesser amount of fluid at the articulations of the proximal carpal row. There are a dvanced degenerative changes at the 1st carpometacarpal joint including advanced joint space narrowin g and degenerative subarticular cysts on both sides the joint as well as osteophytes and loose bodies . Scapholunate distance is normal. LIGAMENTS: Scapholunate ligament appears intact. No obvious tear of the lunotriquetral ligament. TRIANGULAR FIBROCARTILAGE: Prominent intrasubstance signal abnormality consistent with tearing. No si gnificant ulnar variance. TENDONS: Flexors: There is prominent amount of fluid around the flexor tendons just proximal to the carpal scooby conor, consistent with prominent tenosynovitis. There are no tendon tears within the carpal tunnel and the median nerve within the carpal tunnel appears unremarkable on this non few study. Also some signal abnormality evident within the distal most aspect of flexor carpi ulnaris at its dis jimena attachment to the pisiform. However, no full-thickness tear at this level. No tenosynovitis of this tendon evident. Extensors: No tears nor prominent tenosynovitis, as is evident in the flexor tendons. No evidence of de Quervain tenosynovitis MUSCLES: No abnormal myositis nor atrophy signal SOFT TISSUES: Mild generalized subcutaneous edema around the wrist. OTHER: IMPRESSION: 1. There is prominent amount of fluid in the flexor tendon sheath just proximal to the carpal tunnel, consistent with tenosynovitis. This is predominantly proximal to the carpal tunnel, without continua tion of this amount of fluid into the tendon sheath with in the carpal tunnel itself. 2. Moderate joint effusions in the articulations between the proximal and distal carpal rows and mild er effusions in the proximal row radiocarpal joint. 3. Full-thickness tear of the triangular fibrocartilage and joint effusion in the distal radioulnar j oint. 4. Advanced degenerative changes at the 1st carpometacarpal joint (between the base of the thumb meta carpal and trapezium. 5. Mild distal tendinitis of the flexor carpi ulnaris just at its insertion aspect on the pisiform, b ut no high-grade tear of the tendon at this level. Also no tenosynovitis of this tendon. No abnormal intraosseous signal in the pisiform. DATA REPOSITORY:
--- NOTE | 2023-01-31 16:05 | DI.VRAD_ITS ---
PROCEDURE INFORMATION: Exam: MR Right Upper Extremity Joint Without Contrast; Wrist Exam date and time: 01/31/2023 8:29 AM Age: 78 years old Clinical indication: Pain; Wrist; Right TECHNIQUE: Imaging protocol: Magnetic resonance imaging of the right upper extremity without contrast. Exam focused on the wrist. COMPARISON: CR XR WRIST RT COMPLETE 06/13/2022 9:50 AM FINDINGS: Bones/joints: The joint spaces are normally aligned. There are small effusions of the distal radioulnar joint and radiocarpal and midcarpal compartments. There is moderate radiocarpal compartmental chondromalacia. Mild osteophyte formation is present about the radiocarpal compartment and multiple intercarpal joints. More moderate to marked osteophyte formation is present about the 1st carpometacarpal joint, with severe chondromalacia here, along with moderate subcortical degenerative cystic changes. Scapholunate ligament: Unremarkable. No tear. Lunotriquetral ligament: Unremarkable. No tear. Triangular fibrocartilage complex: There is a tear along the radial aspect of the triangular fibrocartilage, appears full-thickness. Flexor compartment tendons: Moderate fluid is present in the flexor tendon sheath just proximal to the carpal tunnel, indicating tenosynovitis. The tendons themselves appear intact. Extensor compartment tendons: Unremarkable. No tear. Soft tissues: Mild subcutaneous soft tissue edema about much of the wrist. IMPRESSION: 1. Degenerative changes as described. 2. Small effusions of the distal radioulnar joint and radiocarpal and midcarpal compartments. 3. Moderate fluid in the flexor tendon sheath just proximal to the carpal tunnel, indicating tenosynovitis. 4. Full-thickness tear of the triangular fibrocartilage along its radial aspect. Dictated and Authenticated by: Dieter Francis MD. Ordering:MARIA M Pimentel MD
== END ==
PROVIDERS: PCP Family Medicine; Visit Provider Student in an Organized Health Care Education/Training Program
DX: R22.31 Localized swelling, mass and lump, right upper limb (principal)
CPT/HCPCS: 73221

== ENCOUNTER 2023-02-17 01:18 | Outpatient (CLI) | payer MEDICARE, SELFPAY ==
[2023-02-17 13:42] LABS: ALT 25 U/L (14-59); AST 14 U/L (15-37); Albumin 3.7 g/dL (3.4-5.0); Alkaline Phosphatase 70 U/L (46-116); Anion Gap 11.8 mmol/L (3-11); BUN 21 mg/dL (7-18); Bilirubin, Total 0.8 mg/dL (0.2-1.0); CO2 26.2 mmol/L (21.0-32.0); CREATININE 1.1 mg/dL (0.55-1.02); Calcium 10.7 mg/dL (8.5-10.1); Chloride 101 mmol/L (98-107); Estimated GFR 51.75 (mL/min/1.73m2); Glucose 167 mg/dL (74-106); Potassium 3.9 mmol/L (3.5-5.1); Sodium 139 mmol/L (136-145); Total Protein 7.6 g/dL (6.4-8.2)
[2023-02-17 14:31] LABS: Hemoglobin A1C 6.4 % (<5.7)
== END 2023-02-17 01:19 | disposition home or self-care (01) ==
LOC: LOS 01:20
PROVIDERS: PCP Family Medicine; Visit Provider Family Medicine
DX: E11.29 Type 2 diabetes mellitus with other diabetic kidney complication (principal); R80.9 Proteinuria, unspecified
CPT/HCPCS: 36415; 80053; 83036

== ENCOUNTER 2023-02-28 08:21 | Day surgery (SDC) | payer MEDICARE, SELFPAY ==
--- NOTE | 2023-02-28 07:44 | HPE_ITS ---
Assessment and Plan Assessment and plan (1) Right carpal tunnel syndrome: Status: Acute Assessment and plan: Plan: Educated patient on surgery covering surgical technique, recovery process, benefits and risks including but not limited to risk of infection, blood clot, damage to soft tissue/blood vessels/nerves in detail. After discussion patient gives verbal understanding of risks and elects to proceed with scheduling surgery. Patient had opportunity to have questions answered to their satisfaction. They will contact office if issues arise. Patient will continue to be scheduled for right OCTR and associated procedures with Dr. Melgoza History of Present Illness Narrative: Ms. Fox is a 78-year-old female who presents to hospital for right OCTR due to known carpal tunnel syndrome. Please refer to last orthopedic notes for more detailed history. She denies any change in her symptoms since her last visit. Review of Systems Cardiovascular Cardiovascular: Denies chest pain and Denies dyspnea Respiratory Respiratory: Denies cough and Denies dyspnea PFSH All Active Problems Mass of right wrist (Acute) Cystocele with prolapse (Acute) Urinary urgency (Acute) SI (sacroiliac) joint dysfunction (Acute) Right carpal tunnel syndrome (Acute) Osteoarthritis of carpometacarpal joint of right thumb (Acute) Right rotator cuff tear (Acute) 80 mg Depo-Medrol injection: 06/13/22 Class 2 obesity due to excess calories with body mass index (BMI) of 39.0 to 39.9 in adult (Acute) Moderate mitral regurgitation by prior echocardiogram (Acute) Type 2 diabetes mellitus with microalbuminuria, without long-term current use of insulin (Acute) Anemia of chronic disease (Chronic) Chronic atrial fibrillation (Chronic) SOB (shortness of breath) (Chronic) with exertion; normal PFTs - slight restriction due to habitus, echo with mod MR Cardiomyopathy (Chronic) LVEF 42% in 08/2019; LVEF 55% 03/2022 Cystocele (Acute 06/24/14) Hypertension (Chronic) Medical History Hx of diverticulitis of colon (~03/2021) with bowel perforation. History of MRSA infection History of tobacco use Neural foraminal stenosis of lumbar spine by MRI 2019 Kidney stone Paroxysmal SVT (supraventricular tachycardia) (02/15/17) zio patch Polyp of colon (02/03/04) Surgical History Status post MINDA-BSO TVH, BSO with R sided uterosacral ligament suspension with Anterior Coloporrhapy. 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 Brother , AGE 82 Diabetes Heart disease Social History Smoking/Tobacco Use Status: Former Tobacco Use Quit Date: 03/06/81 Second Hand Exposure: Yes Smoking risk assessment performed?: Yes Alcohol Intake: never Drug use: Never Substance use type: does not use Household members: spouse Housing: house Number of Children: 2 number of grandchildren: 4 Communication Needs: None Do you need help understanding health information?: Often current occupation: retired from retail, farm work Pets and animals: Yes Pets and animals: dog(s) Sexually active: No Do you think of yourself as: straight/heterosexual Current gender identity: female How often do you talk on the phone with friends or family?: three or more times per week How often do you get together with friends or relatives?: decline to answer How often do you attend scientology or taoist services?: decline to answer Do you belong to any clubs or organized social groups?: decline to answer Panel score (0-1 are the most socially isolated patients): 1 Radha/Denominational: Yazidism Special radha needs: No Seatbelt use: always Drive intox or ride w/intox 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 Meds Allergies and Home Medications Allergies Allergy/AdvReac Type Severity Reaction Status Date / Time lisinopril AdvReac Severe COUGH Verified 01/30/23 11:13 codeine AdvReac Intermediate Nausea Verified 01/30/23 11:13 metformin AdvReac Intermediate diarrhea Verified 01/30/23 11:13 oxycodone AdvReac Intermediate Nausea Verified 01/30/23 11:13 Home Medications Medication Instructions Recorded Confirmed Type omega-3 fatty acids 1,000 mg 1,000 mg PO DAILY 08/11/20 01/30/23 History capsule (Fish Oil Concentrate) acetaminophen 500 mg tablet 1,000 mg (2 x 500 mg) PO Q8H PRN 01/06/21 01/30/23 Rx pain #90 tabs calcium carbonate-vitamin D3 600 1 tab PO BID 06/25/21 01/30/23 History mg-125 unit tablet (Calcium) vit C,E,zinc,copper-cpaqn3t 250 1 cap PO DAILY 06/30/21 01/30/23 History mg-lutein 5 mg-zeaxanthin 1 mg capsule (Ocuvite Adult 50 Plus) albuterol sulfate 90 mcg/actuation 2 puff inhalation QID PRN 02/17/22 01/30/23 Rx aerosol inhaler (Ventolin HFA) shortness of breath or wheezing #8.5 grams apixaban 5 mg tablet (Eliquis) 5 mg PO BID #180 tabs 09/26/22 01/30/23 Rx diltiazem HCl 180 mg capsule,24 180 mg PO HS #90 caps 09/26/22 01/30/23 Rx hr,extended release losartan 100 mg tablet 100 mg PO DAILY #90 tabs 09/26/22 01/30/23 Rx blood sugar diagnostic (Blood #100 ea 10/12/22 01/30/23 Rx Glucose Test strips) metoprolol succinate 200 mg 200 mg PO DAILY #90 tabs 02/06/23 Rx tablet,extended release 24 hr (Toprol XL) tirzepatide 7.5 mg/0.5 mL 7.5 mg (0.5 mL) subcut QWEEK 28 02/09/23 Rx subcutaneous pen injector days #2 mL Exam Const General: cooperative and no acute distress Resp Effort & Inspection: normal respiratory effort and able to speak in complete sentences Auscultation: clear to auscultation bilaterally, no rales, no rhonchi and no wheezes Cardio Heart Sounds: S1 normal, S2 normal and no murmurs
--- NOTE | 2023-02-28 07:48 | W.PM.DSUDISC ---
Date of service: 02/28/23 Time of Service: 07:56 Discharge Plan Disposition Patient Disposition: Home Condition: Good Discharge Details Reason For Visit: Right carpal tunnel syndrome Attending Provider: Margarito Melgoza Primary Care Provider: Audrey Arora Home Meds and New Rx's Prescriptions: New acetaminophen 500 mg tablet 500 mg PO Q6H PRN (Reason: pain) Qty: 60 2RF hydrocodone-acetaminophen 5-325 mg tablet 1 tab PO Q6H PRN (Reason: severe pain) Qty: 6 0RF Rx Instructions: Take one tablet up to every 6 hours as needed for severe postoperative pain Continued omega-3 fatty acids [Fish Oil Concentrate] 1,000 mg capsule 1,000 mg PO DAILY albuterol sulfate [Ventolin HFA] 90 mcg/actuation HFA aerosol inhaler 2 puff inhalation QID PRN (Reason: shortness of breath or wheezing) Qty: 8.5 0RF (DME) Blood Glucose Test Strip See Dose Instructions .ROUTE .MEDSUPPLY Qty: 100 5RF Dose Instruction: As directed Rx Instructions: daily E11.9 One touch Ocuvite Adult 50 Plus 250-5-1 mg capsule 1 cap PO DAILY Eliquis 5 mg tablet 5 mg PO BID Qty: 180 3RF diltiazem HCl 180 mg capsule,extended release 24 hr 180 mg PO HS Qty: 90 3RF losartan 100 mg tablet 100 mg PO DAILY Qty: 90 3RF metoprolol succinate [Toprol XL] 200 mg tablet extended release 24 hr 200 mg PO DAILY Qty: 90 3RF tirzepatide 7.5 mg/0.5 mL pen injector 7.5 mg subcut QWEEK MDD 5 mg 28 Days Qty: 2 3RF Rx Instructions: Inject once weekly subcutaneously as directed. Calcium 600 + D(3) 600-125 mg-unit tablet 1 tab PO BID acetaminophen 500 mg tablet 1,000 mg PO Q8H PRN (Reason: pain) Qty: 90 3RF Discharge Instructions Additional Instructions: Open Carpal Tunnel Discharge Instructions Activity: You should keep the hand elevated as much as possible for the first few days. You may use the other fingers as tolerated but avoid trying to do too much too soon. You may perform light activities with the splint in place. Dressing/Cast: Your splint should stay in place at all times. Do NOT get it wet. You may loosen the LISA wrap if you feel it is too tight and then rewrap more loosely. Medications: - You should take Tylenol for baseline pain control. - You have Hydrocodone for breakthrough pain. - You may apply ice over the wrist as needed. Follow-up: 7-10 days Referrals: Margarito Melgoza MD [ [facility] STAFF PHYSICIAN] - Equipment/Supplies: Splint Activity:: Elevate Remove Dressings/Wound Care:: Do Not Remove Shower/Bathe:: Cover Diet:: As Tolerated Discharge Orders Discharge Orders: Discharge Order (Routine); Ordered 02/28/23 Ordered By: Shereen Quarles DS: Diagnosis Discharge Diagnosis (1) Right carpal tunnel syndrome: Status: Acute
[2023-02-28 08:51] VITALS: BP 128/99; PULSE 65; RESP 16; TEMP 36.7; O2SAT 95
[2023-02-28 09:07] VITALS: BP 158/72; PULSE 75; RESP 20; TEMP 36.6; O2SAT 96
--- NOTE | 2023-02-28 09:25 | W.ANESNERVE ---
Nerve Block Single Injection Procedure Date and Time Date Performed: 02/28/23 Procedure Start: 09:18 Location Where Procedure Performed Procedure Location: Day Surgery Unit Reason Performed: Other Requesting Provider: Margarito Melgoza Timeout Performed Timeout Performed: Yes Monitoring Used ECG, Blood Pressure and SpO2 Sterility Sterility: Hand Hygiene, Surgical Cap, Surgical Mask, Sterile Gloves and Chlorhexidine Sedation Given During Procedure Sedation Given (Indicate Dose Given): No Sedation given Patient Mental Status Patient Mental Status: Awake Nerve Block 1st Nerve Block: Laterality: Right Block Type: Median Ultrasound Image Saved?: Yes Needle / Catheter Used: Other (25 ga 1.5 inch. ) Local Anesthetic Bolus (Indicate Dose Given): Lidocaine 2% Dose:: 5 mL Additives (Indicate Dose Given): None Ultrasound: Sterile probe cover and gel used Nerve Stimulator: Not Used Paresthesia: None Procedure Tolerated: No Complications Procedure Outcome: Successful Performed By: Navarro Bennett 2nd Nerve Block: Laterality: Right Block Type: Ulnar Ultrasound Image Saved?: Yes Needle / Catheter Used: Other (25 ga) Local Anesthetic Bolus (Indicate Dose Given): Lidocaine 2% Dose:: 5 ml Additives (Indicate Dose Given): None Ultrasound: Sterile probe cover and gel used Nerve Stimulator: Not Used Paresthesia: None Procedure Tolerated: No Complications Procedure Outcome: Successful Performed By: Navarro Bennett
[2023-02-28] MEDS: ceFAZolin 2 GM/50 ML BAG IVPB (09:31)
[2023-02-28] MEDS: Sodium Bicarbonate 50 MEQ/50 ML VIAL (09:43)
[2023-02-28] MEDS: Lidocaine 1% Multi-Dose W/EPI 1/100,000 50 ML VIAL (09:43)
[2023-02-28 10:37] VITALS: BP 153/79; PULSE 55; RESP 16; TEMP 36.4; O2SAT 96
--- NOTE | 2023-02-28 11:25 | W.PM.OP ---
Date of service: 02/28/23 Time of Service: 10:00 Operative Note Operative Note DATE OF PROCEDURE: 02/28/23 PRE-OP DIAGNOSIS: Carpal Tunnel Syndrome POST-OP DIAGNOSIS: same PROCEDURE: Open Carpal Tunnel Release - Right Right Wrist Flexor Tendon Debridement and Tenosynovectomy SURGEON: Margarito Melgoza LAW ENFORCEMENT INSTRUCTOR: Shereen Quarles Refer to Anesthesia Record ESTIMATED BLOOD LOSS: 10 PATHOLOGY: none sent TOURNIQUET TIME: 0 COMPLICATIONS: None Patient was transported to: same day Patient's condition: stable Indications: Kaleigh is a 78 year old female who I have seen for carpal tunnel syndrome, acutely worsening in the past few weeks, with known extensive tenosynovitis and fluid about the distal volar forearm. Given the acute worsening of the carpal tunnel, I recommend proceeding with carpal tunnel release in an open fashion to also address the extensive tenosynovitis which could be worsening her current symptoms. I reviewed the risk of the procedure to include bleeding, infection, pain, stiffness, continued numbness, damage to nerves and vessels, damage to muscles and tendons, need for repeat procedures. Despite these risk, patient desired to proceed. Findings: There was a tightened transverse carpal ligament. It was released fully released. The median nerve was inspected and showed no signs of adhesions or injury although there was notable inflammatory tissue seen surrounding it. Incision was continued proximally where there was notable fluid around the flexor tendons. Tenosynovectomy was performed of the flexor tendons, removing significant amounts of inflammatory tissue. There was also noted to be fraying and tearing of the flexor digitorum superficialis of the little finger, which was debrided of any frayed edges. Procedure Description: Kaleigh was greeted in the preoperative holding area. The correct site was identified and marked. The consent was reviewed the patient and signed. The history physical was updated. A peripheral nerve block of the median and ulnar nerve of the forearm under ultrasound guidance was performed in the day surgery unit by anesthesia. Kaleigh was taken back to the operating room and placed in the supine position with the right hand placed on a hand table. A nonsterile tourniquet was placed high up onto the arm. The hand and forearm was then prepped with ChloraPrep and draped in standard fashion. Prophylactic antibiotics in the form of cefazolin were given. A timeout was performed for safe surgery. The surgical site was then injected and anesthetized with 1% lidocaine with epinephrine buffered with sodium bicarbonate. The radial border of the fourth ray was marked on the skin as well as any other pertinent surface anatomy. The proposed incision was also marked on the skin to extend proximally crossing the palmar wrist crease is at an angle. This proposed incision site was then anesthetized with additional 10 cc of 0.25% bupivacaine. Prior to starting, anesthetic was confirmed to be intact with the patient reporting no painful sensation with testing. Then, using 15 blade the skin was incised sharply. Blunt dissection was carried down to the level of the palmar fascia. This was sharply divided making sure to protect any crossing neurovascular branches. Once this was divided the fibers of the transverse carpal ligament were identified. Using a Houston, I was able to place this underneath a portion of the transverse carpal ligament. The median nerve was identified at this time at the proximal edge of the transcarpal ligament which did show some inflammatory tissue surrounding it. With the Houston inside the carpal tunnel, A knife was then used to cut directly onto the [place]. This release the transverse carpal ligament. Using the [place] to protect underlying tendons and the median nerve, I released the remainder of the transverse carpal ligament. It was notably thickened and tight. A scissor was used to complete the far aspects after making sure there is no interposed tissue. There is notable separation of the leaflets. Elevating, lifting up, the radial flap of the transverse carpal ligament exposed the median nerve. Any adhesions between it and the transverse carpal ligament were released. The incision was continued proximally with the palmar fascia was released. There is a notable volar prominence of the soft tissues in this region including the median nerve which was pushed volar and radial. Entering into the volar wrist bursa and the contents of the carpal tunnel released synovial fluid. This was removed from the wound and irrigated. There was significant synovitis seen around the tendons. Sharp dissection of thickened and inflamed synovium was removed from the tendons of the wrist. On further inspection there is also fraying of the FDS tendon of the little finger. This appeared to involve about 50% of the thickness of the tendon with frayed edges along a portion about 4 cm in length. The rough edges and frayed edges at either end were debrided down such that there is a smooth transition. Proximal investigation was performed of the tendons which showed synovitis but no significant fluid collection. The wound was then fully irrigated. The skin and deeper tissues were closed with a interrupted 4-0 nylon suture. There was no excessive bleeding from the wound. 4 x 4 gauze was applied followed by Kerlix wrap and an Roman wrap. The hand was placed into a short arm splint. At the end the case all counts are correct. The patient tolerated the procedure well and was transferred back to the day surgery area in a stable condition.
== END 2023-02-28 11:05 | disposition home or self-care (01) ==
LOC: SUR 08:21
PROVIDERS: PCP Family Medicine; Visit Provider Student in an Organized Health Care Education/Training Program
PROC: (CPT 64721; principal; 2023-02-28 09:30)
DX: G56.01 Carpal tunnel syndrome, right upper limb (principal); M65.841 Other synovitis and tenosynovitis, right hand
CPT/HCPCS: 26145; 64721; 76942; J0690

== ENCOUNTER → 2023-03-09 09:44 | Outpatient (BNVA) | payer MEDICARE, SELFPAY | PROVIDERS: PCP Family Medicine; Referring Provider Family Medicine | DX: Z47.89 Encounter for other orthopedic aftercare (principal); R22.31 Localized swelling, mass and lump, right upper limb; G56.01 Carpal tunnel syndrome, right upper limb ==

== ENCOUNTER 2023-05-29 05:18 | Outpatient (CLI) | payer MEDICARE, SELFPAY ==
[2023-05-29 11:09] LABS: ALT 25 U/L (14-59); AST 14 U/L (15-37); Albumin 3.8 g/dL (3.4-5.0); Alkaline Phosphatase 82 U/L (46-116); Anion Gap 9.4 mmol/L (3-11); BUN 24 mg/dL (7-18); Bilirubin, Total 0.7 mg/dL (0.2-1.0); CO2 27.6 mmol/L (21.0-32.0); CREATININE 1.3 mg/dL (0.55-1.02); Calcium 9.8 mg/dL (8.5-10.1); Chloride 102 mmol/L (98-107); Estimated GFR 42.35 (mL/min/1.73m2); Glucose 142 mg/dL (74-106); Sodium 139 mmol/L (136-145); Total Protein 7.8 g/dL (6.4-8.2)
[2023-05-29 11:26] LABS: Hemoglobin A1C 6.4 % (<5.7)
[2023-05-29 11:28] LABS: COMMENT (LAB VIEW ONLY) 125.34 mg/dL; Microalb ug/mg Crea 49.8 ug/mg Cr
== END 2023-05-29 05:19 | disposition home or self-care (01) ==
LOC: LOS 05:19
PROVIDERS: PCP Family Medicine; Visit Provider Family Medicine
DX: E11.29 Type 2 diabetes mellitus with other diabetic kidney complication; R80.9 Proteinuria, unspecified
CPT/HCPCS: 36415; 80053; 82043; 82570; 83036

== ENCOUNTER → 2023-06-12 08:25 | Outpatient (BNVA) | payer MEDICARE, SELFPAY | PROVIDERS: PCP Family Medicine; Referring Provider Family Medicine; Visit Provider Student in an Organized Health Care Education/Training Program | DX: G56.01 Carpal tunnel syndrome, right upper limb (principal) | CPT/HCPCS: 99213 ==

== ENCOUNTER 2023-07-12 15:37 | Outpatient (CLI) | payer MEDICARE, SELFPAY ==
--- NOTE | 2023-07-12 06:00 | DI.RAD_ITS ---
Exam(s) XR PAIN CLINIC SACRIOILIAC 2V EXAM: XR PAIN CLINIC SACRIOILIAC 2V CLINICAL HISTORY: DX: Cluneal Neuropathy TECHNIQUE: 2D and realtime digital imaging was performed. CONTRAST MATERIAL: Refer to procedure report. COMPARISON: No exams were available for comparison FINDINGS: Fluoroscopy was provided for Dr. Castano during the performance of a left cluneal nerve block. Please refer to the procedure report for complete details. Ka,r=5.46 mGy IMPRESSION: RADIATION DOSE DELIVERED: 0.0 0.0 0
[2023-07-12 15:52] VITALS: BP 128/68; PULSE 68; RESP 20; TEMP 36.7; O2SAT 98
--- NOTE | 2023-07-12 16:25 | PDOC.PAIN_ITS ---
Date of service: 07/12/23 Time of Service: 16:25 Pain Managment Procedure Note Procedure Note Procedure Note: PROCEDURE NOTE LEFT CLUNEAL NERVE BLOCKS Date of Service: July 12, 2023 Patient: Kaleigh Fox Provider: Tyrone Castano DO, MPH COMMENTS: I previously evaluated the patient in the office and their symptoms in relation to the left Cluneal Nerve pain have remained the same. Pre-operative diagnosis: Cluneal neuralgia Post-operative diagnosis: Same Pre-procedure pain: VAS= 9/10 Kaleigh Fox has been referred to our [facility] for a Cluneal nerve blocks. Kaleigh was interviewed and the medical record reviewed. There were no medical, pharmacologic, radiographic or other structural contraindications to attempting a fluoroscopically-guided, contrast-enhanced, left Cluneal nerve blocks. The risks, benefits, and potential side effects of this procedure were reviewed with the patient. Questions and concerns were addressed. After it was clear that Kaleigh was fully informed about the procedure, the printed consent form was signed by the patient and myself. Kaleigh was placed in the prone position on the fluoroscopy table and an automated blood pressure cuff, 3 lead EKG, and pulse oximeter were applied. The skin entry point for approaching the Left iliac crest was identified under the most advantageous fluoroscopic view and marked. Following thorough Chlorhexadine preparation of the skin and draping with sterile surgical drapes, 2 mls of 1% lidocaine was infiltrated into the skin at the entry point and the surrounding subcutaneous tissues. Next, a 3.5 25G spinal needle was placed under fluoroscopic guidance to the Left Cluneal nerve area (3 locations). Placement was confirmed by injection of 0.25ml of Omnipaque-240. This was followed with 1 ml of 0.5% Bupivacaine and then 1 cc of 2% Lidocaine. The needle was then removed without difficulty. (49 ml of Omnipaque-240 was wasted). Kaleigh's vital signs were stable throughout the procedure and were as recorded in nursing records. Follow up plans and appointments were discussed with Kaleigh. Post procedure instructions were given as documented in nursing records. Having met discharge criteria, Kaleigh was [facility] from the [facility]. COMMENTS: Post-procedure pain: VAS= 2/10. If the patient receives at least 50% improvement in pain and/or function for at least 3 months, this procedure can be repeated if needed. We can also consider RFA to the left Cluneal nerves if she receives at least 80% pain relief for the next 4 hours. I personally performed this entire procedure. TYRONE CASTANO DO, MPH ABPMR-subspecialty board certification in Pain Medicine [facility]
[2023-07-12 16:35] VITALS: BP 138/92; PULSE 91; RESP 17; O2SAT 97
[2023-07-12] MEDS: Lidocaine 2% Pres-Free 5 ML VIAL IJ (16:41)
[2023-07-12] MEDS: Omnipaque 240 MG/ML 50 ML BTL IJ (16:41)
[2023-07-12] MEDS: Bupivacaine 0.5% Pres-Free 10 ML VIAL IJ (16:42)
[2023-07-12] MEDS: Nerve Block Tray 1 EACH MC (16:42)
== END 2023-07-12 15:38 | disposition home or self-care (01) ==
LOC: PC 15:41
PROVIDERS: PCP Family Medicine; Visit Provider Preventive Medicine Occupational Medicine
DX: G58.8 Other specified mononeuropathies (principal); M54.50 Low back pain, unspecified
CPT/HCPCS: 64450; 72200; J0665; Q9967

== ENCOUNTER → 2023-07-19 03:26 | Outpatient (CLI) | payer MEDICARE, SELFPAY ==
--- NOTE | 2023-07-19 08:40 | DI.MRI_ITS ---
Exam(s) MR UPPER JOINT RT WO EXAM: MR UPPER JOINT RT WO CLINICAL HISTORY: continued weakness, numbness, tingling in hand,RT CARPAL TUNNEL SYNDROME,. TECHNIQUE: Multiplanar multisequence MRI was performed. COMPARISON: None. FINDINGS: The examination is limited due to patient motion artifact. BONES: There is no fracture or contusion pattern. There is mild marrow edema seen in the distal radiu s. There is also mild marrow edema seen in the lunate. Small subchondral cysts are seen in the geetha cular surface of the lunate. JOINTS: There is a small amount of fluid seen in the distal radial ulnar joint. There is also mild f luid seen in the joints of the carpus. There is narrowing and cartilage thinning in the radiocarpal joint. There are marked degenerative changes seen at the 1st carpometacarpal joint characterized by joint space narrowing and osteophytes. Subchondral edema is noted. There also mild degenerative rashi nges seen at the articulation of the pisiform and the triquetrum. TENDONS: Flexors: There is fluid seen within the flexor tendons of the wrist. The fluid is most marked proxim al to the level of the radiocarpal joint and distal to the level of the metacarpophalangeal joints. The tendons are intact. They show normal signal and size. Extensors: The extensor tendons show normal signal and size. There is a small amount of fluid seen a round the extensor digitorum tendon slips. MUSCLES: Unremarkable. MEDIAN NERVE: Unremarkable on this noncontrast examination. ULNAR NERVE: Unremarkable on this noncontrast examination. SOFT TISSUES: Unremarkable. LIGAMENTS: Unremarkable. TRIANGULAR FIBROCARTILAGE: There is mild intermediate signal seen within the mid TFCC. OTHER: IMPRESSION: 1. Degenerative changes of the wrist particularly at the 1st CMC joint. 2. Fluid is seen in the flexor tendons suggesting tenosynovitis. The tendons are intact. No evidenc e of a tear is seen. 3. Small amount of fluid seen within the extensor digitorum tendon slips suggesting tenosynovitis. 4. Joint effusion seen in the carpus and the distal radial ulnar joint. 5. Nonspecific mild edema seen in the distal radius and ulna without evidence of an occult fracture o r avascular necrosis. DATA REPOSITORY:
== END ==
PROVIDERS: PCP Family Medicine; Visit Provider Student in an Organized Health Care Education/Training Program
DX: G56.01 Carpal tunnel syndrome, right upper limb (principal)
CPT/HCPCS: 73221

== ENCOUNTER → 2023-08-03 08:21 | Outpatient (BNVA) | payer MEDICARE, SELFPAY | PROVIDERS: PCP Family Medicine; Referring Provider Family Medicine; Visit Provider Student in an Organized Health Care Education/Training Program | DX: M65.9 Synovitis and tenosynovitis, unspecified (principal) | CPT/HCPCS: 99214 ==

== ENCOUNTER 2023-08-19 12:36 | Inpatient (IN) | payer MEDICARE, SELFPAY ==
[2023-08-19] VITALS (30 sets, daily range): BP systolic 150–166; BP diastolic 78–85; PULSE 70–93; RESP 9–29; TEMP 36.2–36.6; O2SAT 95–98
--- NOTE | 2023-08-19 12:30 | RT.EKG_ITS ---
APPROVED REPORT Exam: Resting ECG Reason for Exam: Dizzy Patient Location: E HR:75 bpm ECG Measurements Heart Rate 75 AXIS OR [id number] P [id number] QRSd 97 QRS -12 QT 395 T 30 QTc 441 Conclusion Atrial fibrillation...V-rate 45- 79, irreg A-activity Narrow complex atrial fibrillation at a rate of 75. Normal axis. QTc within normal limits. Frequen t PVCs. No ST segment abnormalities. No T wave inversions. Compared to prior dated last year atria l fibrillation rate controlled is persistent. PVCs are more abundant.
--- NOTE | 2023-08-19 13:00 | DI.RAD_ITS ---
Exam(s) XR CHEST 1V IN DI DEPT EXAM: XR CHEST 1V IN DI DEPT CLINICAL HISTORY: Dizziness TECHNIQUE: 2D digital imaging was performed of the chest. One image was obtained. An AP view was ob tained. COMPARISON: CR XR CHEST 2V PA LATERAL from 03/22/2022 FINDINGS: MEDIASTINUM: Normal. HEART: Normal. PULMONARY VASCULATURE: Normal. LUNGS: Clear. PLEURAL SPACE: No pleural effusion or pneumothorax. BONE:Within normal limits for the patient's age. OTHER FINDINGS:Normal. IMPRESSION: No acute pulmonary findings. DATA REPOSITORY: RADIATION DOSE DELIVERED:
--- NOTE | 2023-08-19 13:00 | DI.CT_ITS ---
Exam(s) CT HEAD - STROKE PROTOCOL EXAM: CT HEAD - STROKE PROTOCOL CLINICAL HISTORY: Dizziness. TECHNIQUE: Imaging Protocol: Axial computed tomography images with coronal and sagittal reformatted images were created and reviewed COMPARISON: No exams were available for comparison FINDINGS: Ventricles and Extra axial spaces: Normal in size and morphology for the patient's age. Hemorrhage: None. Cerebral parenchyma: There is subtle areas of decreased attenuation in the white matter most consiste nt with chronic microvascular ischemic disease. No mass effect is identified. Midline shift: None. Brainstem/Cerebellum: Normal. Calvarium: Normal. Visualized Paranasal sinuses/Mastoids: Clear. Soft Tissues: Unremarkable. IMPRESSION: No acute intracranial process. RADIATION DOSE DELIVERED: Total DLP DATA REPOSITORY: All CT scans at this facility are submitted to the National Radiology Data Registry (NRDR) Dose Index Registry (DIR) with the [employer] (ACR). RADIATION OPTIMIZATION: All CT scans at this facility use at least one of these dose optimization te chniques: automated exposure control; mA and/or kV adjustment per patient size (includes targeted exa ms where dose is matched to clinical indication); or iterative reconstruction.
--- NOTE | 2023-08-19 13:08 | W.ED.GENAD ---
Discharge Plan Disposition Patient Disposition: Admit to [facility] Discharge Details Clinical Impression: Brain TIA Primary Care Provider: Audrey Arora ED Provider: Nikko Witt Home Meds and New Rx's Prescriptions: No Action albuterol sulfate [Ventolin HFA] 90 mcg/actuation HFA aerosol inhaler 2 puff inhalation QID PRN (Reason: shortness of breath or wheezing) Qty: 8.5 0RF Ocuvite Adult 50 Plus 250-5-1 mg capsule 1 cap PO DAILY (DME) Blood Glucose Test Strip See Dose Instructions .ROUTE .MEDSUPPLY Qty: 100 5RF Dose Instruction: As directed Rx Instructions: daily E11.9 One touch Eliquis 5 mg tablet 5 mg PO BID Qty: 180 3RF diltiazem HCl 180 mg capsule,extended release 24 hr 180 mg PO HS Qty: 90 3RF losartan 100 mg tablet 100 mg PO DAILY Qty: 90 3RF metoprolol succinate [Toprol XL] 200 mg tablet extended release 24 hr 200 mg PO DAILY Qty: 90 3RF tirzepatide 12.5 mg/0.5 mL pen injector 12.5 mg subcut QWEEK Qty: 2 5RF Hold Instructions: Formulary/Insurance Rx Instructions: Inject once weekly subcutaneously as directed. Calcium 600 + D(3) 600-125 mg-unit tablet 1 tab PO DAILY acetaminophen 500 mg tablet 1,000 mg PO Q8H PRN (Reason: pain) Qty: 90 3RF HPI General Date/Time Provider Initiated Documentation: 08/19/23 12:45. HPI Narrative: MDM This is a chronically ill-appearing afebrile not tachycardic 78-year-old female with atrial fibrillation frequent PVCs concerning for the possibility of posterior circulation CVA given truncal ataxia for which patient will undergo dry CT head. Hemorrhagic stroke certainly possible given apixaban use. Dysrhythmia is also possible given frequent PVCs so we will obtain a troponin to assess for myocardial injury versus infarct. No pain out of portion to suggest necrotizing soft tissue infection. No tonic-clonic activity to suggest seizures and no indication for EEG. No nuchal rigidity nor fevers so my suspicion is low for meningitis so I did not feel that the patient required a lumbar puncture. Patient is nauseous but has not been vomiting so we will treat with ondansetron. No chest pain to suggest aortic dissection. No loss of vision to suggest giant cell arteritis. No recent chiropractic manipulation to suggest increased risk for cervical arterial dissection. No dysuria no frequency so doubt UTI. No cough no shortness of breath so my suspicion is low for pneumonia. Patient is not a tPA candidate given apixaban use. No nystagmus so I did not apply the hints exam. Will consult with neurology. 2 PM Reassuring normal magnesium. Negative troponin. Comprehensive metabolic panel with no TANYA. Mild hyperglycemia but no anion gap and normal bicarbonate??not consistent with DKA. No LFT abnormalities. CBC lacks anemia thrombocytopenia and leukocytosis. 2:30 PM Spoke with neurology who advised observation given concern for posterior circulation TIA. I ordered MRI echocardiogram and CTA head and neck as recommended by neurology and 81 mg aspirin. Will update daughter and patient on plan of care. Will also attempt treatment with meclizine. 3:15 PM I spoke with Dr. Wilson who agreed graciously to accept the patient for hospitalization. Will keep patient in the ED pending CTA head & neck. 4:30 PM Unremarkable CTA head and neck. Chronic conditions affecting the care of the patient: Atrial fibrillation on apixaban History obtained from an outside historian: Daughter External record review: [facility] [place] EMR Diagnostic interpretations performed by me: Per my independent interpretation chest x-ray shows: No acute cardiopulmonary process Per my independent interpretation EKG shows: Narrow complex atrial fibrillation at a rate of 75. Normal axis. QTc within normal limits. Frequent PVCs. No ST segment abnormalities. No T wave inversions. Compared to prior dated last year atrial fibrillation rate controlled is persistent. PVCs are more abundant. ]Medications: Ondansetron Social determinants of health affecting disposition: N/A Management discussed with: Neurology & hospitalist Treatment/interventions considered: N/A Response to therapies provided: N/A HPI This is a 78-year-old female with history of chronic atrial fibrillation on apixaban and diabetes arrived to the emergency department via private vehicle in the setting of dizziness. At approximately 11:15 AM this morning patient bent over to pick something up and when she stood up she immediately felt dizzy. She generally ambulates with a cane but has had difficulty ambulating secondary to her dizziness. She sat down in a chair and took a nap afterwards. Subsequently her daughter found her at home. She did not syncopized. She is nauseous but has not been vomiting. She denies dysuria and frequency. No difficulty speaking. She has been adherent with her apixaban. She denies chest pain fevers shortness of breath and cough. No prior history of similar symptoms. Exam General: Chronically ill-appearing in no acute distress speaking in complete sentences. Head: Normocephalic, atraumatic. Eye:[Pupils equal, round reactive to light.] Extraocular eye movements intact. No conjunctival injection. No scleral icterus. Ear, nose, mouth, throat: Grossly normal inspection. Normal voice, handling secretions normally. Neck: Trachea midline. Cardiovascular: Well-perfused distal extremities. Irregularly irregular rhythm Respiratory: Nonlabored respiration. Clear lungs bilaterally Gastrointestinal: Nondistended abdomen. Soft nontender Musculoskeletal: No edema. Moving all 4 extremities spontaneously. Skin: Normal for age and race, grossly normal temperature and turgor. No acute rash. Neurologic: Alert and appropriate. GCS 15. Cranial nerves II central intact grossly. Patient does have mild right-sided dysmetria. She also has truncal ataxia. Romberg deferred. 5 out of 5 bilateral upper and lower extremity strength. No pronator drift. Psychiatric: Mood and manner are appropriate. Grooming and personal hygiene are appropriate. Related Data Home Medications Medication Instructions Recorded Confirmed acetaminophen 500 mg tablet 1,000 mg (2 x 500 mg) PO Q8H PRN 01/06/21 08/19/23 pain #90 tabs vit C,E,zinc,copper-[id number] 250 1 cap PO DAILY 06/30/21 08/19/23 mg-lutein 5 mg-zeaxanthin 1 mg capsule (Ocuvite Adult 50 Plus) albuterol sulfate 90 mcg/actuation 2 puff inhalation QID PRN 02/17/22 08/19/23 aerosol inhaler (Ventolin HFA) shortness of breath or wheezing #8.5 grams apixaban 5 mg tablet (Eliquis) 5 mg PO BID #180 tabs 09/26/22 08/19/23 diltiazem HCl 180 mg capsule,24 180 mg PO HS #90 caps 09/26/22 08/19/23 hr,extended release losartan 100 mg tablet 100 mg PO DAILY #90 tabs 09/26/22 08/19/23 metoprolol succinate 200 mg 200 mg PO DAILY #90 tabs 02/06/23 08/19/23 tablet,extended release 24 hr (Toprol XL) blood sugar diagnostic (Blood #100 ea 03/10/23 08/19/23 Glucose Test strips) calcium carbonate-vitamin D3 600 1 tab PO DAILY 06/07/23 08/19/23 mg-125 unit tablet (Calcium) tirzepatide 12.5 mg/0.5 mL 12.5 mg (0.5 mL) subcut QWEEK #2 mL 07/03/23 08/19/23 subcutaneous pen injector Previous Rx's Medication Instructions Recorded acetaminophen 500 mg tablet 1,000 mg (2 x 500 mg) PO Q8H PRN 01/06/21 pain #90 tabs albuterol sulfate 90 mcg/actuation 2 puff inhalation QID PRN 02/17/22 aerosol inhaler (Ventolin HFA) shortness of breath or wheezing #8.5 grams apixaban 5 mg tablet (Eliquis) 5 mg PO BID #180 tabs 09/26/22 diltiazem HCl 180 mg capsule,24 180 mg PO HS #90 caps 09/26/22 hr,extended release losartan 100 mg tablet 100 mg PO DAILY #90 tabs 09/26/22 metoprolol succinate 200 mg 200 mg PO DAILY #90 tabs 02/06/23 tablet,extended release 24 hr (Toprol XL) blood sugar diagnostic (Blood #100 ea 03/10/23 Glucose Test strips) tirzepatide 12.5 mg/0.5 mL 12.5 mg (0.5 mL) subcut QWEEK #2 mL 07/03/23 subcutaneous pen injector Allergies Allergy/AdvReac Type Severity Reaction Status Date / Time lisinopril AdvReac Severe COUGH Verified 08/19/23 12:52 codeine AdvReac Intermediate Nausea Verified 08/19/23 12:52 metformin AdvReac Intermediate diarrhea Verified 08/19/23 12:52 oxycodone AdvReac Intermediate Nausea Verified 08/19/23 12:52 General Stated Complaint: Dizzy/Sync KAILYN: 3 Course Vital Signs Vital signs: Vital Signs Temperature 36.2 C L 08/19/23 12:42 Pulse 73 08/19/23 12:42 Respiratory Rate 16 08/19/23 12:42 Blood Pressure 166/82 H 08/19/23 12:42 Pulse Oximetry 98 08/19/23 12:42 Temperature 36.2 C L 08/19/23 12:42 Temperature Source Temporal Artery Scan 08/19/23 12:42 Pulse 73 08/19/23 12:42 Respiratory Rate 16 08/19/23 12:42 Blood Pressure 166/82 H 08/19/23 12:42 Pulse Oximetry 98 08/19/23 12:42 Oxygen Delivery Method Room Air 08/19/23 12:42 Oxygen Flow Rate 0 08/19/23 12:42 Medical Decision Making Quality:SDOH Health Related Social Needs: No Data to Display PFSH All Active Problems (Updated 08/19/23 @ 14:30 by Nikko Witt MD) Brain TIA (Acute) Synovitis of right wrist (Acute) Cluneal neuropathy (Acute) Right carpal tunnel syndrome (Acute) S/P OCTR: 02/28/2023 CKD stage G3b/A2, GFR 30-44 and albumin creatinine ratio 30-299 mg/g (Acute) Class 2 obesity due to excess calories with body mass index (BMI) of 35.0 to 35.9 in adult (Acute) Low back pain (Acute) Cluneal neuropathy (Acute) SI (sacroiliac) joint dysfunction (Acute) Osteoarthritis of carpometacarpal joint of right thumb (Acute) Right rotator cuff tear (Acute) 80 mg Depo-Medrol injection: 06/13/22 Moderate mitral regurgitation by prior echocardiogram (Acute) Type 2 diabetes mellitus with microalbuminuria, without long-term current use of insulin (Acute) Anemia of chronic disease (Chronic) Chronic atrial fibrillation (Chronic) SOB (shortness of breath) (Chronic) with exertion; normal PFTs - slight restriction due to habitus, echo with mod MR Cardiomyopathy (Chronic) LVEF 42% in 08/2019; LVEF 55% 03/2022 Hypertension (Chronic) Medical History Hx of diverticulitis of colon (~03/2021) with bowel perforation. History of MRSA infection History of tobacco use Neural foraminal stenosis of lumbar spine by MRI 2019 Kidney stone Paroxysmal SVT (supraventricular tachycardia) (02/15/17) zio patch Polyp of colon (02/03/04) Surgical History History of colpocleisis (04/2023) Dr. Mckenzie at [facility] [place]; and colporrhaphy, cystourethroscopy. S/P carpal tunnel release Status post MINDA-BSO TVH, BSO with R sided uterosacral ligament suspension with Anterior Coloporrhapy. 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 Brother , AGE 82 Diabetes Heart disease Social History Smoking/Tobacco Use Status: Former Tobacco Use Quit Date: 03/06/81 Second Hand Exposure: Yes Smoking risk assessment performed?: Yes Alcohol Intake: never Drug use: Never Substance use type: does not use Household members: spouse Housing: house Number of Children: 2 number of grandchildren: 4 Communication Needs: None Do you need help understanding health information?: Often current occupation: retired from retail, farm work Pets and animals: Yes Pets and animals: dog(s) Sexually active: No Do you think of yourself as: straight/heterosexual Current gender identity: female How often do you talk on the phone with friends or family?: three or more times per week How often do you get together with friends or relatives?: decline to answer How often do you attend gnosticist or scientology services?: decline to answer Do you belong to any clubs or organized social groups?: decline to answer Panel score (0-1 are the most socially isolated patients): 1 Radha/Sabianism: Scientology Special radha needs: No Seatbelt use: always 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
[2023-08-19 13:25] LABS: Abs Immature Grans 0.03 10^3/uL (0.0-0.06); Absolute Basophil Count 0.05 10^3/uL (0.0-0.2); Absolute Lymphocyte Count 2.26 10^3/uL (1.2-3.4); Absolute Monocyte Count 0.59 10^3/uL (0.1-0.8); Absolute Neutrophil Count 5.09 10^3/uL (1.2-6.7); Basophils % 0.6 %; Eosinophils % 2.4 %; HCT 41.2 % (36.0-46.0); HGB 14.3 g/dL (11.2-15.7); Immature Grans % 0.4 %; Lymphocytes % 27.5 %; MCH 30.8 pg (27.0-33.0); MCHC 34.7 % (32.0-36.0); MCV 89 fL (80-95); MPV 11.1 fL (8.0-11.0); Monocytes % 7.2 %; Neutrophils % 61.9 %; Platelet Count 168 10^3/uL (130-400); RBC 4.64 10^6/uL (3.93-5.22); RDW 12.3 % (11.7-14.6); WBC 8.22 10^3/uL (4.4-10.8)
--- NOTE | 2023-08-19 13:32 | DI.VRAD_ITS ---
PROCEDURE INFORMATION: Exam: CT Head Without Contrast Exam date and time: 08/19/2023 1:19 PM Age: 78 years old Clinical indication: Stroke-like symptoms; Dizziness/giddiness TECHNIQUE: Imaging protocol: Computed tomography of the head without contrast. Radiation optimization: All CT scans at this facility use at least one of these dose optimization techniques: automated exposure control; mA and/or kV adjustment per patient size (includes targeted exams where dose is matched to clinical indication); or iterative reconstruction. Other technique: STROKE PROTOCOL was implemented. COMPARISON: No relevant prior studies available. FINDINGS: Brain: No intracranial hemorrhage. There is global parenchymal volume loss. Periventricular white matter hypoattenuation is nonspecific but most likely due to small vessel disease. No evidence of acute territorial infarct or cerebral edema. No mass effect or midline shift. Cerebral ventricles: Prominent ventricles likely secondary to volume loss. Paranasal sinuses: Visualized sinuses are unremarkable. No fluid levels. Mastoid air cells: Visualized mastoid air cells are well aerated. Bones: Unremarkable. No acute fracture. Soft tissues: Unremarkable. Vasculature: Diffuse arterial calcification. IMPRESSION: No acute intracranial findings. ASSESSMENT: ASPECTS ([place] Stroke Program Early CT Score) is 10. Dictated and Authenticated by: Rasta Koo MD. Ordering:CALVIN El MD
--- NOTE | 2023-08-19 13:32 | DI.VRAD_ITS ---
PROCEDURE INFORMATION: Exam: XR Chest Exam date and time: 08/19/2023 1:24 PM Age: 78 years old Clinical indication: Other: Dizziness TECHNIQUE: Imaging protocol: Radiologic exam of the chest. Views: 1 view. COMPARISON: CR XR CHEST 2V PA LATERAL 03/22/2022 9:41 AM FINDINGS: Lungs: Unremarkable. No consolidation. Pleural spaces: Unremarkable. No pleural effusion. No pneumothorax. Heart/Mediastinum: Unremarkable. No cardiomegaly. Bones/joints: Unremarkable. IMPRESSION: No acute findings. Dictated and Authenticated by: Rasta Koo MD. Ordering:CALVIN El MD
[2023-08-19 13:41] LABS: ALT 24 U/L (14-59); AST 10 U/L (15-37); Albumin 3.8 g/dL (3.4-5.0); Alkaline Phosphatase 92 U/L (46-116); Anion Gap 8.5 mmol/L (3-11); BUN 19 mg/dL (7-18); Bilirubin, Total 0.7 mg/dL (0.2-1.0); CO2 28.5 mmol/L (21.0-32.0); CREATININE 0.9 mg/dL (0.55-1.02); Calcium 9.6 mg/dL (8.5-10.1); Chloride 102 mmol/L (98-107); Estimated GFR 65.84 (mL/min/1.73m2); Glucose 113 mg/dL (74-106); Potassium 4.4 mmol/L (3.5-5.1); Sodium 139 mmol/L (136-145); Total Protein 7.5 g/dL (6.4-8.2); Troponin I < 50 ng/L (< or =60)
--- NOTE | 2023-08-19 14:15 | DI.CT_ITS ---
Exam(s) CT BRAIN NECK CTA EXAM: CT BRAIN NECK CTA CLINICAL HISTORY: Nausea dizziness. TECHNIQUE: Imaging Protocol: Axial CT angiography was performed with multi-slice acquisition and mu lti-planar and/or 3D reconstructions. CONTRAST MATERIAL: Intravenous: Omnipaque 350 contrast volume:85 mL COMPARISON: CT CT ABDOMEN PELVIS W from 06/17/[address] HEAD - STROKE PROTOCOL from 08/19/2023 FINDINGS: CT Head w: Ventricles and Extra axial spaces: Normal in size and morphology for the patient's age. Hemorrhage: None. Cerebral parenchyma: No evidence of an acute territorial infarct. No acute mass effect. Midline shift: None. Brainstem/Cerebellum: Normal. Calvarium: Normal. Visualized Paranasal sinuses/Mastoids: Clear. Soft Tissues: Unremarkable. Enhancement: Unremarkable. CTA Neck W: Common Carotid: Right: No dissection, occlusion or significant stenosis. Left: No dissection, occlusion or significant stenosis. External Carotid: Right: No occlusion or significant stenosis. Left: No occlusion or significant stenosis. Internal Carotid: There is mild atherosclerotic calcification of the origins of both internal carotid arteries. Right: No dissection, occlusion or significant stenosis. Left: No dissection, occlusion or significant stenosis. Vertebral Artery: Right: No dissection, occlusion or significant stenosis. There is a dominant right vertebral artery. 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 Lung Apices: There is a calcified granuloma in the right upper lobe. Bones: Within normal limits for the patient's age. Soft Tissues: Normal. Thyroid gland: Unremarkable. CTA Brain W: Internal Carotid Arteries: Mild atherosclerotic calcification is seen. No aneurysm, occlusion or sig nificant stenosis. Anterior Cerebral Arteries: Right: No aneurysm, occlusion or significant stenosis. Left: No aneurysm, occlusion or significant stenosis. Middle Cerebral Arteries: Right: No aneurysm, occlusion or significant stenosis. Left: No aneurysm, occlusion or significant stenosis. Posterior Cerebral Arteries: Right: No aneurysm, occlusion or significant stenosis. Left: No aneurysm, occlusion or significant stenosis. Vertebral Arteries: Right: No aneurysm, occlusion or significant stenosis. There is a dominant right vertebral artery. 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 Basilar Artery: No aneurysm, occlusion or significant stenosis. IMPRESSION: 1. No large vessel occlusion or significant stenosis on the CT angiography of the head. 2. No acute intracranial process. 3. No occlusion or significant stenosis on the CT angiography of the neck. 4. Hypoplastic left vertebral artery. RADIATION DOSE DELIVERED: Total DLP DATA REPOSITORY: All CT scans at this facility are submitted to the National Radiology Data Registry (NRDR) Dose Index Registry (DIR) with the [employer] (ACR). RADIATION OPTIMIZATION: All CT scans at this facility use at least one of these dose optimization te chniques: automated exposure control; mA and/or kV adjustment per patient size (includes targeted exa ms where dose is matched to clinical indication); or iterative reconstruction.
[2023-08-19] MEDS: Omnipaque 350 MG/ML 100 ML BTL IJ (15:22)
[2023-08-19] MEDS: Normal Saline - Diluent 50 ML VIAL IJ (15:22)
--- NOTE | 2023-08-19 15:56 | DI.VRAD_ITS ---
PROCEDURE INFORMATION: Exam: CTA Head Without And With Contrast, Arteriography Exam date and time: 08/19/2023 3:23 PM Age: 78 years old Clinical indication: Other: Nausea, dizziness TECHNIQUE: Imaging protocol: Computed tomographic angiography of the head without and with contrast. Exam focused on the arteries. 3D rendering (Not supervised by radiologist): MIP and/or 3D reconstructed images were created by the technologist. Contrast material: OMNI 350; Contrast volume: 85 ml; Contrast route: INTRAVENOUS (IV); COMPARISON: CT HEAD - STROKE PROTOCOL 08/19/2023 1:19 PM FINDINGS: ANTERIOR CIRCULATION: Right internal carotid artery: Intracranial segment is patent with no significant stenosis or occlusion. No aneurysm. Right middle cerebral artery: No occlusion or significant stenosis. No aneurysm. Right anterior cerebral artery: No occlusion or significant stenosis. No aneurysm. Left internal carotid artery: Intracranial segment is patent with no significant stenosis. No aneurysm. Left middle cerebral artery: No occlusion or significant stenosis. No aneurysm. Left anterior cerebral artery: No occlusion or significant stenosis. No aneurysm. POSTERIOR CIRCULATION: Right vertebral artery: No occlusion or significant stenosis. No aneurysm. Left vertebral artery: No occlusion or significant stenosis. No aneurysm. Basilar artery: No occlusion or significant stenosis. No aneurysm. Right posterior cerebral artery: No occlusion or significant stenosis. No aneurysm. Left posterior cerebral artery: No occlusion or significant stenosis. No aneurysm. HEAD: Brain: Normal. No hemorrhage. Unremarkable white matter. No mass effect. Cerebral ventricles: Normal. No ventriculomegaly. Bones: Unremarkable. No acute fracture. Paranasal sinuses: Visualized sinuses are normal. No fluid levels. Mastoid air cells: Visualized mastoids are normal. No mastoid effusion. Soft tissues: Unremarkable. IMPRESSION: 1. No large vessel occlusion. 2. Unremarkable CT head. PROCEDURE INFORMATION: Exam: CTA Neck Without And With Contrast Exam date and time: 08/19/2023 3:23 PM Age: 78 years old Clinical indication: Other: Nausea, dizziness TECHNIQUE: Imaging protocol: Computed tomographic angiography of the neck without and with contrast. Exam focused on the cervical segments of the vasculature. 3D rendering (Not supervised by radiologist): MIP and/or 3D reconstructed images were created by the technologist. Radiation optimization: All CT scans at this facility use at least one of these dose optimization techniques: automated exposure control; mA and/or kV adjustment per patient size (includes targeted exams where dose is matched to clinical indication); or iterative reconstruction. Contrast material: OMNI 350; Contrast volume: 85 ml; Contrast route: INTRAVENOUS (IV); COMPARISON: CT HEAD - STROKE PROTOCOL 08/19/2023 1:19 PM FINDINGS: Right common carotid artery: No stenosis. No dissection or occlusion. Right internal carotid artery: No stenosis of the extracranial segment. No dissection or occlusion. Right external carotid artery: No occlusion or stenosis of the origin. Left common carotid artery: No stenosis. No dissection or occlusion. Left internal carotid artery: No stenosis of the extracranial segment. No dissection or occlusion. Left external carotid artery: No occlusion or stenosis of the origin. Right vertebral artery: No stenosis. No dissection or occlusion. 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 Soft tissues: Normal. No significant soft tissue swelling. Bones/joints: Degenerative changes in the cervical spine most prominently C5-C6 and C6-C7. IMPRESSION: No hemodynamically significant stenosis. REFERENCES: NASCET CRITERIA. The degree of stenosis in the cervical segment of the internal carotid artery is based on NASCET criteria. Normal is no stenosis. Mild is less than 50% stenosis. Moderate is 50-69% stenosis. Severe is 70% to 99% stenosis. Total occlusion is no detectable patent lumen. Dictated and Authenticated by: Rasta Koo MD. Ordering:CALVIN El MD
[2023-08-19 17:10] LABS: Troponin I < 50 ng/L (< or =60)
[2023-08-19] MEDS: Aspirin 81 MG CHEW 324 MG CH (18:53)
--- NOTE | 2023-08-19 19:01 | HPE_ITS ---
Date of service: 08/19/23 Time of Service: 19:02 Assessment and Plan Assessment and plan (1) Brain TIA: Status: Acute Assessment and plan: unclear as to whether TIA or posterior circulation as her symptoms seem to be waxing and waning. will proceed w loading of aspirin tonight, continue her apixaban, add high dose statin tonight, telemetry for 48 hr although we know she has chronic atrial fibrillation; check echo on Monday along w/ MRI, frequent neuro checks, allow passive hypertension for 48 hr. consult PT and [employer] and OT (2) Vertigo due to acute cerebrovascular disease: Status: Acute Assessment and plan: prn meclizine, consult PT (3) CKD stage G3b/A2, GFR 30-44 and albumin creatinine ratio 30-299 mg/g: Status: Acute (4) Hypertension: Status: Chronic Assessment and plan: avoid hypotension or even normotension for 48h, withold her antihypertensives for any SBP <160, goal is for SBP 150 to 190 for next 48hr, continue her diltiazem and metoprolol for her afib but hold her losartan for 24 to 48 hr to avoid hypotension. only treat SBP >210 mm Qualifiers: Hypertension type: essential hypertension Qualified Code(s): I10 - Essential (primary) hypertension (5) Cardiomyopathy: Status: Chronic Assessment and plan: no acute symptoms of CHF Qualifiers: Cardiomyopathy type: other Qualified Code(s): I42.8 - Other cardiomyopathies (6) Chronic atrial fibrillation: Status: Chronic Assessment and plan: telemetry, continue diltiazem and metoprolol and apixaban (7) Type 2 diabetes mellitus with microalbuminuria, without long-term current use of insulin: Status: Acute Assessment and plan: holding her Ozempic and treating w/ sliding scale insulin novolog, check A1C History of Present Illness History of Present Illness Chief Complaint: vertigo, double vision Narrative: 78 yr old female w/ hx of HTN, PSVT, atrial fibrillation (AC w apixaban), non- ischemic CM, CKD stage 3, DM type II (treated w Hoangunjaro), who presented to the ED at 12:42 about one hour after acute onset of vertigo that developed after she bent over to pick something up. She felt unsteady in her gait like the room was spinning, she did not have any syncope or palpitations or dyspnea and did not injury herself. This was accompanied by blurred vision, double vision but no focal visual loss. Upon arrival her vital signs were stable (HR 73 afib, BP 166/82, RR 16 w/ SPO2 96 on room air). Stroke alert was called and she underwent CT head w/o contrast which showed no acute intracranial findings. Labs and EKG were done and [place] was [place] [facility] Neurology felt that patient had low NIHSS score and was not candidate for TPA given her current use of apixaban. Neurology advised addition of aspirin to her apixaban, admission for stroke workup including MRI brain, echocardiogram and CTA brain and cervical vessels. The hospitalist service was asked to admit the patient . I discussed her findings w Dr. Witt and asked that the patient have her CTA done and read before admission to [facility] as I wanted to be sure she did not have an acute basilar/posterior circulation thrombosis which may need thrombectomy. CTA was done and read as negative for acute thrombosis of major cervical and cerebral vessels. Upon arrival to the med/surg floor the patient said she had more symptoms of visual double vision and blurred vision and vertigo occurring during transfer from cart to the bed. This has now resolved. She denies any acute vision loss, facial numbness or focal weakness or paresthesias. Aspirin was not given in the ED but was ordered for tomorrow. I ordered stat loading dose of aspirin 324 mg and to continue her apixaban and to begin atorvastatin 80 mg night. We will get echocardiogram w/ bubbles on Monday and MRI of brain on Monday. Will check glycohemoglobin A1C and lipid profile for secondary risk stratification and reduction. Review of Systems Constitutional Constitutional: Denies headache(s) Eyes Eyes: Reports blurry vision, Reports diplopia and Denies loss of vision ENT Ears, Nose, Mouth, and Throat: Reports vertigo, Denies headache(s) and Reports disequilibrium Cardiovascular Cardiovascular: Denies chest pain at rest, Denies syncope, Denies rapid heart rate and Denies dyspnea Respiratory Respiratory: Reports as per HPI and Denies dyspnea Gastrointestinal Gastrointestinal: Reports nausea and Denies vomiting Genitourinary Genitourinary: Reports system reviewed and no additional complaints, except as documented Musculoskeletal Musculoskeletal: Reports system reviewed and no additional complaints, except as documented and Denies tingling Integumentary/Breasts Skin/Breast: Reports system reviewed and no additional complaints, except as documented Neurologic Neurologic: Reports as per HPI, Denies confusion, Reports vertigo, Denies syncope, Denies headache(s), Denies localized weakness, Denies loss of vision, Denies sensory deficit, Denies tingling and Reports disequilibrium Psychiatric Psychiatric: Denies confusion Endocrine Endocrine: Reports system reviewed and no additional complaints, except as documented PFSH All Active Problems (Updated 08/19/23 @ 22:11 by Kostas Mtz MD) Vertigo due to acute cerebrovascular disease (Acute) Brain TIA (Acute) Synovitis of right wrist (Acute) Cluneal neuropathy (Acute) Right carpal tunnel syndrome (Acute) S/P OCTR: 02/28/2023 CKD stage G3b/A2, GFR 30-44 and albumin creatinine ratio 30-299 mg/g (Acute) Class 2 obesity due to excess calories with body mass index (BMI) of 35.0 to 35.9 in adult (Acute) Low back pain (Acute) Cluneal neuropathy (Acute) SI (sacroiliac) joint dysfunction (Acute) Osteoarthritis of carpometacarpal joint of right thumb (Acute) Right rotator cuff tear (Acute) 80 mg Depo-Medrol injection: 06/13/22 Moderate mitral regurgitation by prior echocardiogram (Acute) Type 2 diabetes mellitus with microalbuminuria, without long-term current use of insulin (Acute) Anemia of chronic disease (Chronic) Chronic atrial fibrillation (Chronic) SOB (shortness of breath) (Chronic) with exertion; normal PFTs - slight restriction due to habitus, echo with mod MR Cardiomyopathy (Chronic) LVEF 42% in 08/2019; LVEF 55% 03/2022 Hypertension (Chronic) Medical History Hx of diverticulitis of colon (~03/2021) with bowel perforation. History of MRSA infection History of tobacco use Neural foraminal stenosis of lumbar spine by MRI 2019 Kidney stone Paroxysmal SVT (supraventricular tachycardia) (02/15/17) zio patch Polyp of colon (02/03/04) Surgical History History of colpocleisis (04/2023) [place] [facility] and colporrhaphy, cystourethroscopy. S/P carpal tunnel release Status post MINDA-BSO TVH, BSO with R sided uterosacral ligament suspension with Anterior Coloporrhapy. 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 Brother , AGE 82 Diabetes Heart disease Social History Smoking/Tobacco Use Status: Former Tobacco Use Quit Date: 03/06/81 Second Hand Exposure: Yes Smoking risk assessment performed?: Yes Alcohol Intake: never Drug use: Never Substance use type: does not use Household members: spouse Housing: house Number of Children: 2 number of grandchildren: 4 Communication Needs: None Do you need help understanding health information?: Often current occupation: retired from retail, farm work Pets and animals: Yes Pets and animals: dog(s) Sexually active: No Do you think of yourself as: straight/heterosexual Current gender identity: female How often do you talk on the phone with friends or family?: three or more times per week How often do you get together with friends or relatives?: decline to answer How often do you attend protestant or sabianism services?: decline to answer Do you belong to any clubs or organized social groups?: decline to answer Panel score (0-1 are the most socially isolated patients): 1 Radha/Faith: Alevism Special radha needs: No Seatbelt use: always Drive intox or ride w/intox class b driver: No Do you feel safe at home: Yes Do you feel safe in your relationship?: Yes Additional Social history: Enjoys playing golf, bowling. Meds Allergies and Home Medications Allergies Allergy/AdvReac Type Severity Reaction Status Date / Time lisinopril AdvReac Severe COUGH Verified 08/19/23 12:52 codeine AdvReac Intermediate Nausea Verified 08/19/23 12:52 metformin AdvReac Intermediate diarrhea Verified 08/19/23 12:52 oxycodone AdvReac Intermediate Nausea Verified 08/19/23 12:52 Home Medications Medication Instructions Recorded Confirmed Type acetaminophen 500 mg tablet 1,000 mg (2 x 500 mg) PO Q8H PRN 01/06/21 08/19/23 Rx pain #90 tabs vit C,E,zinc,copper-jwusq6c 250 1 cap PO DAILY 06/30/21 08/19/23 History mg-lutein 5 mg-zeaxanthin 1 mg capsule (Ocuvite Adult 50 Plus) albuterol sulfate 90 mcg/actuation 2 puff inhalation QID PRN 02/17/22 08/19/23 Rx aerosol inhaler (Ventolin HFA) shortness of breath or wheezing #8.5 grams apixaban 5 mg tablet (Eliquis) 5 mg PO BID #180 tabs 09/26/22 08/19/23 Rx diltiazem HCl 180 mg capsule,24 180 mg PO HS #90 caps 09/26/22 08/19/23 Rx hr,extended release losartan 100 mg tablet 100 mg PO DAILY #90 tabs 09/26/22 08/19/23 Rx metoprolol succinate 200 mg 200 mg PO DAILY #90 tabs 02/06/23 08/19/23 Rx tablet,extended release 24 hr (Toprol XL) blood sugar diagnostic (Blood #100 ea 03/10/23 08/19/23 Rx Glucose Test strips) calcium carbonate-vitamin D3 600 1 tab PO DAILY 06/07/23 08/19/23 History mg-125 unit tablet (Calcium) tirzepatide 12.5 mg/0.5 mL 12.5 mg (0.5 mL) subcut QWEEK #2 mL 07/03/23 08/19/23 Rx subcutaneous pen injector Exam Narrative Exam Narrative: Elderly white female who is alert and oriented x 3, no acute distress, normal speech and cognition HEENT: no facial asymmetry, normal facial mimetic muscles, normal muscle of mastication, PERRLA/EOMI no reproducible nystagmus w head turning Neck: supple, no JVD, normal carotid pulses Lungs: clear Heart: irregularly irregular at controlled rate, no murmur Abdomen: soft, nondistended, nontender, no bruits Extremities: no edema or cyanosis Neuro: CN II -XII with no gross abnormalities, I could not reproduce nystagmus w/ modified [place] maneurver. Results Labs 08/19/23 13:14 08/19/23 13:14 Labs: Laboratory Results - last 24 hr 08/19/23 08/19/23 13:14 16:45 WBC 8.22 RBC 4.64 Hgb 14.3 Hct 41.2 MCV 89 MCH 30.8 MCHC 34.7 RDW 12.3 Plt Count 168 MPV 11.1 H Immature Gran % 0.4 Neutrophils % 61.9 Lymphocytes % 27.5 Monocytes % 7.2 Eosinophils % 2.4 Basophils % 0.6 Nucleated RBC % 0.0 Absolute Neutrophils 5.09 Absolute Lymphocytes 2.26 Absolute Monocytes 0.59 Absolute Eosinophils 0.20 Absolute Basophils 0.05 Sodium 139 Potassium 4.4 Chloride 102 Carbon Dioxide 28.5 Anion Gap 8.5 BUN 19 H Creatinine 0.9 Est GFR (CKD-EPI 2020) 65.84 Glucose 113 H Calcium 9.6 Magnesium 2.0 Total Bilirubin 0.7 AST 10 L ALT 24 Alkaline Phosphatase 92 Troponin I < 50 < 50 Total Protein 7.5 Albumin 3.8 Last Vital Signs Temp 36.6 C 08/19/23 18:03 Pulse 70 08/19/23 18:03 Resp 16 08/19/23 18:03 BP 150/78 H 08/19/23 18:03 Pulse Ox 98 08/19/23 18:03 Time Spent Time spent with Patient: 55-74 minutes Time was spent: preparing to see the patient(eg.review tests), obtaining and/or reviewing separately otained hiistory, ordering medications,tests, procedures, referring, communicating with other health career development coordinator, indepentently interpreting results, counseling the patient and care coordination
[2023-08-19] MEDS: dilTIAZem CD 180 MG CAPCR PO (20:16)
[2023-08-19] MEDS: Normal Saline Flush 10 ML SYR IVP (20:17)
[2023-08-19] MEDS: Apixaban 5 MG TAB PO (20:17)
[2023-08-19 20:28] LABS: Hemoglobin A1C 6.4 % (<5.7)
[2023-08-19] MEDS: Atorvastatin 40 MG TAB 80 MG PO (22:27)
[2023-08-20 02:03] VITALS: BP 158/90; PULSE 75; RESP 18; TEMP 36.5; O2SAT 95
[2023-08-20 07:30] LABS: Calculated LDL 75 mg/dL (<100); Cholesterol 163 mg/dL (<200); HDL Cholesterol 61 mg/dL (40-60); Triglyceride 135 mg/dL (<150)
[2023-08-20 08:01] VITALS: BP 150/90; PULSE 73; RESP 17; TEMP 36.6; O2SAT 97
[2023-08-20] MEDS: Normal Saline Flush 10 ML SYR IVP ×2 (08:33→19:28)
[2023-08-20] MEDS: Apixaban 5 MG TAB PO ×2 (08:34→19:27)
[2023-08-20] MEDS: Beta-Carotene(A) w/C,E, & Minerals TAB 1 TAB PO (08:35)
[2023-08-20] MEDS: Calcium 600mg/Vit D 200U TAB 1 TAB PO (08:36)
[2023-08-20] MEDS: Aspirin 81 MG CHEW PO (08:36)
[2023-08-20] MEDS: Metoprolol CR 100 MG TABCR 200 MG PO (08:36)
--- NOTE | 2023-08-20 09:41 | INITIAL_ITS ---
Date of service: 08/20/23 Time of Service: 09:41 Care Management Initial Assmt Initial Assessment Reason for Hospitalization: Vertigo, Acute Brain TIA Functional Status/Living Situation Patient Presentation: Kaleigh was sitting in a chair visiting with her son and daughters when CM met with her. She is planning on having a MRI, ECHO and ST eval tomorrow. Pt denies concerns at this time. Town of Residence: [place], but mail goes to [place] Resides with: Spouse (Avel) Significant Other/Family: Local (Daughter/HCA: Malvin Demarcus, Son/Alt HCA: Malvin Perry) Natural Supports: Kaleigh has many local and supportive family members. Employment Status: Retired Instrumental Activities of Daily Living (ADLs): Independent Medications Medication Management: No Issues/Barriers identified Physical Functioning/Mobility Assistive Device: Cane Advance Directives Advance Directives: Do you have an Advance Directive: Y 05/24/18 08:48 AD On File at [facility]: Y 05/24/18 08:48 Date Asked 02/09/21 02/09/21 20:11 AD Date Reviewed 08/19/23 08/19/23 17:43 COLST On File at [facility] COLST Date Scanned Code Status Resuscitation Status Full Code Portal Pt does not currently have a portal and education provided: Yes Insurance Coverage/Financial Issues Insurance: [employer] Senior Supp. Ins Medicare ACO Member: Yes Financial Issues: None identified Care Team Visit Care Team Role Provider Type Audrey Arora MD Primary Care Provider [facility] STAFF PHYSICIAN Mirna Mclain, COMPUTATOR Other Providers SPEECH LANGUAGE PATHOLOGIST Sadaf Flores, COMPUTATOR Other Providers SPEECH LANGUAGE PATHOLOGIST Shereen Villalta Other Providers SPEECH LANGUAGE PATHOLOGIST Lizbeth Ansari, COMPUTATOR Other Providers SPEECH LANGUAGE PATHOLOGIST Laine Daley, COMPUTATOR Other Providers SPEECH LANGUAGE PATHOLOGIST Yahaira [place] Other Providers OTHER Temporary Provider Emergency Provider [facility] STAFF PHYSICIAN Kostas Mtz MD Admit Provider [facility] STAFF PHYSICIAN Attending Provider Discharge Potential Discharge Needs: Consult Consult Services Needed: Speech and Other (Teleneurology consult), Imaging/labs (ECHO and MRI), PT Evaluation and PCP F/U Appt Anticipated Barriers to Discharge: None Identified Patient/Family Education Needs: Review discharge instructions, discuss Ask Me Three Transportation: Private vehicle Plan: Kaleigh requires close monitoring and work up for a stroke. MRI, ECHO and ST eval is planned for tomorrow. Anticipate, pt will discharge home with New [facility] PT, when medically ready. Pt will follow up with community providers and her discharge plan of care as instructed. Family will transport. CM will follow. PFSH All Active Problems (Updated 08/19/23 @ 22:11 by Kostas Mtz MD) Vertigo due to acute cerebrovascular disease (Acute) Brain TIA (Acute) Synovitis of right wrist (Acute) Cluneal neuropathy (Acute) Right carpal tunnel syndrome (Acute) S/P OCTR: 02/28/2023 CKD stage G3b/A2, GFR 30-44 and albumin creatinine ratio 30-299 mg/g (Acute) Class 2 obesity due to excess calories with body mass index (BMI) of 35.0 to 35.9 in adult (Acute) Low back pain (Acute) Cluneal neuropathy (Acute) SI (sacroiliac) joint dysfunction (Acute) Osteoarthritis of carpometacarpal joint of right thumb (Acute) Right rotator cuff tear (Acute) 80 mg Depo-Medrol injection: 06/13/22 Moderate mitral regurgitation by prior echocardiogram (Acute) Type 2 diabetes mellitus with microalbuminuria, without long-term current use of insulin (Acute) Anemia of chronic disease (Chronic) Chronic atrial fibrillation (Chronic) SOB (shortness of breath) (Chronic) with exertion; normal PFTs - slight restriction due to habitus, echo with mod MR Cardiomyopathy (Chronic) LVEF 42% in 08/2019; LVEF 55% 03/2022 Hypertension (Chronic) Medical History Hx of diverticulitis of colon (~03/2021) with bowel perforation. History of MRSA infection History of tobacco use Neural foraminal stenosis of lumbar spine by MRI 2019 Kidney stone Paroxysmal SVT (supraventricular tachycardia) (02/15/17) zio patch Polyp of colon (02/03/04) Surgical History History of colpocleisis (04/2023) [place] [facility] and colporrhaphy, cystourethroscopy. S/P carpal tunnel release Status post MINDA-BSO TVH, BSO with R sided uterosacral ligament suspension with Anterior Coloporrhapy. 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 Brother , AGE 82 Diabetes Heart disease Social History Smoking/Tobacco Use Status: Former Tobacco Use Quit Date: 03/06/81 Second Hand Exposure: Yes Smoking risk assessment performed?: Yes Alcohol Intake: never Drug use: Never Substance use type: does not use Household members: spouse Housing: house Number of Children: 2 number of grandchildren: 4 Communication Needs: None Do you need help understanding health information?: Often current occupation: retired from retail, farm work Pets and animals: Yes Pets and animals: dog(s) Sexually active: No Do you think of yourself as: straight/heterosexual Current gender identity: female How often do you talk on the phone with friends or family?: three or more times per week How often do you get together with friends or relatives?: decline to answer How often do you attend uatsdin or jehovah's witness services?: decline to answer Do you belong to any clubs or organized social groups?: decline to answer Panel score (0-1 are the most socially isolated patients): 1 Radha/Anabaptism: Restoration Special radha needs: No Seatbelt use: always Drive intox or ride w/intox four horse hitch driver: No Do you feel safe at home: Yes Do you feel safe in your relationship?: Yes Additional Social history: Enjoys playing golf, bowling. SDOH(Care Management) Screening Will the Patient Participate in the Screening?: Declined to provide
--- NOTE | 2023-08-20 11:27 | PT.INIE ---
PT Notes Visit Reasons: vertigo, cva Inpatient Physical Therapy Evaluation Date: 08/20/23 Referring Doctor: Dr. Mtz PT Orders: PT CONSULT: fall safety assessment Precautions: fall Patient Profile/Admitting Diagnosis: Kaleigh is a 78 yr old female w/ hx of HTN, PSVT, atrial fibrillation, non-ischemic CM, CKD stage 3, DM type II, who presented to the ED after acute onset of vertigo that developed after she bent over to pick something up. She felt unsteady in her gait like the room was spinning, accompanied by blurred vision, double vision but no focal visual loss. ED work up included head and neck CTA, and she was admitted for acute care for further work up and management of suspected TIA. Social History/Home Situation: Kaleigh lives with her in a private home. Single level. Uses a cane at baseline due to left hip weakness following gluteal tear. Working with [facility] currently. Denies h/o falls. States that she remains active and is able to walk as much as she'd like, as long as she has her cane. Her is present during evaluation, and several friends present during session. Equipment Owned/DME: cane Subjective: Kaleigh states that she is feeling back to baseline. She has not had any dizziness today. States that she's been walking around her room with her cane, and does not feel unsteady or any different than prior to onset of symptoms. Denies blurred or double vision currently, although states it was terrible yesterday. Objective: General Observation: Sitting up in chair, dressed and conversing with her . IV in RUE. Mental Status: A&Ox3. Pleasant and cooperative. Pain: denies Vital Signs: Post-ambulation BP 162/78. ROM: Right Upper Extremity: WFL Left Upper Extremity: WFL Right Lower Extremity: WFL Left Lower Extremity: WFL Cervical ROM: grossly WNL and non-symptom producing Strength: Right Upper Extremity: Shoulder flexion 3/5. ER 3-/5. IR 4+/5. Biceps 5/5. Slip Cover Seamstress is strong and equal. Left Upper Extremity: Shoulder flexion 4+/5. ER 4+/5. IR 4+/5. Biceps 5/5. Slip Cover Seamstress is strong and equal. Right Lower Extremity: Hip flexion 5/5. Quads 5/5. Ankle DF 5/5. Left Lower Extremity: Hip flexion 5/5. Quads 5/5. Ankle DF 5/5. (+) Trendelenburg sign on the left. Bed Mobility/Transfers: Reports independent bed mobility. sit-stand: supervision stand-sit: supervision Gait: Ambulates 300' with straight cane, SBA. Minor path deviation during ambulation, although no losses of balance or symptoms of dizziness. Balance: Static Sitting: normal Dynamic Sitting: normal Static Standing: good Dynamic Standing: fair 4-Position Balance Test: 3/4 Small CLAUDIA: 10 seconds Partial Tandem: 10 seconds Full Tandem: 10 seconds Single Leg Stance: 0 seconds Allen Balance Scale: 43/56 (<45 indicates increased fall risk) 1. Sitting to standin 2. Standing unsupported : 4 3. Sitting unsupported : 4 4. Standing to sitting : 4 5. Transfers : 3 6. Standing with eyes closed : 4 7. Standing with feet together : 4 8. Reaching forward with outstretched arm : 4 9. Retrieving object from floor : 4 10. Turning to look behind : 4 11. Turning 360 degrees : 3 12. Placing alternate foot on stool :0 13. Standing with one foot in front: 1 14. Standing on one foot : 1 Vertebral Artery Testing: via AROM in seated position, (-) bilat [place] and Lean for assessment of HC-BPPV: (-) Visual Tracking: Normal Coordination: intact Fine Motor: intact Rhomberg: normal Special Tests: Mobility Limitations Standardized Measure [facility] AM-PAC 6 clicks Basic Mobility Inpatient Short Form: Raw Score: 24 CMS Score: 0% impairment Informed Consent/Education: Patient instructed in purpose of PT consult and plan of care. Assessment: Patient is a 78 year old female referred to physical therapy services for fall risk assessment. Patient presents 1 day s/p possible TIA, with ongoing work up. She's awaiting MRI tomorrow. Currently, she is reporting full resolution of symptoms and return to baseline level of function. She's demonstrating safe ambulation with use of cane, and Allen Balance Score supports use of AD for safe ambulation, which she has already been utilizing at home. She is scheduled to resume outpatient PT this Monday to address chronic RC tendinopathy, and will benefit from balance retraining in her plan of care, as well. That being said, she appears to be at her baseline level of function, and is appropriate for discharge home once medically stable with resumption of outpatient PT. She currently demonstrates the following impairment level findings: 1. Minor balance impairment, with Allen Score 43/56 2. Decreased RUE strength (chronic) 3. Resolved symptoms of dizziness Impairments are contributing to the following functional limitations: 1. balance impairment requiring use of AD Patient is assessed as Low [id number] complexity based on the following: History: As above. Complicating factor of ongoing work up for TIA Examination: at baseline level of function Presentation: evolving Decision Making: low complexity Plan of Care/Treatment Plan: No further PT intervention required, as patient is at baseline level of function and ambulating safely and independently in her room with cane. DISCHARGE RECOMMENDATIONS: Home with outpatient PT (scheduled at [facility] Tuesday 08/22) TREATMENT CODE/TIME: 30952 (11:05-11:30) Camila Phoenix PT, DPT, [facility] Please sign an return this page within 30 days if you agree with the above POC. Thank you! Physician Signature Date [facility] All Active Problems (Updated 08/19/23 @ 22:11 by Kostas Mtz MD) Vertigo due to acute cerebrovascular disease (Acute) Brain TIA (Acute) Synovitis of right wrist (Acute) Cluneal neuropathy (Acute) Right carpal tunnel syndrome (Acute) S/P OCTR: 02/28/2023 CKD stage G3b/A2, GFR 30-44 and albumin creatinine ratio 30-299 mg/g (Acute) Class 2 obesity due to excess calories with body mass index (BMI) of 35.0 to 35.9 in adult (Acute) Low back pain (Acute) Cluneal neuropathy (Acute) SI (sacroiliac) joint dysfunction (Acute) Osteoarthritis of carpometacarpal joint of right thumb (Acute) Right rotator cuff tear (Acute) 80 mg Depo-Medrol injection: 06/13/22 Moderate mitral regurgitation by prior echocardiogram (Acute) Type 2 diabetes mellitus with microalbuminuria, without long-term current use of insulin (Acute) Anemia of chronic disease (Chronic) Chronic atrial fibrillation (Chronic) SOB (shortness of breath) (Chronic) with exertion; normal PFTs - slight restriction due to habitus, echo with mod MR Cardiomyopathy (Chronic) LVEF 42% in 08/2019; LVEF 55% 03/2022 Hypertension (Chronic) Medical History Hx of diverticulitis of colon (~03/2021) with bowel perforation. History of MRSA infection History of tobacco use Neural foraminal stenosis of lumbar spine by MRI 2019 Kidney stone Paroxysmal SVT (supraventricular tachycardia) (02/15/17) zio patch Polyp of colon (02/03/04) Surgical History History of colpocleisis (04/2023) Dr. Mckenzie at [facility]; and colporrhaphy, cystourethroscopy. S/P carpal tunnel release Status post MINDA-BSO TVH, BSO with R sided uterosacral ligament suspension with Anterior Coloporrhapy. EP/aoc Tear of left gluteus medius tendon S/P Repair: 05/28/2021 History of total right knee replacement (01/06/21) Hx of colonoscopy Status post arthroscopy of left knee Status post lumbar surgery L3-L5
[2023-08-20 11:44] VITALS: BP 135/90; PULSE 105; RESP 17; TEMP 36.5; O2SAT 96
[2023-08-20 11:53] VITALS: PULSE 85
--- NOTE | 2023-08-20 14:31 | PGE_ITS ---
Date of Service Date of service: 08/20/23 Time of Service: 14:31 Assessment and Plan Assessment and plan (1) Brain TIA: Status: Suspected Assessment and plan: her ocular symptoms along w/ the vertigo suggests that this was posterior circulation TIA. Yesterday I did reproduce her symptoms w/ modified Manley-Brazos maneuver. Today I could not reproduce her symptoms. will proceed w/ MRI brain tomorrow along w/ echo w/ bubbles, otherwise continue apixaban along w/ ASA although if no evidence for CVA on her MRI, then ASA may not be needed. (2) Vertigo due to acute cerebrovascular disease: Status: Acute Assessment and plan: prn meclizikailee PT consulted, see her note today. She did not attempt Georgiana Hallpike maneurver but assessed patient's strength, gait and balance. Patient has some chronic RUE weakness and some minor balance impairment. PT recommends dc home w/ continued outpatient PT which patient was already attending and to continue to use cane for balance. (3) CKD stage G3b/A2, GFR 30-44 and albumin creatinine ratio 30-299 mg/g: Status: Chronic Assessment and plan: stable (4) Hypertension: Status: Chronic Assessment and plan: avoid hypotension or even normotension for 48h, withold her antihypertensives for any SBP <160, goal is for SBP 150 to 190 for next 48hr, continue her diltiazem and metoprolol for her afib but hold her losartan for 24 to 48 hr to avoid hypotension. only treat SBP >210 mm Losartan still on active hold for now. consider resumption tomorrow. Qualifiers: Hypertension type: essential hypertension Qualified Code(s): I10 - Essential (primary) hypertension (5) Cardiomyopathy: Status: Chronic Assessment and plan: no acute symptoms of CHF; resume losartan upon discharge Qualifiers: Cardiomyopathy type: other Qualified Code(s): I42.8 - Other cardiomyopathies (6) Chronic atrial fibrillation: Status: Chronic Assessment and plan: telemetry dc this morning as she has known chronic afib and had no sustained tachycardias overnight , continue diltiazem and metoprolol and apixaban (7) Type 2 diabetes mellitus with microalbuminuria, without long-term current use of insulin: Status: Acute Assessment and plan: holding her Ozempic and treating w/ sliding scale insulin novolog, check A1C blood glucose acceptable in the 120 to 130's. acceptable glycohemoglobin A1C of 6.4%, resume Ozempic upon discharge. Subjective Subjective Interval history since last seen: Patient is feeling markedly better. No vertigo and no visual disturbances. Able to get in/out of bed and walk to bathroom w/ out loss of balance or dizziness. Exam Narrative Exam Narrative: Kaleigh is sitting up in her chair watching TV, she is alert and oriented, normal speech, no facial asymmetry Lungs: clear Heart: irregularly irregular at controlled rate (telemetry overnight rates of 74 to 96, afib); I have dc her telemetry as she has known chronic afib Neuro: normal sensation over face/arms/legs, normal motor, no focal CN deficits; not able to elicit symptoms w/ rapid head turning Objective Last Vital Signs Temp 36.5 C 08/20/23 11:44 Pulse 85 08/20/23 11:53 Resp 17 08/20/23 11:44 BP 135/90 08/20/23 11:44 Pulse Ox 96 08/20/23 11:44 Laboratory Results - last 24 hr 08/19/23 08/19/23 08/20/23 16:45 19:50 06:35 Hemoglobin A1c 6.4 H Troponin I < 50 Triglycerides 135 Total Cholesterol 163 LDL Cholesterol, Calc 75 HDL Cholesterol 61 Time Spent with Patient Time Spent with Patient: 25-34 minutes Time was spent: preparing to see the patient(eg.review tests), ordering medications,tests, procedures, referring, communicating with other health veterinarian laboratory animal care, indepentently interpreting results, counseling the patient and care coordination
[2023-08-20 15:15] VITALS: BP 135/70; PULSE 54; RESP 18; TEMP 36.6; O2SAT 98
[2023-08-20 18:32] VITALS: BP 140/90; PULSE 74; RESP 17; TEMP 36.7; O2SAT 96
[2023-08-20] MEDS: dilTIAZem CD 180 MG CAPCR PO (19:27)
[2023-08-20] MEDS: Atorvastatin 40 MG TAB 80 MG PO (19:28)
[2023-08-21 07:20] VITALS: BP 140/80; PULSE 67; RESP 18; TEMP 36.4; O2SAT 96
[2023-08-21] MEDS: Calcium 600mg/Vit D 200U TAB 1 TAB PO (07:57)
[2023-08-21] MEDS: diazePAM 5 MG TAB PO (07:57)
[2023-08-21] MEDS: Beta-Carotene(A) w/C,E, & Minerals TAB 1 TAB PO (07:58)
[2023-08-21] MEDS: Apixaban 5 MG TAB PO (07:58)
[2023-08-21] MEDS: Aspirin 81 MG CHEW PO (07:59)
[2023-08-21] MEDS: Metoprolol CR 100 MG TABCR 200 MG PO (07:59)
[2023-08-21] MEDS: Insulin Aspart 300 UNITS/3 ML PEN SC ×2 (07:59→12:04)
[2023-08-21] MEDS: Normal Saline Flush 10 ML SYR IVP (08:00)
--- NOTE | 2023-08-21 08:50 | DI.MRI_ITS ---
Exam(s) MR BRAIN WO EXAM: MR BRAIN WO CLINICAL HISTORY: Nausea dizziness TECHNIQUE: Multiplanar multisequence MRI of the brain was performed. COMPARISON: CT CT BRAIN NECK CTA from 08/19/2023 FINDINGS: VENTRICLES AND EXTRA AXIAL SPACES: Normal in size and morphology for the patient's age. MIDLINE SHIFT: None. CEREBRAL PARENCHYMA: No focus of restricted diffusion to suggest acute infarct. No space-occupying le rd identified. Mild atrophy consistent with the patient's age. Minimal scattered foci of high sign al in the white matter consistent with sequela of chronic microvascular disease. HEMORRHAGE: None. BRAINSTEM/CEREBELLUM: Normal. VISUALIZED PARANASAL SINUSES/MASTOIDS:Clear. Vasculature: Normal flow void. Hypoplastic left vertebral artery. PITUITARY GLAND: Unremarkable. ORBITS: Unremarkable. IMPRESSION: Unremarkable MRI of the brain. DATA REPOSITORY:
--- NOTE | 2023-08-21 09:30 | DI.US_ITS ---
APPROVED REPORT EXAM: Comprehensive 2D, Doppler, and color-flow Echocardiogram Patient Location: In-Patient Room/Bed: [facility] Collaborative Teacher: Curtis Aguero RDCS (AE) Indications: Dizziness, ? TIA Echo Enhancing Agent Indication: Rule out Shunt Agent(s) / Amount(s) Used: Agitated Saline 30.0 cc Comments: Contrast study was performed with 3 IV injections of 10ccs of agitated normal saline, at [facility], with cough and post valsalva maneuver. Conclusion Normal left ventricular wall thickness and chamber size. Ejection fraction is 40 to 45%. There is g lobal hypokinesis Normal right ventricular size and function Right atrium is mildly enlarged. Left atrium is severely dilated No intracardiac shunting is identified with injection of agitated saline Aortic valve is sclerotic and trileaflet with trace regurgitation Mildly thickened mitral leaflets. Moderate to severe mitral regurgitation Mild to moderate tricuspid regurgitation. Estimated right ventricular systolic pressure is 32 mmHg Mildly dilated ascending aorta Wall motion Left Ventricle The left ventricle is normal size. Left ventricular systolic function is decreased. There is normal l eft ventricular wall thickness. There is global hypokinesis of the left ventricle. There is no ventri cular septal defect visualized. LVEF is 40-45%. Right Ventricle The right ventricle is normal size. The right ventricular systolic function is normal. Atria Left atrium is severely dilated. Right atrium is mildly dilated. Saline bubble contrast intravenous i njection does not demonstrate PFO. Aortic Valve The Aortic valve is sclerotic. Aortic valve is trileaflet. There is no aortic valvular stenosis. Trac e aortic regurgitation. Mitral Valve Mitral valve leaflets are mildly thickened. No evidence of mitral valve stenosis. Moderate to severe mitral regurgitation. Tricuspid Valve The tricuspid valve is normal in structure. There is no tricuspid valve stenosis. Mild to moderate tr icuspid regurgitation. The RVSP is 32.3 mmHg. Pulmonic Valve The pulmonary valve is normal in structure. There is no pulmonic valvular stenosis. Trace pulmonic re gurgitation. Great Vessels The aortic root is normal in size. The ascending aorta is mildly dilated. Aortic arch is normal in ca liber. IVC is normal in size and collapses >50% with inspiration. Pericardium There is no pericardial effusion. 2D Dimensions IVSD d PLAX 0.87 cm F: 0.6-1.0 Ao Root d 3.04 cm F: 2.7 - 3.3 LVPW d PLAX 0.92 cm F: 0.6 - 1.0 Ao Asc Diam d 3.46 cm F: 2.3 - 3.1 LVID d PLAX 6.27 cm F: 3.8 - 5.2 LVDs 4.94 cm F: 2.2 - 3.5 LV EF Teichholz 42.3 % FS 21.25 % LV EDV (Teich) 199.0 mL LV ESV (Teich) 114.8 mL Stroke Vol Index (Teich) 47.01 M-Mode TAPSE 1.83 cm (M/F) >1.7 Auto EF LV EDV A4C 90.7 mL LV EDV A2C 74.5 mL LV EDV BP 83.1 mL LV ESV A4C 53.9 mL LV ESV A2C 43.2 mL LV ESV BP 48.0 mL LVEF(%) A4C 40.6 % LVEF(%) A2C 42.0 % LVEF(%) BP 42.2 % LV SV A4C 36.8 ml LV SV A2C 31.3 ml LV SV BP 35.1 ml LV CO A4C 2.9 L/min LV CO A2C 2.2 L/min LV CO BP 2.6 L/min HR A4C 79.65 BPM HR A2C 69.77 BPM LV EDV Index (BP) LA Volume LA Length A4C 6.5 cm LA Length A2C 6.9 cm LA Area A4C s 33.20 cm2 LA Area A2C s 26.74 cm2 LA Vol A4C A-L 144.23 mL LA Vol A2C A-L 87.44 mL LA Vol Biplane A-L 116.2 mL LA Vol/BSA A4C A-L LA Vol/BSA A2C A-L LA Vol/BSA BP A-L 64.9 mL/m2 LA Vol A4C MOD 136.4 mL LA Vol A2C MOD 84.0 mL LA Vol BP MOD 110.2 mL RA Volume RA Area A4C 16.6 cm2 RA ESV A4C (A-L) 37.3mL RA Vol/BSA A4C A-L RA Length A4C 6.3 cm RA ESV A4C (MOD) 37.2mL LV Diastology MV E' medial 0.043 (>0.07 m/s) MV E Vmax 0.77 (0.4-1.3 m/s) MV E' lateral 0.105 (>0.1 m/s) Aortic Valve AoV Vmax 1.31 m/s LVOT Vmax 0.79 m/s AoV Peak Grad 27.6 mmHg LVOT Peak Grad 2.5 mmHg AoV Area (Vmax) 1.84 cm2 LVOT VTI 0.149 m AoV VTI 0.245 m LVOT Mean Grad 1.4 mmHg AoV Mean Ronak. 0.95 m/s LVOT SV 45.48 mL AoV Mean Grad 4.0 mmHg LVOT Diam s 1.95 cm AoV Area (VTI) 1.86 cm2 AV Regurg Peak Gr. 48.30 mmHg Velocity Ratio 0.60 AR Decel Schuyler 1.7m/sec2 AR DT 2099 msec AR PHT 609 msec AR Vmax 3.48 m/s Mitral Valve MV Vmax TIPS 0.85 m/s MR Vmax 5.23 m/s MV Mean Grad 1.0 (<2mmHg) MR VTI 1.549 m MV VTI 0.240 m MR Peak Grad 109.6 mmHg MR Mean Grad 66.9 mmHg MR PISA Radius 0.53 cm MR Aliasing Velocity 0.36 m/s Pulmonary Valve PV Vmax 0.64 (0.5-1.5 m/s) RVOT Vmax 0.58 m/s PV Peak Grad 1.6 mmHg RVOT Peak Gr. 1.3 mmHg PV Mean Ronak 0.46 m/s RVOT VTI 0.095 m PV Mean Grad 0.9 mmHg RVOT Mean Gr. 0.7 mmHg Tricuspid Valve RA Pressure 3.00 mmHg TR Vmax 2.71 m/s TR Peak Grad 29.3 mmHg RVSP (TR) 32.3 mmHg
--- NOTE | 2023-08-21 09:50 | PDOC.CMPRO ---
Care Management Progress Note Discharge Plan: Anticipate, Kaleigh will discharge home with [facility] PT, when medically ready. She will follow up with community providers and her discharge plan of care as instructed. Family will transport. CM will follow and support discharge needs. SDOH(Care Management) Screening Will the Patient Participate in the Screening?: Declined to provide
--- NOTE | 2023-08-21 11:03 | SP_ITS ---
Date of service: 08/21/23 Time of Service: 10:30 Subjective Clinical (Bedside) Swallow Evaluation Speech Language Pathology Referred by: Dr Mtz Referral Type: Clinical Swallow Evaluation Reason for Referral/HPI: Kaleigh Fox is a 78 yo female who was adm 08/19/23 for CVA workup after feeling off with dizzyness and reported largely dilated pupils. STEAM TABLE ATTENDANT referral placed per stroke work-up. STEAM TABLE ATTENDANT IMPRESSIONS & RECOMMENDATIONS: Kaleigh presents with WNL speech, language, and swallowing skills. There is no evidence of motor speech impairment, aphasia, or dysphagia. She reports feeling fantastic and states all symptoms have resolved. No STEAM TABLE ATTENDANT needs identified. MRI results pending during time of STEAM TABLE ATTENDANT evaluation- now read as unremarkable. FURTHER STEAM TABLE ATTENDANT SERVICES: No further STEAM TABLE ATTENDANT services indicated Diet Recommendations: Regular solids Thin Liquids Independent Meds as per patient preference SUBJECTIVE: Patient received alert/awake, agreeable to evaluation Pain Reported? None Baseline Swallow Function: Patient denies swallowing difficulty prior to admission and eats a regular diet at baseline. PO Trials Assessed: IDDSI 0 Thin Liquids IDDSI 7 Regular Solid Oral Mechanism Examination: Dentition is WFL. Oral mucosa is moist/WNL. Cranial Nerve Assessment: CN V ? Trigeminal Facial Sensation WNL Jaw Strength/ROM WNL ?WNL CN VII- Facial WNL labial ROM, strength, coordination. WNL lingual sensation WNL CN IX ? Glossopharyngeal WNL palatal elevation with phonation. No evidence of nasal emissions WNL CN X ? Vagus WNL Vocal quality and volume. Strong/sharp volitional cough WNL CX XII ? Hypoglossal WNL lingual ROM, strength, coordination WNL Oral Phase Findings: WFL Pharyngeal Phase Findings: WFL ? [place] Swallow Protocol Results: PASS Speech/Language Screening: AMRs/SMRs: WNL Cookie Theft Picture Description: WNL; provided appropriate description with accurate syntax/word choice. Generative Naming Screening: WNL for 'animals' and 's-words' ASSESSMENT: Further STEAM TABLE ATTENDANT Services not indicated Education Provided to: Patient Topics Addressed: STEAM TABLE ATTENDANT findings, rationale for STEAM TABLE ATTENDANT eval PLAN:Eval only STEAM TABLE ATTENDANT CPT Code: 98099 Clinical Swallowing Evaluation TOTAL TIME: 10 Minutes, 1030am-1040am
--- NOTE | 2023-08-21 11:23 | W.NUTRFU ---
Date of service: 08/21/23 Time of Service: 11:23 Nutrition Note NOTE: 78yo female arrived with c/o dizziness/vertigo and admitted with suspect TIA. Pt with PMH of DMII, obesity, CKD, HTN, anemia. Only takes ozempic at home for diabetes - on hold currently and glucose managed with sensitive ss novolog. A1C history is good with mostly in the 6's over the last 10 years. She splits shoppoing and cooking responsibilities with her partner at home. Denies need for diabetes education today. Fair to good po intake, weight is stable. Informed pt of diet order for heart healthy and consistent cho's. Pt assessed at lower nutrition risk this admission. Will monitor labs, weight, po intake. Time Spent in Nutritional Counseling and Treatment: 8 minutes
--- NOTE | 2023-08-21 13:18 | DSE_ITS ---
Date of service: 08/21/23 Time of Service: 13:19 DS: Diagnosis Discharge Diagnosis (1) HFrEF (heart failure with reduced ejection fraction): Status: Acute Asessment and Plan: -Patient initially presented to the ED with signs and symptoms concerning for TIA/CVA presenting after about 1 hour of an acute onset of vertigo. However, after further discussion with the patient, she did not complain of any dizziness and had more of a blurring of her vision and generalized weakness that appears to be more is presyncopal. Patient had negative head CT and MRI, and additionally symptoms improved during hospitalization. -HFrEF seen on TTE 08/20 with EF 40-45% with global hypokinesis -will be discharged with statin, betablocker, daily 81mg ASA and entresto -rec close follow-up with PCP and Cardiology (2) CKD stage G3b/A2, GFR 30-44 and albumin creatinine ratio 30-299 mg/g: Status: Chronic Asessment and Plan: -baseline (3) Hypertension: Status: Chronic Asessment and Plan: -rec continuing home regimen of dilt and metoprolol -discontinued losartan in favor of entresto as noted above (4) Chronic atrial fibrillation: Status: Chronic Asessment and Plan: -continue home regimen of dilt, metoprolol, and eliquis (5) Type 2 diabetes mellitus with microalbuminuria, without long-term current use of insulin: Status: Acute Discharge Plan Disposition Patient Disposition: Home W/Home Health Services Condition: Good Discharge Details Reason For Visit: vertigo, cva Admit Date/Time: 08/19/23 16:49 Admit Provider: Kostas Mtz Attending Provider: Kostas Mtz Primary Care Provider: Audrey Arora Hospital Course Hospital Course: Patient initially presented to the ED with signs and symptoms concerning for TIA/CVA presenting after about 1 hour of an acute onset of vertigo. However, after further discussion with the patient, she did not complain of any dizziness and had more of a blurring of her vision and generalized weakness that appears to be more is presyncopal. Patient had negative head CT and MRI, and additionally symptoms improved during hospitalization. However, she did have a TTE which showed hypokinesis of the left ventricle and an EF of 40 to 45%. Given the patient's symptoms resolved, was determined that she was stable for discharge with home health and new prescriptions including Entresto, statin, and daily 81 mg aspirin. Home Meds and New Rx's Prescriptions: New atorvastatin 40 mg Tablet 80 mg PO QPM Qty: 90 0RF aspirin [Children's Aspirin] 81 mg Tablet,Chewable 81 mg PO DAILY Qty: 90 0RF Entresto 49-51 mg tablet 1 tab PO BID Qty: 90 0RF Continued albuterol sulfate [Ventolin HFA] 90 mcg/actuation HFA aerosol inhaler 2 puff inhalation QID PRN (Reason: shortness of breath or wheezing) Qty: 8.5 0RF Ocuvite Adult 50 Plus 250-5-1 mg capsule 1 cap PO DAILY Eliquis 5 mg tablet 5 mg PO BID Qty: 180 3RF diltiazem HCl 180 mg capsule,extended release 24 hr 180 mg PO HS Qty: 90 3RF metoprolol succinate [Toprol XL] 200 mg tablet extended release 24 hr 200 mg PO DAILY Qty: 90 3RF tirzepatide 12.5 mg/0.5 mL pen injector 12.5 mg subcut QWEEK Qty: 2 5RF Hold Instructions: Formulary/Insurance Rx Instructions: Inject once weekly subcutaneously as directed. Calcium 600 + D(3) 600-125 mg-unit tablet 1 tab PO DAILY acetaminophen 500 mg tablet 1,000 mg PO Q8H PRN (Reason: pain) Qty: 90 3RF Discontinued losartan 100 mg tablet 100 mg PO DAILY Qty: 90 3RF No Action (DME) Blood Glucose Test Strip See Dose Instructions .ROUTE .MEDSUPPLY Qty: 100 5RF Dose Instruction: As directed Rx Instructions: daily E11.9 One touch Discharge Instructions Instructions: Heart Failure, Adult (DC), Heart failure with reduced ejection fraction Stand Alone Forms: Nursing Discharge Form Referrals: Audrey Arora MD [Primary Care Provider] - 08/28/23 11:20 am (Appointment with Manuelito ) Activity:: Activity as Tolerated Equipment/Supplies:: No Equipment Needed Diet:: As Tolerated Discharge Orders Discharge Orders: Discharge Order (Routine); Ordered 08/21/23 Ordered By: Zen Calvert DS: Summary Time Spent with Patient providing and/or coordinating discharge services: Greater than 30 minutes Status at Discharge Functional status at discharge: independent ambulation Overall status at discharge: patient is back to baseline Mental Status: mental status grossly normal Speech and Movement: speech and movement normal Mood: congruent mood Affect: normal affect Quality:SDOH Health Related Social Needs: No Data to Display Exam Narrative Exam Narrative: well appearing older female sitting up in the kervin in no acute distress, AOx4, heart irregularly irregular, lings CTAB, abdomen soft, non-tender, non-distended Psych Mental Status: mental status grossly normal Speech and Movement: speech and movement normal Mood: congruent mood Affect: normal affect DS: Data Vitals/I&O Vitals and I&O: Vital Signs Temperature 97.5 F L 08/21/23 07:20 Temperature Source Tympanic 08/21/23 07:20 Pulse 67 08/21/23 07:20 Pulse Rhythm Irregular 08/21/23 10:48 Pulse 75 08/19/23 17:40 Respiratory Rate 18 08/21/23 07:20 Respiratory Effort Normal, Non-Labored 08/21/23 10:48 Respiratory Depth Normal 08/21/23 10:48 Respiratory Pattern Normal 08/21/23 10:48 Blood Pressure 140/80 08/21/23 07:20 Pulse Oximetry 96 08/21/23 07:20 Oxygen Delivery Method Room Air 08/21/23 07:20 Oxygen Flow Rate 0 08/21/23 07:20 Pain Level 0 08/21/23 07:20 Intake & Output 08/20/23 08/21/23 08/21/23 17:59 05:59 17:59 Intake Total 220 / 220 240 / 460 50 / 50 Balance 220 / 220 240 / 460 50 / 50 Weight 185 lb 3.013 oz 176 lb 12.972 oz Intake: Oral 220 / 220 240 / 460 50 / 50 Other: Urine Color Yellow Urine Appearance Clear Clear Clear Comment Independent. Independent. Stool Size Moderate Stool Characteristics Formed Voiding Methods Toilet Toilet Toilet PFSH All Active Problems (Updated 08/21/23 @ 13:19 by Zen Calvert MD) HFrEF (heart failure with reduced ejection fraction) (Acute) Vertigo due to acute cerebrovascular disease (Acute) Synovitis of right wrist (Acute) Cluneal neuropathy (Acute) Right carpal tunnel syndrome (Acute) S/P OCTR: 02/28/2023 CKD stage G3b/A2, GFR 30-44 and albumin creatinine ratio 30-299 mg/g (Chronic) Class 2 obesity due to excess calories with body mass index (BMI) of 35.0 to 35.9 in adult (Acute) Low back pain (Acute) Cluneal neuropathy (Acute) SI (sacroiliac) joint dysfunction (Acute) Osteoarthritis of carpometacarpal joint of right thumb (Acute) Right rotator cuff tear (Acute) 80 mg Depo-Medrol injection: 06/13/22 Moderate mitral regurgitation by prior echocardiogram (Acute) Type 2 diabetes mellitus with microalbuminuria, without long-term current use of insulin (Acute) Anemia of chronic disease (Chronic) Chronic atrial fibrillation (Chronic) SOB (shortness of breath) (Chronic) with exertion; normal PFTs - slight restriction due to habitus, echo with mod MR Cardiomyopathy (Chronic) LVEF 42% in 08/2019; LVEF 55% 03/2022 Hypertension (Chronic) Medical History Hx of diverticulitis of colon (~03/2021) with bowel perforation. History of MRSA infection History of tobacco use Neural foraminal stenosis of lumbar spine by MRI 2019 Kidney stone Paroxysmal SVT (supraventricular tachycardia) (02/15/17) zio patch Polyp of colon (02/03/04) Surgical History History of colpocleisis (04/2023) Dr. Mckenzie at [facility] [place]; and colporrhaphy, cystourethroscopy. S/P carpal tunnel release Status post MINDA-BSO TVH, BSO with R sided uterosacral ligament suspension with Anterior Coloporrhapy. 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 Brother , AGE 82 Diabetes Heart disease Social History Smoking/Tobacco Use Status: Former Tobacco Use Quit Date: 03/06/81 Second Hand Exposure: Yes Smoking risk assessment performed?: Yes Alcohol Intake: never Drug use: Never Substance use type: does not use Household members: spouse Housing: house Number of Children: 2 number of grandchildren: 4 Communication Needs: None Do you need help understanding health information?: Often current occupation: retired from retail, farm work Pets and animals: Yes Pets and animals: dog(s) Sexually active: No Do you think of yourself as: straight/heterosexual Current gender identity: female How often do you talk on the phone with friends or family?: three or more times per week How often do you get together with friends or relatives?: decline to answer How often do you attend restorationist or nondenominational services?: decline to answer Do you belong to any clubs or organized social groups?: decline to answer Panel score (0-1 are the most socially isolated patients): 1 Radha/Mosque: Congregation Special radha needs: No Seatbelt use: always Drive intox or ride w/intox delivery route driver: No Do you feel safe at home: Yes Do you feel safe in your relationship?: Yes Additional Social history: Enjoys playing golf, bowling. Time Spent with Patient Time Spent with Patient: <45 minutes Time was spent: preparing to see the patient(eg.review tests), obtaining and/or reviewing separately otained hiistory, ordering medications,tests, procedures, referring, communicating with other health post acute care registered nurse, indepentently interpreting results, counseling the patient and care coordination
--- NOTE | 2023-08-21 13:20 | PDOC.HHF2F ---
Home Health Referral Home Health Orders Clinical synopsis of why skilled professionals are needed: HFrEF, a-fib on anticoagulation Registered Nurse: Check all that apply Instruct on new or changed medication(s)/assess compliance: Ordered Assess for exacerbation of medical condition, instruct patient/caregivers on signs and symptoms to report for early detection: Ordered Physical Therapist: Check all that apply Increase strength & endurance for safe mobility at home: Ordered To design/establish home maintenance program: Ordered Fall reduction therapy program for patient with history of frequent falls: Ordered Home safety evaluation and teaching/gait training including stair management (if applicable): Ordered Encounter Date and Reason: I certify that a FTF encounter for this patient was performed on August 21, 2023 and that such encounter was related to the primary reason the patient requires home health services. The encounter was conducted in the following manner: By me as the certifying physician, ENGINE LATHE SET UP OPERATOR, PA or By an inpatient physician, ENGINE LATHE SET UP OPERATOR or PA during an inpatient stay who communicated findings to me, Certification And Authentication I certify that I composed the above information based on my clinical judgment relating to this patient's medical condition and, if applicable, clinical findings communicated to me by the NPP or inpatient physician who performed the FTF encounter. Name of Provider that will be monitoring home health services: Audrey Arora
--- NOTE | 2023-08-21 16:37 | PDOC.CMDIS ---
Date of service: 08/21/23 Time of Service: 16:37 LACE Index Scoring Tool Questions: Length of Stay (in days): 2 Was the patient admitted via the E.D.?: Yes Comorbidities: Cerebrovascular Disease, Diabetes w/o Complication and Liver or Renal Disease E.D. Visits: 1 Answers: Total Score: 11 Risk of Readmission: High Risk Care Management Discharge Plan Reason for Hospitalization: vertigo Discharge Plan: Kaleigh will be discharged home with new home health orders for PT and nursing. She will follow up with her PCP and plan of care and transport with family. Patient/Family Education Needs: Review discharge instructions, discuss Ask Me Three Services Needed at Discharge: Home Health Care Services (RN and PT) SDOH Health Related Social Needs: No Data to Display
== END 2023-08-21 14:08 | disposition home health service (06) | DRG 69 ==
LOC: ER 17:43 → MS 17:49
PROVIDERS: Emergency Medicine; Admitting Provider Internal Medicine; PCP Family Medicine; Visit Provider Internal Medicine
DX: G45.9 Transient cerebral ischemic attack, unspecified (principal); I13.0 Hypertensive heart and chronic kidney disease with heart failure and stage 1 through stage 4 chronic kidney disease, or unspecified chronic kidney disease; I48.20 Chronic atrial fibrillation, unspecified; I42.8 Other cardiomyopathies; I50.20 Unspecified systolic (congestive) heart failure; I47.10 Supraventricular tachycardia, unspecified; I67.89 Other cerebrovascular disease; N18.32 Chronic kidney disease, stage 3b; E11.22 Type 2 diabetes mellitus with diabetic chronic kidney disease; R80.9 Proteinuria, unspecified; Z79.01 Long term (current) use of anticoagulants; Z79.84 Long term (current) use of oral hypoglycemic drugs; R26.0 Ataxic gait; H53.2 Diplopia; E66.9 Obesity, unspecified; M54.50 Low back pain, unspecified; I34.0 Nonrheumatic mitral (valve) insufficiency; D63.8 Anemia in other chronic diseases classified elsewhere; Z87.891 Personal history of nicotine dependence; R53.1 Weakness; Z68.34 Body mass index [BMI] 34.0-34.9, adult
CPT/HCPCS: 00123; 36415; 36416; 70496; 70498; 80053; 80061; 82962; 92610; 93005; 93306; 97161; 99285; 70450; 70551; 71045; 83036; 83735; 84484; 85025; 93010; 99222; 99231; 99238; J1815; J3490

== ENCOUNTER 2023-09-06 12:10 | Outpatient (CLI) | payer MEDICARE, SELFPAY ==
--- NOTE | 2023-09-06 06:00 | DI.RAD_ITS ---
Exam(s) XR PAIN CLINIC LUMBAR SP 2V EXAM: XR PAIN CLINIC LUMBAR SP 2V CLINICAL HISTORY: Dx: Cluneal neuropathy TECHNIQUE: 2D and realtime digital imaging was performed. CONTRAST MATERIAL: Refer to procedure report. COMPARISON: No exams were available for comparison FINDINGS: Fluoroscopy was provided for Dr. Castano during the performance of a cluneal nerve radiofrequency ablat ion. Please refer to the procedure report for complete details. Ka,r=10.4 mGy IMPRESSION: RADIATION DOSE DELIVERED: 0.0 0.0 0
[2023-09-06 12:34] VITALS: BP 136/74; PULSE 62; RESP 20; TEMP 36.4; O2SAT 99
[2023-09-06 12:57] VITALS: PULSE 75; RESP 20; O2SAT 96
[2023-09-06 13:00] VITALS: PULSE 76; RESP 16; O2SAT 99
[2023-09-06 13:31] VITALS: BP 130/84
[2023-09-06] MEDS: methylPREDNISolone ACETATE 40 MG/ML VIAL IJ (13:40)
[2023-09-06] MEDS: Bupivacaine 0.5% Pres-Free 10 ML VIAL IJ (13:40)
[2023-09-06] MEDS: Lidocaine 2% Multi-Dose 20 ML VIAL IJ (13:40)
[2023-09-06] MEDS: Nerve Block Tray 1 EACH MC (13:40)
--- NOTE | 2023-09-06 14:18 | PDOC.PAIN ---
Date of service: 09/06/23 Time of Service: 13:45 Pain Managment Procedure Note Procedure Note Procedure Note: PROCEDURE NOTE LEFT SUPERIOR AND MEDIAL CLUNEAL NERVE RADIOFREQUENCY ABLATION Date of Service: September 06, 2023 Patient:? Kaleigh Fox? Provider:? Tyrone Castano DO, MPH Kaleigh Fox [facility] left Superior and Medical Cluneal nerve Ablation with the [employer] Machine.? Pre Operative Diagnosis: Cluneal neuropathy Post Operative Diagnosis: Same Pre procedure pain; VAS= 9-10/10 Comments: She previously had the left superior and medial cluneal nerve blocks PROCEDURE: Radiofrequency Ablation of left Superior and medical Cluneal nerves. Kaleigh?was interviewed and the medical record was reviewed.? There were no medical, pharmacologic, radiographic or other structural contraindications to attempting fluoroscopically guided LEFT Cluneal nerve Ablation.?Risks and expected side effects as well as potential benefit of the procedure were reviewed with Kaleigh, and the patient's voiced concerns were addressed.? The printed consent form was signed.? Standard time-out procedure was performed. Kaleigh was brought into the fluoroscopy suite and positioned into the prone position on the fluoroscopy table and allowed to adjust to a position of comfort. A grounding pad was placed on the left abdomen. The sterile field was prepared using chlorhexidine preparation of the skin and sterile draping. Local anesthesia superficial and deep was provided by local infiltration of 2% lidocaine. A 17g 100 mm radiofrequency introducer needle was placed to the planned anatomic targets guided with intermittent fluoroscopy with a perpendicular approach to to the medial and superior aspects of the left iliac crest. The stylets were removed and radiofrequency probes with a 4mm active tip were then inserted. Needle tip position of the probes was verified in the AP, oblique, and lateral views. At each site, the nerve was stimulated at 2 Hz to a maximum 1-2 volts determined to finalize safe needle and electrode placement. The patient was awake and responsive during this portion of the procedure. The needle was repositioned twice to achieve the entire surface area of the likely distribution of the Medial and Superior Cluneal nerves. Each target was anesthetized with 1-2 mL of 2% Lidocaine for anesthesia for lesioning and then each target was lesioned at 80 degrees Celsius for 2 minutes and 30 seconds. Tissue impedances were noted to be between 250 and 500 Ohms. There was no unusual discomfort expressed by Kaleigh. I next injected 1/6 cc of Depomedrol followed by 1 cc of 0.5% Bupivacaine at each location. The needles were withdrawn without difficulty and bandages placed over the needle placement sites, the patient was observed and was without hemodynamic, neurologic, or allergic reactions. Fluoroscopic images were digitally archived. POST PROCEDURE EVALUATION: IMPRESSION: 1. Summary of procedure. Medication given is documented in the MAR. 2. Follow up plan: Kaleigh to contact [facility] as needed.?This procedure may be repeated if the patient achieves at least 50% improvement in pain/function for at least 6 months. 3. Estimated Blood Loss: <5 mls 4. Fluoroscopy time: Documented in the EMR. Follow up plans and appointments were discussed with the Kaleigh. Post procedure instruction was given as documented in nursing documentation and having met discharge criteria, Kaleigh was discharged from the [facility]. COMMENTS: No apparent complications. Post-procedure pain: VAS= 0/10. I personally completed the entire procedure. TYRONE CASTANO DO, MPH ABPM&R - Subspecialty board certification in Pain Medicine [facility] [facility]
== END 2023-09-06 12:11 | disposition home or self-care (01) ==
LOC: PC 12:11
PROVIDERS: PCP Family Medicine; Visit Provider Preventive Medicine Occupational Medicine
DX: G58.8 Other specified mononeuropathies (principal); M54.50 Low back pain, unspecified
CPT/HCPCS: 64450; 72100; J0665; J1010; J2003

== ENCOUNTER → 2023-09-28 09:25 | Outpatient (BNVA) | payer MEDICARE, SELFPAY | PROVIDERS: PCP Family Medicine; Referring Provider Family Medicine; Visit Provider Student in an Organized Health Care Education/Training Program | DX: M65.9 Synovitis and tenosynovitis, unspecified (principal); G56.01 Carpal tunnel syndrome, right upper limb | CPT/HCPCS: 99213 ==

== ENCOUNTER 2023-10-23 04:05 | Outpatient (CLI) | payer MEDICARE, SELFPAY ==
[2023-10-23 12:30] LABS: Abs Immature Grans 0.02 10^3/uL (0.0-0.06); Absolute Basophil Count 0.08 10^3/uL (0.0-0.2); Absolute Eosinophil Count 0.38 10^3/uL (0.0-0.7); Absolute Lymphocyte Count 1.73 10^3/uL (1.2-3.4); Absolute Monocyte Count 0.67 10^3/uL (0.1-0.8); Absolute Neutrophil Count 6.94 10^3/uL (1.2-6.7); Basophils % 0.8 %; Eosinophils % 3.9 %; HCT 43.1 % (36.0-46.0); HGB 14.2 g/dL (11.2-15.7); Immature Grans % 0.2 %; Lymphocytes % 17.6 %; MCHC 32.9 % (32.0-36.0); MCV 94 fL (80-95); MPV 11.6 fL (8.0-11.0); Monocytes % 6.8 %; Neutrophils % 70.7 %; Platelet Count 169 10^3/uL (130-400); RBC 4.58 10^6/uL (3.93-5.22); RDW 13.5 % (11.7-14.6); RDW-SD 46.5 fL; WBC 9.82 10^3/uL (4.4-10.8)
[2023-10-23 12:44] LABS: Hemoglobin A1C 6.6 % (<5.7)
[2023-10-23 12:53] LABS: Calculated LDL 33 mg/dL (<100); Cholesterol 118 mg/dL (<200); HDL Cholesterol 67 mg/dL (40-60); Triglyceride 90 mg/dL (<150)
[2023-10-23 13:03] LABS: ALT 26 U/L (14-59); AST 17 U/L (15-37); Albumin 3.7 g/dL (3.4-5.0); Alkaline Phosphatase 92 U/L (46-116); Anion Gap 8.4 mmol/L (3-11); BUN 20 mg/dL (7-18); Bilirubin, Total 1.15 mg/dL (0.2-1.0); CO2 27.6 mmol/L (21.0-32.0); Calcium 9.7 mg/dL (8.5-10.1); Chloride 103 mmol/L (98-107); Estimated GFR 58.02 (mL/min/1.73m2); Glucose 129 mg/dL (74-106); Potassium 4.2 mmol/L (3.5-5.1); Sodium 139 mmol/L (136-145); Total Protein 7.2 g/dL (6.4-8.2); Vitamin D 25 Total 27.2 ng/mL (30-100)
== END 2023-10-23 04:06 | disposition home or self-care (01) ==
LOC: LOS 04:05
PROVIDERS: Nurse Practitioner Family; PCP Family Medicine; Visit Provider Family Medicine
DX: N18.32 Chronic kidney disease, stage 3b (principal); Z00.00 Encounter for general adult medical examination without abnormal findings; E11.29 Type 2 diabetes mellitus with other diabetic kidney complication; R80.9 Proteinuria, unspecified
CPT/HCPCS: 36415; 80053; 80061; 82306; 83036; 85025

== ENCOUNTER 2023-12-07 15:50 | Outpatient (CLI) | payer MEDICARE, SELFPAY ==
--- NOTE | 2023-12-07 15:21 | DI.RAD_ITS ---
Exam(s) XR WRIST LT COMPLETE EXAM: XR WRIST LT COMPLETE CLINICAL HISTORY: LEFT THUMB PAIN. TECHNIQUE: 2D digital imaging was performed. Three views. COMPARISON: CR XR WRIST RT COMPLETE from 06/13/2022 FINDINGS: BONES: No acute fracture is present. No bony destructive lesion is seen. JOINTS: Severe degenerative changes are present at the 1st carpal metacarpal joint. There is periart icular spurring and lateral subluxation at the joint. Adjacent small bony fragments. No significant degenerative changes elsewhere. SOFT TISSUE: Vascular calcifications. Swelling around the wrist. IMPRESSION: Severe degenerative changes at the 1st carpal metacarpal joint. DATA REPOSITORY: RADIATION DOSE DELIVERED:
== END 2023-12-07 15:51 | disposition home or self-care (01) ==
LOC: DIORS 15:50
PROVIDERS: PCP Family Medicine; Referring Provider Family Medicine; Visit Provider Student in an Organized Health Care Education/Training Program
DX: M65.4 Radial styloid tenosynovitis [de Quervain]; M18.12 Unilateral primary osteoarthritis of first carpometacarpal joint, left hand
CPT/HCPCS: 20550; J1010; 73110

== ENCOUNTER → 2024-02-23 09:12 | Outpatient (BNVA) | payer MEDICARE, SELFPAY | PROVIDERS: PCP Family Medicine; Visit Provider Internal Medicine Cardiovascular Disease | DX: I42.8 Other cardiomyopathies (principal); I48.20 Chronic atrial fibrillation, unspecified | CPT/HCPCS: 99213 ==

== ENCOUNTER 2024-05-01 03:27 | Outpatient (CLI) | payer MEDICARE, SELFPAY ==
[2024-05-01 12:25] LABS: Abs Immature Grans 0.03 10^3/uL (0.0-0.06); Absolute Basophil Count 0.07 10^3/uL (0.0-0.2); Absolute Eosinophil Count 0.19 10^3/uL (0.0-0.7); Absolute Lymphocyte Count 2.07 10^3/uL (1.2-3.4); Absolute Monocyte Count 0.57 10^3/uL (0.1-0.8); Absolute Neutrophil Count 6.49 10^3/uL (1.2-6.7); Basophils % 0.7 %; HCT 43.9 % (36.0-46.0); HGB 14.4 g/dL (11.2-15.7); Immature Grans % 0.3 %; MCH 30.4 pg (27.0-33.0); MCHC 32.8 % (32.0-36.0); MCV 93 fL (80-95); MPV 12.1 fL (8.0-11.0); Monocytes % 6.1 %; Neutrophils % 68.9 %; Platelet Count 198 10^3/uL (130-400); RBC 4.74 10^6/uL (3.93-5.22); RDW 12.6 % (11.7-14.6); RDW-SD 42.8 fL; WBC 9.42 10^3/uL (4.4-10.8)
[2024-05-01 12:58] LABS: ALT 13 U/L (14-59); AST 12 U/L (15-37); Albumin 3.7 g/dL (3.4-5.0); Alkaline Phosphatase 94 U/L (46-116); Anion Gap 6.7 mmol/L (3-11); BUN 27 mg/dL (7-18); Bilirubin, Total 0.73 mg/dL (0.2-1.0); CO2 29.3 mmol/L (21.0-32.0); CREATININE 1.2 mg/dL (0.55-1.02); Calcium 9.9 mg/dL (8.5-10.1); Chloride 104 mmol/L (98-107); Estimated GFR 46.33 (mL/min/1.73m2); Glucose 154 mg/dL (74-106); Potassium 4.5 mmol/L (3.5-5.1); Sodium 140 mmol/L (136-145); Total Protein 7.2 g/dL (6.4-8.2); Vitamin D 25 Total 23.1 ng/mL (30-100)
[2024-05-01 13:05] LABS: Hemoglobin A1C 6.5 % (<5.7)
== END 2024-05-01 03:28 | disposition home or self-care (01) ==
LOC: LOS 03:27
PROVIDERS: PCP Family Medicine; Visit Provider Family Medicine
DX: Z00.00 Encounter for general adult medical examination without abnormal findings (principal); N18.32 Chronic kidney disease, stage 3b; E11.9 Type 2 diabetes mellitus without complications; E11.29 Type 2 diabetes mellitus with other diabetic kidney complication; R80.9 Proteinuria, unspecified
CPT/HCPCS: 36415; 80053; 82306; 83036; 85025

== ENCOUNTER 2024-05-08 09:42 | Outpatient (REF) | payer MEDICARE, SELFPAY ==
[2024-05-08 17:30] LABS: Microalb ug/mg Crea 71.3 ug/mg Cr
== END 2024-05-08 09:43 | disposition home or self-care (01) ==
LOC: LBN 09:42
PROVIDERS: PCP Family Medicine; Visit Provider Family Medicine
DX: E11.9 Type 2 diabetes mellitus without complications (principal); E11.29 Type 2 diabetes mellitus with other diabetic kidney complication; R80.9 Proteinuria, unspecified; I50.20 Unspecified systolic (congestive) heart failure; S76.012A Strain of muscle, fascia and tendon of left hip, initial encounter
CPT/HCPCS: 82043; 82570

== ENCOUNTER 2024-08-19 00:11 | Outpatient (CLI) | payer MEDICARE, SELFPAY ==
--- NOTE | 2024-08-19 11:15 | DI.DEXA_ITS ---
Exam(s) XR DEXA BONE DENSITY W/WO ROD EXAM: XR DEXA BONE DENSITY W/WO ROD CLINICAL HISTORY: screening for osteoporosis,menopausal disorder,n95.9 TECHNIQUE: COMPARISON: No exams were available for comparison FINDINGS: Lateral Spine Image: Unremarkable. No compression deformities identified. Right hip: Total T-Score: 1.2 Total Z-Score: 3.1 T- and Z-scores: Within normal limits. Lumbar Spine: Total T-Score: 4.1 Total Z-Score: 6.6 T- and Z-scores: Within normal limits. IMPRESSION: No evidence of osteoporosis.
== END 2024-08-19 00:31 ==
PROVIDERS: PCP Family Medicine; Visit Provider Family Medicine
DX: Z13.820 Encounter for screening for osteoporosis (principal); N95.9 Unspecified menopausal and perimenopausal disorder
CPT/HCPCS: 77080

== ENCOUNTER 2024-10-04 13:17 | Outpatient (CLI) | payer MEDICARE, SELFPAY ==
--- NOTE | 2024-10-04 13:15 | DI.RAD_ITS ---
Exam(s) XR HIP RT COMPLETE AP PELVIS EXAM: XR HIP RT COMPLETE AP PELVIS CLINICAL HISTORY: evaluate pathology M25.551 PAIN RT HIP. TECHNIQUE: 2D digital imaging was performed. COMPARISON: CR XR DEXA BONE DENSITY W/WO ROD from 08/19/2024 FINDINGS: There is no evidence of pelvic nor obvious hip fractures. Additional frontal lateral view of the right hip does not reveal additional findings nor joint space narrowing. Bone density is age-appropriate. No osseous lesions. IMPRESSION: DATA REPOSITORY: RADIATION DOSE DELIVERED:
--- NOTE | 2024-10-04 13:15 | DI.RAD_ITS ---
Exam(s) XR SACROILIAC JOINTS EXAM: XR SACROILIAC JOINTS CLINICAL HISTORY: evaluate pathology M53.3 SACROCOCCYGEAL DISORDER JOINT PAIN. TECHNIQUE: 2D digital imaging was performed. COMPARISON: No exams were available for comparison FINDINGS: 3 views No evidence of pelvic or sacral fracture. Multilevel chronic degenerative disc disease. Facet joints exhibit mild degenerative changes, age appropriate. No ankylosis. No obvious radiographic evidence of sacroiliitis. IMPRESSION: No significant focal findings in the sacroiliac joints which appear age-appropriate. DATA REPOSITORY: RADIATION DOSE DELIVERED:
--- NOTE | 2024-10-04 13:15 | DI.RAD_ITS ---
Exam(s) XR LUMBAR SPINE COMPLETE EXAM: XR LUMBAR SPINE COMPLETE CLINICAL HISTORY: evaluate pathology M54.50 LOW BACK PAIN. TECHNIQUE: 2D digital imaging was performed. COMPARISON: CR XR DEXA BONE DENSITY W/WO ROD from 08/19/2024 FINDINGS: Five views. No evidence of fracture or listhesis nor pars defects. There is multilevel disc space narrowing which is most prominent at L2-3 level. There is also vacuum phenomena seen within multiple diminished disc spaces throughout the lumbosacral spinal column. Bone density is age-appropriate. No osseous lesions. There appear to have been prior laminectomies in the lower lumbar spine levels. There is no scoliosis. Sacroiliac joints appear unremarkable. No obvious sacral fracture. IMPRESSION: Multilevel chronic degenerative disc disease. Multilevel facet arthropathy. Multilevel laminectomies. DATA REPOSITORY: RADIATION DOSE DELIVERED:
== END 2024-10-04 13:37 ==
LOC: DI 13:18
PROVIDERS: PCP Family Medicine; Visit Provider Nurse Practitioner Family
DX: M53.3 Sacrococcygeal disorders, not elsewhere classified (principal); M51.362 Other intervertebral disc degeneration, lumbar region with discogenic back pain and lower extremity pain
CPT/HCPCS: 72110; 72202; 73502

== ENCOUNTER → 2024-11-11 08:50 | Outpatient (BNVA) | payer MEDICARE, SELFPAY | PROVIDERS: PCP Family Medicine; Referring Provider Family Medicine; Visit Provider Student in an Organized Health Care Education/Training Program | DX: G56.02 Carpal tunnel syndrome, left upper limb (principal) | CPT/HCPCS: 99214 ==

== ENCOUNTER 2024-11-27 06:08 | Day surgery (SDC) | payer MEDICARE, SELFPAY ==
[2024-11-27 06:32] VITALS: BP 128/76; PULSE 62; RESP 20; TEMP 36.1; O2SAT 97
--- NOTE | 2024-11-27 07:08 | W.PM.DSUDISC ---
Date of service: 11/27/24 Discharge Plan Disposition Patient Disposition: Home Condition: Good Discharge Details Reason For Visit: L ECTR Attending Provider: Margarito Melgoza Primary Care Provider: Audrey Arora Home Meds and New Rx's Prescriptions: New acetaminophen 500 mg tablet 1,000 mg PO TID Qty: 90 0RF Continued albuterol sulfate [Ventolin HFA] 90 mcg/actuation HFA aerosol inhaler 2 puff inhalation QID PRN (Reason: shortness of breath or wheezing) Qty: 8.5 0RF Eliquis 5 mg tablet 5 mg PO BID Qty: 180 3RF sacubitril-valsartan [Entresto] 49-51 mg tablet 1 tab PO BID Qty: 180 3RF Ocuvite Adult 50 Plus 250-5-1 mg capsule 1 cap PO DAILY (DME) Blood Glucose Test Strip See Dose Instructions .ROUTE .MEDSUPPLY Qty: 100 5RF Dose Instruction: As directed Rx Instructions: daily E11.9 One touch metoprolol succinate [Toprol XL] 200 mg tablet extended release 24 hr 200 mg PO DAILY Qty: 90 3RF diltiazem HCl 180 mg capsule,extended release 24 hr 180 mg PO HS Qty: 90 3RF atorvastatin 80 mg tablet 80 mg PO QHS Qty: 90 3RF aspirin [Children's Aspirin] 81 mg tablet,chewable 81 mg PO DAILY Qty: 90 3RF tirzepatide 15 mg/0.5 mL pen injector 15 mg subcut QWEEK Qty: 2 5RF Rx Instructions: Inject once weekly subcutaneously as directed. Calcium 600 + D(3) 600-125 mg-unit tablet 1 tab PO DAILY acetaminophen 500 mg tablet 1,000 mg PO Q8H PRN (Reason: pain) Qty: 90 3RF Discharge Instructions Stand Alone Forms: [place] Tunnel Release Activity:: Activity as Tolerated Remove Dressings/Wound Care:: 48 hours Shower/Bathe:: 48 hours Diet:: As Tolerated Discharge Orders Discharge Orders: Discharge Order (Routine); Ordered 11/27/24 Ordered By: Krish Lacy DS: Diagnosis Discharge Diagnosis (1) Carpal tunnel syndrome, left: Status: Acute
[2024-11-27] MEDS: Lidocaine 1% Pres-Free W/EPI 1/200,000 10 ML VIAL (07:42)
[2024-11-27] MEDS: Sodium Bicarbonate 50 MEQ/50 ML VIAL (07:42)
[2024-11-27 07:48] VITALS: BP 146/73; PULSE 63; RESP 18; TEMP 35.9; O2SAT 95
--- NOTE | 2024-11-27 11:15 | W.PM.OP ---
Operative Note Operative Note PRE-OP DIAGNOSIS: Left Carpal Tunnel Syndrome POST-OP DIAGNOSIS: same PROCEDURE: Left Endoscopic Carpal Tunnel Release SURGEON: Margarito Melgoza ANESTHESIA TYPE: Local By Surgeon Refer to Anesthesia Record ESTIMATED BLOOD LOSS: 0 PATHOLOGY: none sent TOURNIQUET TIME: 9 COMPLICATIONS: None Patient was transported to: same day Patient's condition: stable Indications: I have seen Kaleigh in clinic for symptoms of carpal tunnel syndrome. The numbness, tingling, and pain limited function. Clinical exam findings confirmed the diagnosis of carpal tunnel syndrome. Nonoperative measures such as bracing, time, activity modifications had been tried but disability and pain persisted. I discussed carpal tunnel release with the patient. I reviewed the risks of the procedure to include, but not limited to, bleeding, infection, pain, stiffness, incomplete release, damage to nerves or vessels, persistent numbness, recurrence. Despite these risks, the patient elected to proceed. Findings: There was tightened carpal tunnel. This was dilated and released successfully with the endoscopic with increased space within the tunnel. The antebrachial fascia was released proximally freeing the median nerve at the wrist. Procedure Description: Kaleigh was greeted in the preoperative holding area where the correct side was identified and marked. The consent was reviewed with the patient and signed. The history and physical was updated. All questions were answered. She was taken back to the operating room. The patient was placed into the supine position on the operating room table with the left arm on an arm board. A nonsterile tourniquet was placed high onto the arm. All bony prominences were well padded. Prophylactic antibiotics in the form of Cephalexin were administered in DSU. The left arm was then prepped with Chloraprep and draped in a standard fashion with stockinette and extremity drape. A timeout to confirm correct identity, side and site, procedure, allergies, anesthesia, and medical concerns was performed. The surgical site was marked in the volar wrist creases in line with the radial border of the fourth ray. This area was anesthetized with approximately 6cc of 1% Lidocaine. The limb was then exsanguinated with an Esmarch. The skin was incised with a 15 blade, approximately 1cm. The skin only was cut and the deeper tissue was dissected bluntly with a tenotomy scissor, avoiding passing nerve and venous structures. The fascia was penetrated and opened bluntly. A two-prong skin hook was placed under this proximal fascial edge. A series of hamate finders were used to identify and dilate the carpal tunnel. Synovial elevator was used to free synovial attachments to the underside of the transverse carpal ligament. My thumb was kept in the palm to yoselin the distal extent of the carpal tunnel and correctly position the hand. The Microaire endoscope was inserted without difficulty and without resistance. There was notable synovitis seen within the carpal tunnel. The synovial elevator was once again reinserted and the transverse carpal lumen was prepared once again. Then, the scope was reinserted and excellent visualization showed horizontally running fibers of the transverse carpal ligament (TCL). The distal extent of the TCL was visualized and the end of the scope palpated with the thumb. The blade was elevated and withdrawn from distal to proximal. The TCL was split into two flaps. The endoscope was reinserted to confirm complete release and any remnant ligament was incised. The scope was withdrawn and the proximal aspect of the carpal tunnel was grossly inspected and appeared release with the median nerve visible. The antebrachial fascia at the level of the wrist was then freed from the overlying skin and then the underlying median nerve with blunt dissection. This was transected longitudinally for about 3cm proximal to the wrist incision. The wound was then irrigated with easy flow of irrigant distally and proximally. The incision was closed with a single 4-0 Nylon suture. The wound was dressed with Xeroform, Gauze, Kerlix and Roman. The tourniquet was deflated with the initial dressing and held with some pressure. Blood flow returned easily to all digits with capillary refill less than 2 seconds. The patient tolerated the procedure well and was returned to the Same Day Surgery area in a stable condition suffering no known complication. Date of Procedure: 11/27/24
== END 2024-11-27 08:02 | disposition home or self-care (01) ==
PROVIDERS: PCP Family Medicine; Visit Provider Student in an Organized Health Care Education/Training Program
PROC: 01N54ZZ Release Median Nerve, Percutaneous Endoscopic Approach (ICD-10-PCS; CPT 29848; principal; 2024-11-27 07:30)
DX: G56.02 Carpal tunnel syndrome, left upper limb (principal)
CPT/HCPCS: 29848; J2004

== ENCOUNTER → 2024-12-06 08:52 | Outpatient (BNVA) | payer MEDICARE, SELFPAY | PROVIDERS: PCP Family Medicine; Referring Provider Family Medicine; Visit Provider Physician Assistant | DX: Z47.89 Encounter for other orthopedic aftercare (principal); G56.02 Carpal tunnel syndrome, left upper limb | CPT/HCPCS: 99024 ==

== ENCOUNTER 2025-02-13 01:32 | Outpatient (CLI) | payer MEDICARE, SELFPAY ==
[2025-02-13 14:32] LABS: Abs Immature Grans 0.03 10^3/uL (0.0-0.06); HCT 41.2 % (36.0-46.0); HGB 14.1 g/dL (11.2-15.7); Immature Grans % 0.2 %; MCH 32.2 pg (27.0-33.0); MCHC 34.2 % (32.0-36.0); MCV 94 fL (80-95); MPV 11.5 fL (8.0-11.0); Platelet Count 196 10^3/uL (130-400); RBC 4.38 10^6/uL (3.93-5.22); RDW 12.7 % (11.7-14.6); RDW-SD 44.1 fL; WBC 12.11 10^3/uL (4.4-10.8)
[2025-02-13 14:48] LABS: Hemoglobin A1C 6.0 % (<5.7)
[2025-02-13 14:51] LABS: Vitamin D 25 Total 51 ng/mL (30-100)
[2025-02-13 15:04] LABS: ALT 10 U/L (10-49); AST 14 U/L (<34); Albumin 4.3 g/dL (3.2-5.0); Alkaline Phosphatase 77 U/L (46-116); Anion Gap 9.3 mmol/L (3-11); BUN 21 mg/dL (9-23); Bilirubin, Total 1.0 mg/dL (0.2-1.2); CO2 25.7 mmol/L (20.0-31.0); Calcium 9.9 mg/dL (8.3-10.6); Chloride 105 mmol/L (98-107); Cholesterol 104 mg/dL (<200); Ferritin 146 ng/mL (7-271); Glucose 134 mg/dL (74-106); HDL Cholesterol 54 mg/dL (>40); Potassium 4.3 mmol/L (3.5-5.1); Sodium 140 mmol/L (136-145); Total Protein 7.2 g/dL (5.7-8.2)
[2025-02-13 17:19] LABS: Microalb ug/mg Crea 1307.4 ug/mg Cr
== END 2025-02-13 01:33 | disposition home or self-care (01) ==
LOC: LOS 01:32
PROVIDERS: PCP Family Medicine; Visit Provider Family Medicine
DX: N18.32 Chronic kidney disease, stage 3b (principal); E11.9 Type 2 diabetes mellitus without complications; E11.29 Type 2 diabetes mellitus with other diabetic kidney complication; R80.9 Proteinuria, unspecified; N39.0 Urinary tract infection, site not specified
CPT/HCPCS: 36415; 80053; 80061; 82306; 82043; 82570; 82728; 83036; 83970; 85025; 87086

== ENCOUNTER 2025-02-13 10:10 | Outpatient (REF) | payer MEDICARE, SELFPAY | END 2025-02-13 10:11 | disposition home or self-care (01) | LOC: LBN 10:10 | PROVIDERS: PCP Family Medicine; Visit Provider Family Medicine | DX: N39.0 Urinary tract infection, site not specified (principal) | CPT/HCPCS: 87086 ==

== ENCOUNTER 2025-02-19 09:50 | Outpatient (REF) | payer MEDICARE, SELFPAY ==
[2025-02-19 15:36] LABS: Glucose Negative (Negative)
[2025-02-19 15:44] LABS: Prot/Crea Ur Ratio 0.66 mg/mg Cr
[2025-02-19 15:53] LABS: RBC >50 HPF (0-2)
[2025-02-20 15:40] LABS: Albumin, Urine % 46.6 %; Albumin, Urine mg/dL 30 mg/dL; Globulins, Urine % 53.4 %; Globulins, Urine mg/dL 35 mg/dL
== END 2025-02-19 09:51 | disposition home or self-care (01) ==
LOC: LBN 09:50
PROVIDERS: PCP Family Medicine; Visit Provider Family Medicine
DX: N18.32 Chronic kidney disease, stage 3b (principal); R30.0 Dysuria; R31.9 Hematuria, unspecified; E11.29 Type 2 diabetes mellitus with other diabetic kidney complication; R80.9 Proteinuria, unspecified; I10 Essential (primary) hypertension
CPT/HCPCS: 84156; 84166; 86335; 81003; 81015; 82565

== ENCOUNTER → 2025-02-21 09:01 | Outpatient (BNVA) | payer MEDICARE, SELFPAY | PROVIDERS: PCP Family Medicine; Referring Provider Family Medicine; Visit Provider Internal Medicine Cardiovascular Disease | DX: I42.8 Other cardiomyopathies (principal); I48.20 Chronic atrial fibrillation, unspecified; Z79.01 Long term (current) use of anticoagulants | CPT/HCPCS: 99213 ==